=== PATIENT | male | born 1945 | race Caucasian/White ===

== ENCOUNTER → 2018-03-22 14:39 | Outpatient (CLI) | payer MEDICARE, OTHER, SELFPAY ==
[2018-03-22 16:00] LABS: Hemoglobin A1C% w Est Avg Glu 6.4 % (4.0-6.0)
[2018-03-22 16:28] LABS: Alanine Aminotransferase 29 IU/L (21-72); Albumin 4.1 g/dL (3.5-5.0); Albumin Globulin Ratio 1.4 (1.0-2.8); Alkaline Phosphatase 65 U/L (38-126); Aspartate Aminotransferase 16 IU/L (17-59); BUN Creatinine Ratio 48.8 (6-22); Bilirubin Total 0.6 mg/dL (0.2-1.3); Blood Urea Nitrogen 39 mg/dL (9-20); Calcium 9.9 mg/dL (8.4-10.2); Carbon Dioxide 27 mmol/L (22-32); Chloride 102 mmol/L (98-107); Estimated Glomerular Filt Rate > 60.0 mL/min (>60); Globulin 2.9 g/dL (1.7-4.1); Glucose 97 mg/dL (80-110); HEMOLYSIS < 15 (0-50); Potassium 4.7 mmol/L (3.4-5.1); Sodium 142 mmol/L (137-145)
== END ==
PROVIDERS: PCP Internal Medicine; Visit Provider Internal Medicine
DX: E66.01 Morbid (severe) obesity due to excess calories (principal); E11.9 Type 2 diabetes mellitus without complications
CPT/HCPCS: 36415; 80053; 83036

== ENCOUNTER 2018-04-19 14:52 | Inpatient (IN) | payer MEDICARE, OTHER, SELFPAY ==
[2018-04-19] VITALS (17 sets, daily range): BP systolic 112–185; BP diastolic 53–99; PULSE 83–144; RESP 28–42; TEMP 36.8–38.6; O2SAT 93–99; BMI 46.7
--- NOTE | 2018-04-19 | DI.ECHO.S_ITS ---
[facility] +---------+ : : [address] : : : : [address]. : : : : [place], : : : : [place] [address] : : : : Phone: [phone] [id number] Echocardiogram Report + + :Name: AMY MCKOY Study Date: 04/20/2018 Height: 71 in : :[facility] Exam Location: [facility] Weight: 336 lb : : Gender: Male BSA: 2.6 m2 : :: 1945 Age: 72 yrs BP: 130/57 mmHg: :Reason For Study: A fib : :Ordering Physician: Dr. Jara : :Daniel Performed By: Sarahy Velazco : :Referring: ZACHARY JOHNSON : + + Interpretation Summary Extremely difficult exam. Pt unable to cooperate throughout exam and was extremely sensitive to probe pressure. Contrast was used but was not very helpful. 1) Normal left ventricular size with low normal function (EF about 50%). 2) Paradoxical septal motion is consistent with right ventricular volume overload. 2) The right ventricle is not well visualized but it looks grossly enlarged with moderately reduced function 3) No significant valvular abnormalities. 4) The IVC is dilated (diameter is greater than 2.1 cm) and it collapses less than 50% with a sniff. This suggests a high right atrial pressure of 15 mm Hg. 5) No prior Echo available for comparison. Procedure: A two-dimensional transthoracic echocardiogram with color flow and Doppler was performed. The study quality was technically difficult. Comparison is made with the echocardiogram of 02/28/13. The patient was in a tachycardic rhythm during the exam. Left Ventricle: There is mild concentric left ventricular hypertrophy. The left ventricle is normal in size. Left ventricular ejection fraction is estimated to be 50 +/- 5%. Difficult to assess EF due to poor acoustic windows. Paradoxical septal motion is consistent with right ventricular volume overload. Diastolic function could not be accurately assessed due to tachycardia. Right Ventricle: The right ventricle is not well visualized. RV looks grossly enlarged with moderately reduced function. Atria: The left atrium is not well visualized. Right atrium not well visualized. There is no Doppler evidence for an interatrial shunt. Mitral Valve: The mitral valve leaflets appear thickened, but open well. At least trace MR. Aortic Valve: The aortic valve is trileaflet. There is mild aortic valve sclerosis. The aortic valve opens well. There is no aortic valve stenosis. No aortic regurgitation is present. Tricuspid Valve: The tricuspid valve is not well visualized. There is a trace or physiologic amount of tricuspid regurgitation. Pulmonary artery pressures cannot be estimated because of the lack of a measurable TR jet velocity. Pulmonic Valve: The pulmonic valve is not well visualized. There is a trace or physiologic amount of pulmonic regurgitation. Great Vessels: The aortic root is mildly dilated. The ascending aorta is normal in size. The aortic arch could not be visualized. The pulmonary is not well visualized. The IVC is dilated (diameter is greater than 2.1 cm) and it collapses less than 50% with a sniff. This suggests a high right atrial pressure of 15 mm Hg. Pericardium/ Pleura There is a trivial pericardial effusion noted. There is no RA or RV collapse however there is respiratory variation with doppler and a paradoxical septal motion consistent with constriction. There is no pleural effusion. MMode/2D Measurements & Calculations LVIDd: 5.2 cm AoV Openin.9 cm LVIDs: 3.3 cm LVOT diam: 2.1 cm IVSd: 1.0 cm Ao root diam: 4.3 cm LVPWd: 1.2 cm asc Aorta Diam: 3.7 cm LV belle. diameter/BSA (cm/m^2): 2.0 LV sys. diameter/BSA (cm/m^2): 1.3 FS: 35.7 % EPSS: 0.88 cm IVC diam: 3.4 cm Doppler Measurements & Calculations Ao V2 max: 124.2 cm/sec LVOT Max Robby: 62.2 cm/sec Ao V2 mean: 88.4 cm/sec LV V1 max P.5 mmHg Ao V2 VTI: 18.6 cm LV V1 VTI: 8.0 cm Ao max P.2 mmHg Ao mean P.5 mmHg CAREY(I,D): 1.5 cm2 MV E max robby: 96.4 cm/sec CAREY(V,D): 1.7 cm2 Med Peak E' Robby: 8.9 cm/sec CAREY indexed to BSA (cm^2/m^2): 0.57 E/E' med: 10.8 sev ratio: 0.43 Lat Peak E' Robby: 8.6 cm/sec E/E' lat: 11.2 E/e' average: 11.0 PA V2 max: 74.9 cm/sec PA V2 mean: 49.7 cm/sec PA mean P.2 mmHg PA pr(Accel): 45.7 mmHg Reading Physician:11:19 AM
--- NOTE | 2018-04-19 15:06 | DI.RAD.S_ITS ---
PROCEDURE: XR CHEST 1V INDICATIONS: afib TECHNIQUE: One view of the chest was acquired. COMPARISON: None. FINDINGS: Surgical changes and devices: None. Lungs and pleura: No pleural effusions or pneumothorax. Lungs show mild vascular congestion and interstitial prominence, right greater than left. Mediastinum: Mediastinal contours appear normal. Heart size is enlarged. Bones and chest wall: No suspicious bony lesions. Overlying soft tissues appear unremarkable. IMPRESSION: 1. Cardiomegaly with mild congestive failure. Dictated by: Marek Chavez M.D. on 04/19/2018 at 15:29 Approved by: Marek Chavez M.D. on 04/19/2018 at 15:30
[2018-04-19] MEDS: SODIUM CHLORIDE 0.9% 500 ML 1000 ML IV (15:33)
[2018-04-19] MEDS: dilTIAZem 25 MG/5 ML SDV 20 MG IV (15:33)
[2018-04-19 15:41] LABS: Add Manual Diff / Slide Review NO; Basophils Percent Auto 0.3 % (0-2); Hematocrit 33.9 % (41-53); Hemoglobin 11.4 g/dL (13.5-17.5); Lymphocytes Percent Auto 1.5 % (25-40); Mean Corpuscular HGB Conc 33.5 % (30-36); Mean Corpuscular Hemoglobin 30.1 PG (26-34); Monocytes Percent Auto 4.5 % (3-14); Neutrophils Absolute Auto 14200 /uL (3000-5900); Neutrophils Percent Auto 93.7 % (50-75); Platelet Count 180 X10^3/uL (150-400); Red Blood Cell Count 3.77 X10^6/uL (4.5-5.9); Red Cell Distribution Width 15.8 % (11.6-14.8); White Blood Cell Count 15.1 X10^3/uL (4.5-11.0)
[2018-04-19 15:51] LABS: Prothrombin Time 22.6 SECONDS (10.1-12.7)
[2018-04-19 16:01] LABS: D Dimer 4190 ng/mL (<230)
[2018-04-19 16:03] LABS: Lactate (Lactic Acid) 2.9 mmol/L (0.7-2.1)
[2018-04-19 16:04] LABS: HCO3 VBG 30 mmol/L (24-28); PCO2 VBG 43.4 mmHg (45-50); PO2 VBG 17 mmHg (35-45); Total CO2 VBG 31 mmol/L (24-29); pH VBG 7.45 (7.31-7.41)
[2018-04-19 16:05] LABS: Alanine Aminotransferase 45 IU/L (21-72); Albumin 4.3 g/dL (3.5-5.0); Albumin Globulin Ratio 1.4 (1.0-2.8); Alkaline Phosphatase 45 U/L (38-126); Aspartate Aminotransferase 165 IU/L (17-59); BUN Creatinine Ratio 30.8 (6-22); Bilirubin Total 1.4 mg/dL (0.2-1.3); Blood Urea Nitrogen 37 mg/dL (9-20); Calcium 9.4 mg/dL (8.4-10.2); Carbon Dioxide 29 mmol/L (22-32); Chloride 94 mmol/L (98-107); Estimated Glomerular Filt Rate 59.9 mL/min (>60); Globulin 3.1 g/dL (1.7-4.1); Glucose 253 mg/dL (80-110); HEMOLYSIS < 15 (0-50); Potassium 3.9 mmol/L (3.4-5.1); Sodium 135 mmol/L (137-145); Total Protein 7.4 g/dL (6.3-8.2)
[2018-04-19 16:05] LABS: Oxygen Saturation VBG 27 % (70-75)
[2018-04-19 16:07] LABS: Bacteria Urine None Seen; WBC Urine None Seen (0-5/HPF)
[2018-04-19 16:09] LABS: Appearance Urine UA CLOUDY; Bilirubin Urine UA NEGATIVE (NEGATIVE); Color Urine UA YELLOW; Glucose Urine UA NEGATIVE (Normal); Ketones Urine UA TRACE (NEGATIVE); Leukocyte Esterase Urine UA NEGATIVE (NEGATIVE); Nitrite Urine UA Negative (Negative); Occult Blood Urine UA 3+ (Negative); Protein Urine UA 3+ (Negative); Urobilinogen Urine UA 0.2 E.U./dL (0.2)
[2018-04-19 16:16] LABS: Troponin I 0.107 ng/mL (0.01-0.034)
[2018-04-19] MEDS: PIPERACILLIN-TAZO 4.5 GM/100 ML FROZ.PIGGY IV ×2 (16:16→23:42)
[2018-04-19] MEDS: VANCOMYCIN 2,000 MG in SODIUM CHLORIDE 0.9% 500 ML 250 ML IV (16:17)
[2018-04-19] MEDS: SODIUM CHLORIDE 0.9% 1,000 ML 1000 ML IV (16:17)
[2018-04-19 16:25] LABS: Granular Casts Urine 1-5/LPF; RBC Urine 10-30/HPF (0-5/HPF)
[2018-04-19 16:26] LABS: Culture Indicated Urine Cult Not Indicated
[2018-04-19 16:30] LABS: Procalcitonin 19.55 ng/mL (<0.5)
[2018-04-19] MEDS: SODIUM CHLORIDE 0.9% 750 ML 1000 ML IV (17:00)
--- NOTE | 2018-04-19 17:07 | ED.SOB ---
HPI - SOB/Dyspnea General Chief Complaint: Shortness of Breath/Dyspnea Stated Complaint: SOB/WEAKNESS Time Seen by Provider: 04/19/18 14:57 History of Present Illness HPI 72-year-old morbidly obese diabetic male with CHF presents febrile and with confusion for evaluation of weakness of uncertain duration. Patient states that is been unable to reliably get off the toilet for the last 2 weeks, notes that he was worse today. Patient denies further symptoms appeared confused. M/S/F/SocHx notable for: please see HPI; remainder reviewed with patient and in chart. ROS: unable to accurately obtain secondary to the patient's mentation Exam Gen: unwell, pleasant, in mild to moderate respiratory distress. HEENT: NC, AT, PEERL, EOMI, neck supple. Resp: Clear to auscultation bilaterally, normal work of breathing, no accessory muscle usage. Card: Regular rate and rhythm with no murmurs, rubs, or gallops, extremities warm and well perfused. GI: Non-tender to palpation throughout all quadrants, no focal tenderness at McBurney's point, negative Love's sign, non-distended, no rebound or guarding. : No suprapubic tenderness to palpation. MSK: No visible deformities, strength and tone without visually appreciable deficit. Skin: right lower extremity with erythema, warmth, mild swelling over the mid [place], no further lesions appreciated. Neuro: AOx3, no facial asymmetry, vision and hearing WNL. Mild confusion slowing but otherwise oriented. Psych: Mood and affect appropriate. Labs / Imaging (pertinent): WBC 15.1, Hb 11.4, PLT 180, PT/INR 2.0, Na 135, K 3.9, Bilirubin 1.4, Lactate 2.9, troponin 0.107, Pro calcitonin 19.55, TSH pending, free T4 pending, d-dimer 4190. VBG - pH 7.45, PCO2 43.4, bicarb 30, SaO2 27. UA: negative bacteria, negative nitrites, negative leukocyte esterase. CXR: cardiomegaly with mild congestive failure. EKG: atrial fibrillation with ventricular rate of 143 bpm, nonspecific ST segment changes. MDM Previous chart, nursing note, labs, imaging, and vitals reviewed. A: 72-year-old morbidly obese diabetic male with CHF presents febrile and with confusion for evaluation of weakness of uncertain duration.. Evaluation: Patient meets CMS sepsis screening guidelines (temperature, heart rate, respiratory rate), source as below. Infectious Source: * Pulmonary: No focal infiltrate on imaging. The absence of significant hypoxemia, tachypnea, or further corroborating symptoms strongly suggests against pneumonia. * Urine: UA noninfectious. * Skin: right lower extremity with clinically apparent cellulitis, this is tentatively the suspected source of the patient's infection. * ASSEMBLER TYPE BAR AND SEGMENT: Doubt given the lack of meningismus, petechia, and the overall clinical presentation. * Abdomen: Doubt given the non-tender abdomen and an alternate source. * Spine: Given the absence of back pain and an alternate source further investigation for possible epidural abscess, spinal osteomyelitis, or discitis are not currently warranted. * Lines: Patient without indwelling lines/ports. Management: * Blood cultures, 1.5 L L NS fluid bolus, and vancomycin and Zosyn ordered with the initial evaluation. Patient is estimated 5'10 tall (178 cm), as such a reasonable initial fluid bolus is 2.196 L (0.030 L/kg * 73.2 kg IBW), a further 750 mL normal saline was ordered. * With fluid resuscitation patient was given diltiazem, this led to a reduction in his A. fib with RVR, perfusion remained adequate throughout. * Note was made the patient's elevated d-dimer, as is febrile, and leukocytosis, and an elevated procalcitonin, d-dimer is felt to be most likely due to sepsis rather than a PE, further evaluation is deferred to the accepting physician as appropriate. * Troponin elevation, currently believed to be demand mediated. Disposition: Admitted to ICU. Impression: sepsis (please reference below for remainder of encounter information) Critical Care Time Organ system(s): Cardiopulmonary, vascular, ASSEMBLER TYPE BAR AND SEGMENT, Renal Intervention: Assessment of the patient, interpretation of studies, communication related to patient care. Time: 30 minutes were spent directly related to patient care exclusive of separately billed procedures The patient is also without evidence of pancreatitis (lipase within clinically acceptable limits), adrenal insufficiency is tentatively considered unlikely as there is no evidence of chronic steroid use, no known adrenal insufficiency and the patient has been without refractory hypotension. Thyroid disease was considered, given the absence of known thyroid disease or goiter on exam, and a tentatively explaining etiology for the patient?s presentation further investigation is not currently indicated. Ingestion/OD are felt to be unlikely given history, absence of significant mydriasis, and lack of appreciated clonus or hyperreflexia, as well as an alternate explaining etiology.The possibility of alcohol, benzodiazepine, opiate withdrawal were considered and while history is limited at this point these do not appear to be contributing. Related Data Home Medications Medication Instructions Recorded Confirmed aspirin 162 mg PO QDAY #0 11/06/12 04/19/18 melatonin 2 mg PO HS #0 11/06/12 04/19/18 Previous Rx's Medication Instructions Recorded gabapentin [Neurontin] 600 mg PO HS #90 tab 07/01/17 felodipine 1.25 mg PO QDAY #45 tab 08/31/17 finasteride 5 mg PO QDAY #90 tab 08/31/17 lisinopril 40 mg PO BID #180 tab 10/19/17 carvedilol [Coreg] 12.5 mg PO BID #180 tab 10/21/17 rosuvastatin [Crestor] 10 mg PO QDAY #90 tab 11/05/17 doxazosin 4 mg PO HS #90 tab 12/29/17 furosemide 40 mg PO BID #360 tab 01/18/18 pioglitazone [Actos] 30 mg PO QDAY #90 tab 02/01/18 glimepiride [Amaryl] 4 mg PO BIDCC #180 tab 02/02/18 metformin [Glucophage] 1,000 mg PO BIDCC #180 tab 03/11/18 meloxicam 7.5 mg tablet 7.5 mg PO DAILY PRN #60 tab 03/30/18 tramadol 50 mg tablet 50 mg PO Q8HP PRN #90 tab 04/15/18 Allergies Allergy/AdvReac Type Severity Reaction Status Date / Time atorvastatin [ATORVASTATIN] Allergy Mild flu like Verified 03/30/18 13:28 (LIPITOR) codeine [CODEINE] Allergy Mild Verified 03/30/18 13:28 PFSH Social History marital status: number of children: 0 household members: spouse lives independently: Yes caregiver/support person: No housing: house pets and animals: Yes education level: college (4 years) occupational status: other (Retired.) 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 leisure activities: exercise (Walking the dogs.) and other (Gardening.) Smoking Status: Never smoker Tobacco: How many years used: 0 quit status: quit date established (Never Started) second hand exposure: Yes (None over the last 30 years) alcohol intake: never substance use type: does not use Exam Initial Vital Signs Initial Vital Signs: Vital Signs Temperature 98.2 F 04/19/18 14:50 Pulse Rate 144 H 04/19/18 14:50 Respiratory Rate 28 H 04/19/18 14:50 Blood Pressure 125/99 H 04/19/18 14:50 Pulse Oximetry 93 04/19/18 14:50 Course Orders Ordered: ED Orders 04/19/18 15:06 XR chest 1V Stat 04/19/18 15:26 Complete Blood Count AUTO DIFF Stat Comprehensive Metabolic Panel Stat D Dimer Stat Lactate (Lactic Acid) Stat Magnesium Stat Procalcitonin Stat Prothrombin Time INR Stat Troponin I Stat 04/19/18 15:39 VBG [Venous Blood Gas] Stat 04/19/18 15:55 Urinalysis and Microscopic Stat 04/19/18 16:21 Blood Culture Stat Free T4 Free Thyroxine Stat Thyroid Stimulating Hormone Stat Sodium Chloride (Normal Saline 0.9%) 750 mls @ 1,000 mls/hr IV BOLUS ONE Stop: 04/19/18 17:38 Discontinued Medications Diltiazem HCl (Cardizem) 20 mg IV NOW ONE Stop: 04/19/18 15:06 Last Admin: 04/19/18 15:33 Dose: 20 mg Sodium Chloride (Normal Saline 0.9%) 500 mls @ 1,000 mls/hr IV BOLUS ONE Stop: 04/19/18 15:34 Last Infusion: 04/19/18 16:54 Dose: 0 mls/hr Admin: 04/19/18 15:33 Dose: 1,000 mls/hr Piperacillin/Tazobactam/Dextrose (Zosyn) 4.5 gm in 100 mls @ 200 mls/hr IV NOW ONE Stop: 04/19/18 16:08 Last Infusion: 04/19/18 16:54 Dose: 0 mls/hr Admin: 04/19/18 16:16 Dose: 200 mls/hr Sodium Chloride (Normal Saline 0.9%) 1,000 mls @ 1,000 mls/hr IV BOLUS ONE Stop: 04/19/18 16:38 Last Admin: 04/19/18 16:17 Dose: 1,000 mls/hr Vancomycin HCl 2,000 mg/ (Sodium Chloride) 500 mls @ 250 mls/hr IV NOW ONE Stop: 04/19/18 15:40 Last Admin: 04/19/18 16:17 Dose: 250 mls/hr Vital Signs - 8 hr 04/19/18 14:50 04/19/18 15:33 04/19/18 15:34 Temperature 98.2 F Pulse Rate 144 H 122 H 110 H Respiratory Rate 28 H 30 H Blood Pressure 125/99 H 185/84 H Blood Pressure [Left Arm] 155/75 H Pulse Oximetry 93 98 04/19/18 15:37 04/19/18 15:52 04/19/18 16:49 Temperature 101.5 F H Pulse Rate 110 H 114 H Respiratory Rate 37 H 28 H Blood Pressure Blood Pressure [Left Arm] 185/84 H Pulse Oximetry 97 99 MDM - SOB/Dyspnea Lab Data Result diagrams: 04/19/18 15:26 04/19/18 15:26 Lab Results 04/19/18 04/19/18 04/19/18 Range/Units 15:26 15:26 15:26 WBC 15.1 H (4.5-11.0) X10^3/uL RBC 3.77 L (4.5-5.9) X10^6/uL Hgb 11.4 L (13.5-17.5) g/dL Hct 33.9 L (41-53) % MCV 90.0 (80-100) fL MCH 30.1 (26-34) PG MCHC 33.5 (30-36) % RDW 15.8 H (11.6-14.8) % Plt Count 180 (150-400) X10^3/uL Neut % (Auto) 93.7 H (50-75) % Lymph % (Auto) 1.5 L (25-40) % [place] % (Auto) 4.5 (3-14) % Eos % (Auto) 0.0 L (2-4) % Baso % (Auto) 0.3 (0-2) % Neut # (Auto) 09957 H (1594-3888) /uL PT 22.6 H (10.1-12.7) SECONDS INR 2.0 H (0.9-1.3) D-Dimer 4190 H (<230) ng/mL VBG pH (7.31-7.41) VBG pCO2 (45-50) mmHg VBG pO2 (35-45) mmHg VBG HCO3 (24-28) mmol/L VBG Total CO2 (24-29) mmol/L VBG O2 Saturation (70-75) % VBG Base Excess (0-4) mmol/L Sodium 135 L (137-145) mmol/L Potassium 3.9 (3.4-5.1) mmol/L Chloride 94 L (98-107) mmol/L Carbon Dioxide 29 (22-32) mmol/L BUN 37 H (9-20) mg/dL Creatinine 1.20 (0.66-1.25) mg/dL Estimated GFR 59.9 L (>60) mL/min BUN/Creatinine Ratio 30.8 H (6-22) Glucose 253 H (80-110) mg/dL Lactate (0.7-2.1) mmol/L Calcium 9.4 (8.4-10.2) mg/dL Magnesium 2.0 (1.6-2.3) mg/dL Total Bilirubin 1.4 H (0.2-1.3) mg/dL AST 165 H (17-59) IU/L ALT 45 (21-72) IU/L Alkaline Phosphatase 45 (38-126) U/L Troponin I 0.107 H (0.01-0.034) ng/mL Total Protein 7.4 (6.3-8.2) g/dL Albumin 4.3 (3.5-5.0) g/dL Globulin 3.1 (1.7-4.1) g/dL Albumin/Globulin Ratio 1.4 (1.0-2.8) Procalcitonin (<0.5) ng/mL Urine Color Urine Appearance Urine pH (4.5-8.0) Ur Specific [place] (1.000-1.035) Urine Protein (Negative) Urine Glucose (UA) (Normal) g/dL Urine Ketones (NEGATIVE) Urine Occult Blood (Negative) Urine Nitrate (Negative) Urine Bilirubin (NEGATIVE) Urine Urobilinogen (0.2) E.U./dL Ur Leukocyte Esterase (NEGATIVE) Urine RBC (0-5/HPF) Urine WBC (0-5/HPF) Urine Bacteria (None) Granular Casts (None) Ur Culture Indicated? Micro UA Comment 04/19/18 04/19/18 04/19/18 Range/Units 15:26 15:26 15:39 WBC (4.5-11.0) X10^3/uL RBC (4.5-5.9) X10^6/uL Hgb (13.5-17.5) g/dL Hct (41-53) % MCV (80-100) fL MCH (26-34) PG MCHC (30-36) % RDW (11.6-14.8) % Plt Count (150-400) X10^3/uL Neut % (Auto) (50-75) % Lymph % (Auto) (25-40) % [place] % (Auto) (3-14) % Eos % (Auto) (2-4) % Baso % (Auto) (0-2) % Neut # (Auto) (7067-5052) /uL PT (10.1-12.7) SECONDS INR (0.9-1.3) D-Dimer (<230) ng/mL VBG pH 7.45 H (7.31-7.41) VBG pCO2 43.4 L (45-50) mmHg VBG pO2 17 L (35-45) mmHg VBG HCO3 30 H (24-28) mmol/L VBG Total CO2 31 H (24-29) mmol/L VBG O2 Saturation 27 L (70-75) % VBG Base Excess 6.0 H (0-4) mmol/L Sodium (137-145) mmol/L Potassium (3.4-5.1) mmol/L Chloride (98-107) mmol/L Carbon Dioxide (22-32) mmol/L BUN (9-20) mg/dL Creatinine (0.66-1.25) mg/dL Estimated GFR (>60) mL/min BUN/Creatinine Ratio (6-22) Glucose (80-110) mg/dL Lactate 2.9 H (0.7-2.1) mmol/L Calcium (8.4-10.2) mg/dL Magnesium (1.6-2.3) mg/dL Total Bilirubin (0.2-1.3) mg/dL AST (17-59) IU/L ALT (21-72) IU/L Alkaline Phosphatase (38-126) U/L Troponin I (0.01-0.034) ng/mL Total Protein (6.3-8.2) g/dL Albumin (3.5-5.0) g/dL Globulin (1.7-4.1) g/dL Albumin/Globulin Ratio (1.0-2.8) Procalcitonin 19.55 H (<0.5) ng/mL Urine Color Urine Appearance Urine pH (4.5-8.0) Ur Specific [place] (1.000-1.035) Urine Protein (Negative) Urine Glucose (UA) (Normal) g/dL Urine Ketones (NEGATIVE) Urine Occult Blood (Negative) Urine Nitrate (Negative) Urine Bilirubin (NEGATIVE) Urine Urobilinogen (0.2) E.U./dL Ur Leukocyte Esterase (NEGATIVE) Urine RBC (0-5/HPF) Urine WBC (0-5/HPF) Urine Bacteria (None) Granular Casts (None) Ur Culture Indicated? Micro UA Comment 04/19/18 Range/Units 15:55 WBC (4.5-11.0) X10^3/uL RBC (4.5-5.9) X10^6/uL Hgb (13.5-17.5) g/dL Hct (41-53) % MCV (80-100) fL MCH (26-34) PG MCHC (30-36) % RDW (11.6-14.8) % Plt Count (150-400) X10^3/uL Neut % (Auto) (50-75) % Lymph % (Auto) (25-40) % [place] % (Auto) (3-14) % Eos % (Auto) (2-4) % Baso % (Auto) (0-2) % Neut # (Auto) (6762-9331) /uL PT (10.1-12.7) SECONDS INR (0.9-1.3) D-Dimer (<230) ng/mL VBG pH (7.31-7.41) VBG pCO2 (45-50) mmHg VBG pO2 (35-45) mmHg VBG HCO3 (24-28) mmol/L VBG Total CO2 (24-29) mmol/L VBG O2 Saturation (70-75) % VBG Base Excess (0-4) mmol/L Sodium (137-145) mmol/L Potassium (3.4-5.1) mmol/L Chloride (98-107) mmol/L Carbon Dioxide (22-32) mmol/L BUN (9-20) mg/dL Creatinine (0.66-1.25) mg/dL Estimated GFR (>60) mL/min BUN/Creatinine Ratio (6-22) Glucose (80-110) mg/dL Lactate (0.7-2.1) mmol/L Calcium (8.4-10.2) mg/dL Magnesium (1.6-2.3) mg/dL Total Bilirubin (0.2-1.3) mg/dL AST (17-59) IU/L ALT (21-72) IU/L Alkaline Phosphatase (38-126) U/L Troponin I (0.01-0.034) ng/mL Total Protein (6.3-8.2) g/dL Albumin (3.5-5.0) g/dL Globulin (1.7-4.1) g/dL Albumin/Globulin Ratio (1.0-2.8) Procalcitonin (<0.5) ng/mL Urine Color Yellow Urine Appearance Cloudy Urine pH 5.0 (4.5-8.0) Ur Specific [place] 1.020 (1.000-1.035) Urine Protein 3+ H (Negative) Urine Glucose (UA) Negative (Normal) g/dL Urine Ketones Trace H (NEGATIVE) Urine Occult Blood 3+ H (Negative) Urine Nitrate Negative (Negative) Urine Bilirubin Negative (NEGATIVE) Urine Urobilinogen 0.2 (0.2) E.U./dL Ur Leukocyte Esterase Negative (NEGATIVE) Urine RBC 10-30/hpf H (0-5/HPF) Urine WBC None seen (0-5/HPF) Urine Bacteria None seen (None) Granular Casts 1-5/lpf (None) Ur Culture Indicated? Cult not indicated Micro UA Comment Not Reportable Discharge Plan Departure Patient Disposition: Admitted As Inpatient Clinical Impression: Sepsis
[2018-04-19 17:19] LABS: Free T4, Direct Thyroxine 1.31 ng/dL (0.78-2.19)
[2018-04-19 17:34] LABS: Thyroid Stimulating Hormone 0.93 uIU/mL (0.47-4.68)
[2018-04-19] MEDS: dilTIAZem 125 MG in DEXTROSE 5 % IN WATER 100 ML IV (18:59)
[2018-04-19] MEDS: SODIUM CHLORIDE 0.9% 1,000 ML 150 ML IV ×2 (19:00→23:45)
[2018-04-19 19:33] LABS: Fractionated Inspired Oxygen 0.44; HCO3 ABG 22 mmol/L (23-27); Oxygen Saturation ABG 96 % (95-100); PCO2 ABG 40.1 mmHg (35-45); PO2 ABG 89 mmHg (80-105); TCO2 ABG 23 mmol/L (23-27); pH ABG 7.35 (7.35-7.45)
[2018-04-19 19:38] LABS: Reflexed Lactate in 2 Hours Y
--- NOTE | 2018-04-19 19:39 | PC.NURSE ---
Responded to staff assist request in ICU. Found pt to be increased short of breath, increased work of breathing, increased tachycardia, decreased mental status. Discussed w/ Dr. Sanchez who gave orders for chest ct / pe & non cardiac protocol heparin. Discussed dosing w/ pharmacy. Dr. Owen in ED aware of pt decline.
[2018-04-19] MEDS: HEPARIN 5,000 UNIT/ML VIAL 12200 UNIT IV (19:45)
[2018-04-19] MEDS: HEPARIN DRIP 25,000 UNIT/500 ML IV.SOLN 40 UNIT IV (19:46)
[2018-04-19 19:57] LABS: Add Manual Diff / Slide Review NO; Basophils Percent Auto 0.1 % (0-2); Hematocrit 34.2 % (41-53); Hemoglobin 11.3 g/dL (13.5-17.5); Lymphocytes Percent Auto 1.5 % (25-40); Mean Corpuscular Hemoglobin 30.1 PG (26-34); Monocytes Percent Auto 2.5 % (3-14); Neutrophils Absolute Auto 11800 /uL (3000-5900); Neutrophils Percent Auto 95.9 % (50-75); Platelet Count 160 X10^3/uL (150-400); Red Blood Cell Count 3.76 X10^6/uL (4.5-5.9); Red Cell Distribution Width 15.6 % (11.6-14.8); White Blood Cell Count 12.3 X10^3/uL (4.5-11.0)
[2018-04-19 19:58] LABS: PTT Partial Thromboplastin Tim 33 SECONDS (26.4-36.2)
[2018-04-19 20:07] LABS: Alanine Aminotransferase 56 IU/L (21-72); Albumin Globulin Ratio 1.3 (1.0-2.8); Alkaline Phosphatase 44 U/L (38-126); Aspartate Aminotransferase 174 IU/L (17-59); BUN Creatinine Ratio 31.8 (6-22); Bilirubin Total 1.6 mg/dL (0.2-1.3); Blood Urea Nitrogen 35 mg/dL (9-20); Calcium 8.8 mg/dL (8.4-10.2); Carbon Dioxide 26 mmol/L (22-32); Chloride 98 mmol/L (98-107); Estimated Glomerular Filt Rate > 60.0 mL/min (>60); Glucose 239 mg/dL (80-110); HEMOLYSIS 30 (0-50); Lactate 2HR (Lactic Acid Rflx) 2.1 mmol/L (0.7-2.1); Potassium 4.3 mmol/L (3.4-5.1); Sodium 137 mmol/L (137-145)
[2018-04-19] MEDS: DIGOXIN 500 MCG/2 ML AMPUL IV (20:31)
[2018-04-19 21:19] LABS: Troponin I 0.119 ng/mL (0.01-0.034)
--- NOTE | 2018-04-19 22:27 | P.HP_ITS ---
History of Present Illness Date Patient Seen: 04/19/18 Time Patient Seen: 17:52 Chief complaint: SOB/WEAKNESS. Time several days. Narrative: history is by the patient as well as by the . Patient relates she has been feeling poorly about the last 2 weeks however. Still able to do most of a stuffy needs to do outside of his house. Two days ago he began the feels short of breath and this seemed to progress over the next 2 days. No fever he is aware of no cough no chest pain no mucus production this shortness of breath. Initially patient relates he is off time short of breath because of huge abdomen causing difficulty with taking deep breath he has been sleeping in a easy chair at home for the last 30 years or less. He has not required supplemental oxygen. relates however that his difficulty breathing his much worse last 2 days He denies any chest pain no palpitations no dizziness. He has noticed that his legs have been sore from working some edema right leg much more than left he has also noticed some right leg pain Came to the ER today because feeling weak and short of breath Initial evaluation in the emergency room felt he will had atrial fibrillation which is a new diagnosis. Additionally signs and symptoms of sepsis. He was treated with Diagnosis sepsis presumed cellulitis right calf as well as new onset atrial fibrillation The patient was given IV vancomycin and Zosyn for the sepsis as well as IV fluids. Additionally was given 20 mg of Iv Cardizem with minimal swelling of his atrial fibrillation Patient main complaint is shortness of breath Initially I saw him at approximately 5:30 p.m. emergency room. He was have an more difficulties later and I returned is examined patient at approximately 7: 45 p.m.. Patient History Medical History Type 2 diabetes mellitus without complication (Chronic 10/25/15) Cardiomyopathy (Chronic 04/21/13) Essential hypertension (Chronic 10/10/11) Mixed hyperlipidemia (Chronic 10/25/15) Morbid obesity due to excess calories (Chronic 02/17/17) Edema (Chronic) Body mass index (BMI) of 45.0 to 49.9 in adult (Chronic 02/17/17) Gynecomastia (Chronic 03/30/17) Benign localized prostatic hyperplasia with lower urinary tract symptoms (LUTS) (Chronic 12/29/17) Type 2 diabetes mellitus with hyperglycemia (Chronic 10/10/11) Family & Social History Family History: Reviewed 04/19/18 by Marek Sanchez MD Social History: household members spouse Prior Living Arrangements House lives independently Yes caregiver/support person No Safety & Behavioral: Feels Safe in Current Yes Environment Been Physically Hurt or No Threatened By a Person Suicidal Ideation Description None Tobacco & Substance use: Smoking Status Never smoker alcohol intake never alcohol intake frequency a few times a month Substance Use Type does not use Meds Home Medications Medication Instructions Recorded Confirmed Type aspirin 162 mg PO QDAY #0 11/06/12 04/19/18 History melatonin 2 mg PO HS #0 11/06/12 04/19/18 History gabapentin [Neurontin] 600 mg PO HS #90 tab 07/01/17 04/19/18 Rx felodipine 1.25 mg PO QDAY #45 tab 08/31/17 04/19/18 Rx finasteride 5 mg PO QDAY #90 tab 08/31/17 04/19/18 Rx lisinopril 40 mg PO BID #180 tab 10/19/17 04/19/18 Rx carvedilol [Coreg] 12.5 mg PO BID #180 tab 10/21/17 04/19/18 Rx rosuvastatin [Crestor] 10 mg PO QDAY #90 tab 11/05/17 04/19/18 Rx doxazosin 4 mg PO HS #90 tab 12/29/17 04/19/18 Rx furosemide 40 mg PO BID #360 tab 01/18/18 04/19/18 Rx pioglitazone [Actos] 30 mg PO QDAY #90 tab 02/01/18 04/19/18 Rx glimepiride [Amaryl] 4 mg PO BIDCC #180 tab 02/02/18 04/19/18 Rx metformin [Glucophage] 1,000 mg PO BIDCC #180 tab 03/11/18 04/19/18 Rx meloxicam 7.5 mg tablet 7.5 mg PO DAILY PRN #60 tab 03/30/18 04/19/18 Rx tramadol 50 mg tablet 50 mg PO Q8HP PRN #90 tab 04/15/18 04/19/18 Rx Allergies Allergy/AdvReac Type Severity Reaction Status Date / Time atorvastatin [ATORVASTATIN] Allergy Mild flu like Verified 03/30/18 13:28 (LIPITOR) codeine [CODEINE] Allergy Mild Verified 03/30/18 13:28 Review of Systems Review of Systems All systems reviewed & are unremarkable except as noted in HPI and below Exam Vital Signs (past 8 hours): - 04/19/18 14:50 04/19/18 15:33 04/19/18 15:34 Temperature 98.2 F Pulse Rate 144 H 122 H 110 H Respiratory Rate 28 H 30 H Blood Pressure 125/99 H 185/84 H Blood Pressure [Left Arm] 155/75 H Pulse Oximetry 93 98 04/19/18 15:37 04/19/18 15:52 04/19/18 16:49 Temperature 101.5 F H Pulse Rate 110 H 114 H Respiratory Rate 37 H 28 H Blood Pressure Blood Pressure [Left Arm] 185/84 H Pulse Oximetry 97 99 04/19/18 17:50 04/19/18 18:59 04/19/18 20:31 Temperature Pulse Rate 83 109 H 121 H Respiratory Rate 28 H Blood Pressure 147/65 H Blood Pressure [Left Arm] 164/53 H Pulse Oximetry Oxygen Delivery Method Room Air Oxygen Flow Rate 2 Const General: cooperative, acute distress, anxious, combative, diaphoretic and ill appearing Nutritional Appearance: obese and edematous Orientation: awake, oriented to person, oriented to place and confused Limitations: altered mental status HENMT Nose: nares normal Face and sinus: normal facial exam Mouth: oral mucosae normal Eyes General: appearance normal, both eyes and all related structures Alignment and Position: alignment normal Eyelids: eyelids normal Conjunctivae: conjunctivae normal Sclera: sclerae normal Cornea: corneas normal Pupils: PERRL EOM: EOM intact bilaterally Neck Neck: normal visual inspection, full ROM, no meningeal signs and trachea midline Thyroid: thyroid normal Carotids: normal carotid upstroke Chest Chest: normal inspection of the chest and normal palpation of entire chest wall Breast inspection: normal inspection of the breasts Resp Effort & Inspection: abnormal respiratory pattern, grunting, labored, paradoxical thoraco-abdominal movements, respiratory distress, tachypneic and symmetric chest movement Auscultation: clear to auscultation bilaterally and diminished lung sounds Percussion: percussion normal Cardio Palpation: normal PMI Rate: tachycardic Rhythm: abnormal rhythm Heart Sounds: S1 normal and S2 normal Pulses: other Other: Unable to feel peripheral pulses due to edema of lower extremity GI Inspection: distended, large pannus and obesity Palpation: soft and no hepatosplenomegaly Percussion: normal to percussion Auscultation: normal bowel sounds Meatus: meatus normal Scrotum: scrotum normal Testes: normal Other: insertion of Hooper produce blood tends urine bloody urine has persisted apparently has a history of hematuria as per prior chart Back/Spine/Pelvis Back: normal to inspection Cervical Spine: normal cervical lordosis Thoracic/Lumbar Spine: thoracic and lumbar spine normal to inspection Sacroiliac Joints: nontender Skin General: dry skin, erythema ( redness of the right leg irregular border probably from the mid calf down to his ankle) and lichenification Rashes: rashes noted Hair: normal Nails: yellow and thickened Neuro General: awake, moves all extremities, normal light touch, pain and propioception, no meningeal signs, no focal motor deficits, CN's II-XI intact bilaterally and other ( at times became somewhat agitated and demanding. Uncooperative at times. These mental status changes were intermittent and temporary) Cranial Nerves: CN's II-XI intact bilaterally, EOM intact bilaterally and tongue midline Cognition: normal cognition Speech: speech normal Gait: other ( not tested) Motor: muscle tone normal throughout Sensory Exam: no sensory deficits noted Extrem General: calf tenderness ( right calf), edema ( bilateral lower extremity edema 1+ on the left 3+ on the right) and pedal edema Right upper extremity: normal to inspection Left upper extremity: normal to inspection Right lower extremity: edema Details: pitting and 3+ Left lower extremity: edema Details: pitting, 1+ and 3+ Psych Appearance: disheveled Mental Status: mental status grossly normal Speech and Movement: agitated and speech clear Affect: irritable affect Attitude: cooperative Thought Process: normal Thought Content: normal Judgment: limited Objective Labs Result Diagrams: 04/19/18 19:45 04/19/18 19:45 Labs: Laboratory Results - last 24 hr 04/19/18 04/19/18 04/19/18 15:26 15:26 15:26 WBC 15.1 H RBC 3.77 L Hgb 11.4 L Hct 33.9 L MCV 90.0 MCH 30.1 MCHC 33.5 RDW 15.8 H Plt Count 180 Neut % (Auto) 93.7 H Lymph % (Auto) 1.5 L [place] % (Auto) 4.5 Eos % (Auto) 0.0 L Baso % (Auto) 0.3 Neut # (Auto) 01758 H PT 22.6 H INR 2.0 H APTT D-Dimer 4190 H ABG pH ABG pCO2 ABG pO2 ABG HCO3 ABG Total CO2 ABG O2 Saturation ABG Base Excess VBG pH VBG pCO2 VBG pO2 VBG HCO3 VBG Total CO2 VBG O2 Saturation VBG Base Excess FiO2 Sodium 135 L Potassium 3.9 Chloride 94 L Carbon Dioxide 29 BUN 37 H Creatinine 1.20 Estimated GFR 59.9 L BUN/Creatinine Ratio 30.8 H Glucose 253 H Lactate Calcium 9.4 Magnesium 2.0 Total Bilirubin 1.4 H AST 165 H ALT 45 Alkaline Phosphatase 45 Troponin I 0.107 H Total Protein 7.4 Albumin 4.3 Globulin 3.1 Albumin/Globulin Ratio 1.4 Procalcitonin TSH Free T4 Urine Color Urine Appearance Urine pH Ur Specific [place] Urine Protein Urine Glucose (UA) Urine Ketones Urine Occult Blood Urine Nitrate Urine Bilirubin Urine Urobilinogen Ur Leukocyte Esterase Urine RBC Urine WBC Urine Bacteria Granular Casts Ur Culture Indicated? Micro UA Comment 04/19/18 04/19/18 04/19/18 15:26 15:26 15:39 WBC RBC Hgb Hct MCV MCH MCHC RDW Plt Count Neut % (Auto) Lymph % (Auto) [place] % (Auto) Eos % (Auto) Baso % (Auto) Neut # (Auto) PT INR APTT D-Dimer ABG pH ABG pCO2 ABG pO2 ABG HCO3 ABG Total CO2 ABG O2 Saturation ABG Base Excess VBG pH 7.45 H VBG pCO2 43.4 L VBG pO2 17 L VBG HCO3 30 H VBG Total CO2 31 H VBG O2 Saturation 27 L VBG Base Excess 6.0 H FiO2 Sodium Potassium Chloride Carbon Dioxide BUN Creatinine Estimated GFR BUN/Creatinine Ratio Glucose Lactate 2.9 H Calcium Magnesium Total Bilirubin AST ALT Alkaline Phosphatase Troponin I Total Protein Albumin Globulin Albumin/Globulin Ratio Procalcitonin 19.55 H TSH Free T4 Urine Color Urine Appearance Urine pH Ur Specific [place] Urine Protein Urine Glucose (UA) Urine Ketones Urine Occult Blood Urine Nitrate Urine Bilirubin Urine Urobilinogen Ur Leukocyte Esterase Urine RBC Urine WBC Urine Bacteria Granular Casts Ur Culture Indicated? Micro UA Comment 04/19/18 04/19/18 04/19/18 15:55 16:21 19:22 WBC RBC Hgb Hct MCV MCH MCHC RDW Plt Count Neut % (Auto) Lymph % (Auto) [place] % (Auto) Eos % (Auto) Baso % (Auto) Neut # (Auto) PT INR APTT D-Dimer ABG pH 7.35 ABG pCO2 40.1 ABG pO2 89 ABG HCO3 22 L ABG Total CO2 23 ABG O2 Saturation 96 ABG Base Excess -4.0 L VBG pH VBG pCO2 VBG pO2 VBG HCO3 VBG Total CO2 VBG O2 Saturation VBG Base Excess FiO2 0.44 Sodium Potassium Chloride Carbon Dioxide BUN Creatinine Estimated GFR BUN/Creatinine Ratio Glucose Lactate Calcium Magnesium Total Bilirubin AST ALT Alkaline Phosphatase Troponin I Total Protein Albumin Globulin Albumin/Globulin Ratio Procalcitonin TSH 0.93 Free T4 1.31 Urine Color Yellow Urine Appearance Cloudy Urine pH 5.0 Ur Specific [place] 1.020 Urine Protein 3+ H Urine Glucose (UA) Negative Urine Ketones Trace H Urine Occult Blood 3+ H Urine Nitrate Negative Urine Bilirubin Negative Urine Urobilinogen 0.2 Ur Leukocyte Esterase Negative Urine RBC 10-30/hpf H Urine WBC None seen Urine Bacteria None seen Granular Casts 1-5/lpf Ur Culture Indicated? Cult not indicated Micro UA Comment Not Reportable 04/19/18 04/19/18 04/19/18 19:29 19:45 19:45 WBC 12.3 H RBC 3.76 L Hgb 11.3 L Hct 34.2 L MCV 91.0 MCH 30.1 MCHC 33.0 RDW 15.6 H Plt Count 160 Neut % (Auto) 95.9 H Lymph % (Auto) 1.5 L [place] % (Auto) 2.5 L Eos % (Auto) 0.0 L Baso % (Auto) 0.1 Neut # (Auto) 85235 H PT INR APTT D-Dimer ABG pH ABG pCO2 ABG pO2 ABG HCO3 ABG Total CO2 ABG O2 Saturation ABG Base Excess VBG pH VBG pCO2 VBG pO2 VBG HCO3 VBG Total CO2 VBG O2 Saturation VBG Base Excess FiO2 Sodium 137 Potassium 4.3 Chloride 98 Carbon Dioxide 26 BUN 35 H Creatinine 1.10 Estimated GFR > 60.0 BUN/Creatinine Ratio 31.8 H Glucose 239 H Lactate Calcium 8.8 Magnesium Total Bilirubin 1.6 H AST 174 H ALT 56 Alkaline Phosphatase 44 Troponin I 0.119 H Total Protein 7.0 Albumin 4.0 Globulin 3.0 Albumin/Globulin Ratio 1.3 Procalcitonin TSH Free T4 Urine Color Urine Appearance Urine pH Ur Specific [place] Urine Protein Urine Glucose (UA) Urine Ketones Urine Occult Blood Urine Nitrate Urine Bilirubin Urine Urobilinogen Ur Leukocyte Esterase Urine RBC Urine WBC Urine Bacteria Granular Casts Ur Culture Indicated? Micro UA Comment 04/19/18 04/19/18 19:45 19:45 WBC RBC Hgb Hct MCV MCH MCHC RDW Plt Count Neut % (Auto) Lymph % (Auto) [place] % (Auto) Eos % (Auto) Baso % (Auto) Neut # (Auto) PT INR APTT 33 D-Dimer ABG pH ABG pCO2 ABG pO2 ABG HCO3 ABG Total CO2 ABG O2 Saturation ABG Base Excess VBG pH VBG pCO2 VBG pO2 VBG HCO3 VBG Total CO2 VBG O2 Saturation VBG Base Excess FiO2 Sodium Potassium Chloride Carbon Dioxide BUN Creatinine Estimated GFR BUN/Creatinine Ratio Glucose Lactate 2.1 Calcium Magnesium Total Bilirubin AST ALT Alkaline Phosphatase Troponin I Total Protein Albumin Globulin Albumin/Globulin Ratio Procalcitonin TSH Free T4 Urine Color Urine Appearance Urine pH Ur Specific [place] Urine Protein Urine Glucose (UA) Urine Ketones Urine Occult Blood Urine Nitrate Urine Bilirubin Urine Urobilinogen Ur Leukocyte Esterase Urine RBC Urine WBC Urine Bacteria Granular Casts Ur Culture Indicated? Micro UA Comment Assessment & Plan Plan: Assessment/Plan Narrative: 1. patient with signs and symptoms of sepsis those being illness, tachycardia, elevated white blood cell count, elevated lactate, elevated procalcitonin. Presumed source of sepsis is cellulitis of right lower extremity. He does have hematuria with history of BPH perhaps he has a hemorrhagic cystitis/ prostatitis. He has no evidence for pneumonia at this time. The patient will be treated with IV fluids vancomycin and Zosyn. 2. apparent new onset atrial fibrillation. Chart however has history of nonsustained ventricular tachycardia. He also had frequent PVCs that underwent ablation sometime in the past. Atrial fibrillation may be a response to this is sepsis and maybe a temporary phenomenon but still requires treatment. The patient was begun on diltiazem drip. However approximately 5 min after onset of the drip patient changed his heart rhythm to his wide complex QRS tachycardia consistent with ventricular tachycardia. Patient was asymptomatic at the time. The Cardizem drip was stopped. The above was discussed with environmental conflict manager production department supervisor Dr. Monzon who recommended IV digoxin. Chart review shows him to have an echocardiogram several years ago with an ejection fraction of 35-40%. So calcium channel blockers would not be recommended given that prior data. 3. Three history of coronary artery disease status post stent placed right coronary artery several years ago being followed by Dr. Lori rowley environmental conflict manager. Number 4. worsening of his shortness of breath. Patient historically has hypoventilation syndrome and may well be [place]. There has been no evidence for CO2 retention however. He denies having sleep apnea. He currently has significant shortness of breath here. He did have elevated D- dimer in the emergency room but could be explained by his sepsis. However clinical course is consistent pulmonary embolism. We had considered doing a CT angiogram. Patient could not lie flat for a long time. So he will be treated empirically with IV heparin at the anticoagulation level additionally a Doppler of his right calf will be done tomorrow and if it is positive for phlebitis in the presumptive diagnosis would include pulmonary embolism. 6. Patient with hematuria as stated above has seen urologist for BPH hematuria was present prior to anticoagulation occurred with insertion of the catheter initially felt to be secondary to trauma unclear. Patient is unaware of hematuria. 7. diabetes mellitus A1c early part of the month by Dr. Cox was 6.4. Unclear about actual medications patient is taking patient we placed on glimepiride and insulin sliding scale. Further pursue of medications may include metformin and Actos. 8. massive obesity this apparently has been issue chronically. Patient request dietary consult. Apparently there has been some discussion about surgical treatment but was not pursued. Issues abdomen is obviously contributing to his inability to the oxygen 8 easily. 9. acute kidney injury presumably secondary to sepsis no prior history of kidney injury presumably is temporary. 9. increased troponin presumably stress ischemia echocardiogram ordered follow- up troponin levels. Cardiology consult to place tomorrow pending the above studies. 10. patient with decreased hemoglobin and hematocrit no obvious history of same presumably from the hematuria this will need to be pursued once his sepsis, atrial fibrillation, and cardiac status him stabilized. Patient will be continued on his maintenance medicines as listed Initial visit was for approximately an hour and a half. Sec visit was for perhaps 45 min which included telephone consultation with Dr. Monzon environmental conflict manager Quality VTE Deep Vein Thrombosis/Pulmonary Embolism Present on Admission: No
[2018-04-19] MEDS: GABAPENTIN 600 MG TABLET PO (23:38)
[2018-04-19] MEDS: DOXAZOSIN 4 MG TABLET PO (23:41)
[2018-04-19] MEDS: INSULIN ASPART 100 UNIT/ML INSULN PEN SUBCUT (23:58)
[2018-04-20] VITALS (23 sets, daily range): BP systolic 109–155; BP diastolic 37–80; PULSE 91–123; RESP 17–36; TEMP 37.2–38.3; O2SAT 94–100; BMI 47.2
--- NOTE | 2018-04-20 | DI.US.S_ITS ---
PROCEDURE: US PERIPH VENOUS LOW EXTREM RT INDICATIONS: Lower extremity pain and swelling. Assess for dvt TECHNIQUE: Real-time imaging, as well as color and pulse Doppler interrogation, were performed of the lower extremity deep veins from the inguinal ligament to the popliteal fossa. COMPARISON: None. FINDINGS: The deep veins are normally compressible, and free of intraluminal thrombus. Color and pulse Doppler demonstrate normal phasic intraluminal flow. There is normal augmentation response to distal compression maneuver. IMPRESSION: No evidence of deep vein thrombosis involving the right lower extremity. Dictated by: Isa Chamorro MD, PhD on 04/20/2018 at 10:28 Approved by: Isa Chamorro MD, PhD on 04/20/2018 at 10:30
[2018-04-20] MEDS: DIGOXIN 500 MCG/2 ML AMPUL 250 MCG IV ×4 (00:05→09:31)
--- NOTE | 2018-04-20 02:36 | PC.NURSE ---
NOC Shift: Pt admitted on morris's shift w/SOB, sepsis new onset Afib RVR and possible PE. Was started on Dilt. gtt and reported to have had a wide complex tachycardia reaction. Currently at shift change pt is sitting up in chair mode of bed setting, AAOx3, with some delay in responsiveness, yes and no answers only. Denies pain. Remains in Afib/flutter RVR rate 120's. VSS. PM meds given at this time, currently on Heparin gtt 2000 units/hr. Will recieve Dig x2 more doses tonight. Denies SOB despite RR low 30's. Sats stable on 3LNC. Hooper w/hematuria, and bloody leakage around penis at insertion. Continue to monitor ICU status.
[2018-04-20] MEDS: PIPERACILLIN-TAZO 4.5 GM/100 ML FROZ.PIGGY IV ×2 (03:35→10:05)
[2018-04-20 03:48] LABS: PTT Partial Thromboplastin Tim 81 SECONDS (26.4-36.2)
[2018-04-20] MEDS: VANCOMYCIN 1,500 MG in SODIUM CHLORIDE 0.9% 500 ML 333.333 ML IV (04:06)
[2018-04-20 07:56] LABS: Acinetobacter baumannii Not Detected (Not Detect); Candida albicans Not Detected (Not Detect); Candida glabrata Not Detected (Not Detect); Candida krusei Not Detected (Not Detect); Candida parapsilosis Not Detected (Not Detect); Candida tropicalis Not Detected (Not Detect); E. coli Not Detected (Not Detect); Enterobacter cloacae complex Not Detected (Not Detect); Enterobacteriaceae species Not Detected (Not Detect); Enterococcus species Not Detected (Not Detect); Haemophilus influenzae Not Detected (Not Detect); Listeria monocytogenes Not Detected (Not Detect); Neisseria meningitidis Not Detected (Not Detect); Proteus species Not Detected (Not Detect); Pseudomonas aeruginosa Not Detected (Not Detect); Serratia marcescens Not Detected (Not Detect); Staphylococcus species Not Detected (Not Detect); Streptococcus agalactiae (Gr B Not Detected (Not Detect); Streptococcus pneumonia Not Detected (Not Detect); Streptococcus pyogenes (Gr A) Not Detected (Not Detect); Streptococcus species Detected (Not Detect)
[2018-04-20] MEDS: ALBUTEROL/IPRATROPIUM 3 ML AMPUL INH (08:03)
[2018-04-20 08:16] LABS: Add Manual Diff / Slide Review NO; Basophils Percent Auto 0.2 % (0-2); Eosinophils Percent Auto 0.1 % (2-4); Hematocrit 28.4 % (41-53); Hemoglobin 9.3 g/dL (13.5-17.5); Lymphocytes Percent Auto 1.9 % (25-40); Mean Corpuscular HGB Conc 32.9 % (30-36); Mean Corpuscular Hemoglobin 30.1 PG (26-34); Mean Corpuscular Volume 91.6 fL (80-100); Monocytes Percent Auto 3.3 % (3-14); Neutrophils Absolute Auto 11200 /uL (3000-5900); Neutrophils Percent Auto 94.5 % (50-75); PTT Partial Thromboplastin Tim 62 SECONDS (26.4-36.2); Platelet Count 140 X10^3/uL (150-400); Red Cell Distribution Width 15.8 % (11.6-14.8); White Blood Cell Count 11.9 X10^3/uL (4.5-11.0)
--- NOTE | 2018-04-20 08:18 | RT ---
Placed patient on [facility] after RT Clare identified him as having a high WOB after giving him a breathing tx. Patient's RR decreased from 30 to 20 and patient states he feels better on the H[facility]NC. Spoke with MAKAYLA Cruz who states that patient is septic with a history of CHF. Patient has cardiomegaly on last xray. Appreciated fine crackles to the bases bilaterally and an upper airway wheeze. MAKAYLA Cruz said she would be speaking to MD. Will monitor.
--- NOTE | 2018-04-20 08:39 | CM.DANOTE ---
DCP: Case received, EMR reviewed and met with patient. Introduced self ad role. DCP template completed with information currently available. Patient is a 72 year old male who admitted yesterday pm to the care of the hospitalist team. PCP: Dr. Cox. Payer: confirmed : Medicare/[facility] Patient carries diagnosis of CHF. Came in with symptoms of shortness of breath. Lives at home with his walker. P: DCP will continue to plan and assess, and determine if home would be the best plan for the patient, or if skilled would be appropriate dependent upon the length of stay. Sia Black RN/Outside Plant Engineer
[2018-04-20] MEDS: HEPARIN DRIP 25,000 UNIT/500 ML IV.SOLN 40 UNIT IV (08:47)
[2018-04-20] MEDS: INSULIN ASPART 100 UNIT/ML INSULN PEN SUBCUT ×2 (08:50→14:03)
[2018-04-20] MEDS: CARVEDILOL 12.5 MG TABLET PO ×2 (08:51→21:00)
[2018-04-20] MEDS: ASPIRIN EC 81 MG TABLET PO (08:51)
[2018-04-20] MEDS: FUROSEMIDE 40 MG TABLET PO ×2 (08:51→21:00)
[2018-04-20] MEDS: GLIMEPIRIDE 2 MG TABLET 4 MG PO ×2 (08:51→18:09)
[2018-04-20] MEDS: FINASTERIDE 5 MG TABLET PO (08:52)
[2018-04-20] MEDS: FELODIPINE ER 2.5 MG TAB 1.25 MG PO (08:52)
--- NOTE | 2018-04-20 09:09 | P.PN_ITS ---
Subjective Date Patient Seen: 04/20/18 Time Patient Seen: 08:03 Interval history: Patient basically feels the same perhaps somewhat better not quite low so lethargic still having shortness of breath does denies chest pain denies wheezing. Feels uncomfortable laying in bed wants to set up. No abdominal pain urinary catheter tolerable. No palpitations no nausea Exam Vital Signs (past 8 hours): - 04/20/18 01:28 04/20/18 01:31 04/20/18 02:00 Temperature Pulse Rate 118 H 120 H Respiratory Rate 31 H Blood Pressure 147/68 H 155/80 H Pulse Oximetry 97 97 04/20/18 02:23 04/20/18 03:00 04/20/18 03:14 Temperature Pulse Rate 119 H Respiratory Rate 20 Blood Pressure 132/67 H Pulse Oximetry 96 96 97 04/20/18 04:00 04/20/18 04:09 04/20/18 05:00 Temperature Pulse Rate 117 H 119 H 117 H Respiratory Rate 25 H 24 Blood Pressure 120/55 L 120/55 L 133/51 H Pulse Oximetry 98 94 04/20/18 06:00 04/20/18 07:52 04/20/18 08:14 Temperature 99 F 100.9 F H Pulse Rate 118 H 120 H 123 H Respiratory Rate 28 H 17 20 Blood Pressure 114/80 130/57 H Pulse Oximetry 97 98 100 Fraction of Inspired Oxygen 40 Oxygen Delivery Method Heated High Flow Oxygen Flow Rate 55 Narrative Exam Narrative: Exam today patient is lying in his bed with his head elevated perhaps 30? he is on high-flow oxygen he is resting quietly with does appear had band be short of breath denies any pain ENT is unremarkable chest exam all decreased breath sound does not take a deep breath seemed to have some upper airway wheezing the. Cardiac exam tachycardia parentheses apparently converted from atrial fibrillation to sinus rhythm sometime in the night. Heart rate currently is 120 and appears to be in sinus rhythm Abdominal exam distended note nontender decreased bowel sounds Hooper is in place and urine is grossly bloody his extremities he seemed has a less erythema of his right ankle and trace decrease in the amount of edema but still present Objective Labs Result Diagrams: 04/20/18 08:00 04/19/18 19:45 Labs: Laboratory Results - last 24 hr 04/19/18 04/19/18 04/19/18 15:20 15:26 15:26 WBC 15.1 H RBC 3.77 L Hgb 11.4 L Hct 33.9 L MCV 90.0 MCH 30.1 MCHC 33.5 RDW 15.8 H Plt Count 180 Neut % (Auto) 93.7 H Lymph % (Auto) 1.5 L [place] % (Auto) 4.5 Eos % (Auto) 0.0 L Baso % (Auto) 0.3 Neut # (Auto) 21880 H PT 22.6 H INR 2.0 H APTT D-Dimer 4190 H ABG pH ABG pCO2 ABG pO2 ABG HCO3 ABG Total CO2 ABG O2 Saturation ABG Base Excess VBG pH VBG pCO2 VBG pO2 VBG HCO3 VBG Total CO2 VBG O2 Saturation VBG Base Excess FiO2 Sodium Potassium Chloride Carbon Dioxide BUN Creatinine Estimated GFR BUN/Creatinine Ratio Glucose Lactate Calcium Magnesium Total Bilirubin AST ALT Alkaline Phosphatase Troponin I Total Protein Albumin Globulin Albumin/Globulin Ratio Procalcitonin TSH Free T4 Urine Color Urine Appearance Urine pH Ur Specific [place] Urine Protein Urine Glucose (UA) Urine Ketones Urine Occult Blood Urine Nitrate Urine Bilirubin Urine Urobilinogen Ur Leukocyte Esterase Urine RBC Urine WBC Urine Bacteria Granular Casts Ur Culture Indicated? Micro UA Comment Nasal Screen MRSA (PCR) A. baumannii (PCR) Not detected Amee albicans (PCR) Not detected C. glabrata (PCR) Not detected C. krusei (PCR) Not detected C. parapsilosis (PCR) Not detected C. tropicalis (PCR) Not detected Enterobacteriac sp PCR Not detected E. cloacae complex PCR Not detected Enterococcus sp PCR Not detected E. coli (PCR) Not detected H. influenzae (PCR) Not detected Klebsiella oxytoca PCR Not detected Klebsiella pneumoniae Not detected List. monocytogenes PCR Not detected N. meningitidis (PCR) Not detected Proteus species (PCR) Not detected Serratia marcescens PCR Not detected Staphylococcus sp PCR Not detected Staph aureus (PCR) Not detected mecA-Methicil Res Gene Not Reportable Streptococcus sp PCR Detected H Group A Strep (PCR) Not detected Strep agalactiae (PCR) Not detected Strep pneumoniae (PCR) Not detected P. aeruginosa (PCR) Not detected Rayshawn/B-Vanco Res Genes Not Reportable KPC-Carbap Res Gene PCR Not Reportable 04/19/18 04/19/18 04/19/18 15:26 15:26 15:26 WBC RBC Hgb Hct MCV MCH MCHC RDW Plt Count Neut % (Auto) Lymph % (Auto) [place] % (Auto) Eos % (Auto) Baso % (Auto) Neut # (Auto) PT INR APTT D-Dimer ABG pH ABG pCO2 ABG pO2 ABG HCO3 ABG Total CO2 ABG O2 Saturation ABG Base Excess VBG pH VBG pCO2 VBG pO2 VBG HCO3 VBG Total CO2 VBG O2 Saturation VBG Base Excess FiO2 Sodium 135 L Potassium 3.9 Chloride 94 L Carbon Dioxide 29 BUN 37 H Creatinine 1.20 Estimated GFR 59.9 L BUN/Creatinine Ratio 30.8 H Glucose 253 H Lactate 2.9 H Calcium 9.4 Magnesium 2.0 Total Bilirubin 1.4 H AST 165 H ALT 45 Alkaline Phosphatase 45 Troponin I 0.107 H Total Protein 7.4 Albumin 4.3 Globulin 3.1 Albumin/Globulin Ratio 1.4 Procalcitonin 19.55 H TSH Free T4 Urine Color Urine Appearance Urine pH Ur Specific [place] Urine Protein Urine Glucose (UA) Urine Ketones Urine Occult Blood Urine Nitrate Urine Bilirubin Urine Urobilinogen Ur Leukocyte Esterase Urine RBC Urine WBC Urine Bacteria Granular Casts Ur Culture Indicated? Micro UA Comment Nasal Screen MRSA (PCR) A. baumannii (PCR) Amee albicans (PCR) C. glabrata (PCR) C. krusei (PCR) C. parapsilosis (PCR) C. tropicalis (PCR) Enterobacteriac sp PCR E. cloacae complex PCR Enterococcus sp PCR E. coli (PCR) H. influenzae (PCR) Klebsiella oxytoca PCR Klebsiella pneumoniae List. monocytogenes PCR N. meningitidis (PCR) Proteus species (PCR) Serratia marcescens PCR Staphylococcus sp PCR Staph aureus (PCR) mecA-Methicil Res Gene Streptococcus sp PCR Group A Strep (PCR) Strep agalactiae (PCR) Strep pneumoniae (PCR) P. aeruginosa (PCR) Rayshawn/B-Vanco Res Genes KPC-Carbap Res Gene PCR 04/19/18 04/19/18 04/19/18 15:39 15:55 16:21 WBC RBC Hgb Hct MCV MCH MCHC RDW Plt Count Neut % (Auto) Lymph % (Auto) [place] % (Auto) Eos % (Auto) Baso % (Auto) Neut # (Auto) PT INR APTT D-Dimer ABG pH ABG pCO2 ABG pO2 ABG HCO3 ABG Total CO2 ABG O2 Saturation ABG Base Excess VBG pH 7.45 H VBG pCO2 43.4 L VBG pO2 17 L VBG HCO3 30 H VBG Total CO2 31 H VBG O2 Saturation 27 L VBG Base Excess 6.0 H FiO2 Sodium Potassium Chloride Carbon Dioxide BUN Creatinine Estimated GFR BUN/Creatinine Ratio Glucose Lactate Calcium Magnesium Total Bilirubin AST ALT Alkaline Phosphatase Troponin I Total Protein Albumin Globulin Albumin/Globulin Ratio Procalcitonin TSH 0.93 Free T4 1.31 Urine Color Yellow Urine Appearance Cloudy Urine pH 5.0 Ur Specific [place] 1.020 Urine Protein 3+ H Urine Glucose (UA) Negative Urine Ketones Trace H Urine Occult Blood 3+ H Urine Nitrate Negative Urine Bilirubin Negative Urine Urobilinogen 0.2 Ur Leukocyte Esterase Negative Urine RBC 10-30/hpf H Urine WBC None seen Urine Bacteria None seen Granular Casts 1-5/lpf Ur Culture Indicated? Cult not indicated Micro UA Comment Not Reportable Nasal Screen MRSA (PCR) A. baumannii (PCR) Amee albicans (PCR) C. glabrata (PCR) C. krusei (PCR) C. parapsilosis (PCR) C. tropicalis (PCR) Enterobacteriac sp PCR E. cloacae complex PCR Enterococcus sp PCR E. coli (PCR) H. influenzae (PCR) Klebsiella oxytoca PCR Klebsiella pneumoniae List. monocytogenes PCR N. meningitidis (PCR) Proteus species (PCR) Serratia marcescens PCR Staphylococcus sp PCR Staph aureus (PCR) mecA-Methicil Res Gene Streptococcus sp PCR Group A Strep (PCR) Strep agalactiae (PCR) Strep pneumoniae (PCR) P. aeruginosa (PCR) Rayshawn/B-Vanco Res Genes KPC-Carbap Res Gene PCR 04/19/18 04/19/18 04/19/18 18:20 19:22 19:29 WBC RBC Hgb Hct MCV MCH MCHC RDW Plt Count Neut % (Auto) Lymph % (Auto) [place] % (Auto) Eos % (Auto) Baso % (Auto) Neut # (Auto) PT INR APTT D-Dimer ABG pH 7.35 ABG pCO2 40.1 ABG pO2 89 ABG HCO3 22 L ABG Total CO2 23 ABG O2 Saturation 96 ABG Base Excess -4.0 L VBG pH VBG pCO2 VBG pO2 VBG HCO3 VBG Total CO2 VBG O2 Saturation VBG Base Excess FiO2 0.44 Sodium Potassium Chloride Carbon Dioxide BUN Creatinine Estimated GFR BUN/Creatinine Ratio Glucose Lactate Calcium Magnesium Total Bilirubin AST ALT Alkaline Phosphatase Troponin I 0.119 H Total Protein Albumin Globulin Albumin/Globulin Ratio Procalcitonin TSH Free T4 Urine Color Urine Appearance Urine pH Ur Specific [place] Urine Protein Urine Glucose (UA) Urine Ketones Urine Occult Blood Urine Nitrate Urine Bilirubin Urine Urobilinogen Ur Leukocyte Esterase Urine RBC Urine WBC Urine Bacteria Granular Casts Ur Culture Indicated? Micro UA Comment Nasal Screen MRSA (PCR) Negative for mrsa A. baumannii (PCR) Amee albicans (PCR) C. glabrata (PCR) C. krusei (PCR) C. parapsilosis (PCR) C. tropicalis (PCR) Enterobacteriac sp PCR E. cloacae complex PCR Enterococcus sp PCR E. coli (PCR) H. influenzae (PCR) Klebsiella oxytoca PCR Klebsiella pneumoniae List. monocytogenes PCR N. meningitidis (PCR) Proteus species (PCR) Serratia marcescens PCR Staphylococcus sp PCR Staph aureus (PCR) mecA-Methicil Res Gene Streptococcus sp PCR Group A Strep (PCR) Strep agalactiae (PCR) Strep pneumoniae (PCR) P. aeruginosa (PCR) Rayshawn/B-Vanco Res Genes KPC-Carbap Res Gene PCR 04/19/18 04/19/18 04/19/18 19:45 19:45 19:45 WBC 12.3 H RBC 3.76 L Hgb 11.3 L Hct 34.2 L MCV 91.0 MCH 30.1 MCHC 33.0 RDW 15.6 H Plt Count 160 Neut % (Auto) 95.9 H Lymph % (Auto) 1.5 L [place] % (Auto) 2.5 L Eos % (Auto) 0.0 L Baso % (Auto) 0.1 Neut # (Auto) 62826 H PT INR APTT D-Dimer ABG pH ABG pCO2 ABG pO2 ABG HCO3 ABG Total CO2 ABG O2 Saturation ABG Base Excess VBG pH VBG pCO2 VBG pO2 VBG HCO3 VBG Total CO2 VBG O2 Saturation VBG Base Excess FiO2 Sodium 137 Potassium 4.3 Chloride 98 Carbon Dioxide 26 BUN 35 H Creatinine 1.10 Estimated GFR > 60.0 BUN/Creatinine Ratio 31.8 H Glucose 239 H Lactate 2.1 Calcium 8.8 Magnesium Total Bilirubin 1.6 H AST 174 H ALT 56 Alkaline Phosphatase 44 Troponin I Total Protein 7.0 Albumin 4.0 Globulin 3.0 Albumin/Globulin Ratio 1.3 Procalcitonin TSH Free T4 Urine Color Urine Appearance Urine pH Ur Specific [place] Urine Protein Urine Glucose (UA) Urine Ketones Urine Occult Blood Urine Nitrate Urine Bilirubin Urine Urobilinogen Ur Leukocyte Esterase Urine RBC Urine WBC Urine Bacteria Granular Casts Ur Culture Indicated? Micro UA Comment Nasal Screen MRSA (PCR) A. baumannii (PCR) Amee albicans (PCR) C. glabrata (PCR) C. krusei (PCR) C. parapsilosis (PCR) C. tropicalis (PCR) Enterobacteriac sp PCR E. cloacae complex PCR Enterococcus sp PCR E. coli (PCR) H. influenzae (PCR) Klebsiella oxytoca PCR Klebsiella pneumoniae List. monocytogenes PCR N. meningitidis (PCR) Proteus species (PCR) Serratia marcescens PCR Staphylococcus sp PCR Staph aureus (PCR) mecA-Methicil Res Gene Streptococcus sp PCR Group A Strep (PCR) Strep agalactiae (PCR) Strep pneumoniae (PCR) P. aeruginosa (PCR) Rayshawn/B-Vanco Res Genes KPC-Carbap Res Gene PCR 04/19/18 04/20/18 04/20/18 19:45 02:28 08:00 WBC 11.9 H RBC 3.10 L Hgb 9.3 L Hct 28.4 L MCV 91.6 MCH 30.1 MCHC 32.9 RDW 15.8 H Plt Count 140 L Neut % (Auto) 94.5 H Lymph % (Auto) 1.9 L [place] % (Auto) 3.3 Eos % (Auto) 0.1 L Baso % (Auto) 0.2 Neut # (Auto) 90408 H PT INR APTT 33 81 H* D D-Dimer ABG pH ABG pCO2 ABG pO2 ABG HCO3 ABG Total CO2 ABG O2 Saturation ABG Base Excess VBG pH VBG pCO2 VBG pO2 VBG HCO3 VBG Total CO2 VBG O2 Saturation VBG Base Excess FiO2 Sodium Potassium Chloride Carbon Dioxide BUN Creatinine Estimated GFR BUN/Creatinine Ratio Glucose Lactate Calcium Magnesium Total Bilirubin AST ALT Alkaline Phosphatase Troponin I Total Protein Albumin Globulin Albumin/Globulin Ratio Procalcitonin TSH Free T4 Urine Color Urine Appearance Urine pH Ur Specific [place] Urine Protein Urine Glucose (UA) Urine Ketones Urine Occult Blood Urine Nitrate Urine Bilirubin Urine Urobilinogen Ur Leukocyte Esterase Urine RBC Urine WBC Urine Bacteria Granular Casts Ur Culture Indicated? Micro UA Comment Nasal Screen MRSA (PCR) A. baumannii (PCR) Amee albicans (PCR) C. glabrata (PCR) C. krusei (PCR) C. parapsilosis (PCR) C. tropicalis (PCR) Enterobacteriac sp PCR E. cloacae complex PCR Enterococcus sp PCR E. coli (PCR) H. influenzae (PCR) Klebsiella oxytoca PCR Klebsiella pneumoniae List. monocytogenes PCR N. meningitidis (PCR) Proteus species (PCR) Serratia marcescens PCR Staphylococcus sp PCR Staph aureus (PCR) mecA-Methicil Res Gene Streptococcus sp PCR Group A Strep (PCR) Strep agalactiae (PCR) Strep pneumoniae (PCR) P. aeruginosa (PCR) Rayshawn/B-Vanco Res Genes KPC-Carbap Res Gene PCR 04/20/18 08:00 WBC RBC Hgb Hct MCV MCH MCHC RDW Plt Count Neut % (Auto) Lymph % (Auto) [place] % (Auto) Eos % (Auto) Baso % (Auto) Neut # (Auto) PT INR APTT 62 H D D-Dimer ABG pH ABG pCO2 ABG pO2 ABG HCO3 ABG Total CO2 ABG O2 Saturation ABG Base Excess VBG pH VBG pCO2 VBG pO2 VBG HCO3 VBG Total CO2 VBG O2 Saturation VBG Base Excess FiO2 Sodium Potassium Chloride Carbon Dioxide BUN Creatinine Estimated GFR BUN/Creatinine Ratio Glucose Lactate Calcium Magnesium Total Bilirubin AST ALT Alkaline Phosphatase Troponin I Total Protein Albumin Globulin Albumin/Globulin Ratio Procalcitonin TSH Free T4 Urine Color Urine Appearance Urine pH Ur Specific [place] Urine Protein Urine Glucose (UA) Urine Ketones Urine Occult Blood Urine Nitrate Urine Bilirubin Urine Urobilinogen Ur Leukocyte Esterase Urine RBC Urine WBC Urine Bacteria Granular Casts Ur Culture Indicated? Micro UA Comment Nasal Screen MRSA (PCR) A. baumannii (PCR) Amee albicans (PCR) C. glabrata (PCR) C. krusei (PCR) C. parapsilosis (PCR) C. tropicalis (PCR) Enterobacteriac sp PCR E. cloacae complex PCR Enterococcus sp PCR E. coli (PCR) H. influenzae (PCR) Klebsiella oxytoca PCR Klebsiella pneumoniae List. monocytogenes PCR N. meningitidis (PCR) Proteus species (PCR) Serratia marcescens PCR Staphylococcus sp PCR Staph aureus (PCR) mecA-Methicil Res Gene Streptococcus sp PCR Group A Strep (PCR) Strep agalactiae (PCR) Strep pneumoniae (PCR) P. aeruginosa (PCR) Rayshawn/B-Vanco Res Genes KPC-Carbap Res Gene PCR Labs reviewed. Of note his drop in hemoglobin. Gross hematuria seemed to be coming more of a problem. His this is been present in the past. However he is being anticoagulated for presumed pulmonary embolism. Attempted to get a CT angiogram unsuccessful cusp patient is unable to lay flat. Ultrasound of the right calf is pending Blood cultures also positive for Streptococcus add anticipated Assessment & Plan Plan: Assessment/Plan Narrative: 1. Sepsis secondary to Streptococcus presumably from cellulitis of his right leg. Patient is on 2 antibiotics that should provide coverage for this. His lactic level decreased. He still febrile however. Basically nothing new to add referable to this. 2. Atrial fibrillation has converted to sinus rhythm with a combination of his beta-earnestine and hit the digoxin. Troponin level increased slightly. Echocardiogram pending Cardiology consult placed with Dr. Mena will presumably will be seeing patient later today.. Para 3. Gross hematuria becoming a problem causing anemia. Will attempt to discuss case with Dr. Mccray who has been his prior urologist. Otherwise may need discussed with [facility] in urologist electronics computer mechanic for [facility] as per protocol. 4. Pulmonary status still sketchy requiring high-flow oxygen he clearly is hot hypoventilating. Because his obesity. He is currently stable pulmonary thacker as far as O2 sats Quality VTE Deep Vein Thrombosis/Pulmonary Embolism Present on Admission: No
[2018-04-20 09:25] LABS: BUN Creatinine Ratio 31.8 (6-22); Blood Urea Nitrogen 35 mg/dL (9-20); Calcium 8.7 mg/dL (8.4-10.2); Carbon Dioxide 26 mmol/L (22-32); Chloride 97 mmol/L (98-107); Estimated Glomerular Filt Rate > 60.0 mL/min (>60); Glucose 235 mg/dL (80-110); HEMOLYSIS 22 (0-50); Magnesium 1.9 mg/dL (1.6-2.3); Potassium 3.9 mmol/L (3.4-5.1); Sodium 136 mmol/L (137-145)
[2018-04-20 09:29] LABS: Digoxin < 0.4 ng/mL (0.8-2.0)
[2018-04-20] MEDS: SODIUM CHLORIDE 0.9% 1,000 ML 150 ML IV (10:05)
[2018-04-20 11:44] LABS: Fractionated Inspired Oxygen 40; HCO3 ABG 27 mmol/L (23-27); Oxygen Saturation ABG 98 % (95-100); PCO2 ABG 43.8 mmHg (35-45); PO2 ABG 104 mmHg (80-105); TCO2 ABG 28 mmol/L (23-27); pH ABG 7.39 (7.35-7.45)
[2018-04-20 12:10] LABS: Troponin I 0.108 ng/mL (0.01-0.034)
[2018-04-20] MEDS: FUROSEMIDE 20 MG/2 ML VIAL IV ×2 (13:15→17:12)
--- NOTE | 2018-04-20 13:21 | P.CONS_ITS ---
History of Present Illness Chief complaint: SOB/WEAKNESS. Time several days. Narrative: Patient is a 72 yo M h/o CAD s/p prior stents to ?RCA several years ago, HF, mobid obesity, HTN, HLD, and diabetes admitted with dyspnea. Patient is quite sleepy and unable to provide a full story. He does state that he developed dyspnea over the past several days to couple of weeks. She came to [facility] after she couldn't even breathe at rest. Denies chest pain, lightheadedness, or syncope. No further story provided by the patient. Per nurse, patient has been having hematuria before heparin was started. [facility] Medical History Type 2 diabetes mellitus without complication (Chronic 10/25/15) Cardiomyopathy (Chronic 04/21/13) Essential hypertension (Chronic 10/10/11) Mixed hyperlipidemia (Chronic 10/25/15) Morbid obesity due to excess calories (Chronic 02/17/17) Edema (Chronic) Body mass index (BMI) of 45.0 to 49.9 in adult (Chronic 02/17/17) Gynecomastia (Chronic 03/30/17) Benign localized prostatic hyperplasia with lower urinary tract symptoms (LUTS) (Chronic 12/29/17) Type 2 diabetes mellitus with hyperglycemia (Chronic 10/10/11) Social History marital status: number of children: 0 household members: spouse lives independently: Yes caregiver/support person: No housing: house pets and animals: Yes education level: college (4 years) occupational status: other (Retired.) 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 leisure activities: exercise (Walking the dogs.) and other (Gardening.) Smoking Status: Never smoker Tobacco: How many years used: 0 quit status: quit date established (Never Started) second hand exposure: Yes (None over the last 30 years) alcohol intake: never substance use type: does not use Meds Home Medications Medication Instructions Recorded Confirmed Type aspirin 162 mg PO QDAY #0 11/06/12 04/19/18 History melatonin 2 mg PO HS #0 11/06/12 04/19/18 History gabapentin [Neurontin] 600 mg PO HS #90 tab 07/01/17 04/19/18 Rx felodipine 1.25 mg PO QDAY #45 tab 08/31/17 04/19/18 Rx finasteride 5 mg PO QDAY #90 tab 08/31/17 04/19/18 Rx lisinopril 40 mg PO BID #180 tab 10/19/17 04/19/18 Rx carvedilol [Coreg] 12.5 mg PO BID #180 tab 10/21/17 04/19/18 Rx rosuvastatin [Crestor] 10 mg PO QDAY #90 tab 11/05/17 04/19/18 Rx doxazosin 4 mg PO HS #90 tab 12/29/17 04/19/18 Rx furosemide 40 mg PO BID #360 tab 01/18/18 04/19/18 Rx pioglitazone [Actos] 30 mg PO QDAY #90 tab 02/01/18 04/19/18 Rx glimepiride [Amaryl] 4 mg PO BIDCC #180 tab 02/02/18 04/19/18 Rx metformin [Glucophage] 1,000 mg PO BIDCC #180 tab 03/11/18 04/19/18 Rx meloxicam 7.5 mg tablet 7.5 mg PO DAILY PRN #60 tab 03/30/18 04/19/18 Rx tramadol 50 mg tablet 50 mg PO Q8HP PRN #90 tab 04/15/18 04/19/18 Rx Allergies Allergy/AdvReac Type Severity Reaction Status Date / Time atorvastatin [ATORVASTATIN] Allergy Mild flu like Verified 03/30/18 13:28 (LIPITOR) codeine [CODEINE] Allergy Mild Verified 03/30/18 13:28 Exam Vital Signs (past 8 hours): - 04/20/18 06:00 04/20/18 07:52 04/20/18 08:14 Temperature 99 F 100.9 F H Pulse Rate 118 H 120 H 123 H Respiratory Rate 28 H 17 20 Blood Pressure 114/80 130/57 H Pulse Oximetry 97 98 100 04/20/18 08:17 04/20/18 09:31 04/20/18 11:35 Temperature 99.7 F H Pulse Rate 121 H 91 H Respiratory Rate 29 H Blood Pressure 109/48 L Pulse Oximetry 99 98 Fraction of Inspired Oxygen 40 Oxygen Delivery Method Nasal Cannula,High Flow Nasal Cannula Oxygen Flow Rate 55 Narrative Exam Narrative: Gen johny: in mild distress, sleepy but arousable HEENT: NCAT, no scleral icterus, MMM CV: tachy, irregularly irregular, distant heart sounds, no m/r/g, unable to assess JVD, 3 to 4+ LE edema b/l Resp: coarse b/l, answers questions in one word sentences Abd: soft, distended : bender with hematuria Skin: no rashes on face or arm Objective Labs Result Diagrams: 04/20/18 08:00 04/20/18 Unknown Labs: Laboratory Results - last 24 hr 04/19/18 04/19/18 04/19/18 15:20 15:26 15:26 WBC 15.1 H RBC 3.77 L Hgb 11.4 L Hct 33.9 L MCV 90.0 MCH 30.1 MCHC 33.5 RDW 15.8 H Plt Count 180 Neut % (Auto) 93.7 H Lymph % (Auto) 1.5 L [place] % (Auto) 4.5 Eos % (Auto) 0.0 L Baso % (Auto) 0.3 Neut # (Auto) 40793 H PT 22.6 H INR 2.0 H APTT D-Dimer 4190 H ABG pH ABG pCO2 ABG pO2 ABG HCO3 ABG Total CO2 ABG O2 Saturation ABG Base Excess VBG pH VBG pCO2 VBG pO2 VBG HCO3 VBG Total CO2 VBG O2 Saturation VBG Base Excess FiO2 Sodium Potassium Chloride Carbon Dioxide BUN Creatinine Estimated GFR BUN/Creatinine Ratio Glucose Lactate Calcium Magnesium Total Bilirubin AST ALT Alkaline Phosphatase Troponin I Total Protein Albumin Globulin Albumin/Globulin Ratio Procalcitonin TSH Free T4 Urine Color Urine Appearance Urine pH Ur Specific [place] Urine Protein Urine Glucose (UA) Urine Ketones Urine Occult Blood Urine Nitrate Urine Bilirubin Urine Urobilinogen Ur Leukocyte Esterase Urine RBC Urine WBC Urine Bacteria Granular Casts Ur Culture Indicated? Micro UA Comment Nasal Screen MRSA (PCR) Digoxin A. baumannii (PCR) Not detected Amee albicans (PCR) Not detected C. glabrata (PCR) Not detected C. krusei (PCR) Not detected C. parapsilosis (PCR) Not detected C. tropicalis (PCR) Not detected Enterobacteriac sp PCR Not detected E. cloacae complex PCR Not detected Enterococcus sp PCR Not detected E. coli (PCR) Not detected H. influenzae (PCR) Not detected Klebsiella oxytoca PCR Not detected Klebsiella pneumoniae Not detected List. monocytogenes PCR Not detected N. meningitidis (PCR) Not detected Proteus species (PCR) Not detected Serratia marcescens PCR Not detected Staphylococcus sp PCR Not detected Staph aureus (PCR) Not detected mecA-Methicil Res Gene Not Reportable Streptococcus sp PCR Detected H Group A Strep (PCR) Not detected Strep agalactiae (PCR) Not detected Strep pneumoniae (PCR) Not detected P. aeruginosa (PCR) Not detected Rayshawn/B-Vanco Res Genes Not Reportable KPC-Carbap Res Gene PCR Not Reportable 04/19/18 04/19/18 04/19/18 15:26 15:26 15:26 WBC RBC Hgb Hct MCV MCH MCHC RDW Plt Count Neut % (Auto) Lymph % (Auto) [place] % (Auto) Eos % (Auto) Baso % (Auto) Neut # (Auto) PT INR APTT D-Dimer ABG pH ABG pCO2 ABG pO2 ABG HCO3 ABG Total CO2 ABG O2 Saturation ABG Base Excess VBG pH VBG pCO2 VBG pO2 VBG HCO3 VBG Total CO2 VBG O2 Saturation VBG Base Excess FiO2 Sodium 135 L Potassium 3.9 Chloride 94 L Carbon Dioxide 29 BUN 37 H Creatinine 1.20 Estimated GFR 59.9 L BUN/Creatinine Ratio 30.8 H Glucose 253 H Lactate 2.9 H Calcium 9.4 Magnesium 2.0 Total Bilirubin 1.4 H AST 165 H ALT 45 Alkaline Phosphatase 45 Troponin I 0.107 H Total Protein 7.4 Albumin 4.3 Globulin 3.1 Albumin/Globulin Ratio 1.4 Procalcitonin 19.55 H TSH Free T4 Urine Color Urine Appearance Urine pH Ur Specific [place] Urine Protein Urine Glucose (UA) Urine Ketones Urine Occult Blood Urine Nitrate Urine Bilirubin Urine Urobilinogen Ur Leukocyte Esterase Urine RBC Urine WBC Urine Bacteria Granular Casts Ur Culture Indicated? Micro UA Comment Nasal Screen MRSA (PCR) Digoxin A. baumannii (PCR) Amee albicans (PCR) C. glabrata (PCR) C. krusei (PCR) C. parapsilosis (PCR) C. tropicalis (PCR) Enterobacteriac sp PCR E. cloacae complex PCR Enterococcus sp PCR E. coli (PCR) H. influenzae (PCR) Klebsiella oxytoca PCR Klebsiella pneumoniae List. monocytogenes PCR N. meningitidis (PCR) Proteus species (PCR) Serratia marcescens PCR Staphylococcus sp PCR Staph aureus (PCR) mecA-Methicil Res Gene Streptococcus sp PCR Group A Strep (PCR) Strep agalactiae (PCR) Strep pneumoniae (PCR) P. aeruginosa (PCR) Rayshawn/B-Vanco Res Genes KPC-Carbap Res Gene PCR 04/19/18 04/19/18 04/19/18 15:39 15:55 16:21 WBC RBC Hgb Hct MCV MCH MCHC RDW Plt Count Neut % (Auto) Lymph % (Auto) [place] % (Auto) Eos % (Auto) Baso % (Auto) Neut # (Auto) PT INR APTT D-Dimer ABG pH ABG pCO2 ABG pO2 ABG HCO3 ABG Total CO2 ABG O2 Saturation ABG Base Excess VBG pH 7.45 H VBG pCO2 43.4 L VBG pO2 17 L VBG HCO3 30 H VBG Total CO2 31 H VBG O2 Saturation 27 L VBG Base Excess 6.0 H FiO2 Sodium Potassium Chloride Carbon Dioxide BUN Creatinine Estimated GFR BUN/Creatinine Ratio Glucose Lactate Calcium Magnesium Total Bilirubin AST ALT Alkaline Phosphatase Troponin I Total Protein Albumin Globulin Albumin/Globulin Ratio Procalcitonin TSH 0.93 Free T4 1.31 Urine Color Yellow Urine Appearance Cloudy Urine pH 5.0 Ur Specific [place] 1.020 Urine Protein 3+ H Urine Glucose (UA) Negative Urine Ketones Trace H Urine Occult Blood 3+ H Urine Nitrate Negative Urine Bilirubin Negative Urine Urobilinogen 0.2 Ur Leukocyte Esterase Negative Urine RBC 10-30/hpf H Urine WBC None seen Urine Bacteria None seen Granular Casts 1-5/lpf Ur Culture Indicated? Cult not indicated Micro UA Comment Not Reportable Nasal Screen MRSA (PCR) Digoxin A. baumannii (PCR) Amee albicans (PCR) C. glabrata (PCR) C. krusei (PCR) C. parapsilosis (PCR) C. tropicalis (PCR) Enterobacteriac sp PCR E. cloacae complex PCR Enterococcus sp PCR E. coli (PCR) H. influenzae (PCR) Klebsiella oxytoca PCR Klebsiella pneumoniae List. monocytogenes PCR N. meningitidis (PCR) Proteus species (PCR) Serratia marcescens PCR Staphylococcus sp PCR Staph aureus (PCR) mecA-Methicil Res Gene Streptococcus sp PCR Group A Strep (PCR) Strep agalactiae (PCR) Strep pneumoniae (PCR) P. aeruginosa (PCR) Rayshawn/B-Vanco Res Genes KPC-Carbap Res Gene PCR 04/19/18 04/19/18 04/19/18 18:20 19:22 19:29 WBC RBC Hgb Hct MCV MCH MCHC RDW Plt Count Neut % (Auto) Lymph % (Auto) [place] % (Auto) Eos % (Auto) Baso % (Auto) Neut # (Auto) PT INR APTT D-Dimer ABG pH 7.35 ABG pCO2 40.1 ABG pO2 89 ABG HCO3 22 L ABG Total CO2 23 ABG O2 Saturation 96 ABG Base Excess -4.0 L VBG pH VBG pCO2 VBG pO2 VBG HCO3 VBG Total CO2 VBG O2 Saturation VBG Base Excess FiO2 0.44 Sodium Potassium Chloride Carbon Dioxide BUN Creatinine Estimated GFR BUN/Creatinine Ratio Glucose Lactate Calcium Magnesium Total Bilirubin AST ALT Alkaline Phosphatase Troponin I 0.119 H Total Protein Albumin Globulin Albumin/Globulin Ratio Procalcitonin TSH Free T4 Urine Color Urine Appearance Urine pH Ur Specific [place] Urine Protein Urine Glucose (UA) Urine Ketones Urine Occult Blood Urine Nitrate Urine Bilirubin Urine Urobilinogen Ur Leukocyte Esterase Urine RBC Urine WBC Urine Bacteria Granular Casts Ur Culture Indicated? Micro UA Comment Nasal Screen MRSA (PCR) Negative for mrsa Digoxin A. baumannii (PCR) Amee albicans (PCR) C. glabrata (PCR) C. krusei (PCR) C. parapsilosis (PCR) C. tropicalis (PCR) Enterobacteriac sp PCR E. cloacae complex PCR Enterococcus sp PCR E. coli (PCR) H. influenzae (PCR) Klebsiella oxytoca PCR Klebsiella pneumoniae List. monocytogenes PCR N. meningitidis (PCR) Proteus species (PCR) Serratia marcescens PCR Staphylococcus sp PCR Staph aureus (PCR) mecA-Methicil Res Gene Streptococcus sp PCR Group A Strep (PCR) Strep agalactiae (PCR) Strep pneumoniae (PCR) P. aeruginosa (PCR) Rayshawn/B-Vanco Res Genes KPC-Carbap Res Gene PCR 04/19/18 04/19/18 04/19/18 19:45 19:45 19:45 WBC 12.3 H RBC 3.76 L Hgb 11.3 L Hct 34.2 L MCV 91.0 MCH 30.1 MCHC 33.0 RDW 15.6 H Plt Count 160 Neut % (Auto) 95.9 H Lymph % (Auto) 1.5 L [place] % (Auto) 2.5 L Eos % (Auto) 0.0 L Baso % (Auto) 0.1 Neut # (Auto) 30377 H PT INR APTT D-Dimer ABG pH ABG pCO2 ABG pO2 ABG HCO3 ABG Total CO2 ABG O2 Saturation ABG Base Excess VBG pH VBG pCO2 VBG pO2 VBG HCO3 VBG Total CO2 VBG O2 Saturation VBG Base Excess FiO2 Sodium 137 Potassium 4.3 Chloride 98 Carbon Dioxide 26 BUN 35 H Creatinine 1.10 Estimated GFR > 60.0 BUN/Creatinine Ratio 31.8 H Glucose 239 H Lactate 2.1 Calcium 8.8 Magnesium Total Bilirubin 1.6 H AST 174 H ALT 56 Alkaline Phosphatase 44 Troponin I Total Protein 7.0 Albumin 4.0 Globulin 3.0 Albumin/Globulin Ratio 1.3 Procalcitonin TSH Free T4 Urine Color Urine Appearance Urine pH Ur Specific [place] Urine Protein Urine Glucose (UA) Urine Ketones Urine Occult Blood Urine Nitrate Urine Bilirubin Urine Urobilinogen Ur Leukocyte Esterase Urine RBC Urine WBC Urine Bacteria Granular Casts Ur Culture Indicated? Micro UA Comment Nasal Screen MRSA (PCR) Digoxin A. baumannii (PCR) Amee albicans (PCR) C. glabrata (PCR) C. krusei (PCR) C. parapsilosis (PCR) C. tropicalis (PCR) Enterobacteriac sp PCR E. cloacae complex PCR Enterococcus sp PCR E. coli (PCR) H. influenzae (PCR) Klebsiella oxytoca PCR Klebsiella pneumoniae List. monocytogenes PCR N. meningitidis (PCR) Proteus species (PCR) Serratia marcescens PCR Staphylococcus sp PCR Staph aureus (PCR) mecA-Methicil Res Gene Streptococcus sp PCR Group A Strep (PCR) Strep agalactiae (PCR) Strep pneumoniae (PCR) P. aeruginosa (PCR) Rayshawn/B-Vanco Res Genes KPC-Carbap Res Gene PCR 04/19/18 04/20/18 04/20/18 19:45 02:28 08:00 WBC 11.9 H RBC 3.10 L Hgb 9.3 L Hct 28.4 L MCV 91.6 MCH 30.1 MCHC 32.9 RDW 15.8 H Plt Count 140 L Neut % (Auto) 94.5 H Lymph % (Auto) 1.9 L [place] % (Auto) 3.3 Eos % (Auto) 0.1 L Baso % (Auto) 0.2 Neut # (Auto) 13125 H PT INR APTT 33 81 H* D D-Dimer ABG pH ABG pCO2 ABG pO2 ABG HCO3 ABG Total CO2 ABG O2 Saturation ABG Base Excess VBG pH VBG pCO2 VBG pO2 VBG HCO3 VBG Total CO2 VBG O2 Saturation VBG Base Excess FiO2 Sodium Potassium Chloride Carbon Dioxide BUN Creatinine Estimated GFR BUN/Creatinine Ratio Glucose Lactate Calcium Magnesium Total Bilirubin AST ALT Alkaline Phosphatase Troponin I Total Protein Albumin Globulin Albumin/Globulin Ratio Procalcitonin TSH Free T4 Urine Color Urine Appearance Urine pH Ur Specific [place] Urine Protein Urine Glucose (UA) Urine Ketones Urine Occult Blood Urine Nitrate Urine Bilirubin Urine Urobilinogen Ur Leukocyte Esterase Urine RBC Urine WBC Urine Bacteria Granular Casts Ur Culture Indicated? Micro UA Comment Nasal Screen MRSA (PCR) Digoxin A. baumannii (PCR) Amee albicans (PCR) C. glabrata (PCR) C. krusei (PCR) C. parapsilosis (PCR) C. tropicalis (PCR) Enterobacteriac sp PCR E. cloacae complex PCR Enterococcus sp PCR E. coli (PCR) H. influenzae (PCR) Klebsiella oxytoca PCR Klebsiella pneumoniae List. monocytogenes PCR N. meningitidis (PCR) Proteus species (PCR) Serratia marcescens PCR Staphylococcus sp PCR Staph aureus (PCR) mecA-Methicil Res Gene Streptococcus sp PCR Group A Strep (PCR) Strep agalactiae (PCR) Strep pneumoniae (PCR) P. aeruginosa (PCR) Rayshawn/B-Vanco Res Genes KPC-Carbap Res Gene PCR 04/20/18 04/20/18 04/20/18 08:00 11:15 11:23 WBC RBC Hgb Hct MCV MCH MCHC RDW Plt Count Neut % (Auto) Lymph % (Auto) [place] % (Auto) Eos % (Auto) Baso % (Auto) Neut # (Auto) PT INR APTT 62 H D D-Dimer ABG pH 7.39 ABG pCO2 43.8 ABG pO2 104 ABG HCO3 27 ABG Total CO2 28 H ABG O2 Saturation 98 ABG Base Excess 2.0 VBG pH VBG pCO2 VBG pO2 VBG HCO3 VBG Total CO2 VBG O2 Saturation VBG Base Excess FiO2 40 Sodium Potassium Chloride Carbon Dioxide BUN Creatinine Estimated GFR BUN/Creatinine Ratio Glucose Lactate Calcium Magnesium Total Bilirubin AST ALT Alkaline Phosphatase Troponin I 0.108 H Total Protein Albumin Globulin Albumin/Globulin Ratio Procalcitonin TSH Free T4 Urine Color Urine Appearance Urine pH Ur Specific [place] Urine Protein Urine Glucose (UA) Urine Ketones Urine Occult Blood Urine Nitrate Urine Bilirubin Urine Urobilinogen Ur Leukocyte Esterase Urine RBC Urine WBC Urine Bacteria Granular Casts Ur Culture Indicated? Micro UA Comment Nasal Screen MRSA (PCR) Digoxin A. baumannii (PCR) Amee albicans (PCR) C. glabrata (PCR) C. krusei (PCR) C. parapsilosis (PCR) C. tropicalis (PCR) Enterobacteriac sp PCR E. cloacae complex PCR Enterococcus sp PCR E. coli (PCR) H. influenzae (PCR) Klebsiella oxytoca PCR Klebsiella pneumoniae List. monocytogenes PCR N. meningitidis (PCR) Proteus species (PCR) Serratia marcescens PCR Staphylococcus sp PCR Staph aureus (PCR) mecA-Methicil Res Gene Streptococcus sp PCR Group A Strep (PCR) Strep agalactiae (PCR) Strep pneumoniae (PCR) P. aeruginosa (PCR) Rayshawn/B-Vanco Res Genes KPC-Carbap Res Gene PCR 04/20/18 04/20/18 Unknown Unknown WBC RBC Hgb Hct MCV MCH MCHC RDW Plt Count Neut % (Auto) Lymph % (Auto) [place] % (Auto) Eos % (Auto) Baso % (Auto) Neut # (Auto) PT INR APTT D-Dimer ABG pH ABG pCO2 ABG pO2 ABG HCO3 ABG Total CO2 ABG O2 Saturation ABG Base Excess VBG pH VBG pCO2 VBG pO2 VBG HCO3 VBG Total CO2 VBG O2 Saturation VBG Base Excess FiO2 Sodium 136 L Potassium 3.9 Chloride 97 L Carbon Dioxide 26 BUN 35 H Creatinine 1.10 Estimated GFR > 60.0 BUN/Creatinine Ratio 31.8 H Glucose 235 H Lactate Calcium 8.7 Magnesium 1.9 Total Bilirubin AST ALT Alkaline Phosphatase Troponin I Total Protein Albumin Globulin Albumin/Globulin Ratio Procalcitonin TSH Free T4 Urine Color Urine Appearance Urine pH Ur Specific [place] Urine Protein Urine Glucose (UA) Urine Ketones Urine Occult Blood Urine Nitrate Urine Bilirubin Urine Urobilinogen Ur Leukocyte Esterase Urine RBC Urine WBC Urine Bacteria Granular Casts Ur Culture Indicated? Micro UA Comment Nasal Screen MRSA (PCR) Digoxin < 0.4 L A. baumannii (PCR) Amee albicans (PCR) C. glabrata (PCR) C. krusei (PCR) C. parapsilosis (PCR) C. tropicalis (PCR) Enterobacteriac sp PCR E. cloacae complex PCR Enterococcus sp PCR E. coli (PCR) H. influenzae (PCR) Klebsiella oxytoca PCR Klebsiella pneumoniae List. monocytogenes PCR N. meningitidis (PCR) Proteus species (PCR) Serratia marcescens PCR Staphylococcus sp PCR Staph aureus (PCR) mecA-Methicil Res Gene Streptococcus sp PCR Group A Strep (PCR) Strep agalactiae (PCR) Strep pneumoniae (PCR) P. aeruginosa (PCR) Rayshawn/B-Vanco Res Genes KPC-Carbap Res Gene PCR Assessment & Plan Plan: Assessment/Plan Narrative: Patient is critically ill obese man admitted with dyspnea and probable sepsis: # Dyspnea: patient appears to have right ventricular heart failure exacerbation. Echo done today shows EF about 50% but right ventricle is enlarged with moderately reduced function. His gradual onset of symptoms also suggests heart failure. He appears significantly volume overloaded. While the D-dimer is elevated, it is likely from acute illness and PE appears less likely as symptoms were gradual in onset. Plan: - Stop fluids - Trial of furosemide 20mg IV to assess response. If good response, redose # NSTEMI: Troponin elevation likely from acute illness and this has trended down. No chest pain. # Sepsis: patient has strep species in his blood along with leukocytosis. Plan: - Defer to the hospitalist for sepsis management. Recommend avoiding IV fluids # Peristent AF: patient's ventricular rate in the 90s range. The wide complex tachycardia noted yesterday appears to be AF with aberrancy (rene beats). Plan: - Ok to use digoxin for rate control. - Use metoprolol PRN when BP allows # Hematuria: unclear etiology. - Ok to stop heparin gtt from cardiology standpoint given significant hematuria and severe anemia If the patient doesn't improve with IV diuretics and IV antibiotics in the next 1-2 days, consider transfer to higher level of care. Time Spent With Patient Time with patient: Greater than 35 minutes (Total critical care time spent 60 minutes managing the patient's atrial fibrillation, heart failure, and severe dyspnea.)
--- NOTE | 2018-04-20 13:39 | PM.CN ---
History of Present Illness Date Patient Seen: 04/20/18 Time Patient Seen: 13:00 Chief complaint: SOB/WEAKNESS. Time several days. Reason for consult: Medical management for this complex patient Narrative: 72-year-old man who was admitted to the [facility] yesterday for weakness. He said he has been feeling weak in the past 2 weeks. He also had worsening of bilateral lower extremity edema. He has been taking furosemide 80 mg once a day. His leg edema continued to worsen. He also started having shaking chills and fever about 2 days ago. Yesterday he felt very weak. He also had pain in his legs. He was not able to get up from sitting on the toielet and sat there for about 3 hrs. He was subsequently brought to the [facility] Emergency Room. He was noted to have leukocytosis and elevated procalcitonin. He was diagnosed with right lower leg cellulitis and sepsis. He also was found to have elevated D-dimer. CT pulmonary angiogram was not able to be done due to he was not able to lay flat for the scan. Patient says he has been having some mild shortness of breath. He has not noticed any significant worsening of shortness of breath recently. [facility] Medical History Type 2 diabetes mellitus without complication (Chronic 10/25/15) Cardiomyopathy (Chronic 04/21/13) Essential hypertension (Chronic 10/10/11) Mixed hyperlipidemia (Chronic 10/25/15) Morbid obesity due to excess calories (Chronic 02/17/17) Edema (Chronic) Body mass index (BMI) of 45.0 to 49.9 in adult (Chronic 02/17/17) Gynecomastia (Chronic 03/30/17) Benign localized prostatic hyperplasia with lower urinary tract symptoms (LUTS) (Chronic 12/29/17) Type 2 diabetes mellitus with hyperglycemia (Chronic 10/10/11) Social History marital status: number of children: 0 household members: spouse lives independently: Yes caregiver/support person: No housing: house pets and animals: Yes education level: college (4 years) occupational status: other (Retired.) 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 leisure activities: exercise (Walking the dogs.) and other (Gardening.) Smoking Status: Never smoker Tobacco: How many years used: 0 quit status: quit date established (Never Started) second hand exposure: Yes (None over the last 30 years) alcohol intake: never substance use type: does not use Comment: He is . He lives with his . He denies alcohol drinking or cigarette smoking. Meds Home Medications Medication Instructions Recorded Confirmed Type aspirin 162 mg PO QDAY #0 11/06/12 04/19/18 History melatonin 2 mg PO HS #0 11/06/12 04/19/18 History gabapentin [Neurontin] 600 mg PO HS #90 tab 07/01/17 04/19/18 Rx felodipine 1.25 mg PO QDAY #45 tab 08/31/17 04/19/18 Rx finasteride 5 mg PO QDAY #90 tab 08/31/17 04/19/18 Rx lisinopril 40 mg PO BID #180 tab 10/19/17 04/19/18 Rx carvedilol [Coreg] 12.5 mg PO BID #180 tab 10/21/17 04/19/18 Rx rosuvastatin [Crestor] 10 mg PO QDAY #90 tab 11/05/17 04/19/18 Rx doxazosin 4 mg PO HS #90 tab 12/29/17 04/19/18 Rx furosemide 40 mg PO BID #360 tab 01/18/18 04/19/18 Rx pioglitazone [Actos] 30 mg PO QDAY #90 tab 02/01/18 04/19/18 Rx glimepiride [Amaryl] 4 mg PO BIDCC #180 tab 02/02/18 04/19/18 Rx metformin [Glucophage] 1,000 mg PO BIDCC #180 tab 03/11/18 04/19/18 Rx meloxicam 7.5 mg tablet 7.5 mg PO DAILY PRN #60 tab 03/30/18 04/19/18 Rx tramadol 50 mg tablet 50 mg PO Q8HP PRN #90 tab 04/15/18 04/19/18 Rx Allergies Allergy/AdvReac Type Severity Reaction Status Date / Time atorvastatin [ATORVASTATIN] Allergy Mild flu like Verified 03/30/18 13:28 (LIPITOR) codeine [CODEINE] Allergy Mild Verified 03/30/18 13:28 Review of Systems Constitutional Constitutional: Reports as per HPI Cardiovascular Cardiovascular: Reports shortness of breath and Reports shortness of breath with activity Comments: No chest pain Respiratory Respiratory: Reports dyspnea and Reports dyspnea on exertion Gastrointestinal Comments: Denies abdominal pain Genitourinary Genitourinary: Reports hematuria Exam Vital Signs (past 8 hours): - 04/20/18 06:00 04/20/18 07:52 04/20/18 08:14 Temperature 99 F 100.9 F H Pulse Rate 118 H 120 H 123 H Respiratory Rate 28 H 17 20 Blood Pressure 114/80 130/57 H Pulse Oximetry 97 98 100 04/20/18 08:17 04/20/18 09:31 04/20/18 11:35 Temperature 99.7 F H Pulse Rate 121 H 91 H Respiratory Rate 29 H Blood Pressure 109/48 L Pulse Oximetry 99 98 Fraction of Inspired Oxygen 40 Oxygen Delivery Method Nasal Cannula,High Flow Nasal Cannula Oxygen Flow Rate 55 Narrative Exam Narrative: GENERAL: Morbidly obese middle-aged man in no acute distress. HEENT: Head normocephalic, atraumatic. Eyes pupils equal round NECK: Supple, no JVD, CHEST: Breath sounds equal bilaterally, no wheezes rales or rhonchi. CARDIAC: Irregular rhythm without murmurs, rubs or gallops. ABDOMEN: Soft, nontender. Normoactive bowel sounds all 4 quadrants. No guarding or rebound. EXTREMITIES: Normal range of motion, 3+ edema on bilateral lower extremity. Right lower leg has erythema, blistering. There is a large superficial denuded superficial ulceration on the right anterior ohara, possibly from ruptured blister. NEUROLOGICAL: Alert and oriented; Normal muscle strength. SKIN: Warm, dry, no petechiae, no rashes or lesions. Objective Imaging Chest x-ray: Radiologist's impression: 1. Cardiomegaly with mild congestive failure. Venous US: Radiologist's impression: 1. Cardiomegaly with mild congestive failure. echocardiogram: Radiologist's impression: Extremely difficult exam. Pt unable to cooperate throughout exam and was extremely sensitive to probe pressure. Contrast was used but was not very helpful. 1) Normal left ventricular size with low normal function (EF about 50%). 2) Paradoxical septal motion is consistent with right ventricular volume overload. 2) The right ventricle is not well visualized but it looks grossly enlarged with moderately reduced function 3) No significant valvular abnormalities. 4) The IVC is dilated (diameter is greater than 2.1 cm) and it collapses less than 50% with a sniff. This suggests a high right atrial pressure of 15 mm Hg. 5) No prior Echo available for comparison. Labs Result Diagrams: 04/20/18 08:00 04/20/18 Unknown Labs: Laboratory Results - last 24 hr 04/19/18 04/19/18 04/19/18 15:20 15:26 15:26 WBC 15.1 H RBC 3.77 L Hgb 11.4 L Hct 33.9 L MCV 90.0 MCH 30.1 MCHC 33.5 RDW 15.8 H Plt Count 180 Neut % (Auto) 93.7 H Lymph % (Auto) 1.5 L J[place] % (Auto) 4.5 Eos % (Auto) 0.0 L Baso % (Auto) 0.3 Neut # (Auto) 72345 H PT 22.6 H INR 2.0 H APTT D-Dimer 4190 H ABG pH ABG pCO2 ABG pO2 ABG HCO3 ABG Total CO2 ABG O2 Saturation ABG Base Excess VBG pH VBG pCO2 VBG pO2 VBG HCO3 VBG Total CO2 VBG O2 Saturation VBG Base Excess FiO2 Sodium Potassium Chloride Carbon Dioxide BUN Creatinine Estimated GFR BUN/Creatinine Ratio Glucose Lactate Calcium Magnesium Total Bilirubin AST ALT Alkaline Phosphatase Troponin I Total Protein Albumin Globulin Albumin/Globulin Ratio Procalcitonin TSH Free T4 Urine Color Urine Appearance Urine pH Ur Specific [place] Urine Protein Urine Glucose (UA) Urine Ketones Urine Occult Blood Urine Nitrate Urine Bilirubin Urine Urobilinogen Ur Leukocyte Esterase Urine RBC Urine WBC Urine Bacteria Granular Casts Ur Culture Indicated? Micro UA Comment Nasal Screen MRSA (PCR) Digoxin A. baumannii (PCR) Not detected Amee albicans (PCR) Not detected C. glabrata (PCR) Not detected C. krusei (PCR) Not detected C. parapsilosis (PCR) Not detected C. tropicalis (PCR) Not detected Enterobacteriac sp PCR Not detected E. cloacae complex PCR Not detected Enterococcus sp PCR Not detected E. coli (PCR) Not detected H. influenzae (PCR) Not detected Klebsiella oxytoca PCR Not detected Klebsiella pneumoniae Not detected List. monocytogenes PCR Not detected N. meningitidis (PCR) Not detected Proteus species (PCR) Not detected Serratia marcescens PCR Not detected Staphylococcus sp PCR Not detected Staph aureus (PCR) Not detected mecA-Methicil Res Gene Not Reportable Streptococcus sp PCR Detected H Group A Strep (PCR) Not detected Strep agalactiae (PCR) Not detected Strep pneumoniae (PCR) Not detected P. aeruginosa (PCR) Not detected Rayshawn/B-Vanco Res Genes Not Reportable KPC-Carbap Res Gene PCR Not Reportable 04/19/18 04/19/18 04/19/18 15:26 15:26 15:26 WBC RBC Hgb Hct MCV MCH MCHC RDW Plt Count Neut % (Auto) Lymph % (Auto) [place] % (Auto) Eos % (Auto) Baso % (Auto) Neut # (Auto) PT INR APTT D-Dimer ABG pH ABG pCO2 ABG pO2 ABG HCO3 ABG Total CO2 ABG O2 Saturation ABG Base Excess VBG pH VBG pCO2 VBG pO2 VBG HCO3 VBG Total CO2 VBG O2 Saturation VBG Base Excess FiO2 Sodium 135 L Potassium 3.9 Chloride 94 L Carbon Dioxide 29 BUN 37 H Creatinine 1.20 Estimated GFR 59.9 L BUN/Creatinine Ratio 30.8 H Glucose 253 H Lactate 2.9 H Calcium 9.4 Magnesium 2.0 Total Bilirubin 1.4 H AST 165 H ALT 45 Alkaline Phosphatase 45 Troponin I 0.107 H Total Protein 7.4 Albumin 4.3 Globulin 3.1 Albumin/Globulin Ratio 1.4 Procalcitonin 19.55 H TSH Free T4 Urine Color Urine Appearance Urine pH Ur Specific [place] Urine Protein Urine Glucose (UA) Urine Ketones Urine Occult Blood Urine Nitrate Urine Bilirubin Urine Urobilinogen Ur Leukocyte Esterase Urine RBC Urine WBC Urine Bacteria Granular Casts Ur Culture Indicated? Micro UA Comment Nasal Screen MRSA (PCR) Digoxin A. baumannii (PCR) Amee albicans (PCR) C. glabrata (PCR) C. krusei (PCR) C. parapsilosis (PCR) C. tropicalis (PCR) Enterobacteriac sp PCR E. cloacae complex PCR Enterococcus sp PCR E. coli (PCR) H. influenzae (PCR) Klebsiella oxytoca PCR Klebsiella pneumoniae List. monocytogenes PCR N. meningitidis (PCR) Proteus species (PCR) Serratia marcescens PCR Staphylococcus sp PCR Staph aureus (PCR) mecA-Methicil Res Gene Streptococcus sp PCR Group A Strep (PCR) Strep agalactiae (PCR) Strep pneumoniae (PCR) P. aeruginosa (PCR) Rayshawn/B-Vanco Res Genes KPC-Carbap Res Gene PCR 04/19/18 04/19/18 04/19/18 15:39 15:55 16:21 WBC RBC Hgb Hct MCV MCH MCHC RDW Plt Count Neut % (Auto) Lymph % (Auto) [place] % (Auto) Eos % (Auto) Baso % (Auto) Neut # (Auto) PT INR APTT D-Dimer ABG pH ABG pCO2 ABG pO2 ABG HCO3 ABG Total CO2 ABG O2 Saturation ABG Base Excess VBG pH 7.45 H VBG pCO2 43.4 L VBG pO2 17 L VBG HCO3 30 H VBG Total CO2 31 H VBG O2 Saturation 27 L VBG Base Excess 6.0 H FiO2 Sodium Potassium Chloride Carbon Dioxide BUN Creatinine Estimated GFR BUN/Creatinine Ratio Glucose Lactate Calcium Magnesium Total Bilirubin AST ALT Alkaline Phosphatase Troponin I Total Protein Albumin Globulin Albumin/Globulin Ratio Procalcitonin TSH 0.93 Free T4 1.31 Urine Color Yellow Urine Appearance Cloudy Urine pH 5.0 Ur Specific [place] 1.020 Urine Protein 3+ H Urine Glucose (UA) Negative Urine Ketones Trace H Urine Occult Blood 3+ H Urine Nitrate Negative Urine Bilirubin Negative Urine Urobilinogen 0.2 Ur Leukocyte Esterase Negative Urine RBC 10-30/hpf H Urine WBC None seen Urine Bacteria None seen Granular Casts 1-5/lpf Ur Culture Indicated? Cult not indicated Micro UA Comment Not Reportable Nasal Screen MRSA (PCR) Digoxin A. baumannii (PCR) Amee albicans (PCR) C. glabrata (PCR) C. krusei (PCR) C. parapsilosis (PCR) C. tropicalis (PCR) Enterobacteriac sp PCR E. cloacae complex PCR Enterococcus sp PCR E. coli (PCR) H. influenzae (PCR) Klebsiella oxytoca PCR Klebsiella pneumoniae List. monocytogenes PCR N. meningitidis (PCR) Proteus species (PCR) Serratia marcescens PCR Staphylococcus sp PCR Staph aureus (PCR) mecA-Methicil Res Gene Streptococcus sp PCR Group A Strep (PCR) Strep agalactiae (PCR) Strep pneumoniae (PCR) P. aeruginosa (PCR) Rayshawn/B-Vanco Res Genes KPC-Carbap Res Gene PCR 04/19/18 04/19/18 04/19/18 18:20 19:22 19:29 WBC RBC Hgb Hct MCV MCH MCHC RDW Plt Count Neut % (Auto) Lymph % (Auto) [place] % (Auto) Eos % (Auto) Baso % (Auto) Neut # (Auto) PT INR APTT D-Dimer ABG pH 7.35 ABG pCO2 40.1 ABG pO2 89 ABG HCO3 22 L ABG Total CO2 23 ABG O2 Saturation 96 ABG Base Excess -4.0 L VBG pH VBG pCO2 VBG pO2 VBG HCO3 VBG Total CO2 VBG O2 Saturation VBG Base Excess FiO2 0.44 Sodium Potassium Chloride Carbon Dioxide BUN Creatinine Estimated GFR BUN/Creatinine Ratio Glucose Lactate Calcium Magnesium Total Bilirubin AST ALT Alkaline Phosphatase Troponin I 0.119 H Total Protein Albumin Globulin Albumin/Globulin Ratio Procalcitonin TSH Free T4 Urine Color Urine Appearance Urine pH Ur Specific [place] Urine Protein Urine Glucose (UA) Urine Ketones Urine Occult Blood Urine Nitrate Urine Bilirubin Urine Urobilinogen Ur Leukocyte Esterase Urine RBC Urine WBC Urine Bacteria Granular Casts Ur Culture Indicated? Micro UA Comment Nasal Screen MRSA (PCR) Negative for mrsa Digoxin A. baumannii (PCR) Amee albicans (PCR) C. glabrata (PCR) C. krusei (PCR) C. parapsilosis (PCR) C. tropicalis (PCR) Enterobacteriac sp PCR E. cloacae complex PCR Enterococcus sp PCR E. coli (PCR) H. influenzae (PCR) Klebsiella oxytoca PCR Klebsiella pneumoniae List. monocytogenes PCR N. meningitidis (PCR) Proteus species (PCR) Serratia marcescens PCR Staphylococcus sp PCR Staph aureus (PCR) mecA-Methicil Res Gene Streptococcus sp PCR Group A Strep (PCR) Strep agalactiae (PCR) Strep pneumoniae (PCR) P. aeruginosa (PCR) Rayshawn/B-Vanco Res Genes KPC-Carbap Res Gene PCR 04/19/18 04/19/18 04/19/18 19:45 19:45 19:45 WBC 12.3 H RBC 3.76 L Hgb 11.3 L Hct 34.2 L MCV 91.0 MCH 30.1 MCHC 33.0 RDW 15.6 H Plt Count 160 Neut % (Auto) 95.9 H Lymph % (Auto) 1.5 L [place] % (Auto) 2.5 L Eos % (Auto) 0.0 L Baso % (Auto) 0.1 Neut # (Auto) 77475 H PT INR APTT D-Dimer ABG pH ABG pCO2 ABG pO2 ABG HCO3 ABG Total CO2 ABG O2 Saturation ABG Base Excess VBG pH VBG pCO2 VBG pO2 VBG HCO3 VBG Total CO2 VBG O2 Saturation VBG Base Excess FiO2 Sodium 137 Potassium 4.3 Chloride 98 Carbon Dioxide 26 BUN 35 H Creatinine 1.10 Estimated GFR > 60.0 BUN/Creatinine Ratio 31.8 H Glucose 239 H Lactate 2.1 Calcium 8.8 Magnesium Total Bilirubin 1.6 H AST 174 H ALT 56 Alkaline Phosphatase 44 Troponin I Total Protein 7.0 Albumin 4.0 Globulin 3.0 Albumin/Globulin Ratio 1.3 Procalcitonin TSH Free T4 Urine Color Urine Appearance Urine pH Ur Specific [place] Urine Protein Urine Glucose (UA) Urine Ketones Urine Occult Blood Urine Nitrate Urine Bilirubin Urine Urobilinogen Ur Leukocyte Esterase Urine RBC Urine WBC Urine Bacteria Granular Casts Ur Culture Indicated? Micro UA Comment Nasal Screen MRSA (PCR) Digoxin A. baumannii (PCR) Amee albicans (PCR) C. glabrata (PCR) C. krusei (PCR) C. parapsilosis (PCR) C. tropicalis (PCR) Enterobacteriac sp PCR E. cloacae complex PCR Enterococcus sp PCR E. coli (PCR) H. influenzae (PCR) Klebsiella oxytoca PCR Klebsiella pneumoniae List. monocytogenes PCR N. meningitidis (PCR) Proteus species (PCR) Serratia marcescens PCR Staphylococcus sp PCR Staph aureus (PCR) mecA-Methicil Res Gene Streptococcus sp PCR Group A Strep (PCR) Strep agalactiae (PCR) Strep pneumoniae (PCR) P. aeruginosa (PCR) Rayshawn/B-Vanco Res Genes KPC-Carbap Res Gene PCR 04/19/18 04/20/18 04/20/18 19:45 02:28 08:00 WBC 11.9 H RBC 3.10 L Hgb 9.3 L Hct 28.4 L MCV 91.6 MCH 30.1 MCHC 32.9 RDW 15.8 H Plt Count 140 L Neut % (Auto) 94.5 H Lymph % (Auto) 1.9 L [place] % (Auto) 3.3 Eos % (Auto) 0.1 L Baso % (Auto) 0.2 Neut # (Auto) 74945 H PT INR APTT 33 81 H* D D-Dimer ABG pH ABG pCO2 ABG pO2 ABG HCO3 ABG Total CO2 ABG O2 Saturation ABG Base Excess VBG pH VBG pCO2 VBG pO2 VBG HCO3 VBG Total CO2 VBG O2 Saturation VBG Base Excess FiO2 Sodium Potassium Chloride Carbon Dioxide BUN Creatinine Estimated GFR BUN/Creatinine Ratio Glucose Lactate Calcium Magnesium Total Bilirubin AST ALT Alkaline Phosphatase Troponin I Total Protein Albumin Globulin Albumin/Globulin Ratio Procalcitonin TSH Free T4 Urine Color Urine Appearance Urine pH Ur Specific [place] Urine Protein Urine Glucose (UA) Urine Ketones Urine Occult Blood Urine Nitrate Urine Bilirubin Urine Urobilinogen Ur Leukocyte Esterase Urine RBC Urine WBC Urine Bacteria Granular Casts Ur Culture Indicated? Micro UA Comment Nasal Screen MRSA (PCR) Digoxin A. baumannii (PCR) Amee albicans (PCR) C. glabrata (PCR) C. krusei (PCR) C. parapsilosis (PCR) C. tropicalis (PCR) Enterobacteriac sp PCR E. cloacae complex PCR Enterococcus sp PCR E. coli (PCR) H. influenzae (PCR) Klebsiella oxytoca PCR Klebsiella pneumoniae List. monocytogenes PCR N. meningitidis (PCR) Proteus species (PCR) Serratia marcescens PCR Staphylococcus sp PCR Staph aureus (PCR) mecA-Methicil Res Gene Streptococcus sp PCR Group A Strep (PCR) Strep agalactiae (PCR) Strep pneumoniae (PCR) P. aeruginosa (PCR) Rayshawn/B-Vanco Res Genes KPC-Carbap Res Gene PCR 04/20/18 04/20/18 04/20/18 08:00 11:15 11:23 WBC RBC Hgb Hct MCV MCH MCHC RDW Plt Count Neut % (Auto) Lymph % (Auto) [place] % (Auto) Eos % (Auto) Baso % (Auto) Neut # (Auto) PT INR APTT 62 H D D-Dimer ABG pH 7.39 ABG pCO2 43.8 ABG pO2 104 ABG HCO3 27 ABG Total CO2 28 H ABG O2 Saturation 98 ABG Base Excess 2.0 VBG pH VBG pCO2 VBG pO2 VBG HCO3 VBG Total CO2 VBG O2 Saturation VBG Base Excess FiO2 40 Sodium Potassium Chloride Carbon Dioxide BUN Creatinine Estimated GFR BUN/Creatinine Ratio Glucose Lactate Calcium Magnesium Total Bilirubin AST ALT Alkaline Phosphatase Troponin I 0.108 H Total Protein Albumin Globulin Albumin/Globulin Ratio Procalcitonin TSH Free T4 Urine Color Urine Appearance Urine pH Ur Specific [place] Urine Protein Urine Glucose (UA) Urine Ketones Urine Occult Blood Urine Nitrate Urine Bilirubin Urine Urobilinogen Ur Leukocyte Esterase Urine RBC Urine WBC Urine Bacteria Granular Casts Ur Culture Indicated? Micro UA Comment Nasal Screen MRSA (PCR) Digoxin A. baumannii (PCR) Amee albicans (PCR) C. glabrata (PCR) C. krusei (PCR) C. parapsilosis (PCR) C. tropicalis (PCR) Enterobacteriac sp PCR E. cloacae complex PCR Enterococcus sp PCR E. coli (PCR) H. influenzae (PCR) Klebsiella oxytoca PCR Klebsiella pneumoniae List. monocytogenes PCR N. meningitidis (PCR) Proteus species (PCR) Serratia marcescens PCR Staphylococcus sp PCR Staph aureus (PCR) mecA-Methicil Res Gene Streptococcus sp PCR Group A Strep (PCR) Strep agalactiae (PCR) Strep pneumoniae (PCR) P. aeruginosa (PCR) Rayshawn/B-Vanco Res Genes KPC-Carbap Res Gene PCR 04/20/18 04/20/18 Unknown Unknown WBC RBC Hgb Hct MCV MCH MCHC RDW Plt Count Neut % (Auto) Lymph % (Auto) [place] % (Auto) Eos % (Auto) Baso % (Auto) Neut # (Auto) PT INR APTT D-Dimer ABG pH ABG pCO2 ABG pO2 ABG HCO3 ABG Total CO2 ABG O2 Saturation ABG Base Excess VBG pH VBG pCO2 VBG pO2 VBG HCO3 VBG Total CO2 VBG O2 Saturation VBG Base Excess FiO2 Sodium 136 L Potassium 3.9 Chloride 97 L Carbon Dioxide 26 BUN 35 H Creatinine 1.10 Estimated GFR > 60.0 BUN/Creatinine Ratio 31.8 H Glucose 235 H Lactate Calcium 8.7 Magnesium 1.9 Total Bilirubin AST ALT Alkaline Phosphatase Troponin I Total Protein Albumin Globulin Albumin/Globulin Ratio Procalcitonin TSH Free T4 Urine Color Urine Appearance Urine pH Ur Specific [place] Urine Protein Urine Glucose (UA) Urine Ketones Urine Occult Blood Urine Nitrate Urine Bilirubin Urine Urobilinogen Ur Leukocyte Esterase Urine RBC Urine WBC Urine Bacteria Granular Casts Ur Culture Indicated? Micro UA Comment Nasal Screen MRSA (PCR) Digoxin < 0.4 L A. baumannii (PCR) Amee albicans (PCR) C. glabrata (PCR) C. krusei (PCR) C. parapsilosis (PCR) C. tropicalis (PCR) Enterobacteriac sp PCR E. cloacae complex PCR Enterococcus sp PCR E. coli (PCR) H. influenzae (PCR) Klebsiella oxytoca PCR Klebsiella pneumoniae List. monocytogenes PCR N. meningitidis (PCR) Proteus species (PCR) Serratia marcescens PCR Staphylococcus sp PCR Staph aureus (PCR) mecA-Methicil Res Gene Streptococcus sp PCR Group A Strep (PCR) Strep agalactiae (PCR) Strep pneumoniae (PCR) P. aeruginosa (PCR) Rayshawn/B-Vanco Res Genes KPC-Carbap Res Gene PCR Assessment & Plan Plan: Assessment/Plan Narrative: 1. right lower extremity cellulitis: He is currently on vancomycin and Zosyn. Preliminary blood culture grew Streptococcus species. I will change his antibiotics to ceftriaxone IV, 2 g Q 24 hr. 2. Sepsis, possibly secondary to right lower extremity cellulitis: He had fever, tachycardia, leukocytosis, and mental status change. We will treat the underlying cause. 3. New onset of paroxysmal atrial fibrillation/atrial flutter: He is currently on carvedilol 12.5 mg twice a day. He was also started on digoxin. Appreciate cardiology consultation. Continue current medications for rate control. Continue telemetry monitoring. Hold off on anticoagulation due to hematuria. 4. Concern for possible pulmonary embolism: He did not seem to have sudden onset of shortness of breath or hypoxia. He did have elevated D-dimer. Right lower extremity Doppler did not reveal DVT. CT pulmonary angiogram was not able to be performed due to patient was unable to lay flat for the test. He was on heparin drip. Heparin drip was discontinued due to hematuria. 5. Hematuria: Possibly secondary to trauma from Hooper catheter while he is on heparin drip. He did drop 2 g of hemoglobin overnight. Heparin drip was discontinued. Appreciate Dr. Silverman is consultation. We will continue monitor 6. Acute blood loss anemia: As stated earlier, he dropped 2 g of hemoglobin overnight. We will continue monitor. Transfuse if needed. 7. Morbid obesity, BMI 47.2: He needs lifestyle modifications and weight loss as outpatient.
[2018-04-20] MEDS: CEFTRIAXONE 2 GM/50 ML FROZ.PIGGY IV (15:38)
[2018-04-20] MEDS: ACETAMINOPHEN 325 MG TABLET 650 MG PO (18:30)
--- NOTE | 2018-04-20 20:05 | PC.NURSE ---
Patient breathing better than yesterday afternoon, but still using abdomen- rr 20-30's at rest. c/o burning from catheter- site checked- hematuria- pale clear red-continuous bladder irrigation to keep catheter clot free. scant amount of bloody drainage around penis. right lower leg remains swollen and reddened- serous drainage- skin denuded from anterior lower leg. leg elevated on pillow. reviewed plan of care with patient- repositioned and medicated for generalized discomfort.
[2018-04-20] MEDS: GABAPENTIN 600 MG TABLET PO (20:59)
[2018-04-20] MEDS: DOXAZOSIN 4 MG TABLET PO (21:01)
--- NOTE | 2018-04-20 21:57 | PC.NURSE ---
Patient refused dinner earlier- asking for food at hs saying he is hungry- given sandwich- cbg 73- given 6 oz orange juice. repeat cbg 134. continuous bladder irrigation for hematuria- draining bloody urine- no clots.
[2018-04-21] VITALS (19 sets, daily range): BP systolic 85–128; BP diastolic 37–103; PULSE 72–105; RESP 14–29; TEMP 36.3–36.8; O2SAT 92–100
[2018-04-21] MEDS: ACETAMINOPHEN 325 MG TABLET 650 MG PO ×2 (04:10→13:32)
[2018-04-21 04:37] LABS: PTT Partial Thromboplastin Tim 28 SECONDS (26.4-36.2)
[2018-04-21 07:59] LABS: Add Manual Diff / Slide Review NO; Basophils Percent Auto 0.1 % (0-2); Eosinophils Percent Auto 0.4 % (2-4); Hemoglobin 9.7 g/dL (13.5-17.5); Lymphocytes Percent Auto 2.4 % (25-40); Mean Corpuscular HGB Conc 33.3 % (30-36); Mean Corpuscular Hemoglobin 30.3 PG (26-34); Mean Corpuscular Volume 90.9 fL (80-100); Monocytes Percent Auto 5.3 % (3-14); Neutrophils Absolute Auto 8500 /uL (3000-5900); Neutrophils Percent Auto 91.8 % (50-75); Platelet Count 143 X10^3/uL (150-400); Red Blood Cell Count 3.19 X10^6/uL (4.5-5.9); Red Cell Distribution Width 15.4 % (11.6-14.8); White Blood Cell Count 9.3 X10^3/uL (4.5-11.0)
[2018-04-21] MEDS: ALBUTEROL 2.5 MG/3 ML NEB (ADULT) INH ×3 (10:14→20:28)
[2018-04-21] MEDS: ASPIRIN EC 81 MG TABLET PO (10:51)
[2018-04-21] MEDS: FINASTERIDE 5 MG TABLET PO (10:52)
[2018-04-21] MEDS: CARVEDILOL 12.5 MG TABLET PO ×2 (10:52→21:01)
--- NOTE | 2018-04-21 11:03 | PM.PN.1 ---
Subjective Date Patient Seen: 04/21/18 Time Patient Seen: 10:30 Interval history: He has shortness of breath has significantly improved over night. He is currently on 2 L of nasal cannula oxygen. Nursing has noticed that his blood pressure has been low overnight with systolic blood pressure in the 80s to 90s. He has morning carvedilol and furosemide were held. Exam Vital Signs (past 8 hours): - 04/21/18 04:00 04/21/18 04:28 04/21/18 07:41 Temperature 97.3 F L 97.5 F L Pulse Rate 105 H 97 H Respiratory Rate 24 14 Blood Pressure 121/75 H 97/49 L Pulse Oximetry 98 98 100 04/21/18 08:23 04/21/18 09:00 04/21/18 10:27 Temperature Pulse Rate 86 Respiratory Rate 20 Blood Pressure 96/45 L Pulse Oximetry 98 100 98 Fraction of Inspired Oxygen 40 Oxygen Delivery Method Nasal Cannula Oxygen Flow Rate 2.5 Narrative Exam Narrative: General: Morbidly obese middle-aged man with no acute distress Lungs: Decreased breath sounds at the bases, no crackles or wheezing appreciated anteriorly Heart: Irregular rhythm, heart rate in the 90s Abdomen: Obese abdomen, no localized tenderness on palpation Extremities: Right lower leg has erythema Objective Labs Result Diagrams: 04/21/18 07:51 04/20/18 Unknown Labs: Laboratory Results - last 24 hr 04/20/18 04/20/18 04/21/18 11:15 11:23 04:07 WBC RBC Hgb Hct MCV MCH MCHC RDW Plt Count Neut % (Auto) Lymph % (Auto) [place] % (Auto) Eos % (Auto) Baso % (Auto) Neut # (Auto) APTT 28 D ABG pH 7.39 ABG pCO2 43.8 ABG pO2 104 ABG HCO3 27 ABG Total CO2 28 H ABG O2 Saturation 98 ABG Base Excess 2.0 FiO2 40 Troponin I 0.108 H 04/21/18 07:51 WBC 9.3 RBC 3.19 L Hgb 9.7 L Hct 29.0 L MCV 90.9 MCH 30.3 MCHC 33.3 RDW 15.4 H Plt Count 143 L Neut % (Auto) 91.8 H Lymph % (Auto) 2.4 L [place] % (Auto) 5.3 Eos % (Auto) 0.4 L Baso % (Auto) 0.1 Neut # (Auto) 8500 H APTT ABG pH ABG pCO2 ABG pO2 ABG HCO3 ABG Total CO2 ABG O2 Saturation ABG Base Excess FiO2 Troponin I Assessment & Plan Plan: Assessment/Plan Narrative: 1. Right lower extremity cellulitis: He is currently on vancomycin and Zosyn. Preliminary blood culture grew Streptococcus species. ID and sensitivity are still pending. Antibiotics was changed to ceftriaxone on April 20, 2018. Continue ceftriaxone IV. 2. Sepsis, possibly secondary to right lower extremity cellulitis: He had fever, tachycardia, leukocytosis, and mental status change. We will treat the underlying cause. 3. New onset of paroxysmal atrial fibrillation/atrial flutter: Continue carvedilol 12.5 mg twice a day and digoxin for rate control. Changed to digoxin to p.o.. Continue current medications for rate control. Continue telemetry monitoring. Hold off on anticoagulation due to hematuria. 4. Concern for possible pulmonary embolism: He did not seem to have sudden onset of shortness of breath or hypoxia. He did have elevated D-dimer. Right lower extremity Doppler did not reveal DVT. CT pulmonary angiogram was not able to be performed due to patient was unable to lay flat for the test. He was on heparin drip. Heparin drip was discontinued on April 20, 2018 due to hematuria. 5. Hematuria: Possibly secondary to trauma from [place] catheter while he is on heparin drip. He is currently on 3 way irrigation. Heparin drip was discontinued on April 20, 2018. We will continue monitor 6. Acute blood loss anemia: He dropped 2 g of hemoglobin. Hemoglobin has been stable in the past 24 hr. 7. Morbid obesity, BMI 47.2: He needs lifestyle modifications and weight loss as outpatient. 8. Type 2 diabetes: Continue glimepiride and sliding scale insulin. Continue monitor fingerstick glucose readings. Quality VTE Deep Vein Thrombosis/Pulmonary Embolism Present on Admission: No
--- NOTE | 2018-04-21 12:13 | PM.PN.1 ---
Subjective Date Patient Seen: 04/21/18 Interval history: Patient is drowsy but arousable. No active chest pain. Still feels shortness of breath. I can hear some rhonchi. No obvious stroke-like symptoms. Exam Vital Signs (past 8 hours): - 04/21/18 04:28 04/21/18 07:41 04/21/18 08:23 Temperature 97.5 F L Pulse Rate 97 H Respiratory Rate 14 Blood Pressure 97/49 L Pulse Oximetry 98 100 98 04/21/18 09:00 04/21/18 10:27 Temperature Pulse Rate 86 Respiratory Rate 20 Blood Pressure 96/45 L Pulse Oximetry 100 98 Fraction of Inspired Oxygen 40 Oxygen Delivery Method Nasal Cannula Oxygen Flow Rate 2.5 Const Other: Obese HENMT Other: Neck is short, obese difficult to comment upon JVD Eyes Other: No obvious xanthelesma Neck Other: No obvious carotid bruit Chest Other: Bilateral decreased air entry with some scattered rhonchi Cardio Other: S1 variable, P2 appears prominent, no S3 no S4 no significant murmur GI Other: Abdomen obese, tenderness in the right upper quadrant, no obvious pulsatile mass. Unable to palpate liver or spleen. Other: Persistent hematuria Skin Other: Erythematous right [place] Neuro Other: Patient is drowsy but arousable, could not perform Extrem Other: Moderate bilateral pedal edema Objective Labs Result Diagrams: 04/21/18 07:51 04/20/18 Unknown Labs: Laboratory Results - last 24 hr 04/21/18 04/21/18 04:07 07:51 WBC 9.3 RBC 3.19 L Hgb 9.7 L Hct 29.0 L MCV 90.9 MCH 30.3 MCHC 33.3 RDW 15.4 H Plt Count 143 L Neut % (Auto) 91.8 H Lymph % (Auto) 2.4 L [place] % (Auto) 5.3 Eos % (Auto) 0.4 L Baso % (Auto) 0.1 Neut # (Auto) 8500 H APTT 28 D Assessment & Plan (1) New onset a-fib: Current visit: Yes Status: Acute (2) Right-sided heart failure: Current visit: Yes Status: Acute (3) Elevated troponin: Current visit: Yes Status: Acute (4) Abdominal pain: Current visit: Yes Status: Acute Plan: Assessment/Plan Narrative: This 72 years old pleasant male who has a history of CAD status post RCA stent in October 2012, RV outflow tract PVCs ablation in January 2013, obesity, diabetes mellitus, low HDL cholesterol, essential hypertension presented with right leg cellulitis, shortness of breath, atrial fibrillation with fast ventricular rate. From Cardiology yesterday patient was evaluated by Dr. Mena. On 2D echo which I reviewed by myself, and agreed that there is a RV dysfunction about moderate in nature. Right ventricle was not well visualized. LV ejection fraction is in the range of 50-55% without any significant obvious wall motion abnormalities. Patient was in AFib with fast ventricular rate. Right atrial pressure was about at least 15 mm of mercury. Initially patient was started on anticoagulation however had hematuria which was discontinued. Right lower leg extremity venous Doppler was negative for DVT. He is being treated for sepsis due to streptococcal right leg cellulitis. He was given IV Lasix yesterday with good urine output. As per the nurse total he got about 40 mg IV. 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 Patient is morbidly obese and suspect sleep apnea as well. His troponin was abnormal. There was possibility of non ST AL due to demand ischemia. Patient is having persistent hematuria. At present he is not a candidate for anticoagulation. In fact if he continues to bleed, we will recommend holding aspirin. On my physical examination he has abdominal pain on the right upper quadrant. It is tender. No significant rebound tenderness. Will recommend checking amylase and lipase and further workup I will leave up to the hospitalist team. He used to take Crestor 10 mg daily at home. Okay to restart Crestor. Now his rate is controlled. Continue carvedilol 12.5 mg twice a day. If blood pressure permits, and continue IV Lasix at least 20 mg daily and assess the diuretic response. He still has volume overload based on clinical examination. At present he is not a candidate for aggressive cardiac workup. Overall prognosis is guarded. Total time spent today this follow-up for at least 45 min. More than 50% time spent in [id number] counseling and coordination of care. Quality VTE Deep Vein Thrombosis/Pulmonary Embolism Present on Admission: No
--- NOTE | 2018-04-21 12:29 | P.PN_ITS ---
Subjective Date Patient Seen: 04/21/18 Interval history: Patient is drowsy but arousable. No active chest pain. Still feels shortness of breath. I can hear some rhonchi. No obvious stroke- like symptoms. Exam Vital Signs (past 8 hours): - 04/21/18 04:28 04/21/18 07:41 04/21/18 08:23 Temperature 97.5 F L Pulse Rate 97 H Respiratory Rate 14 Blood Pressure 97/49 L Pulse Oximetry 98 100 98 04/21/18 09:00 04/21/18 10:27 Temperature Pulse Rate 86 Respiratory Rate 20 Blood Pressure 96/45 L Pulse Oximetry 100 98 Fraction of Inspired Oxygen 40 Oxygen Delivery Method Nasal Cannula Oxygen Flow Rate 2.5 Const Other: Obese HENMT Other: Neck is short, obese difficult to comment upon JVD Eyes Other: No obvious xanthelesma Neck Other: No obvious carotid bruit Chest Other: Bilateral decreased air entry with some scattered rhonchi Cardio Other: S1 variable, P2 appears prominent, no S3 no S4 no significant murmur GI Other: Abdomen obese, tenderness in the right upper quadrant, no obvious pulsatile mass. Unable to palpate liver or spleen. Other: Persistent hematuria Skin Other: Erythematous right [place] Neuro Other: Patient is drowsy but arousable, could not perform Extrem Other: Moderate bilateral pedal edema Objective Labs Result Diagrams: 04/21/18 07:51 04/20/18 Unknown Labs: Laboratory Results - last 24 hr 04/21/18 04/21/18 04:07 07:51 WBC 9.3 RBC 3.19 L Hgb 9.7 L Hct 29.0 L MCV 90.9 MCH 30.3 MCHC 33.3 RDW 15.4 H Plt Count 143 L Neut % (Auto) 91.8 H Lymph % (Auto) 2.4 L [place] % (Auto) 5.3 Eos % (Auto) 0.4 L Baso % (Auto) 0.1 Neut # (Auto) 8500 H APTT 28 D Assessment & Plan (1) New onset a-fib: Current visit: Yes Status: Acute (2) Right-sided heart failure: Current visit: Yes Status: Acute (3) Elevated troponin: Current visit: Yes Status: Acute (4) Abdominal pain: Current visit: Yes Status: Acute Plan: Assessment/Plan Narrative: This 72 years old pleasant male who has a history of CAD status post RCA stent in October 2012, RV outflow tract PVCs ablation in January 2013, obesity , diabetes mellitus, low HDL cholesterol, essential hypertension presented with right leg cellulitis, shortness of breath, atrial fibrillation with fast ventricular rate. From Cardiology yesterday patient was evaluated by Dr. Mena. On 2D echo which I reviewed by myself, and agreed that there is a RV dysfunction about moderate in nature. Right ventricle was not well visualized. LV ejection fraction is in the range of 50-55% without any significant obvious wall motion abnormalities. Patient was in AFib with fast ventricular rate. Right atrial pressure was about at least 15 mm of mercury. Initially patient was started on anticoagulation however had hematuria which was discontinued. Right lower leg extremity venous Doppler was negative for DVT. He is being treated for sepsis due to streptococcal right leg cellulitis. He was given IV Lasix yesterday with good urine output. As per the nurse total he got about 40 mg IV. 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 Patient is morbidly obese and suspect sleep apnea as well. His troponin was abnormal. There was possibility of non ST [place] due to demand ischemia. Patient is having persistent hematuria. At present he is not a candidate for anticoagulation. In fact if he continues to bleed, we will recommend holding aspirin. On my physical examination he has abdominal pain on the right upper quadrant. It is tender. No significant rebound tenderness. Will recommend checking amylase and lipase and further workup I will leave up to the hospitalist team. He used to take Crestor 10 mg daily at home. Okay to restart Crestor. Now his rate is controlled. Continue carvedilol 12.5 mg twice a day. If blood pressure permits, and continue IV Lasix at least 20 mg daily and assess the diuretic response. He still has volume overload based on clinical examination. At present he is not a candidate for aggressive cardiac workup. Overall prognosis is guarded. Total time spent today this follow-up for at least 45 min. More than 50% time spent in [id number] counseling and coordination of care. Quality VTE Deep Vein Thrombosis/Pulmonary Embolism Present on Admission: No
[2018-04-21] MEDS: FUROSEMIDE 20 MG/2 ML VIAL IV (12:33)
[2018-04-21] MEDS: CEFTRIAXONE 2 GM/50 ML FROZ.PIGGY IV (14:51)
[2018-04-21 15:15] LABS: Alanine Aminotransferase 84 IU/L (21-72); Alkaline Phosphatase 38 U/L (38-126); Amylase 61 U/L (30-110); Aspartate Aminotransferase 139 IU/L (17-59); Bilirubin Total 0.8 mg/dL (0.2-1.3); Lipase 126 U/L (23-300)
[2018-04-21] MEDS: DIGOXIN 0.25 MG TABLET PO (17:30)
--- NOTE | 2018-04-21 17:36 | P.PN_ITS ---
Subjective Date Patient Seen: 04/21/18 Time Patient Seen: 07:29 Interval history: Patient feeling a little bit better today. Complains of aches and pains from lying in bed. He is interested in getting up a bit. Has some shortness of breath but feels better than he did yesterday. No cough no chest pain no abdominal pain legs feel better Exam Vital Signs (past 8 hours): - 04/21/18 10:27 04/21/18 12:10 04/21/18 12:30 Temperature 98.3 F Pulse Rate 100 H Respiratory Rate 21 Blood Pressure 100/51 L Pulse Oximetry 98 99 100 04/21/18 13:34 04/21/18 15:51 04/21/18 15:56 Temperature 98.3 F Pulse Rate 72 Respiratory Rate 21 Blood Pressure 105/52 L Pulse Oximetry 98 100 99 Fraction of Inspired Oxygen 40 Oxygen Delivery Method Nasal Cannula Oxygen Flow Rate 2 Narrative Exam Narrative: Patient is resting quietly. He is breathing 3 L of nasal oxygen. Her O2 sats as noted. Vital signs noted ENT unremarkable chest exam does not take a deep breath and some end expiratory wheezing faint rales both sides cardiac exam atrial fibrillation rate of approximately 100 Abdomen distended nontender Urine is clearing still is ready she tended but thinner he has decreased edema of both feet still with 1+ on the right trace on the left the erythema of his right ankle has decreased in intensity seemingly has faded Objective Labs Result Diagrams: 04/21/18 07:51 04/20/18 Unknown Labs: Laboratory Results - last 24 hr 04/19/18 04/21/18 04/21/18 15:20 04:07 07:51 WBC 9.3 RBC 3.19 L Hgb 9.7 L Hct 29.0 L MCV 90.9 MCH 30.3 MCHC 33.3 RDW 15.4 H Plt Count 143 L Neut % (Auto) 91.8 H Lymph % (Auto) 2.4 L [place] % (Auto) 5.3 Eos % (Auto) 0.4 L Baso % (Auto) 0.1 Neut # (Auto) 8500 H APTT 28 D Total Bilirubin AST ALT Alkaline Phosphatase Amylase Lipase A. baumannii (PCR) Not detected Amee albicans (PCR) Not detected C. glabrata (PCR) Not detected C. krusei (PCR) Not detected C. parapsilosis (PCR) Not detected C. tropicalis (PCR) Not detected Enterobacteriac sp PCR Not detected E. cloacae complex PCR Not detected Enterococcus sp PCR Not detected E. coli (PCR) Not detected H. influenzae (PCR) Not detected Klebsiella oxytoca PCR Not detected Klebsiella pneumoniae Not detected List. monocytogenes PCR Not detected N. meningitidis (PCR) Not detected Proteus species (PCR) Not detected Serratia marcescens PCR Not detected Staphylococcus sp PCR Not detected Staph aureus (PCR) Not detected Streptococcus sp PCR Detected H Group A Strep (PCR) Not detected Strep agalactiae (PCR) Not detected Strep pneumoniae (PCR) Not detected P. aeruginosa (PCR) Not detected 04/21/18 14:35 WBC RBC Hgb Hct MCV MCH MCHC RDW Plt Count Neut % (Auto) Lymph % (Auto) [place] % (Auto) Eos % (Auto) Baso % (Auto) Neut # (Auto) APTT Total Bilirubin 0.8 AST 139 H ALT 84 H Alkaline Phosphatase 38 Amylase 61 Lipase 126 A. baumannii (PCR) Amee albicans (PCR) C. glabrata (PCR) C. krusei (PCR) C. parapsilosis (PCR) C. tropicalis (PCR) Enterobacteriac sp PCR E. cloacae complex PCR Enterococcus sp PCR E. coli (PCR) H. influenzae (PCR) Klebsiella oxytoca PCR Klebsiella pneumoniae List. monocytogenes PCR N. meningitidis (PCR) Proteus species (PCR) Serratia marcescens PCR Staphylococcus sp PCR Staph aureus (PCR) Streptococcus sp PCR Group A Strep (PCR) Strep agalactiae (PCR) Strep pneumoniae (PCR) P. aeruginosa (PCR) Assessment & Plan Plan: Assessment/Plan Narrative: 1. Sepsis being treated with ceftriaxone patient with Streptococcus in his blood. Presumably source his cellulitis of his leg respond antibiotics getting better will continue with IV ceftriaxone. 2. Atrial fibrillation rate controlled reasonably well with a combination of carvedilol and digoxin could stand to have more digoxin and/or more beta- earnestine if needed during the night. 3. Type 2 myocardial infarction stable. 3. For congestive heart failure/fluid overload treated reasonably well with small dose of Lasix. 5. Diabetes management adequate. 6. Hematuria is improved hematocrit hemoglobin stable for now this will be continued to be monitored presumably will avoid transfusion dear getting the bladder has helped significantly with the hematuria will with insulin need cystoscopy but this can be done as an outpatient 7. Dr. Cox to assume care tomorrow upon his return Quality VTE Deep Vein Thrombosis/Pulmonary Embolism Present on Admission: No
[2018-04-21] MEDS: GABAPENTIN 600 MG TABLET PO (21:02)
[2018-04-21] MEDS: DOXAZOSIN 4 MG TABLET PO (21:02)
[2018-04-21] MEDS: ROSUVASTATIN 10 MG TABLET PO (21:03)
--- NOTE | 2018-04-21 21:38 | PC.NURSE ---
pt BG has been running low throughout shift (please see assessment); pt has been given apple juice, ice cream, and milk to increase BG to normal levels; diabetic medications were held, monitoring for s/s of hypoglycemia, WCTM
[2018-04-22] VITALS (14 sets, daily range): BP systolic 102–137; BP diastolic 42–92; PULSE 72–123; RESP 20–24; TEMP 36.2–37.7; O2SAT 94–100
--- NOTE | 2018-04-22 | DI.US.S_ITS ---
PROCEDURE: US ABDOMEN COMPLETE INDICATIONS: PAIN, ELEVATED LIVER ENZYMES TECHNIQUE: Real-time scanning was performed of the abdominal and retroperitoneal organs, with image documentation. COMPARISON: None. FINDINGS: Findings are limited by body habitus. Liver: Liver is enlarged in size at 28.8 CM and hyperechoic in echotexture. Gallbladder: Gallbladder contains dependent layers of stones, gravel and sludge. Wall thickness is normal. Biliary ducts: Intrahepatic bile ducts are non-dilated. Extrahepatic bile duct caliber measures 6.5 mm. Normal is 6-7 mm or less in diameter, or 10 mm or less post-cholecystectomy. Pancreas: Pancreas is obscured by bowel gas Spleen: Spleen is enlarged at 14.8 cm, normal in echotexture. Kidneys: Kidneys are normal in size and echotexture. Right kidney measures 16.4 cm long; left kidney measures 17.6 cm long. No hydronephrosis or nephrolithiasis. No solid masses. The right kidney contains a simple cyst measuring 4.0 x 4.5 cm. The left kidney contains a 2.2 cm simple cyst. Aorta: Aorta is obscured by bowel gas. Iliacs: Iliac vessels are obscured by bowel gas IVC: Intrahepatic inferior vena cava is patent. Miscellaneous: No free abdominal fluid. IMPRESSION: 1. Hepatosplenomegaly. Correlate clinically. 2. Pancreas, aorta and iliac arteries are obscured by bowel gas and cannot be evaluated. 3. Simple bilateral renal cysts. Dictated by: Marek Chavez M.D. on 04/22/2018 at 8:42 Approved by: Marek Chavez M.D. on 04/22/2018 at 8:47
[2018-04-22] MEDS: ALBUTEROL 2.5 MG/3 ML NEB (ADULT) INH ×3 (00:24→14:57)
[2018-04-22] MEDS: ACETAMINOPHEN 325 MG TABLET 650 MG PO ×4 (01:31→21:13)
[2018-04-22 05:54] LABS: Add Manual Diff / Slide Review NO; Basophils Percent Auto 0.1 % (0-2); Eosinophils Percent Auto 0.1 % (2-4); Hematocrit 24.6 % (41-53); Hemoglobin 8.3 g/dL (13.5-17.5); Mean Corpuscular HGB Conc 33.7 % (30-36); Mean Corpuscular Hemoglobin 30.4 PG (26-34); Mean Corpuscular Volume 90.5 fL (80-100); Neutrophils Absolute Auto 8600 /uL (3000-5900); Neutrophils Percent Auto 91.8 % (50-75); Platelet Count 138 X10^3/uL (150-400); Red Blood Cell Count 2.72 X10^6/uL (4.5-5.9); White Blood Cell Count 9.4 X10^3/uL (4.5-11.0)
[2018-04-22 06:05] LABS: BUN Creatinine Ratio 46.4 (6-22); Blood Urea Nitrogen 51 mg/dL (9-20); Calcium 8.5 mg/dL (8.4-10.2); Carbon Dioxide 30 mmol/L (22-32); Chloride 102 mmol/L (98-107); Estimated Glomerular Filt Rate > 60.0 mL/min (>60); HEMOLYSIS < 15 (0-50); Potassium 3.6 mmol/L (3.4-5.1); Sodium 138 mmol/L (137-145)
[2018-04-22 06:06] LABS: Glucose 41 mg/dL (80-110)
[2018-04-22] MEDS: DEXTROSE 50 % IN WATER 25 GM/50 ML SYRINGE IV (06:14)
--- NOTE | 2018-04-22 07:02 | PC.NURSE ---
NOC shift: Pt having low BG issues past shift MD notified by pager twice w/o response. Pt remains AAOx3 refuses to take po juices, etc. Only wamts water. This AM glucose on serum lab 41, repeat bedside finger stick 33 pt won't drink juice, drowsy. IVP D50 given one full amp. Recheck in 20 minutes.
--- NOTE | 2018-04-22 08:27 | PM.PN.1 ---
Subjective Date Patient Seen: 04/22/18 Time Patient Seen: 08:27 Interval history: Patient is sleeping soundly when I arrived to see him. I examined him and then woke him up. He was breathing easily was sleeping but upon waking began to have wheezing and increased work of breathing Really has no complaints except that he says his backside hurts from when not on it all the time Has some mild leg pain Does not really note any difficulty breathing although obviously is wheezing and has a somewhat increased respiratory rate etc I appreciate patient's care management from the hospitalist team, Dr. Miller, as well as Cardiology, Dr. Fallon, and Dr. Sanchez during my absence Exam Vital Signs (past 8 hours): - 04/22/18 02:41 04/22/18 04:50 04/22/18 05:35 Temperature 98.3 F Pulse Rate 75 Respiratory Rate 24 Blood Pressure 137/92 H Pulse Oximetry 100 100 100 04/22/18 07:29 Temperature 99.9 F H Pulse Rate 72 Respiratory Rate 20 Blood Pressure 124/42 H Pulse Oximetry 97 Fraction of Inspired Oxygen 32 Oxygen Delivery Method Nasal Cannula Oxygen Flow Rate 3 Narrative Exam Narrative: Elderly male sleeping soundly but awakens with some effort to normal mental status, no complaints, recognizes me once he is fully awake HEENT-unremarkable Neck-obese, no abnormalities noted, JVD cannot be ascertained Lungs-continuous expiratory wheezes without crackles, but good air movement Heart-irregular Abdomen-obese positive bowel tones Extremities-right lower extremity mild erythema with weeping of serosanguineous fluid from small vesicles, consistent with healing cellulitis -urine entirely clear even after catheter irrigation has been discontinued about an hour prior to my exam by nursing staff Objective Labs Result Diagrams: 04/22/18 04:55 04/22/18 04:55 Labs: Laboratory Results - last 24 hr 04/19/18 04/21/18 04/22/18 15:20 14:35 04:55 WBC 9.4 RBC 2.72 L Hgb 8.3 L Hct 24.6 L MCV 90.5 MCH 30.4 MCHC 33.7 RDW 15.0 H Plt Count 138 L Neut % (Auto) 91.8 H Lymph % (Auto) 3.0 L [place] % (Auto) 5.0 Eos % (Auto) 0.1 L Baso % (Auto) 0.1 Neut # (Auto) 8600 H Sodium Potassium Chloride Carbon Dioxide BUN Creatinine Estimated GFR BUN/Creatinine Ratio Glucose Calcium Total Bilirubin 0.8 AST 139 H ALT 84 H Alkaline Phosphatase 38 Amylase 61 Lipase 126 A. baumannii (PCR) Not detected Amee albicans (PCR) Not detected C. glabrata (PCR) Not detected C. krusei (PCR) Not detected C. parapsilosis (PCR) Not detected C. tropicalis (PCR) Not detected Enterobacteriac sp PCR Not detected E. cloacae complex PCR Not detected Enterococcus sp PCR Not detected E. coli (PCR) Not detected H. influenzae (PCR) Not detected Klebsiella oxytoca PCR Not detected Klebsiella pneumoniae Not detected List. monocytogenes PCR Not detected N. meningitidis (PCR) Not detected Proteus species (PCR) Not detected Serratia marcescens PCR Not detected Staphylococcus sp PCR Not detected Staph aureus (PCR) Not detected Streptococcus sp PCR Detected H Group A Strep (PCR) Not detected Strep agalactiae (PCR) Not detected Strep pneumoniae (PCR) Not detected P. aeruginosa (PCR) Not detected 04/22/18 04:55 WBC RBC Hgb Hct MCV MCH MCHC RDW Plt Count Neut % (Auto) Lymph % (Auto) [place] % (Auto) Eos % (Auto) Baso % (Auto) Neut # (Auto) Sodium 138 Potassium 3.6 Chloride 102 Carbon Dioxide 30 BUN 51 H Creatinine 1.10 Estimated GFR > 60.0 BUN/Creatinine Ratio 46.4 H Glucose 41 L* D Calcium 8.5 Total Bilirubin AST ALT Alkaline Phosphatase Amylase Lipase A. baumannii (PCR) Amee albicans (PCR) C. glabrata (PCR) C. krusei (PCR) C. parapsilosis (PCR) C. tropicalis (PCR) Enterobacteriac sp PCR E. cloacae complex PCR Enterococcus sp PCR E. coli (PCR) H. influenzae (PCR) Klebsiella oxytoca PCR Klebsiella pneumoniae List. monocytogenes PCR N. meningitidis (PCR) Proteus species (PCR) Serratia marcescens PCR Staphylococcus sp PCR Staph aureus (PCR) Streptococcus sp PCR Group A Strep (PCR) Strep agalactiae (PCR) Strep pneumoniae (PCR) P. aeruginosa (PCR) Assessment & Plan Plan: Assessment/Plan Narrative: 1. Right lower extremity cellulitis-continue with ceftriaxone which is the current antibiotic. Patient growing group C strep from blood and wound culture. This should be sensitive to this antibiotic. 2. Respiratory-patient with increased work of breathing likely secondary least in part to volume overload/pulmonary edema based on right heart failure per echocardiography. Continue with diuretic therapy. Difficult to ascertain patient's actual diuresis given the ongoing bladder irrigation. Weight is certainly dropped. Patient was in the outpatient setting taking 40 mg twice daily of furosemide. I think the 20 mg IV once a day is not sufficient and will increase to 40 mg IV for now. Hopefully we can get more accurate urine output assuming we can discontinue bladder/catheter irrigation. 3. Cardiac-new onset atrial fibrillation. Continues to have adequate rate control but does continue in atrial fibrillation. Not a candidate for anticoagulation given his issues with bleeding. Continue current meds and would likely benefit from a digoxin level tomorrow with lab work 4. Hematuria-patient with obvious gross hematuria upon admission after catheter was placed and he was placed on IV heparin. He has got active acute blood loss anemia based on CBC this morning. Continue to follow carefully. I do note that his INR was 2.0 upon admission as well that has not been recheck. Plan to recheck that today. Patient is not chronically anticoagulated on warfarin or any other vitamin K antagonist so no good explanation for his elevated INR. Does appear however that his bleeding has stopped and we will discontinue bladder/catheter irrigation and monitor. Also continue monitor blood counts as above. 5. Morbid obesity-clearly his obesity is contributed to his issues including probably an element of sleep apnea causing right heart failure due to pulmonary hypertension his lower extremity edema his diabetes etc. This will need to be addressed as an outpatient although patient show no indication or inclination to place an active role and managing his weight. At his last outpatient appointment he basically said he has been heavy all his life and that is the way it is. 6. Diabetes-patient hypoglycemic on current dose of his oral diabetic agent. He is not eating much. I am going to lower his dose of his oral agent until his blood sugars rise and/or his oral intake increases. Continue to cover with insulin if necessary for hyperglycemia which is not been an issue in the last 48 hr. 7. Activity-patient needs to get up out of bed and will imply physical therapy to begin some therapy. It seems clear to me patient will almost certainly require assisted placement when ready for discharge from the hospital. Quality VTE Deep Vein Thrombosis/Pulmonary Embolism Present on Admission: No
[2018-04-22] MEDS: FINASTERIDE 5 MG TABLET PO (09:50)
[2018-04-22] MEDS: ASPIRIN EC 81 MG TABLET PO (09:50)
[2018-04-22] MEDS: CARVEDILOL 12.5 MG TABLET PO ×2 (09:50→21:11)
[2018-04-22] MEDS: FUROSEMIDE 40 MG/4 ML VIAL IV (09:55)
--- NOTE | 2018-04-22 11:40 | PT.IIE ---
Current Diagnoses Sepsis, unspecified organism (04/19/18) Unspecified atrial fibrillation (04/19/18) Right heart failure, unspecified (04/19/18) Unspecified abdominal pain (04/19/18) Abnormal levels of other serum enzymes (04/19/18) Medical History (Last Updated 04/21/18 @ 17:33 by Marek Sanchez MD) Type 2 diabetes mellitus without complication (Chronic 10/25/15) Cardiomyopathy (Chronic 04/21/13) Essential hypertension (Chronic 10/10/11) Mixed hyperlipidemia (Chronic 10/25/15) Morbid obesity due to excess calories (Chronic 02/17/17) Edema (Chronic) Body mass index (BMI) of 45.0 to 49.9 in adult (Chronic 02/17/17) Gynecomastia (Chronic 03/30/17) Benign localized prostatic hyperplasia with lower urinary tract symptoms (LUTS) (Chronic 12/29/17) Type 2 diabetes mellitus with hyperglycemia (Chronic 10/10/11) Physical Therapy Inpatient Evaluation/Re-Eval M1 PT/OT-IP Prior Functional Status Start: 04/22/18 13:05 Freq: NEEDED Status: Active Protocol: Document 04/22/18 11:40 AB (Rec: 04/22/18 13:16 AB [id number]) Medical Review Prior Functional Status Medical History Reviewed Yes Mobility and Gait pt stated that he is independent with all mobilities and ambulation without AD Social History Household Members spouse Living Arrangements House Number of Floors (Floors) One Floor Number of Stairs To Enter/Railing? no steps to enter Home Environment Standard Height Toilet Walk in Shower Home Equipment Hand Held Shower Grab Bars Near Toilet Grab Bars In Shower Employment Status Retired Additional Social History Comment stated that his is limited and cannot assist him much. had h/o joint surgeries and is using a FWW for mobility per pt. pt has an adjustable bed with bed rails per pt M2 PT-IP Current Condition Start: 04/22/18 13:05 Freq: NEEDED Status: Active Protocol: Document 04/22/18 11:40 AB (Rec: 04/22/18 13:16 AB [id number]) Physical Therapy Current Condition Current Condition Evaluation Date 04/22/18 Treatment Diagnosis sepsis Onset Date 04/19/18 Precautions Other Precautions O2 sat, falls M3 PT-IP Subjective Start: 04/22/18 13:05 Freq: NEEDED Status: Active Protocol: Document 04/22/18 11:40 AB (Rec: 04/22/18 13:16 AB [id number]) Subjective Physical Therapy Visit Type Type Initial Evaluation Visit Start Time 11:40 Visit Stop Time 12:07 Total Visit Minutes 27 Number of PERSONAL PROTECTION SPECIALIST Visits 0 Physical Therapy Visit Comments Patient Comments pt seems lethargic but able to respond to questions and instructions Therapy Pain Assessment Pain When Pain Assessed At Rest Pain Present Pain Present Pain Reported Location right buttock Intensity 4 Scale Used Numeric (1 - 10) Pain Management Techniques Re-positioning M4 PT-IP Mobility and Gait Start: 04/22/18 13:05 Freq: NEEDED Status: Active Protocol: Document 04/22/18 11:40 AB (Rec: 04/22/18 13:16 AB [id number]) PT-Bed Mobility Assessment Supine to Sit Supine to Sit Total Assistance 2 Person Assistance Sit to Supine Sit to Supine Total Assistance 2 Person Assistance PT-Transfer Assessment Sit to and From Stand Sit to and from Stand Maximum Assistance 2 Person Assistance Use of Upper Extremities Equipment Transfer Assistive Device Gait Belt Front Wheeled Walker Orthotic/Prosthetic Devices or Brace: No Transfers Transfer Technique Mechanical Lift Transfer Ability Level of Assist Total Assistance 2 Person Assistance Comments Mobility Comments attempted standing x 4 with max A x 2 but pt unable to fully stand upright. Gait Assessment Comments Gait Comments unable at this time PT-Balance Assessment Sitting Balance and Reactions Static Sitting Balance Ability Good Dynamic Sitting Balance Ability Fair Standing Balance and Reactions Static Standing Balance Ability Poor Dynamic Standing Balance Ability Poor Device Used FWW M5 PT-IP Objective Assessments Start: 04/22/18 13:05 Freq: NEEDED Status: Active Protocol: Document 04/22/18 11:40 AB (Rec: 04/22/18 13:16 AB [id number]) Orientation Orientation/Cognition Level of Alertness Lethargic Orientation Name Safety Awareness Decreased Safety Awareness Memory Description Short Term Impaired Simplex Operator Impaired Strength Lower Extremity Strength Assessment Bilaterally Impaired Hip 3-/5 Knee 3/5 Other Assessments Other Other Assessments redness on B lower legs M6 PT-IP Treatment Start: 04/22/18 13:05 Freq: NEEDED Status: Active Protocol: Document 04/22/18 11:40 AB (Rec: 04/22/18 13:16 AB [id number]) Physical Therapy Treatment Exercises Exercises Ankle Pumps Short Arc Quads Education Education Provided Safety M7 PT-IP Assessment and Plan Start: 04/22/18 13:05 Freq: NEEDED Status: Active Protocol: Document 04/22/18 11:40 AB (Rec: 04/22/18 13:16 AB [id number]) PT Summary Assessment and Plan Potential Rehabilitation Potential Fair Status of Condition at Evaluation Evolving Summary Impairments Pain ROM Strength Balance Coordination Cognition Bed Mobility Transfers Gait Activity Tolerance Assessment Summary pt requiring total A with mobility at this time and will require SNF rehab to improve strength and function. Goals Bed Mobility Goal Minimal Assistance Transfer Goal Minimal Assistance Gait Goal Minimal Assistance Gait Distance 50 Days to Meet Goals 5 Frequency of Treatment Frequency Of Treatment Once a Day Treatment Plan Physical Therapy Treatment Plan Bed Mobility Training Transfer Training Gait Training Therapeutic Exercise Balance Retraining Discharge Planning Neuromuscular Re-ed Coordination Retraining Manual Therapy Recommendations To Nursing Amount of Assist Needed 3 or More Person Assist Total Assistance Mechanical Lift Discharge Recommendations PT Discharge Recommendations SNF Rehab
--- NOTE | 2018-04-22 12:42 | PM.PN.1 ---
Subjective Date Patient Seen: 04/22/18 Interval history: Patient is more awake today. He is feeling better. Denies any resting shortness of breath or active chest pain or palpitation or new cardiovascular symptoms. Exam Vital Signs (past 8 hours): - 04/22/18 04:50 04/22/18 05:35 04/22/18 07:29 Temperature 98.3 F 99.9 F H Pulse Rate 75 72 Respiratory Rate 24 20 Blood Pressure 137/92 H 124/42 H Pulse Oximetry 100 100 97 04/22/18 09:14 04/22/18 09:50 Temperature Pulse Rate 123 H Respiratory Rate Blood Pressure Pulse Oximetry 99 Fraction of Inspired Oxygen 32 Oxygen Delivery Method Nasal Cannula Oxygen Flow Rate 2 Const Other: Obese HENMT Other: Difficult to comment upon JVD Eyes Other: Anemic Neck Other: No carotid bruit Chest Other: Bilateral scattered rhonchi Resp Other: At present not tachypneic Cardio Other: S1 variable, P2 loud, no S3 no S4, no significant murmur GI Other: Obese, unable to palpate liver or spleen. No significant tenderness on today's examination Neuro Other: At present alert oriented to time place and person Extrem Other: 2+ bilateral pedal edema, erythematous changes on the right ohara Objective Labs Result Diagrams: 04/22/18 04:55 04/22/18 04:55 Labs: Laboratory Results - last 24 hr 04/21/18 04/22/18 04/22/18 14:35 04:55 04:55 WBC 9.4 RBC 2.72 L Hgb 8.3 L Hct 24.6 L MCV 90.5 MCH 30.4 MCHC 33.7 RDW 15.0 H Plt Count 138 L Neut % (Auto) 91.8 H Lymph % (Auto) 3.0 L [place] % (Auto) 5.0 Eos % (Auto) 0.1 L Baso % (Auto) 0.1 Neut # (Auto) 8600 H Sodium 138 Potassium 3.6 Chloride 102 Carbon Dioxide 30 BUN 51 H Creatinine 1.10 Estimated GFR > 60.0 BUN/Creatinine Ratio 46.4 H Glucose 41 L* D Calcium 8.5 Total Bilirubin 0.8 AST 139 H ALT 84 H Alkaline Phosphatase 38 Amylase 61 Lipase 126 Assessment & Plan (1) Right-sided heart failure: Current visit: Yes Status: Acute (2) Elevated troponin: Current visit: Yes Status: Acute (3) New onset a-fib: Current visit: Yes Status: Acute (4) Abdominal pain: Current visit: Yes Status: Acute (5) Sepsis: Qualifiers: Sepsis type: Current visit: Yes Status: Acute Plan: Assessment/Plan Narrative: This 72 years old pleasant male who has a history of CAD status post RCA stent in October 2012, RV outflow tract PVCs ablation in January 2013, obesity, diabetes mellitus, low HDL cholesterol, essential hypertension presented with right leg cellulitis, shortness of breath, atrial fibrillation with fast ventricular rate. On 2D echo which I reviewed by myself, and agreed that there is a RV dysfunction about moderate in nature. Right ventricle was not well visualized. LV ejection fraction is in the range of 50-55% without any significant obvious wall motion abnormalities. Patient was in AFib with fast ventricular rate. Right atrial pressure was about at least 15 mm of mercury. Initially patient was started on anticoagulation however had hematuria which was discontinued. Right lower leg extremity venous Doppler was negative for DVT. He is being treated for sepsis due to streptococcal right leg cellulitis. 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 Patient is morbidly obese and suspect sleep apnea as well. His troponin was abnormal. There was possibility of non ST FL due to demand ischemia. Patient is having persistent hematuria. At present he is not a candidate for anticoagulation. Now his rate is better controlled. He was started on digoxin in the hospital. As per the new data which does not favor the use of digoxin, will stop digoxin. In April 19 his weight is reported to be 163 and today about 152.9. At this point of time will recommend rate control approach with carvedilol. Continue IV Lasix 40 mg and once he becomes more euvolemic consider torsemide over Lasix which has better by absorption. Down the road if blood pressure remains stable consider adding on Dave inhibitor as well. If he continues to bleed and hemoglobin drops, consider holding aspirin. From cardiac perspective, at this point of time he is not a candidate for aggressive cardiac workup. At this point of time cardiology will sign off. Follow-up as an outpatient. If needs further assistance, feel free to call us. Total time spent today this follow-up for at least 40 min. More than 50% time spent in [id number] counseling and coordination of care. Quality VTE Deep Vein Thrombosis/Pulmonary Embolism Present on Admission: No
[2018-04-22] MEDS: CEFTRIAXONE 2 GM/50 ML FROZ.PIGGY IV (14:34)
[2018-04-22] MEDS: GABAPENTIN 600 MG TABLET PO (18:59)
--- NOTE | 2018-04-22 19:20 | RT ---
BREATH SOUNDS ARE DECREASED W/ FINE CRACKLES IN BLL. SUGGESTED POSSIBLE NEED FOR FURTHER DIURETICS.
--- NOTE | 2018-04-22 20:28 | PC.NURSE ---
Addendum entered by Dulce Sanon R.N. 04/22/18 21:14: pt had low blood sugar at dinner. Pt was asymptomatic. Pt ate ice cream, boyce smoothie. Glucose up to 70s afte eating and up to 104 at hs. pt refused offer of snack. Original Note: morris note pt sitting in recliner. pt refuses to get in bed, saying it makes his buttocks hurt. Right ohara has an area that looks like a burst blister with top layer of skin peeling off at edges. Wound base is red and moist, weeping serous fluid. Bilateral lower legs with 2+ edema. Right ohara covered with Allevyn absorbant drsg and secured with gauze wraps. Urine is light red with tiny clots. 300 ml urine emptied from catheter at 19:00.
[2018-04-22] MEDS: ROSUVASTATIN 10 MG TABLET PO (21:11)
[2018-04-22] MEDS: DOXAZOSIN 4 MG TABLET PO (21:11)
[2018-04-23] VITALS (11 sets, daily range): BP systolic 121–141; BP diastolic 53–97; PULSE 77–114; RESP 12–28; TEMP 36.1–37.4; O2SAT 91–99
[2018-04-23] MEDS: DEXTROSE 50 % IN WATER 25 GM/50 ML SYRINGE IV (00:11)
[2018-04-23] MEDS: ALBUTEROL 2.5 MG/3 ML NEB (ADULT) INH ×2 (00:36→07:56)
--- NOTE | 2018-04-23 00:49 | PC.NURSE ---
Pt obtunded upon initial assessment. Awakens to light sternal rub. CBG checked, 74. Hypoglycemia protocol initiated. Recheck 150. Pt remains lethargic but rouses easily to voice. VSS, afebrile. Denies pain. RT at bedside for breathing treatment d/t wheezing - improved after treatment. Sp02 97% on 2LNC. Hemodynamically stable. See assessment for full head to toe. Will monitor closely.
[2018-04-23 05:18] LABS: Add Manual Diff / Slide Review NO; Basophils Percent Auto 0.3 % (0-2); Eosinophils Percent Auto 0.5 % (2-4); Hematocrit 28.2 % (41-53); Hemoglobin 9.5 g/dL (13.5-17.5); INR 1.3 (0.9-1.3); Lymphocytes Percent Auto 5.1 % (25-40); Mean Corpuscular HGB Conc 33.7 % (30-36); Mean Corpuscular Hemoglobin 30.4 PG (26-34); Mean Corpuscular Volume 90.2 fL (80-100); Monocytes Percent Auto 6.2 % (3-14); Neutrophils Absolute Auto 8900 /uL (3000-5900); Neutrophils Percent Auto 87.9 % (50-75); Platelet Count 144 X10^3/uL (150-400); Prothrombin Time 14.2 SECONDS (10.1-12.7); Red Blood Cell Count 3.13 X10^6/uL (4.5-5.9); Red Cell Distribution Width 15.2 % (11.6-14.8); White Blood Cell Count 10.1 X10^3/uL (4.5-11.0)
[2018-04-23 05:25] LABS: BUN Creatinine Ratio 47.5 (6-22); Blood Urea Nitrogen 38 mg/dL (9-20); Carbon Dioxide 32 mmol/L (22-32); Chloride 100 mmol/L (98-107); Estimated Glomerular Filt Rate > 60.0 mL/min (>60); Glucose 119 mg/dL (80-110); HEMOLYSIS < 15 (0-50); Potassium 3.8 mmol/L (3.4-5.1); Sodium 139 mmol/L (137-145)
[2018-04-23 05:28] LABS: Digoxin 0.8 ng/mL (0.8-2.0)
--- NOTE | 2018-04-23 07:50 | PM.PN.1 ---
Subjective Date Patient Seen: 04/23/18 Time Patient Seen: 07:50 Interval history: Patient is much more awake and alert. Really has no complaints. Says his left leg is working better right leg still seems very weak. Pain is not an issue. Blood sugars were better yesterday although still in the 70s overnight and he got treated for mild hypoglycemia He is eating a tiny bit better. Actually spent a fair amount of time out of bed in a chair as his quite uncomfortable being in bed due to pain in his backside Exam Vital Signs (past 8 hours): - 04/23/18 00:00 04/23/18 00:37 04/23/18 03:59 Temperature 98.3 F 98 F Pulse Rate 77 82 87 Respiratory Rate 12 24 25 H Blood Pressure 121/53 H 133/57 H Pulse Oximetry 96 97 96 Fraction of Inspired Oxygen 32 Oxygen Delivery Method Nasal Cannula Oxygen Flow Rate 2 Narrative Exam Narrative: Unchanged from previous Objective Labs Result Diagrams: 04/23/18 04:53 04/23/18 04:53 Labs: Laboratory Results - last 24 hr 04/23/18 04/23/18 04/23/18 04:53 04:53 04:53 WBC 10.1 RBC 3.13 L Hgb 9.5 L Hct 28.2 L MCV 90.2 MCH 30.4 MCHC 33.7 RDW 15.2 H Plt Count 144 L Neut % (Auto) 87.9 H Lymph % (Auto) 5.1 L [place] % (Auto) 6.2 Eos % (Auto) 0.5 L Baso % (Auto) 0.3 Neut # (Auto) 8900 H PT 14.2 H D INR 1.3 Sodium Potassium Chloride Carbon Dioxide BUN Creatinine Estimated GFR BUN/Creatinine Ratio Glucose Calcium Digoxin 0.8 04/23/18 04:53 WBC RBC Hgb Hct MCV MCH MCHC RDW Plt Count Neut % (Auto) Lymph % (Auto) [place] % (Auto) Eos % (Auto) Baso % (Auto) Neut # (Auto) PT INR Sodium 139 Potassium 3.8 Chloride 100 Carbon Dioxide 32 BUN 38 H Creatinine 0.80 Estimated GFR > 60.0 BUN/Creatinine Ratio 47.5 H Glucose 119 H Calcium 9.0 Digoxin Assessment & Plan Plan: Assessment/Plan Narrative: 1. Right lower extremity cellulitis-continue with the ceftriaxone. Another couple of days of IV antibiotics and probably switch to oral antibiotics. Should be okay to switch to oral given he is improving all the way around. On exam it appears to be unchanged and should improve specially as we can hopefully reduce the edema. May require increased diuretics to do this. 2. Respiratory-patient still seems to have a bit of increased work of breathing at rest. Has not really been active to see how that looks. I still think he probably has some excess fluid volume to be removed from the system resulting in both an element of pulmonary edema in the lower extremity edema as above. 3. Cardiac-as per Cardiology digoxin discontinued yesterday. May need to increase carvedilol slightly. Overall rate control has been good although at times he still during heart rates in excess of 110. Continue to monitor through the course of the day but I would have a low threshold for slightly increasing his carvedilol dose. 4. Hematuria-patient with pink-tinged urine. I would discontinue aspirin but his hemoglobin and hematocrit seems stable. Continue with catheter in place and follow for now. Protime normalized. 5. Diabetes-patient's numbers as above her slightly improved. Hopefully as he increases activity and generates a larger appetite and he eats more blood sugars well no normalize. If he has additional hypoglycemia today probably should discontinue least 1 of the doses of his diabetic medication. 6. Morbid obesity-clearly contributing if not causative factor following the issues above. Address as an outpatient. Overall patient is improved and I think okay to be transferred into floor care status. Physical therapy is going to be essential and him more likely than not is going to require placement in retirement for some period of rehabilitation prior to returning home. I discussed this with the patient briefly this morning and he was accepting of that option at least today anyway. Note: Greater than 30 minutes was spent evaluating the patient on the floor, including examining the patient, discussing clinical course with clinical and nursing staff, reviewing clinical course in the computer, preparing documentation and writing orders for continued management of care, discussing status with family as appropriate, reviewing plans for the next 24 hours with both patient/family and nursing staff as appropriate. Note: Greater than 30 minutes was spent evaluating the patient on the floor, including examining the patient, discussing clinical course with clinical and nursing staff, reviewing clinical course in the computer, preparing documentation and writing orders for continued management of care, discussing status with family as appropriate, reviewing plans for the next 24 hours with both patient/family and nursing staff as appropriate. Quality VTE Deep Vein Thrombosis/Pulmonary Embolism Present on Admission: No
[2018-04-23] MEDS: CARVEDILOL 12.5 MG TABLET PO ×2 (09:21→23:00)
[2018-04-23] MEDS: FUROSEMIDE 40 MG/4 ML VIAL IV (09:21)
[2018-04-23] MEDS: GLIMEPIRIDE 2 MG TABLET PO ×2 (09:22→17:00)
[2018-04-23] MEDS: FINASTERIDE 5 MG TABLET PO (09:22)
[2018-04-23] MEDS: ACETAMINOPHEN 325 MG TABLET 650 MG PO (09:23)
--- NOTE | 2018-04-23 10:08 | PT.IPTN ---
Current Diagnoses Sepsis, unspecified organism (04/19/18) Unspecified atrial fibrillation (04/19/18) Right heart failure, unspecified (04/19/18) Unspecified abdominal pain (04/19/18) Abnormal levels of other serum enzymes (04/19/18) Physical Therapy Treatment Note M2 PT-IP Current Condition Start: 04/22/18 13:05 Freq: NEEDED Status: Active Protocol: Document 04/22/18 11:40 AB (Rec: 04/22/18 13:16 AB [id number]) Physical Therapy Current Condition Current Condition Evaluation Date 04/22/18 Treatment Diagnosis sepsis Onset Date 04/19/18 Precautions Other Precautions O2 sat, falls M3 PT-IP Subjective Start: 04/22/18 13:05 Freq: NEEDED Status: Active Protocol: Document 04/23/18 10:08 AB (Rec: 04/23/18 11:18 AB [id number]) Subjective Physical Therapy Visit Type Type Treatment Note Visit Start Time 10:08 Visit Stop Time 10:38 Total Visit Minutes 30 Number of WARNING ANALYST Visits 0 Physical Therapy Visit Comments Patient Comments i am feeling drowsy today and i don't know why Therapy Pain Assessment Pain When Pain Assessed During Mobility Pain Present Pain Present Pain Reported Location right buttock Scale Used during tiffany transfer Pain Behaviors Calling Out Wincing M4 PT-IP Mobility and Gait Start: 04/22/18 13:05 Freq: NEEDED Status: Active Protocol: Document 04/23/18 10:08 AB (Rec: 04/23/18 11:18 AB [id number]) PT-Transfer Assessment Transfers Transfer Destination Chair Transfer Technique Mechanical Lift Transfer Ability Level of Assist 2 Person Assistance Comments Mobility Comments refused to stand Assisted NAC with tiffany lift transfer from bedside commode to chair. Completed proper chair positioning. pt agreed to do exercises sitting on chair but refused to do standing. M5 PT-IP Objective Assessments Start: 04/22/18 13:05 Freq: NEEDED Status: Active Protocol: Document 04/22/18 11:40 AB (Rec: 04/22/18 13:16 AB [id number]) Orientation Orientation/Cognition Level of Alertness Lethargic Orientation Name Safety Awareness Decreased Safety Awareness Memory Description Short Term Impaired Intermediate Impaired Strength Lower Extremity Strength Assessment Bilaterally Impaired Hip 3-/5 Knee 3/5 Other Assessments Other Other Assessments redness on B lower legs M6 PT-IP Treatment Start: 04/22/18 13:05 Freq: NEEDED Status: Active Protocol: Document 04/23/18 10:08 AB (Rec: 04/23/18 11:18 AB [id number]) Physical Therapy Treatment Exercises Exercises Ankle Pumps Quad Sets Heel Slides Short Arc Quads Education Education Provided Safety Other Treatments Other Treatment Performed completed trunk activities: reaching forward and diagonals M7 PT-IP Assessment and Plan Start: 04/22/18 13:05 Freq: NEEDED Status: Active Protocol: Document 04/23/18 10:08 AB (Rec: 04/23/18 11:18 AB [id number]) PT Summary Assessment and Plan Potential Rehabilitation Potential Fair Summary Impairments Pain ROM Strength Balance Coordination Sensation Tone Cognition Bed Mobility Transfers Gait Activity Tolerance Progress Towards Goals Slow Progress due to Medical Issues Slow Progress due to Activity Tolerance Assessment Summary pt drowsy today and requires frequent cues to participate. pt continues to require total A x 2 and max cues with all tasks. pt will require SNF to improve strength and increase mobility Goals Bed Mobility Goal Minimal Assistance Transfer Goal Minimal Assistance Gait Goal Minimal Assistance Gait Distance 50 Days to Meet Goals 5 Frequency of Treatment Frequency Of Treatment Once a Day Treatment Plan Physical Therapy Treatment Plan Bed Mobility Training Transfer Training Gait Training Therapeutic Exercise Balance Retraining Discharge Planning Neuromuscular Re-ed Coordination Retraining Manual Therapy Recommendations To Nursing Amount of Assist Needed 3 or More Person Assist Total Assistance Mechanical Lift Discharge Recommendations PT Discharge Recommendations SNF Rehab
[2018-04-23] MEDS: CEFTRIAXONE 2 GM/50 ML FROZ.PIGGY IV (13:33)
--- NOTE | 2018-04-23 13:52 | CM.DPC ---
Addendum entered by Alea Jurado LPN 04/23/18 14:25: [facility] has called and confirmed acceptance of pt when stable for d/c. P: [facility] Original Note: DCP: continued: case received, EMR reviewed and discussed case in morning Interdisc team rounds. PT is recommending snf at d/c. PCP Dr. Cox discussed this today with pt. Met now in followup with pt. He was found dozing in chair, rousing eventually to voiced after RN Opal Cunha intervention. Introduced self and role. Pt does agree that a snf for rehab/recovery after hospital stay makes sense. He stated that Dr. Cox recommended a [facility] facility. Choice list: discussed/ Decision: [facility]. Referral now to [facility]: anticipates acceptance as long as pt is ready in next few days for d/c. Pt is moving up now from the ICU. Will provide a [facility] brochure. Needs PASRR: to be completed prior to d/c. CM/DCP team to follow.
--- NOTE | 2018-04-23 15:14 | PC.NURSE ---
pt with increased drowsiness noted today but then perked up upon transfer to acute care floor- he remains in atrial flutter/afib with rate controlled, tylenol given for pain control, spoke with Dr. Cox re: he declined to order abg as pt became more alert and refuses bipap under all conditions- this relayed to and he will address after office hours when he rounds- he also stated to keep both iv access in -even though they are outdated as pt will be switched to po abx in the next day or so. cellulitis continues to RLE with noted weeping- incontinent of stool- guiauc + preparing for transfer to [facility] upon d/c
[2018-04-23] MEDS: FUROSEMIDE 20 MG/2 ML VIAL IV ×2 (18:00→22:59)
--- NOTE | 2018-04-23 21:18 | RT ---
BRONCHODILATOR NOT INDICATED AT THIS TIME. SUGGESTED POSSIBLE NEED FOR FURTHER DIURESING OF PT TO RN.
[2018-04-23] MEDS: ROSUVASTATIN 10 MG TABLET PO (22:59)
[2018-04-23] MEDS: GABAPENTIN 600 MG TABLET PO (22:59)
[2018-04-23] MEDS: DOXAZOSIN 4 MG TABLET PO (22:59)
[2018-04-24] VITALS (9 sets, daily range): BP systolic 129–148; BP diastolic 64–80; PULSE 76–113; RESP 18–28; TEMP 36.5–37.3; O2SAT 91–98
--- NOTE | 2018-04-24 01:23 | PC.NURSE ---
Addendum entered by Tess Camacho R.N. 04/24/18 01:32: Patient does have an indwelling catheter in place Original Note: Patient is alert and oriented but slow to respond and forgetful at times. Breath sounds diminished with expiratory wheezes throughout anteriorly and in upper lobes posteriorly; audible wheezing and using abdominal muscles to breathe although denies feeling SOB. Oxygen at 2L/min with sat of 92%. HR irregular and was afib RVR at 0000 telemetry reading. Denies nausea. BT present and was incontinent of black loose stool. Noted to have reddened perianal area with open area on sacral/coccyx area. Some bleeding noted around urinary meatus and urine is orange/lamont color. Irrigated with NS with return of small old appearing clots. Due to obesity is difficult to reposition; did note at shift report that patient was moving self onto side to get off coccyx area but when incontinent staff assisted him to turn. Does request intermittent tilting of Laureen bed to help him change pressure to sacral area. Provided with waffle cushion to see if that will help provide additional comfort and will start applying zinc barrier cream to sacral area. Bilateral LE edema right > left. Right LE is bright red and blistery in appearance. Leg is weeping and has skin sloughing off on lateral aspect of lower leg. Abrasions and blister also noted on left LE but nothing noted to be open. Denies pain. Fall risk score is high and bed alarm is activated. Generalized weakness.
[2018-04-24 06:30] LABS: Hemoglobin 9.2 g/dL (13.5-17.5)
[2018-04-24 06:38] LABS: BUN Creatinine Ratio 36.3 (6-22); Blood Urea Nitrogen 29 mg/dL (9-20); Calcium 8.8 mg/dL (8.4-10.2); Carbon Dioxide 37 mmol/L (22-32); Chloride 100 mmol/L (98-107); Estimated Glomerular Filt Rate > 60.0 mL/min (>60); Glucose 172 mg/dL (80-110); HEMOLYSIS < 15 (0-50); Potassium 3.2 mmol/L (3.4-5.1); Sodium 140 mmol/L (137-145)
[2018-04-24] MEDS: INSULIN ASPART 100 UNIT/ML INSULN PEN SUBCUT ×4 (09:10→22:01)
[2018-04-24] MEDS: GLIMEPIRIDE 2 MG TABLET PO ×2 (09:11→16:31)
[2018-04-24] MEDS: FUROSEMIDE 40 MG/4 ML VIAL IV (09:13)
[2018-04-24] MEDS: FINASTERIDE 5 MG TABLET PO (09:13)
[2018-04-24] MEDS: CARVEDILOL 12.5 MG TABLET PO ×2 (09:13→19:56)
[2018-04-24] MEDS: SODIUM CHLORIDE 0.9% FLUSH 10 ML IV ×2 (09:14→19:57)
--- NOTE | 2018-04-24 09:20 | PT.IPTN ---
Current Diagnoses Sepsis, unspecified organism (04/19/18) Streptococcal infection, unspecified site (04/19/18) Type 2 diabetes mellitus without complications (04/19/18) Morbid (severe) obesity due to excess calories (04/19/18) Mixed hyperlipidemia (04/19/18) Essential (primary) hypertension (04/19/18) Unspecified atrial fibrillation (04/19/18) Right heart failure, unspecified (04/19/18) Cellulitis of right lower limb (04/19/18) Benign prostatic hyperplasia with lower urinary tract symptoms (04/19/18) Unspecified abdominal pain (04/19/18) Edema, unspecified (04/19/18) Abnormal levels of other serum enzymes (04/19/18) Bacteremia (04/19/18) Physical Therapy Treatment Note M2 PT-IP Current Condition Start: 04/22/18 13:05 Freq: NEEDED Status: Active Protocol: Document 04/22/18 11:40 AB (Rec: 04/22/18 13:16 AB [id number]) Physical Therapy Current Condition Current Condition Evaluation Date 04/22/18 Treatment Diagnosis sepsis Onset Date 04/19/18 Precautions Other Precautions O2 sat, falls M3 PT-IP Subjective Start: 04/22/18 13:05 Freq: NEEDED Status: Active Protocol: Document 04/24/18 09:20 AB (Rec: 04/24/18 12:01 AB [id number]) Subjective Physical Therapy Visit Type Type Treatment Note Visit Start Time 09:20 Visit Stop Time 10:05 Total Visit Minutes 45 Number of TOY MAKER Visits 0 Physical Therapy Visit Comments Patient Comments pt agreeable to do therapy M4 PT-IP Mobility and Gait Start: 04/22/18 13:05 Freq: NEEDED Status: Active Protocol: Document 04/24/18 09:20 AB (Rec: 04/24/18 12:01 AB [id number]) PT-Bed Mobility Assessment Supine to Sit Supine to Sit Maximum Assistance 2 Person Assistance Head of Bed Elevated Bedrails Scooting Scooting to Edge of Bed Maximum Assistance PT-Transfer Assessment Sit to and From Stand Sit to and from Stand Maximum Assistance 2 Person Assistance Use of Upper Extremities Equipment Transfer Assistive Device Gait Belt Front Wheeled Walker Orthotic/Prosthetic Devices or Brace: No Transfers Transfer Destination Chair Transfer Technique Stand Step Pivot Transfer Ability Level of Assist Maximum Assistance 2 Person Assistance Use of Upper Extremities Comments Mobility Comments pt completed sit <> stand x 2 requiring max A x 2 and max cues. pt tolerated ~ 10 sec of standing using FWW for support max A x 2 and pt has to sit down. Pt was able to transfer to chair on 2nd standing using FWW but required max A x 2 and max cues. pt required max A x 2 for controlled descent to chair. required max A x 2 to scoot on chair and for positioning. PT-Balance Assessment Sitting Balance and Reactions Static Sitting Balance Ability Good Dynamic Sitting Balance Ability Fair Standing Balance and Reactions Static Standing Balance Ability Poor Dynamic Standing Balance Ability Poor M5 PT-IP Objective Assessments Start: 04/22/18 13:05 Freq: NEEDED Status: Active Protocol: Document 04/22/18 11:40 AB (Rec: 04/22/18 13:16 AB [id number]) Orientation Orientation/Cognition Level of Alertness Lethargic Orientation Name Safety Awareness Decreased Safety Awareness Memory Description Short Term Impaired Ndt Inspector Impaired Strength Lower Extremity Strength Assessment Bilaterally Impaired Hip 3-/5 Knee 3/5 Other Assessments Other Other Assessments redness on B lower legs M6 PT-IP Treatment Start: 04/22/18 13:05 Freq: NEEDED Status: Active Protocol: Document 04/24/18 09:20 AB (Rec: 04/24/18 12:01 AB [id number]) Physical Therapy Treatment Exercises Exercises Seated Knee Flexion/Extension Education Education Provided Safety M7 PT-IP Assessment and Plan Start: 04/22/18 13:05 Freq: NEEDED Status: Active Protocol: Document 04/24/18 09:20 AB (Rec: 04/24/18 12:01 AB [id number]) PT Summary Assessment and Plan Potential Rehabilitation Potential Fair Summary Impairments Pain ROM Strength Balance Coordination Sensation Cognition Bed Mobility Transfers Gait Activity Tolerance Progress Towards Goals Slow Progress due to Medical Issues Slow Progress due to Activity Tolerance Assessment Summary pt progressing slowly but continues to require 2 person assist with all mobilities. pt will require SNF rehab to improve strength and function. Goals Bed Mobility Goal Minimal Assistance Transfer Goal Minimal Assistance Gait Goal Minimal Assistance Gait Distance 50 Days to Meet Goals 5 Frequency of Treatment Frequency Of Treatment Once a Day Treatment Plan Physical Therapy Treatment Plan Bed Mobility Training Transfer Training Gait Training Therapeutic Exercise Balance Retraining Discharge Planning Neuromuscular Re-ed Coordination Retraining Manual Therapy Recommendations To Nursing Amount of Assist Needed 2 Person Assist Total Assistance Mechanical Lift Discharge Recommendations PT Discharge Recommendations SNF Rehab
[2018-04-24] MEDS: ACETAMINOPHEN 325 MG TABLET 650 MG PO ×2 (10:02→18:04)
[2018-04-24] MEDS: POTASSIUM CHLORIDE 20 MEQ TAB 40 MEQ PO ×2 (10:07→16:31)
--- NOTE | 2018-04-24 11:25 | PM.PN.1 ---
Subjective Date Patient Seen: 04/24/18 Time Patient Seen: 09:25 Interval history: He was transfer to floor care yesterday. Spent some time out of bed in a chair. Would like to make sure that he has Tylenol available for his pain. It is mainly in his back and he finds moving about in bed difficulty. He is tolerating his diet. Had large loose stool overnight. He feels his breathing has improved and he would like to get rid of the supplemental oxygen so that he can be more mobile. Exam Vital Signs (past 8 hours): - 04/24/18 04:00 04/24/18 07:22 04/24/18 07:57 Temperature 99.1 F 97.8 F Pulse Rate 101 H 112 H Respiratory Rate 28 H 23 Blood Pressure 148/74 H 148/80 H Pulse Oximetry 98 98 98 Fraction of Inspired Oxygen 32 Oxygen Delivery Method Nasal Cannula Oxygen Flow Rate 2 Narrative Exam Narrative: General: Obese male semi reclined in hospital bed, Awake and watching TV this morning Heart: Sounds regular Lungs: Diffuse expiratory wheezing Abdomen: Protuberant, bowel sounds present, nontender Extremities: 2+ pitting edema bilaterally, the right lower extremity continues to be red with weeping on the anterior ohara and sloughing of the skin Objective Labs Result Diagrams: 04/24/18 06:11 04/24/18 06:11 Labs: Laboratory Results - last 24 hr 04/24/18 04/24/18 06:11 06:11 Hgb 9.2 L Hct 27.0 L Sodium 140 Potassium 3.2 L Chloride 100 Carbon Dioxide 37 H BUN 29 H Creatinine 0.80 Estimated GFR > 60.0 BUN/Creatinine Ratio 36.3 H Glucose 172 H Calcium 8.8 Assessment & Plan (1) Cellulitis of right leg: Current visit: Yes Status: Acute (2) Right-sided heart failure: Current visit: Yes Status: Acute (3) New onset a-fib: Current visit: Yes Status: Acute (4) Type 2 diabetes mellitus without complication: Current visit: Yes Status: Chronic (5) Bacteremia due to group B Streptococcus: Current visit: Yes Status: Acute (6) Morbid obesity due to excess calories: Current visit: No Status: Chronic (7) Streptococcal infection group B: Current visit: Yes Status: Acute (8) Essential hypertension: Current visit: No Status: Chronic (9) Edema: Current visit: Yes Status: Chronic (10) Mixed hyperlipidemia: Current visit: No Status: Chronic (11) Benign localized prostatic hyperplasia with lower urinary tract symptoms (LUTS): Current visit: No Status: Chronic (12) Hematuria: Current visit: Yes Status: Acute Plan: Assessment/Plan Narrative: 1. Right lower extremity cellulitis: continue with the ceftriaxone. Another day of IV antibiotics and switch to oral antibiotics since he was bacteremic for 10-14 days. Should be okay to switch to oral given he is improving all the way around. Still looks red and weeping on exam. Extra dose of furosemide given last night. 2. Respiratory: Decreased oxygen requirement this morning after extra dose of furosemide last night. Will continue to work on diuresis today. Will monitor his potassium and replete since it's low today. 3. Cardiac-as per Cardiology digoxin discontinued (please see Dr. Alcazar note for rationale). He did spend some time last night in sinus rhythm. Will monitor for need to increase carvedilol slightly. Overall rate control has been good although at times he still during heart rates in excess of 110. 4. Hematuria: likely secondary to cath when heparinzed. patient with pink-tinged urine and dark clots overnight requiring frequent irrigation. continue off of aspirin and monitoring his hemoglobin and hematocrit. They have been stable. Continue with catheter in place and follow for now. Will discuss with urology endodontist to see what the next step might be. 5. Diabetes-patient's numbers as above her slightly improved. Hopefully as he increases activity and generates a larger appetite and he eats more blood sugars well no normalize. If he has additional hypoglycemia today probably should discontinue least 1 of the doses of his diabetic medication. 6. Morbid obesity: clearly contributing if not causative factor following the issues above. Address as an outpatient. Physical therapy is going to be essential and he is more likely than not is going to require placement in [place] [facility] for some period of rehabilitation prior to returning home. Note: Greater than 40 minutes was spent evaluating the patient on the floor, including examining the patient, discussing clinical course with clinical and nursing staff, reviewing clinical course in the computer, preparing documentation, consulting urology and writing orders for continued management of care, discussing status with family as appropriate, reviewing plans for the next 24 hours with both patient/family and nursing staff as appropriate. Quality VTE Deep Vein Thrombosis/Pulmonary Embolism Present on Admission: No
--- NOTE | 2018-04-24 11:28 | P.PN_ITS ---
Subjective Date Patient Seen: 04/24/18 Time Patient Seen: 09:25 Interval history: He was transfer to floor care yesterday. Spent some time out of bed in a chair. Would like to make sure that he has Tylenol available for his pain. It is mainly in his back and he finds moving about in bed difficulty. He is tolerating his diet. Had large loose stool overnight. He feels his breathing has improved and he would like to get rid of the supplemental oxygen so that he can be more mobile. Exam Vital Signs (past 8 hours): - 04/24/18 04:00 04/24/18 07:22 04/24/18 07:57 Temperature 99.1 F 97.8 F Pulse Rate 101 H 112 H Respiratory Rate 28 H 23 Blood Pressure 148/74 H 148/80 H Pulse Oximetry 98 98 98 Fraction of Inspired Oxygen 32 Oxygen Delivery Method Nasal Cannula Oxygen Flow Rate 2 Narrative Exam Narrative: General: Obese male semi reclined in hospital bed, Awake and watching TV this morning Heart: Sounds regular Lungs: Diffuse expiratory wheezing Abdomen: Protuberant, bowel sounds present, nontender Extremities: 2+ pitting edema bilaterally, the right lower extremity continues to be red with weeping on the anterior ohara and sloughing of the skin Objective Labs Result Diagrams: 04/24/18 06:11 04/24/18 06:11 Labs: Laboratory Results - last 24 hr 04/24/18 04/24/18 06:11 06:11 Hgb 9.2 L Hct 27.0 L Sodium 140 Potassium 3.2 L Chloride 100 Carbon Dioxide 37 H BUN 29 H Creatinine 0.80 Estimated GFR > 60.0 BUN/Creatinine Ratio 36.3 H Glucose 172 H Calcium 8.8 Assessment & Plan (1) Cellulitis of right leg: Current visit: Yes Status: Acute (2) Right-sided heart failure: Current visit: Yes Status: Acute (3) New onset a-fib: Current visit: Yes Status: Acute (4) Type 2 diabetes mellitus without complication: Current visit: Yes Status: Chronic (5) Bacteremia due to group B Streptococcus: Current visit: Yes Status: Acute (6) Morbid obesity due to excess calories: Current visit: No Status: Chronic (7) Streptococcal infection group B: Current visit: Yes Status: Acute (8) Essential hypertension: Current visit: No Status: Chronic (9) Edema: Current visit: Yes Status: Chronic (10) Mixed hyperlipidemia: Current visit: No Status: Chronic (11) Benign localized prostatic hyperplasia with lower urinary tract symptoms ( LUTS): Current visit: No Status: Chronic (12) Hematuria: Current visit: Yes Status: Acute Plan: Assessment/Plan Narrative: 1. Right lower extremity cellulitis: continue with the ceftriaxone. Another day of IV antibiotics and switch to oral antibiotics since he was bacteremic for 10-14 days. Should be okay to switch to oral given he is improving all the way around. Still looks red and weeping on exam. Extra dose of furosemide given last night. 2. Respiratory: Decreased oxygen requirement this morning after extra dose of furosemide last night. Will continue to work on diuresis today. Will monitor his potassium and replete since it's low today. 3. Cardiac-as per Cardiology digoxin discontinued (please see Dr. Alcazar note for rationale). He did spend some time last night in sinus rhythm. Will monitor for need to increase carvedilol slightly. Overall rate control has been good although at times he still during heart rates in excess of 110. 4. Hematuria: likely secondary to cath when heparinzed. patient with pink- tinged urine and dark clots overnight requiring frequent irrigation. continue off of aspirin and monitoring his hemoglobin and hematocrit. They have been stable. Continue with catheter in place and follow for now. Will discuss with urology afternoon babysitter to see what the next step might be. 5. Diabetes-patient's numbers as above her slightly improved. Hopefully as he increases activity and generates a larger appetite and he eats more blood sugars well no normalize. If he has additional hypoglycemia today probably should discontinue least 1 of the doses of his diabetic medication. 6. Morbid obesity: clearly contributing if not causative factor following the issues above. Address as an outpatient. Physical therapy is going to be essential and he is more likely than not is going to require placement in care home for some period of rehabilitation prior to returning home. Note: Greater than 40 minutes was spent evaluating the patient on the floor, including examining the patient, discussing clinical course with clinical and nursing staff, reviewing clinical course in the computer, preparing documentation, consulting urology and writing orders for continued management of care, discussing status with family as appropriate, reviewing plans for the next 24 hours with both patient/family and nursing staff as appropriate. Quality VTE Deep Vein Thrombosis/Pulmonary Embolism Present on Admission: No
--- NOTE | 2018-04-24 15:10 | PC.NURSE ---
PER DR. PIOTR MERINO TO IRRIGATE BLADDER PRN.
[2018-04-24] MEDS: CEFTRIAXONE 2 GM/50 ML FROZ.PIGGY IV (16:38)
[2018-04-24] MEDS: GABAPENTIN 600 MG TABLET PO (18:04)
[2018-04-24] MEDS: FUROSEMIDE 20 MG/2 ML VIAL IV (18:04)
[2018-04-24] MEDS: DOXAZOSIN 4 MG TABLET PO (19:57)
[2018-04-24] MEDS: ROSUVASTATIN 10 MG TABLET PO (19:57)
[2018-04-25] VITALS (9 sets, daily range): BP systolic 109–149; BP diastolic 51–82; PULSE 103–115; RESP 18–32; TEMP 36.4–37.3; O2SAT 89–98
--- NOTE | 2018-04-25 03:14 | PC.NURSE ---
Addendum entered by Marie Dominguez R.N. 04/25/18 04:54: pt desatting to 85-87% while asleep at times. Pt is reluctant to wear any oxygen or have a pulse ox on but finally decided to have 2L NC for a little bit until he's more awake in the morning Original Note: Addendum entered by Marie Dominguez R.N. 04/25/18 04:49: Pt is very demanding at times and frustrated. Does not want to lie flat in bed to be pulled up. Pt ripped out both his IVs as well. A new IV was placed in his right hand. I explained to pt that he needs this IV because he is on telemetry monitoring. Original Note: Pt is AxoX3. Pt is saturating at 90-94% on room air; has audible wheezing, unable to lie flat, continuous pulse ox applied. Pt's tele is reading as tachycardic at 111. Pt had two loose black bowel movements for which one episode was incontinent. There is a continous irrigation running through the bender to flush out any blood clots and since pt was complaining of pain at times. Urine has been yellow and no clots noted. B/L LE edema +3. RLE is bright red, weeping, some skin sloughed off, the drainage is yellow and serous, pad changed several times. Pt has been T&P q2h with help of Laureen bed, pillows, and waffle cushion. There is a slit opening in coccyx/buttock fold for which i applied zinc barrier cream. No complaints of pain at this time. Fingerstick at 0200 was 192.
[2018-04-25 05:33] LABS: Hematocrit 28.8 % (41-53); Hemoglobin 9.6 g/dL (13.5-17.5)
[2018-04-25 05:46] LABS: BUN Creatinine Ratio 32.9 (6-22); Blood Urea Nitrogen 23 mg/dL (9-20); Carbon Dioxide 35 mmol/L (22-32); Chloride 101 mmol/L (98-107); Estimated Glomerular Filt Rate > 60.0 mL/min (>60); Glucose 175 mg/dL (80-110); HEMOLYSIS < 15 (0-50); Potassium 3.5 mmol/L (3.4-5.1); Sodium 142 mmol/L (137-145)
[2018-04-25] MEDS: INSULIN ASPART 100 UNIT/ML INSULN PEN SUBCUT ×3 (08:15→16:41)
[2018-04-25] MEDS: POTASSIUM CHLORIDE 20 MEQ TAB 40 MEQ PO ×2 (08:16→16:41)
[2018-04-25] MEDS: GLIMEPIRIDE 2 MG TABLET PO (08:16)
[2018-04-25] MEDS: SODIUM CHLORIDE 0.9% FLUSH 10 ML IV ×2 (08:17→21:29)
[2018-04-25] MEDS: CARVEDILOL 12.5 MG TABLET PO ×2 (08:17→11:09)
[2018-04-25] MEDS: FUROSEMIDE 40 MG/4 ML VIAL IV (08:17)
[2018-04-25] MEDS: FINASTERIDE 5 MG TABLET PO (08:17)
--- NOTE | 2018-04-25 10:28 | P.PN_ITS ---
Subjective Date Patient Seen: 04/25/18 Time Patient Seen: 10:28 Interval history: The patient has just finished working with physical therapy so he is breathing a little heavy year. Has been off oxygen over night. Oxygen saturation well in the chair in is 93%. He thinks that he is feeling better but he is worried about being able to ambulate at home. He has questions about how long he should expect his recovery to take and for his strength to return. His urine has cleared but he continues to have dark stools. Exam Vital Signs (past 8 hours): - 04/25/18 04:00 04/25/18 06:30 04/25/18 08:00 Temperature 97.5 F L 97.5 F L Pulse Rate 112 H 115 H Respiratory Rate 23 18 Blood Pressure 137/82 H 122/51 H Pulse Oximetry 97 92 94 04/25/18 08:57 Temperature Pulse Rate 103 H Respiratory Rate 18 Blood Pressure Pulse Oximetry 93 Fraction of Inspired Oxygen 21 Oxygen Delivery Method Room Air Oxygen Flow Rate 0 Narrative Exam Narrative: General: Well-developed morbidly obese male, sitting comfortably in chair Heart: Tachy regular rate and rhythm Lungs: Clear to auscultation bilaterally but diminished Abdomen: Protuberant Extremities: Warm, 1 to 2+ pitting edema, right lower extremity is diffusely red with an area where the epidermis has lost and pink granulation tissue is present Objective Labs Result Diagrams: 04/25/18 05:23 04/25/18 05:23 Labs: Laboratory Results - last 24 hr 04/25/18 04/25/18 05:23 05:23 Hgb 9.6 L Hct 28.8 L Sodium 142 Potassium 3.5 Chloride 101 Carbon Dioxide 35 H BUN 23 H Creatinine 0.70 Estimated GFR > 60.0 BUN/Creatinine Ratio 32.9 H Glucose 175 H Calcium 9.0 Assessment & Plan (1) Cellulitis of right leg: Current visit: Yes Status: Acute (2) Right-sided heart failure: Current visit: Yes Status: Acute (3) New onset a-fib: Current visit: Yes Status: Acute (4) Type 2 diabetes mellitus without complication: Current visit: Yes Status: Chronic (5) Bacteremia due to group B Streptococcus: Current visit: Yes Status: Acute (6) Morbid obesity due to excess calories: Current visit: No Status: Chronic (7) Streptococcal infection group B: Current visit: Yes Status: Acute (8) Essential hypertension: Current visit: No Status: Chronic (9) Edema: Current visit: Yes Status: Chronic (10) Mixed hyperlipidemia: Current visit: No Status: Chronic (11) Benign localized prostatic hyperplasia with lower urinary tract symptoms ( LUTS): Current visit: No Status: Chronic (12) Hematuria: Current visit: Yes Status: Acute Plan: Assessment/Plan Narrative: 1. Right lower extremity cellulitis: Will transition to oral penicillin today. since he was bacteremic would continue antibiotics for 10-14 days. Still looks red and however it is not weeping on exam today. 2. Respiratory: Acute pulmonary edema due fluid resuscitation from his infection. No current oxygen requirement today. Will back off his diuresis to once daily and continue oral potassium repletion. 3. Cardiac-as per Cardiology digoxin discontinued (please see Dr. Alcazar note for rationale). He is spending some time in sinus rhythm. Increased dose of carvedilol this morning brought his resting heart rate into the 80s. Will monitor over night to see if 25 mg twice daily as a better dose for him. 4. Hematuria: likely secondary to cath when heparinzed. patient with clear urine at this point. Intermittent irrigation as needed. Will consider discontinuing the catheter tomorrow. 5. Diabetes-patient's numbers are creeping up again after an episode of hypoglycemia few days ago. Will increase his glimepiride to 3 mg twice daily. 6. Morbid obesity: clearly contributing if not causative factor following the issues above. Address as an outpatient. Physical therapy is going to be essential and he is more likely than not is going to require placement in [facility] for some period of rehabilitation prior to returning home. Explained to him today that it takes 2 days of rehab for every day of immobilization. Note: 40 minutes was spent evaluating the patient on the floor, including examining the patient, discussing clinical course with clinical and nursing staff, reviewing clinical course in the computer, preparing documentation, consulting urology and writing orders for continued management of care, discussing status with family as appropriate, reviewing plans for the next 24 hours with both patient/family and nursing staff as appropriate. Time Spent With Patient Time with patient: Greater than 35 minutes Quality VTE Deep Vein Thrombosis/Pulmonary Embolism Present on Admission: No
--- NOTE | 2018-04-25 10:37 | PT.IPTN ---
Current Diagnoses Sepsis, unspecified organism (04/19/18) Streptococcal infection, unspecified site (04/19/18) Type 2 diabetes mellitus without complications (04/19/18) Morbid (severe) obesity due to excess calories (04/19/18) Mixed hyperlipidemia (04/19/18) Essential (primary) hypertension (04/19/18) Unspecified atrial fibrillation (04/19/18) Right heart failure, unspecified (04/19/18) Cellulitis of right lower limb (04/19/18) Benign prostatic hyperplasia with lower urinary tract symptoms (04/19/18) Unspecified abdominal pain (04/19/18) Edema, unspecified (04/19/18) Abnormal levels of other serum enzymes (04/19/18) Bacteremia (04/19/18) Physical Therapy Treatment Note M2 PT-IP Current Condition Start: 04/22/18 13:05 Freq: NEEDED Status: Active Protocol: Document 04/22/18 11:40 AB (Rec: 04/22/18 13:16 AB [id number]) Physical Therapy Current Condition Current Condition Evaluation Date 04/22/18 Treatment Diagnosis sepsis Onset Date 04/19/18 Precautions Other Precautions O2 sat, falls M3 PT-IP Subjective Start: 04/22/18 13:05 Freq: NEEDED Status: Active Protocol: Document 04/25/18 09:15 CLB (Rec: 04/25/18 10:37 CLB [id number]) Subjective Physical Therapy Visit Type Type Treatment Note Visit Start Time 09:15 Visit Stop Time 09:55 Total Visit Minutes 40 Number of HOUSEHOLD APPLIANCES SALESPERSON Visits 1 Physical Therapy Visit Comments Patient Comments pt wanting to get up and into chair. M4 PT-IP Mobility and Gait Start: 04/22/18 13:05 Freq: NEEDED Status: Active Protocol: Document 04/25/18 09:15 CLB (Rec: 04/25/18 10:37 CLB [id number]) PT-Bed Mobility Assessment Supine to Sit Supine to Sit Moderate Assistance 2 Person Assistance Head of Bed Elevated Bedrails Scooting Scooting to Edge of Bed Maximum Assistance PT-Transfer Assessment Sit to and From Stand Sit to and from Stand Maximum Assistance 2 Person Assistance Use of Upper Extremities Equipment Transfer Assistive Device Gait Belt Front Wheeled Walker Orthotic/Prosthetic Devices or Brace: No Transfers Transfer Destination Chair Transfer Technique Stand Step Pivot Transfer Ability Level of Assist Maximum Assistance 2 Person Assistance Use of Upper Extremities Comments Mobility Comments Pt needed Max A and cues to scoot to EOB. Pt needed Max A x2 for sit-stand. Pt able to stay standing and pivot to chair. Pt wanted to attempt to stand again from chair but was unable from lower surface. 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 Tin Assorter Impaired Strength Lower Extremity Strength Assessment Bilaterally Impaired Hip 3-/5 Knee 3/5 Other Assessments Other Other Assessments redness on B lower legs M6 PT-IP Treatment Start: 04/22/18 13:05 Freq: NEEDED Status: Active Protocol: Document 04/25/18 09:15 CLB (Rec: 04/25/18 10:37 CLB [id number]) Physical Therapy Treatment Exercises Exercises Seated Knee Flexion/Extension Education Education Provided Safety Other Treatments Other Treatment Performed Seated marches M7 PT-IP Assessment and Plan Start: 04/22/18 13:05 Freq: NEEDED Status: Active Protocol: Document 04/25/18 09:15 CLB (Rec: 04/25/18 10:37 CLB [id number]) PT Summary Assessment and Plan Potential Rehabilitation Potential Fair Summary Impairments Pain ROM Strength Balance Coordination Sensation Cognition Bed Mobility Transfers Gait Activity Tolerance Progress Towards Goals Slow Progress due to Medical Issues Slow Progress due to Activity Tolerance Assessment Summary Pt alert and motivated to transfer to chair w/o lift. Pt needs Max A of 1 person OOB and Max A x 2 to stand. Pt will require SNF rehab to improve strength and function. Goals Bed Mobility Goal Minimal Assistance Transfer Goal Minimal Assistance Gait Goal Minimal Assistance Gait Distance 50 Days to Meet Goals 5 Frequency of Treatment Frequency Of Treatment Once a Day Treatment Plan Physical Therapy Treatment Plan Bed Mobility Training Transfer Training Gait Training Therapeutic Exercise Balance Retraining Discharge Planning Neuromuscular Re-ed Coordination Retraining Manual Therapy Recommendations To Nursing Amount of Assist Needed 2 Person Assist Total Assistance Mechanical Lift Discharge Recommendations PT Discharge Recommendations SNF Rehab
[2018-04-25] MEDS: PENICILLIN VK 250 MG TABLET 500 MG PO ×3 (11:09→21:27)
--- NOTE | 2018-04-25 14:07 | PC.NURSE ---
PT HAD LARGE INCONTINENT BM WHILE SITTING IN CHAIR. MAYTE USED TO LIFT PT TO CLEAN AREA. GUAIAC NEG, CHECKED R/T DARK BROWN/GREEN/BLACK LOOSE STOOLS. PT PLACED ON RIGHT SIDE TO OFF-LOAD PRESSURE TO COCCYX. WAFFLE CUSHION AND BRIEF UNDER BUTTOCKS.
[2018-04-25] MEDS: GLIMEPIRIDE 2 MG TABLET 3 MG PO (16:40)
[2018-04-25] MEDS: ACETAMINOPHEN 325 MG TABLET 650 MG PO (19:35)
[2018-04-25] MEDS: GABAPENTIN 600 MG TABLET PO (21:27)
[2018-04-25] MEDS: DOXAZOSIN 4 MG TABLET PO (21:27)
[2018-04-25] MEDS: ROSUVASTATIN 10 MG TABLET PO (21:27)
[2018-04-25] MEDS: CARVEDILOL 25 MG TABLET PO (21:28)
[2018-04-26] VITALS (7 sets, daily range): BP systolic 115–153; BP diastolic 56–96; PULSE 83–119; RESP 16–22; TEMP 36.5–37.7; O2SAT 90–96
--- NOTE | 2018-04-26 07:14 | PC.NURSE ---
0640 Stool sample collected & sent to the lab.
[2018-04-26 07:54] LABS: Clostridium Difficile Tox PCR Negative for C. diff
[2018-04-26] MEDS: INSULIN ASPART 100 UNIT/ML INSULN PEN SUBCUT ×4 (08:31→21:18)
--- NOTE | 2018-04-26 08:31 | P.PN_ITS ---
Subjective Date Patient Seen: 04/26/18 Time Patient Seen: 08:27 Interval history: Patient looks to be much better this morning. He is much more awake and alert and more like his normal self. Is concerned about his ongoing issues with his bowels as he is having trouble maintaining continence. Other than that feels like he is doing better. Legs are working better. His actually he says anyway looking forward to physical therapy Exam Vital Signs (past 8 hours): - 04/26/18 01:04 04/26/18 05:51 04/26/18 08:00 Temperature 98.1 F 98.2 F 97.7 F Pulse Rate 114 H 113 H 115 H Respiratory Rate 18 18 19 Blood Pressure 118/56 L 150/96 H Pulse Oximetry 96 92 90 L Fraction of Inspired Oxygen 21 Oxygen Delivery Method Room Air Oxygen Flow Rate 0 Narrative Exam Narrative: Right lower extremity-erythema is decreased with small area of superficial skin loss, clearly much improved over previous exam 3 days ago Objective Labs Result Diagrams: 04/25/18 05:23 04/25/18 05:23 Labs: Laboratory Results - last 24 hr 04/26/18 06:45 C. difficile Tox (PCR) Negative for c. diff Assessment & Plan Plan: Assessment/Plan Narrative: 1. Right lower extremity cellulitis-continue with oral antibiotics. Continue with local wound care. Does appear to be improving. Edema appears minimized. 2. Respiratory-patient appears to be much better. I think his volume overload/ congestive heart failure from right heart failure is much improved. I am going to switch him off of IV diuretic therapy to oral diuretic therapy. He was previously taking froze some I would at the suggestion of Cardiology am going to switch to torsemide. 3. Cardiac-patient has been somewhat tachycardic. I think he would benefit from higher dose carvedilol to help with rate reduction in his atrial fibrillation. Still not a candidate for anticoagulation given his issues with bleeding previously. This will need to be investigated as an outpatient before he would be a candidate. (Urology evaluation) 4. Hematuria-patient's urine is now clear. Part of his issue with his bowels is that he has feels like he needs to strain with the urinary catheter in place. I am going to discontinue the urinary catheter at this point. 5. Diabetes-patient's numbers are too high. He is clearly eating more. Put him back on his usual dose of his glimepiride might and increase his insulin coverage. Hopefully with increased activity and increased medication is numbers will improve 6. Morbid obesity-contributing to above issues. 7. Disposition-patient will need to go to retirement. May be ready to go medically as soon as tomorrow the 27 of April or if not then probably by the 28 of April Note: Greater than 30 minutes was spent evaluating the patient on the floor, including examining the patient, discussing clinical course with clinical and nursing staff, reviewing clinical course in the computer, preparing documentation and writing orders for continued management of care, discussing status with family as appropriate, reviewing plans for the next 24 hours with both patient/family and nursing staff as appropriate. Quality VTE Deep Vein Thrombosis/Pulmonary Embolism Present on Admission: No
[2018-04-26] MEDS: SODIUM CHLORIDE 0.9% FLUSH 10 ML IV ×2 (08:33→21:17)
[2018-04-26] MEDS: FINASTERIDE 5 MG TABLET PO (08:34)
[2018-04-26] MEDS: CHOLESTYRAMINE/ASPARTAME 4 GM PACK PO ×2 (08:34→21:16)
[2018-04-26] MEDS: PENICILLIN VK 250 MG TABLET 500 MG PO ×4 (08:35→21:17)
[2018-04-26] MEDS: POTASSIUM CHLORIDE 20 MEQ TAB 40 MEQ PO ×2 (08:35→17:15)
[2018-04-26] MEDS: CARVEDILOL 25 MG TABLET 50 MG PO ×2 (08:45→21:15)
[2018-04-26] MEDS: ACETAMINOPHEN 325 MG TABLET 650 MG PO ×3 (08:48→23:52)
[2018-04-26 09:26] LABS: Hematocrit 27.8 % (41-53); Hemoglobin 9.4 g/dL (13.5-17.5)
[2018-04-26 09:39] LABS: BUN Creatinine Ratio 21.4 (6-22); Blood Urea Nitrogen 15 mg/dL (9-20); Carbon Dioxide 35 mmol/L (22-32); Chloride 98 mmol/L (98-107); Estimated Glomerular Filt Rate > 60.0 mL/min (>60); Glucose 202 mg/dL (80-110); HEMOLYSIS < 15 (0-50); Magnesium 2.2 mg/dL (1.6-2.3); Potassium 3.7 mmol/L (3.4-5.1); Sodium 139 mmol/L (137-145)
[2018-04-26] MEDS: TORSEMIDE 10 MG TABLET 20 MG PO (09:40)
[2018-04-26] MEDS: LOPERAMIDE 2 MG CAPSULE PO (09:40)
--- NOTE | 2018-04-26 10:20 | PT.IPTN ---
Current Diagnoses Sepsis, unspecified organism (04/19/18) Streptococcal infection, unspecified site (04/19/18) Type 2 diabetes mellitus without complications (04/19/18) Morbid (severe) obesity due to excess calories (04/19/18) Mixed hyperlipidemia (04/19/18) Essential (primary) hypertension (04/19/18) Unspecified atrial fibrillation (04/19/18) Right heart failure, unspecified (04/19/18) Cellulitis of right lower limb (04/19/18) Benign prostatic hyperplasia with lower urinary tract symptoms (04/19/18) Unspecified abdominal pain (04/19/18) Hematuria, unspecified (04/19/18) Edema, unspecified (04/19/18) Abnormal levels of other serum enzymes (04/19/18) Bacteremia (04/19/18) Physical Therapy Treatment Note M2 PT-IP Current Condition Start: 04/22/18 13:05 Freq: NEEDED Status: Active Protocol: Document 04/26/18 10:20 TMS (Rec: 04/26/18 16:58 TMS [id number]) Physical Therapy Current Condition Current Condition Evaluation Date 04/22/18 Treatment Diagnosis sepsis Onset Date 04/19/18 Precautions Other Precautions O2 sat, falls M3 PT-IP Subjective Start: 04/22/18 13:05 Freq: NEEDED Status: Active Protocol: Document 04/26/18 10:20 TMS (Rec: 04/26/18 16:58 TMS [email or web address]) Subjective Physical Therapy Visit Type Type Treatment Note Visit Start Time 10:00 Visit Stop Time 10:20 Total Visit Minutes 20 Number of MRI TECHNOLOGIST Visits 2 Physical Therapy Visit Comments Patient Comments Pt. ready to get to chair, I think I'm feeling stronger today. M4 PT-IP Mobility and Gait Start: 04/22/18 13:05 Freq: NEEDED Status: Active Protocol: Document 04/26/18 10:20 TMS (Rec: 04/26/18 16:58 TMS [email or web address]) PT-Bed Mobility Assessment Supine to Sit Supine to Sit Moderate Assistance 2 Person Assistance Head of Bed Elevated Bedrails Scooting Scooting to Edge of Bed Maximum Assistance PT-Transfer Assessment Sit to and From Stand Sit to and from Stand Moderate Assistance 2 Person Assistance Use of Upper Extremities Equipment Transfer Assistive Device Gait Belt Front Wheeled Walker Orthotic/Prosthetic Devices or Brace: No Transfers Transfer Destination Chair Transfer Technique Stand Step Pivot Transfer Ability Level of Assist Minimal Assistance 2 Person Assistance Comments Mobility Comments Bed mobility difficult but less assist needed today, pt. needed cues for rolling and use of rails. Sit>stand x 3 with FWW/Min-A of 2, stood for pericare. 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 Event Services Manager Impaired Strength Lower Extremity Strength Assessment Bilaterally Impaired Hip 3-/5 Knee 3/5 Other Assessments Other Other Assessments redness on B lower legs M6 PT-IP Treatment Start: 04/22/18 13:05 Freq: NEEDED Status: Active Protocol: Document 04/25/18 09:15 CLB (Rec: 04/25/18 10:37 CLB [id number]) Physical Therapy Treatment Exercises Exercises Seated Knee Flexion/Extension Education Education Provided Safety Other Treatments Other Treatment Performed Seated marches M7 PT-IP Assessment and Plan Start: 04/22/18 13:05 Freq: NEEDED Status: Active Protocol: Document 04/26/18 10:20 TMS (Rec: 04/26/18 16:58 TMS [email or web address]) PT Summary Assessment and Plan Summary Impairments Pain ROM Strength Balance Coordination Sensation Cognition Bed Mobility Transfers Gait Activity Tolerance Progress Towards Goals Slow Progress due to Medical Issues Slow Progress due to Activity Tolerance Assessment Summary Pt. needs a lot of assist with bed mobility and scooting forward on bed. Once up standing needed less assist with transfer to chair. Very fatigued after transfer. I need a nap. Frequency of Treatment Frequency Of Treatment Once a Day Treatment Plan Physical Therapy Treatment Plan Bed Mobility Training Transfer Training Gait Training Therapeutic Exercise Balance Retraining Discharge Planning Neuromuscular Re-ed Coordination Retraining Manual Therapy Recommendations To Nursing Amount of Assist Needed 2 Person Assist Total Assistance Mechanical Lift Discharge Recommendations PT Discharge Recommendations SNF Rehab
--- NOTE | 2018-04-26 13:15 | CM.DPC ---
DCP Cont: SNF planning Per MD, pt making progress and possibly stable for d/c to SNF tomorrow but not today. SW called [facility] admissions and confirmed that they can accept the pt at d/c and updated that pt not ready today but possibly tomorrow. SW met bedside with the pt and explained role and discussed d/c planning needs and pt stated that he was hopeful for d/c home but now realizing that he would not be safe to d/c directly home since he primarily takes care of his and feels that SNF rehab is needed prior to home. SW updated him that [facility] accepts him when ready for d/c and updated on MCR coverage for the first 20 days and [facility] able to provide w/c van transport at d/c. Pt appreciative of the update and agreeable to [facility] at d/c. SW inquired about updating pt's Jo on d/c plans and pt agreeable. SW called spouse Jo ([phone]) and provided above information again to her and she is appreciative and agreeable to d/c plan and seems to struggle with word finding or processing somewhat but acknowledges understanding. Plan: SW to follow for possible d/c to [facility] tomorrow if pt is medically stable. JENNA De La Rosa
[2018-04-26] MEDS: GLIMEPIRIDE 2 MG TABLET 4 MG PO (17:16)
[2018-04-26] MEDS: DOXAZOSIN 4 MG TABLET PO (21:17)
[2018-04-26] MEDS: GABAPENTIN 600 MG TABLET PO (21:17)
[2018-04-26] MEDS: ROSUVASTATIN 10 MG TABLET PO (21:17)
[2018-04-27 04:54] VITALS: BP 127/89; PULSE 114; RESP 20; TEMP 36.6; O2SAT 90
[2018-04-27] MEDS: PENICILLIN VK 250 MG TABLET 500 MG PO ×2 (06:40→12:34)
[2018-04-27] MEDS: ACETAMINOPHEN 325 MG TABLET 650 MG PO ×2 (06:40→12:36)
[2018-04-27 08:00] VITALS: BP 117/73; PULSE 117; RESP 18; TEMP 37; O2SAT 90
[2018-04-27] MEDS: POTASSIUM CHLORIDE 20 MEQ TAB 40 MEQ PO (08:15)
[2018-04-27] MEDS: FINASTERIDE 5 MG TABLET PO (08:15)
[2018-04-27] MEDS: CARVEDILOL 25 MG TABLET 50 MG PO (08:15)
[2018-04-27] MEDS: TORSEMIDE 10 MG TABLET 20 MG PO (08:15)
[2018-04-27] MEDS: GLIMEPIRIDE 2 MG TABLET 4 MG PO (08:15)
[2018-04-27] MEDS: INSULIN ASPART 100 UNIT/ML INSULN PEN SUBCUT ×2 (08:17→12:34)
[2018-04-27] MEDS: SODIUM CHLORIDE 0.9% FLUSH 10 ML IV (08:25)
--- NOTE | 2018-04-27 08:55 | P.DS_ITS ---
History of Present Illness Date Patient Seen: 04/27/18 Time Patient Seen: 08:54 Chief complaint: SOB/WEAKNESS. Time several days. Narrative: Patient relates she has been feeling poorly about the last 2 weeks however. Still able to do most of a stuffy needs to do outside of his house. Two days ago he began the feels short of breath and this seemed to progress over the next 2 days. No fever he is aware of no cough no chest pain no mucus production this shortness of breath. Initially patient relates he is off time short of breath because of huge abdomen causing difficulty with taking deep breath he has been sleeping in a easy chair at home for the last 30 years or less. He has not required supplemental oxygen. relates however that his difficulty breathing his much worse last 2 days He denies any chest pain no palpitations no dizziness. He has noticed that his legs have been sore from working some edema right leg much more than left he has also noticed some right leg pain Came to the ER today because feeling weak and short of breath Initial evaluation in the emergency room felt he will had atrial fibrillation which is a new diagnosis. Additionally signs and symptoms of sepsis. He was treated with Diagnosis sepsis presumed cellulitis right calf as well as new onset atrial fibrillation The patient was given IV vancomycin and Zosyn for the sepsis as well as IV fluids. Additionally was given 20 mg of Iv Cardizem with minimal swelling of his atrial fibrillation Patient main complaint is shortness of breath {FROM DR. JOHNSON'S H&P 04/19/18} Discharge Providers Date of admission: 04/19/18 17:21 Primary care physician: Samson Cox MD Consults: 04/19/18 18:11 Consult to Dietitian, Adult Routine Comment: Reason For Exam: diabetes 04/19/18 18:13 Consult to Dietitian, Adult Routine Comment: Reason For Exam: diabetic 04/22/18 08:24 Consult to Physical Therapy Evaluate & Treat Comment: Physician Instructions: Evaluate and Treat Discharge provider: Samson Cox MD Discharge Date: 04/27/18 Summary Discharge Diagnosis: 1. SEPSIS, RESOLVED 2. RIGHT LOWER EXTREMITY CELLULITIS 3. DIABETES TYPE 2 POORLY CONTROLLED 4. ATRIAL FIBRILLATION WITH RAPID VENTRICULAR RESPONSE 5. ACUTE BLOOD LOSS ANEMIA 6. HEMATURIA FOLLOWING ANTICOAGULATION 7. RIGHT HEART FAILURE WITH ACUTE CONGESTIVE HEART FAILURE ON THE BASIS OF RIGHT HEART FAILURE 8. PULMONARY HYPERTENSION 9. MORBID OBESITY 10. BPH WITH BLADDER OUTLET OBSTRUCTION 11. HYPERTENSION 12. GLOBAL WEAKNESS 13. METABOLIC ENCEPHALOPATHY, RESOLVED UPON DISCHARGE, SECONDARY TO INFECTIOUS AND METABOLIC ISSUES ABOVE Hospital Course: PATIENT WAS ADMITTED TO THE HOSPITAL ICU BECAUSE OF HIS PRESENTATION WITH SEPSIS AND CONFUSION. HE WAS TREATED AGGRESSIVELY WITH IV ANTIBIOTICS AND FLUID RESUSCITATION. HIS ATRIAL FIBRILLATION WHICH WAS NEW WAS ALSO RATE CONTROLLED PATIENT EARLY SEEM TO DECLINE WITH INCREASING DIFFICULTY IF THIS RESPIRATORY STATUS BUT OVER THE COURSE OF THE 1ST 12-24 HOURS WAS MUCH IMPROVED. HE WAS CONTINUED ON MEDICATION FOR HIS CELLULITIS. HE EVENTUALLY GREW STREPTOCOCCUS FROM WOUND CULTURE AND FROM HIS BLOOD CULTURES. THIS WAS TREATED WITH IV ANTIBIOTICS UNTIL JUST PRIOR TO DISCHARGE 20 SWITCH TO ORAL ANTIBIOTIC THERAPY 2 DAYS PRIOR TO DISCHARGE HE CONTINUED DO WELL FOR CONTINUED HEALING OF HIS RIGHT LOWER EXTREMITY. HIS ATRIAL FIBRILLATION WAS CONTROLLED INITIALLY WITH IV MEDICATION AND THEN A SUBSEQUENT SWITCH TO ORAL MEDICATION. HE WAS SEEN IN CONSULTATION BY CARDIOLOGY WHO RECOMMENDED DISCONTINUATION OF DIGOXIN WITH CONTROL BY HIS CARVEDILOL ONLY. UP GO CARDIOGRAM SHOWED EVIDENCE OF PULMONARY HYPERTENSION RIGHT HEART FAILURE BUT NO SIGNIFICANT LEFT VENTRICULAR DYSFUNCTION OR SIGNIFICANT VALVULAR DYSFUNCTION. HE WAS FELT TO BE SOMEWHAT VOLUME OVERLOADED AND WAS TREATED WITH IV DIURETICS AND THEN ORAL DIURETICS WITH GOOD IMPROVEMENT OVERALL IN HIS RESPIRATORY STATUS AND HIS LOWER EXTREMITY EDEMA CONSISTENT WITH IMPROVING VOLUME STATUS PATIENT'S DIABETES WAS INITIALLY POORLY CONTROLLED BECAUSE OF HYPOGLYCEMIA LIKELY DUE TO PATIENT'S POOR P.O. INTAKE. HIS ORAL HYPOGLYCEMIC MEDICATION WAS REDUCED WHEN PATIENT BEGAN TO IMPROVE HE BEGAN TO HAVE AN INCREASED APPETITE EAT MORE AND HIS BLOOD SUGARS BECAME HYPERGLYCEMIC. HIS ORAL HYPOGLYCEMIC AGENTS WERE REINSTITUTED AND HE HAD IMPROVING ALTHOUGH CERTAINLY NOT PERFECT CONTROL UPON DISCHARGE. HE WILL BE RETURNED TO HIS USUAL MEDICATIONS UPON DISCHARGE PATIENT ALSO WAS FELT TO POSSIBLY HAVE A PULMONARY EMBOLISM UPON ADMISSION AND WAS ANTICOAGULATED FOR SAME. HOWEVER WITH THIS HE DEVELOPED SIGNIFICANT SEVERE HEMATURIA THROUGH A URINARY CATHETER HAD BEEN PLACED FOR APPROPRIATE MANAGEMENT MONITORING IN THE ICU. THE ANTICOAGULATION WAS DISCONTINUED AFTER WAS FELT THAT IT WAS UNLIKELY HE HAD A PULMONARY EMBOLISM GIVEN HIS CLINICAL COURSE AND PRESENTATION. HIS BLEEDING PERSISTED FOR SEVERAL DAYS THROUGH THE CATHETER REQUIRING IRRIGATION OF THE CATHETER TO MAINTAIN FLOW. HOWEVER BY THE TIME OF DISCHARGE PATIENT HAD CLEAR URINE VIA THE CATHETER WHICH WAS SUBSEQUENTLY DISCONTINUED AND HE HAD NO DIFFICULTY EMPTYING HIS BLADDER BEYOND HIS BASELINE. HE WAS NOT FELT TO BE A CANDIDATE FOR ANTICOAGULATION THEREFORE DESPITE HIS ATRIAL FIBRILLATION WHICH IS PERSISTENT. HE WILL NEED AN OUTPATIENT WORKUP BY UROLOGY PRIOR TO INSTITUTING ANTICOAGULATION IN THE FUTURE. THIS WAS DEFERRED AT THIS TIME DUE TO LACK OF UROLOGY RESOURCES AT THIS FACILITY. PATIENT WAS GLOBALLY WEAK WAS NOT ABLE TO WALK OR STAND ON HIS OWN. HE IS UNABLE TO RETURN TO HIS PREVIOUS LIVING ENVIRONMENT WHICH WAS INDEPENDENT LIVING AT HOME. THE BE DISCHARGED TO SENIOR LIVING FOR CONTINUED REHABILITATION WITH PRESUMED DISCHARGED HOME WHEN ABLE. Status at Discharge Cognitive/behavioral status at discharge: BASELINE Functional status at discharge: uses cane/walker Overall status at discharge: patient is progressing back to baseline Time Spent with Patient Greater than 30 minutes Exam Vital Signs (past 8 hours): - 04/27/18 04:54 Temperature 97.9 F Pulse Rate 114 H Respiratory Rate 20 Blood Pressure 127/89 H Pulse Oximetry 90 L Fraction of Inspired Oxygen 21 Oxygen Delivery Method Room Air Oxygen Flow Rate 0 Objective Labs Result Diagrams: 04/26/18 08:45 04/26/18 08:45 Labs: Laboratory Results - last 24 hr 04/26/18 04/26/18 08:45 08:45 Hgb 9.4 L Hct 27.8 L Sodium 139 Potassium 3.7 Chloride 98 Carbon Dioxide 35 H BUN 15 Creatinine 0.70 Estimated GFR > 60.0 BUN/Creatinine Ratio 21.4 Glucose 202 H Calcium 9.0 Magnesium 2.2 Discharge Plan Discharge Plan Patient Disposition: SNF Transfer to: [facility] Under care of provider: Viral Physician Transportation: Facility vehicle Labs: BMP/CBC 04/30/18 Consult as needed: Dental, Hearing, Mental health, Podiatry and Vision I certify the postop hospital retirement care is medically necessary on a continuing basis for any conditions for which he/ she received care during this hospitalization.: Yes The receiving facility has agreed to accept transfer and provide medical treatment.: Yes Discharge Health Status Multidrug resistant organism: No MDRO Precautions: [facility] Provider Discharge Instructions Diet: Carb-consistent/Diabetic Liquid consistency: Normal/Thin Food texture: Regular Discharge Data Primary Care Provider: Samson Cox Attending Provider: Samson Cox Admit Date/Time: 04/19/18 17:21 Quality VTE Deep Vein Thrombosis/Pulmonary Embolism Present on Admission: No
--- NOTE | 2018-04-27 10:56 | PT.IPTN ---
Current Diagnoses Sepsis, unspecified organism (04/19/18) Streptococcal infection, unspecified site (04/19/18) Type 2 diabetes mellitus without complications (04/19/18) Morbid (severe) obesity due to excess calories (04/19/18) Mixed hyperlipidemia (04/19/18) Essential (primary) hypertension (04/19/18) Unspecified atrial fibrillation (04/19/18) Right heart failure, unspecified (04/19/18) Cellulitis of right lower limb (04/19/18) Benign prostatic hyperplasia with lower urinary tract symptoms (04/19/18) Unspecified abdominal pain (04/19/18) Hematuria, unspecified (04/19/18) Edema, unspecified (04/19/18) Abnormal levels of other serum enzymes (04/19/18) Bacteremia (04/19/18) Physical Therapy Treatment Note M2 PT-IP Current Condition Start: 04/22/18 13:05 Freq: NEEDED Status: Active Protocol: Document 04/26/18 10:20 TMS (Rec: 04/26/18 16:58 TMS [id number]) Physical Therapy Current Condition Current Condition Evaluation Date 04/22/18 Treatment Diagnosis sepsis Onset Date 04/19/18 Precautions Other Precautions O2 sat, falls M3 PT-IP Subjective Start: 04/22/18 13:05 Freq: NEEDED Status: Active Protocol: Document 04/27/18 10:55 AB (Rec: 04/27/18 10:56 AB [id number]) Subjective Physical Therapy Visit Type Type Patient Refusal Notes pt stated that he is tired and refused PT this morning. stated that he just transferred with nursing and is wiped out from the transfer and that he is going to [facility] for rehab today.
[2018-04-27 11:51] VITALS: BP 133/56; PULSE 85; RESP 18; TEMP 36.8; O2SAT 91
--- NOTE | 2018-04-27 13:07 | PC.NURSE ---
discharge- pt to transfer to [facility]. report called to jaylon. pt took all belongings with him including 2 bags from the safe. PIV and tele removed prior to d/c. packet of information sent with catering truck driver to [facility]
--- NOTE | 2018-04-28 10:19 | CM.DPC ---
DCP: continued: late entry for 04/27. Case received and d/c to [facility] noted. Coordinated the details with Nithya/SARAVANANC, pt and [facility] staff. Pt left as planned fro [facility] w/c erickson Thompson
== END 2018-04-27 13:05 | DRG 871 ==
LOC: ED 17:07 → ICU 18:06 → AC 04-24 13:57 → ICU 02-28 15:45
PROVIDERS: Family Medicine; Internal Medicine; Admitting Provider Family Medicine; Emergency Provider Emergency Medicine; Family Provider Internal Medicine; PCP Internal Medicine; Visit Provider Internal Medicine
DX: A40.1 Sepsis due to streptococcus, group B (principal); J96.20 Acute and chronic respiratory failure, unspecified whether with hypoxia or hypercapnia; I21.A1 Myocardial infarction type 2; J81.0 Acute pulmonary edema; L03.115 Cellulitis of right lower limb; I47.2 Ventricular tachycardia; N17.9 Acute kidney failure, unspecified; I42.9 Cardiomyopathy, unspecified; Z68.42 Body mass index [BMI] 45.0-49.9, adult; E66.2 Morbid (severe) obesity with alveolar hypoventilation; D62 Acute posthemorrhagic anemia; T83.83XA Hemorrhage due to genitourinary prosthetic devices, implants and grafts, initial encounter; N13.8 Other obstructive and reflux uropathy; N40.1 Benign prostatic hyperplasia with lower urinary tract symptoms; I25.10 Atherosclerotic heart disease of native coronary artery without angina pectoris; Z95.5 Presence of coronary angioplasty implant and graft; E11.9 Type 2 diabetes mellitus without complications; Z79.84 Long term (current) use of oral hypoglycemic drugs; R65.20 Severe sepsis without septic shock; E66.01 Morbid (severe) obesity due to excess calories; E78.2 Mixed hyperlipidemia; I48.0 Paroxysmal atrial fibrillation; R31.0 Gross hematuria; I50.9 Heart failure, unspecified; I11.0 Hypertensive heart disease with heart failure
CPT/HCPCS: 36415; 36591; 36592; 36600; 51701; 71045; 76700; 80048; 80053; 80162; 81001; 82150; 82247; 82805; 82962; 83605; 83690; 83735; 84075; 84145; 84439; 84443; 84450; 84460; 84484; 85014; 85018; 85025; 85379; 85610; 85730; 87040; 87077; 87147; 87150; 87186; 87205; 87493; 87797; 93005; 93041; 93306; 93971; 94640; 94760; 94762; 96361; 96365; 96375; 97110; 97162; 97530; 99223; 99233; 99238; 99285; 99291; J0696; J1160; J1644; J1940; J2543; J7613; Q9957

== ENCOUNTER 2018-07-07 10:14 | Inpatient (IN) | payer MEDICARE, OTHER, SELFPAY ==
[2018-04-19 18:20] VITALS: BMI 46.7
[2018-07-07] VITALS (14 sets, daily range): BP systolic 99–154; BP diastolic 47–81; PULSE 80–118; RESP 16–26; TEMP 36.1–37.6; O2SAT 94–99; BMI 38.1
--- NOTE | 2018-07-07 10:15 | ED.AMS ---
HPI - Altered Mental Status General Chief Complaint: Altered Mental Status Stated Complaint: SOB/decrease LOC Time Seen by Provider: 07/07/18 10:15 Source: patient and EMS Mode of arrival: EMS Limitations: no limitations History of Present Illness HPI narrative: Patient is a 73-year-old male not insulin-dependent diabetic with a recent hospital admission for her right lower extremity cellulitis. Is on Coumadin for pulmonary embolism here for evaluation after EMS was called this morning by the patient's 's caregiver for patient being short of breath and altered. Patient states he does not remember anything since last evening. When EMS arrived they stated that his blood sugar was in the 40s. They gave him an amp of D50 with a repeat blood sugar in the 100. Patient became more alert after this. Patient states that he just does not feel very well. States the last thing he remembers is last evening. Denies chest pain or shortness of breath. Has an indwelling urinary catheter and the patient does not know why he has this. Also has a skin ulcer on his buttocks from sitting for extended periods of time. Related Data Home Medications Medication Instructions Recorded Confirmed Lactobacillus rhamnosus GG 1 cap PO DAILY 07/07/18 07/07/18 [Culturelle] acetaminophen 1 tab PO PRN PRN 07/07/18 07/07/18 aspirin 81 mg PO DAILY 07/07/18 07/07/18 carvedilol 12.5 mg PO BID 07/07/18 07/07/18 furosemide 40 mg PO BID 07/07/18 07/07/18 melatonin 5 mg PO BEDTIME PRN 07/07/18 07/07/18 nystatin 1 applic TOPICAL BID 07/07/18 07/07/18 tramadol 1 tab PO Q8H PRN 07/07/18 07/07/18 warfarin 2 mg PO QPM 07/07/18 07/07/18 zinc oxide 1 applic TOPICAL DIRECTED 07/07/18 07/07/18 Previous Rx's Medication Instructions Recorded gabapentin [Neurontin] 600 mg PO HS #90 tab 07/01/17 finasteride 5 mg PO QDAY #90 tab 08/31/17 lisinopril 40 mg PO BID #180 tab 10/19/17 rosuvastatin [Crestor] 10 mg PO QDAY #90 tab 11/05/17 doxazosin 4 mg PO HS #90 tab 12/29/17 pioglitazone [Actos] 30 mg PO QDAY #90 tab 02/01/18 glimepiride [Amaryl] 4 mg PO BIDCC #180 tab 02/02/18 metformin [Glucophage] 1,000 mg PO BIDCC #180 tab 03/11/18 potassium chloride [Klor-Con M20] 40 meq PO BIDWM #60 tab 04/27/18 Allergies Allergy/AdvReac Type Severity Reaction Status Date / Time atorvastatin [ATORVASTATIN] Allergy Mild flu like Verified 03/30/18 13:28 (LIPITOR) codeine [CODEINE] Allergy Mild Verified 03/30/18 13:28 Review of Systems Constitutional Reports fatigue, Denies headache(s) and Reports lethargy ENT Ears, Nose, Mouth, and Throat: Denies dizziness and Denies headache(s) Cardiovascular Denies chest pain and Denies dyspnea Respiratory Denies dyspnea Gastrointestinal Gastrointestinal: Denies abdominal pain, Denies change in stool character, Denies nausea and Denies vomiting Genitourinary Comments: Indwelling Hooper catheter Musculoskeletal Denies myalgias and Denies arthralgias Integumentary/Breasts Comments: Skin ulcer lower back Neurologic Reports confusion, Denies dizziness and Denies headache(s) Psychiatric Reports confusion Endocrine Reports fatigue Hematologic/Lymphatic Denies easy bleeding and Denies easy bruising Exam Initial Vital Signs Initial Vital Signs: Vital Signs Temperature 97.9 F 07/07/18 10:10 Pulse Rate 116 H 07/07/18 10:10 Respiratory Rate 22 07/07/18 10:10 Blood Pressure 154/81 H 07/07/18 10:10 Pulse Oximetry 97 07/07/18 10:10 Const General: well developed, disheveled and ill appearing Orientation: alert, awake and oriented x3 HENMT Head: normal to inspection and normocephalic Resp Effort & Inspection: normal respiratory effort Auscultation: clear to auscultation bilaterally Cardio Rate: tachycardic Rhythm: regular rhythm Pulses: radial pulses present GI Inspection: non-distended Palpation: soft, No firm and No tender Other: Normal external male genitalia. Hooper catheter in place Back/Spine/Pelvis Back: No CVA tenderness Skin Other: Stage I decubitus ulcer left buttocks Neuro General: alert, awake and oriented x3 Cognition: normal cognition Speech: speech normal Extrem General: normal to inspection and capillary refill normal Psych Appearance: grossly normal and well kempt Scores GCS Lincoln coma scale eye opening: Spontaneous Brittany coma scale verbal response: Orientated Brittany coma scale motor response: Obey commands Brittany coma scale total score: 15 Course Orders Ordered: ED Orders 07/07/18 10:20 Urinalysis and Microscopic Stat Urine Culture Stat 07/07/18 10:25 Blood Culture Stat Lactate (Lactic Acid) Stat Partial Thromboplastin Time Stat Prothrombin Time INR Stat EKG-12 Lead Stat 07/07/18 10:58 Complete Blood Count AUTO DIFF Stat 07/07/18 11:11 Comprehensive Metabolic Panel Stat Procalcitonin Stat 07/07/18 13:36 Education, smoking cessation ONGOING 07/07/18 16:05 Glucose Stat 07/07/18 17:10 Consult to Dietitian, Adult Routine 07/07/18 17:44 Consult to Wound Care Routine Acetaminophen (Tylenol) 650 mg PO Q6HR PRN PRN Reason: As Needed for Fever/Mild Pain Aspirin (Aspirin Ec) 81 mg PO DAILY [facility] Last Admin: 07/07/18 14:53 Dose: 81 mg Carvedilol (Coreg) 12.5 mg PO BID [facility] Last Admin: 07/07/18 14:54 Dose: 12.5 mg Dextrose (D50w) 25 gm IV PRN PRN PRN Reason: Hypoglycemia Last Admin: 07/07/18 15:32 Dose: 25 gm Doxazosin Mesylate (Cardura) 4 mg PO BEDTIME [facility] Finasteride (Proscar) 5 mg PO DAILY [facility] Last Admin: 07/07/18 14:55 Dose: 5 mg Furosemide (Lasix) 40 mg PO BID [facility] Last Admin: 07/07/18 14:52 Dose: 40 mg Gabapentin (Neurontin) 600 mg PO BEDTIME [facility] Dextrose/Sodium Chloride (Dextrose 5%-0.45% Ns) 1,000 mls @ 125 mls/hr IV CONT [facility] Last Admin: 07/07/18 10:50 Dose: 125 mls/hr Lactobacillus Acidophilus (Bacid Caplet) 1 each PO DAILY [facility] Last Admin: 07/07/18 14:55 Dose: 1 each Lisinopril (Zestril) 40 mg PO BID [facility] Last Admin: 07/07/18 14:54 Dose: 40 mg Melatonin (Melatonin) 6 mg PO BEDTIME [facility] Potassium Chloride (Klor-Con M20) 40 meq PO BIDWM [facility] Last Admin: 07/07/18 14:53 Dose: 40 meq Rosuvastatin Calcium (Crestor) 10 mg PO DAILY [facility] Last Admin: 07/07/18 17:30 Dose: 10 mg Tramadol HCl (Ultram) 50 mg PO Q8H PRN PRN Reason: Pain, Moderate (4-6) Warfarin Sodium (Coumadin) 2 mg PO QPM [facility] Warfarin Sodium (Coumadin) 1 mg PO 1700 [facility] Discontinued Medications Warfarin Sodium (Coumadin) 2 mg PO QPM [facility] Vital Signs - 8 hr 07/07/18 10:10 07/07/18 10:30 07/07/18 11:00 Temperature 97.9 F Pulse Rate 116 H 116 H 115 H Respiratory Rate 22 21 17 Blood Pressure 154/81 H Blood Pressure [Left Arm] 154/81 H 136/79 Pulse Oximetry 97 98 98 07/07/18 11:30 07/07/18 12:00 07/07/18 12:30 Temperature Pulse Rate 114 H 116 H 116 H Respiratory Rate 22 24 26 H Blood Pressure Blood Pressure [Left Arm] 144/71 H 128/61 107/61 Pulse Oximetry 98 95 95 07/07/18 13:00 07/07/18 14:10 07/07/18 15:45 Temperature 97.7 F 97.4 F L Pulse Rate 115 H 118 H 109 H Respiratory Rate 24 20 18 Blood Pressure 123/66 132/47 L Blood Pressure [Left Arm] 99/76 Pulse Oximetry 97 97 99 MDM - Altered Mental Status Medical Records Attestation: I reviewed the patient's medical records. Lab Data Attestation: I reviewed the patient's lab results. Result diagrams: 07/07/18 10:58 07/07/18 16:05 Lab Results 07/07/18 07/07/18 07/07/18 Range/Units 10:20 10:25 10:25 WBC (4.5-11.0) X10^3/uL RBC (4.5-5.9) X10^6/uL Hgb (13.5-17.5) g/dL Hct (41-53) % MCV (80-100) fL MCH (26-34) PG MCHC (30-36) % RDW (11.6-14.8) % Plt Count (150-400) X10^3/uL Neut % (Auto) (50-75) % Lymph % (Auto) (25-40) % Porter % (Auto) (3-14) % Eos % (Auto) (2-4) % Baso % (Auto) (0-2) % Neut # (Auto) (2543-0111) /uL PT 33.8 H (10.1-12.7) SECONDS INR 3.0 H (0.9-1.3) APTT 40 H D (26.4-36.2) SECONDS Sodium (137-145) mmol/L Potassium (3.4-5.1) mmol/L Chloride (98-107) mmol/L Carbon Dioxide (22-32) mmol/L BUN (9-20) mg/dL Creatinine (0.66-1.25) mg/dL Estimated GFR (>60) mL/min BUN/Creatinine Ratio (6-22) Glucose (80-110) mg/dL Lactate 1.3 (0.7-2.1) mmol/L Calcium (8.4-10.2) mg/dL Total Bilirubin (0.2-1.3) mg/dL AST (17-59) IU/L ALT (21-72) IU/L Alkaline Phosphatase (38-126) U/L Total Protein (6.3-8.2) g/dL Albumin (3.5-5.0) g/dL Globulin (1.7-4.1) g/dL Albumin/Globulin Ratio (1.0-2.8) Procalcitonin (<0.5) ng/mL Urine Color Yellow Urine Appearance Clear Urine pH 5.0 (4.5-8.0) Ur Specific [place] 1.015 (1.000-1.035) Urine Protein Trace H (Negative) Urine Glucose (UA) Trace (Normal) g/dL Urine Ketones Negative (NEGATIVE) Urine Occult Blood 1+ H (Negative) Urine Nitrate Negative (Negative) Urine Bilirubin Negative (NEGATIVE) Urine Urobilinogen 0.2 (0.2) E.U./dL Ur Leukocyte Esterase Trace H (NEGATIVE) Urine RBC 1-5/hpf D (0-5/HPF) Urine WBC 0-1/hpf (0-5/HPF) Ur Squamous Epith Cells 0-1 /hpf Uric Acid Crystals Moderate Amorphous Sediment 2+ Urine Bacteria None seen (None) Ur Culture Indicated? Not Reportable Micro UA Comment Not Reportable 07/07/18 07/07/18 07/07/18 Range/Units 10:58 11:11 11:11 WBC 7.1 (4.5-11.0) X10^3/uL RBC 3.60 L (4.5-5.9) X10^6/uL Hgb 10.6 L (13.5-17.5) g/dL Hct 32.4 L (41-53) % MCV 90.1 (80-100) fL MCH 29.3 (26-34) PG MCHC 32.6 (30-36) % RDW 17.1 H (11.6-14.8) % Plt Count 272 (150-400) X10^3/uL Neut % (Auto) 82.7 H (50-75) % Lymph % (Auto) 9.7 L (25-40) % Porter % (Auto) 5.8 (3-14) % Eos % (Auto) 1.4 L (2-4) % Baso % (Auto) 0.4 (0-2) % Neut # (Auto) 5900 (4961-6636) /uL PT (10.1-12.7) SECONDS INR (0.9-1.3) APTT (26.4-36.2) SECONDS Sodium 144 (137-145) mmol/L Potassium 3.7 (3.4-5.1) mmol/L Chloride 104 (98-107) mmol/L Carbon Dioxide 31 (22-32) mmol/L BUN 13 (9-20) mg/dL Creatinine 0.60 L (0.66-1.25) mg/dL Estimated GFR > 60.0 (>60) mL/min BUN/Creatinine Ratio 21.7 (6-22) Glucose 68 L (80-110) mg/dL Lactate (0.7-2.1) mmol/L Calcium 9.6 (8.4-10.2) mg/dL Total Bilirubin 0.8 (0.2-1.3) mg/dL AST 18 (17-59) IU/L ALT 16 L (21-72) IU/L Alkaline Phosphatase 69 (38-126) U/L Total Protein 7.5 (6.3-8.2) g/dL Albumin 3.8 (3.5-5.0) g/dL Globulin 3.7 (1.7-4.1) g/dL Albumin/Globulin Ratio 1.0 (1.0-2.8) Procalcitonin < 0.05 (<0.5) ng/mL Urine Color Urine Appearance Urine pH (4.5-8.0) Ur Specific [place] (1.000-1.035) Urine Protein (Negative) Urine Glucose (UA) (Normal) g/dL Urine Ketones (NEGATIVE) Urine Occult Blood (Negative) Urine Nitrate (Negative) Urine Bilirubin (NEGATIVE) Urine Urobilinogen (0.2) E.U./dL Ur Leukocyte Esterase (NEGATIVE) Urine RBC (0-5/HPF) Urine WBC (0-5/HPF) Ur Squamous Epith Cells Uric Acid Crystals Amorphous Sediment Urine Bacteria (None) Ur Culture Indicated? Micro UA Comment 07/07/18 Range/Units 16:05 WBC (4.5-11.0) X10^3/uL RBC (4.5-5.9) X10^6/uL Hgb (13.5-17.5) g/dL Hct (41-53) % MCV (80-100) fL MCH (26-34) PG MCHC (30-36) % RDW (11.6-14.8) % Plt Count (150-400) X10^3/uL Neut % (Auto) (50-75) % Lymph % (Auto) (25-40) % Porter % (Auto) (3-14) % Eos % (Auto) (2-4) % Baso % (Auto) (0-2) % Neut # (Auto) (4977-8403) /uL PT (10.1-12.7) SECONDS INR (0.9-1.3) APTT (26.4-36.2) SECONDS Sodium (137-145) mmol/L Potassium (3.4-5.1) mmol/L Chloride (98-107) mmol/L Carbon Dioxide (22-32) mmol/L BUN (9-20) mg/dL Creatinine (0.66-1.25) mg/dL Estimated GFR (>60) mL/min BUN/Creatinine Ratio (6-22) Glucose 99 (80-110) mg/dL Lactate (0.7-2.1) mmol/L Calcium (8.4-10.2) mg/dL Total Bilirubin (0.2-1.3) mg/dL AST (17-59) IU/L ALT (21-72) IU/L Alkaline Phosphatase (38-126) U/L Total Protein (6.3-8.2) g/dL Albumin (3.5-5.0) g/dL Globulin (1.7-4.1) g/dL Albumin/Globulin Ratio (1.0-2.8) Procalcitonin (<0.5) ng/mL Urine Color Urine Appearance Urine pH (4.5-8.0) Ur Specific [place] (1.000-1.035) Urine Protein (Negative) Urine Glucose (UA) (Normal) g/dL Urine Ketones (NEGATIVE) Urine Occult Blood (Negative) Urine Nitrate (Negative) Urine Bilirubin (NEGATIVE) Urine Urobilinogen (0.2) E.U./dL Ur Leukocyte Esterase (NEGATIVE) Urine RBC (0-5/HPF) Urine WBC (0-5/HPF) Ur Squamous Epith Cells Uric Acid Crystals Amorphous Sediment Urine Bacteria (None) Ur Culture Indicated? Micro UA Comment Point of Care Testing Glucose POC 113 ECG Data Attestation: I personally reviewed and interpreted this ECG as follows: Prior ECG tracings: not available for review Interpretation: Sinus rhythm Ventricular rate of 116 Low-voltage Normal QRS Normal QTC Normal axis Nonspecific ST T wave changes MDM Narrative Medical decision making narrative: Patient is ill appearing here in the ER. He is tachycardic. Is on Coumadin for a known pulmonary embolism. He was not hypoxic here in the ER. Was not in respiratory distress. Does have a stage I decubitus ulcer on his right buttocks. Was hypoglycemic upon arrival of the EMS which did improve with D50 however here in the ER again starting to decline. He was started on dextrose fluids. No signs of infection. The right lower extremity infection that he was admitted for at an outside hospital appears improved. Discussed the case with Dr. Mohamud who is on-call for the patient's primary provider who will admit the patient for continued observation and treatment Discharge Plan Departure Patient Disposition: Admitted as Observation Clinical Impression: Hypoglycemia, Altered mental status, Decubitus ulcer Discharge Date/Time: 07/07/18 13:19 Interventions: ED Discharge Assessment Last Done: 07/07/18 13:19 Admit Date/Time: 07/07/18 12:51 Admit Provider: Kerry Mohamud
[2018-07-07] MEDS: DEXTROSE 5%-0.45% NS 1,000 ML 125 ML IV ×2 (10:50→18:39)
[2018-07-07 11:06] LABS: Add Manual Diff / Slide Review NO; Basophils Percent Auto 0.4 % (0-2); Eosinophils Percent Auto 1.4 % (2-4); Hematocrit 32.4 % (41-53); Hemoglobin 10.6 g/dL (13.5-17.5); Lymphocytes Percent Auto 9.7 % (25-40); Mean Corpuscular HGB Conc 32.6 % (30-36); Mean Corpuscular Hemoglobin 29.3 PG (26-34); Mean Corpuscular Volume 90.1 fL (80-100); Monocytes Percent Auto 5.8 % (3-14); Neutrophils Absolute Auto 5900 /uL (3000-5900); Neutrophils Percent Auto 82.7 % (50-75); Platelet Count 272 X10^3/uL (150-400); Red Cell Distribution Width 17.1 % (11.6-14.8); White Blood Cell Count 7.1 X10^3/uL (4.5-11.0)
[2018-07-07 11:13] LABS: Bacteria Urine None Seen
[2018-07-07 11:23] LABS: Appearance Urine UA CLEAR; Bilirubin Urine UA NEGATIVE (NEGATIVE); Color Urine UA YELLOW; Glucose Urine UA TRACE g/dL (Normal); Ketones Urine UA NEGATIVE (NEGATIVE); Leukocyte Esterase Urine UA TRACE (NEGATIVE); Nitrite Urine UA Negative (Negative); Occult Blood Urine UA 1+ (Negative); Protein Urine UA TRACE (Negative); Specific Gravity Urine UA 1.015 (1.000-1.035); Urobilinogen Urine UA 0.2 E.U./dL (0.2)
[2018-07-07 11:29] LABS: Alanine Aminotransferase 16 IU/L (21-72); Albumin 3.8 g/dL (3.5-5.0); Alkaline Phosphatase 69 U/L (38-126); Aspartate Aminotransferase 18 IU/L (17-59); BUN Creatinine Ratio 21.7 (6-22); Bilirubin Total 0.8 mg/dL (0.2-1.3); Blood Urea Nitrogen 13 mg/dL (9-20); Calcium 9.6 mg/dL (8.4-10.2); Carbon Dioxide 31 mmol/L (22-32); Chloride 104 mmol/L (98-107); Estimated Glomerular Filt Rate > 60.0 mL/min (>60); Globulin 3.7 g/dL (1.7-4.1); Glucose 68 mg/dL (80-110); HEMOLYSIS 26 (0-50); Potassium 3.7 mmol/L (3.4-5.1); Sodium 144 mmol/L (137-145); Total Protein 7.5 g/dL (6.3-8.2)
[2018-07-07 11:40] LABS: Amorphous Sediment Urine 2+; RBC Urine 1-5/HPF (0-5/HPF); Squamous Epithelial Cell Urine 0-1 /HPF; Uric Acid Crystals Urine Moderate; WBC Urine 0-1/HPF (0-5/HPF)
[2018-07-07 11:47] LABS: Prothrombin Time 33.8 SECONDS (10.1-12.7)
[2018-07-07 11:48] LABS: Lactate (Lactic Acid) 1.3 mmol/L (0.7-2.1)
[2018-07-07 11:49] LABS: PTT Partial Thromboplastin Tim 40 SECONDS (26.4-36.2)
--- NOTE | 2018-07-07 11:55 | PC.NURSE ---
1100 blood glucose 61, small juice and ensure drink provided. 1155 bg 133.
[2018-07-07 11:58] LABS: Procalcitonin < 0.05 ng/mL (<0.5)
--- NOTE | 2018-07-07 13:48 | PM.HP.1 ---
History of Present Illness Date Patient Seen: 07/07/18 Time Patient Seen: 13:48 Chief complaint: SOB/decrease LOC Narrative: Patient is a 73 yo male with obesity, diabetes, hypertension, hyperlipidemia, sacral decubitus who has been unfortunate to have spent most of the past 2 months in and out of the hospital. He was brought to the hospital this morning because of somnolence. He had not been doing well at home. He does not remember last night but does remember the trip here in the ambulance because of the pain on his sacral pressure ulcer. In summary: 04/19-04/26 here at [facility] for cellulits discharged to [facility] 04/29 - 05/03 at [facility] for the cellulitis, sacral decubitus and sepsis 05/07 - 05/11 at [facility] for acute respiratory failure from pneumonia, hypoglycemia and sacral pressure ulcer 06/23 - had visit with urology who removed his bender catheter 06/25 - 07/01 at [facility] for syncope from RU and RLL segmental branch pulmonary embolis, atrial fibrillation, c. diff diarrhea, sacral pressure ulcer, discharged with bender in place for urinary retention to follow up with Dr. Carlisle He was found to be hypoglycemic in the emergency department and required an amp of D50 as well as continuous D5. He is requiring supplemental oxygen but he did not report shortness of breath. His biggest complaint is his pressure ulcer. He is alert and oriented when I talked to him around 1 pm today. Patient History Medical History Type 2 diabetes mellitus without complication (Chronic 10/25/15) Morbid obesity due to excess calories (Chronic 02/17/17) Cardiomyopathy (Chronic 04/21/13) Essential hypertension (Chronic 10/10/11) Mixed hyperlipidemia (Chronic 10/25/15) Edema (Chronic) Body mass index (BMI) of 45.0 to 49.9 in adult (Chronic 02/17/17) Gynecomastia (Chronic 03/30/17) Benign localized prostatic hyperplasia with lower urinary tract symptoms (LUTS) (Chronic 12/29/17) Type 2 diabetes mellitus with hyperglycemia (Chronic 10/10/11) Atrial fibrillation (Acute) C. difficile diarrhea (Acute) Cellulitis and abscess of right leg (Acute) Pulmonary emboli (Acute) Family & Social History Social History: household members spouse lives independently Yes caregiver/support person No Safety & Behavioral: Feels Safe in Current Yes Environment Tobacco & Substance use: Smoking Status Never smoker alcohol intake never alcohol intake frequency a few times a month Substance Use Type does not use Meds Home Medications Medication Instructions Recorded Confirmed Type gabapentin [Neurontin] 600 mg PO HS #90 tab 07/01/17 07/07/18 Rx finasteride 5 mg PO QDAY #90 tab 08/31/17 07/07/18 Rx lisinopril 40 mg PO BID #180 tab 10/19/17 07/07/18 Rx rosuvastatin [Crestor] 10 mg PO QDAY #90 tab 11/05/17 07/07/18 Rx doxazosin 4 mg PO HS #90 tab 12/29/17 07/07/18 Rx pioglitazone [Actos] 30 mg PO QDAY #90 tab 02/01/18 07/07/18 Rx glimepiride [Amaryl] 4 mg PO BIDCC #180 tab 02/02/18 07/07/18 Rx metformin [Glucophage] 1,000 mg PO BIDCC #180 tab 03/11/18 07/07/18 Rx potassium chloride [Klor-Con M20] 40 meq PO BIDWM #60 tab 04/27/18 07/07/18 Rx Lactobacillus rhamnosus GG 1 cap PO DAILY 07/07/18 07/07/18 History [Culturelle] acetaminophen 1 tab PO PRN PRN 07/07/18 07/07/18 History aspirin 81 mg PO DAILY 07/07/18 07/07/18 History carvedilol 12.5 mg PO BID 07/07/18 07/07/18 History furosemide 40 mg PO BID 07/07/18 07/07/18 History melatonin 5 mg PO BEDTIME PRN 07/07/18 07/07/18 History nystatin 1 applic TOPICAL BID 07/07/18 07/07/18 History tramadol 1 tab PO Q8H PRN 07/07/18 07/07/18 History warfarin 2 mg PO QPM 07/07/18 07/07/18 History zinc oxide 1 applic TOPICAL DIRECTED 07/07/18 07/07/18 History Allergies Allergy/AdvReac Type Severity Reaction Status Date / Time atorvastatin [ATORVASTATIN] Allergy Mild flu like Verified 03/30/18 13:28 (LIPITOR) codeine [CODEINE] Allergy Mild Verified 03/30/18 13:28 Review of Systems Constitutional Constitutional: Reports fatigue, Denies headache(s), Reports lack of energy and Reports weakness Eyes Eyes: Reports system reviewed; no additional complaints, except as documented ENT Ears, Nose, Mouth, and Throat: Yes system reviewed; no additional complaints, except as documented and No headache(s) Cardiovascular Cardiovascular: Denies bluish discoloration of hands/feet, Denies chest pain, Denies foot swelling, Denies generalize swelling and Reports irregular heart rhythm Respiratory Respiratory: Reports system reviewed and no additional complaints, except as documented Gastrointestinal Gastrointestinal: Denies abdominal pain, Denies change in bowel habits, Denies constipation and Denies vomiting Genitourinary Genitourinary: Denies hematuria, Reports dysuria and Reports urinary incontinence Comments: catheter in place Neurologic Neurologic: Denies headache(s), Reports memory loss and Reports weakness Psychiatric Psychiatric: Reports memory loss Endocrine Endocrine: Reports fatigue Exam Vital Signs (past 8 hours): - 07/07/18 10:10 07/07/18 10:30 07/07/18 11:00 Temperature 97.9 F Pulse Rate 116 H 116 H 115 H Respiratory Rate 22 21 17 Blood Pressure 154/81 H Blood Pressure [Left Arm] 154/81 H 136/79 Pulse Oximetry 97 98 98 07/07/18 11:30 07/07/18 12:00 07/07/18 12:30 Temperature Pulse Rate 114 H 116 H 116 H Respiratory Rate 22 24 26 H Blood Pressure Blood Pressure [Left Arm] 144/71 H 128/61 107/61 Pulse Oximetry 98 95 95 07/07/18 13:00 Temperature Pulse Rate 115 H Respiratory Rate 24 Blood Pressure Blood Pressure [Left Arm] 99/76 Pulse Oximetry 97 Oxygen Delivery Method Room Air Const General: cooperative and comfortable Orientation: alert [facility] Head: normal to inspection and normocephalic Ears: hearing grossly normal bilaterally Nose: external nose normal and nares normal Face and sinus: normal facial exam and face symmetric Mouth: oral mucosae normal and lip normal Eyes General: appearance normal, both eyes and all related structures Chest Chest: normal inspection of the chest Resp Effort & Inspection: normal respiratory effort, able to speak in complete sentences, no audible wheezes and symmetric chest movement Auscultation: clear to auscultation bilaterally Cardio Rate: regular rate Rhythm: abnormal rhythm (tachycardic) GI Palpation: soft Auscultation: normal bowel sounds Skin General: No turgor normal and warm Wounds: wounds noted buttock without odor Neuro General: alert and awake Cranial Nerves: CN's II-XI intact bilaterally Cognition: normal cognition Speech: speech normal Extrem General: no calf tenderness and edema Psych Appearance: grossly normal and well kempt Mental Status: mental status grossly normal Speech and Movement: speech and movement normal Mood: congruent mood Affect: normal affect Attitude: cooperative Objective Labs Result Diagrams: 07/07/18 10:58 07/07/18 20:40 Labs: Laboratory Results - last 24 hr 07/07/18 07/07/18 07/07/18 10:20 10:25 10:25 WBC RBC Hgb Hct MCV MCH MCHC RDW Plt Count Neut % (Auto) Lymph % (Auto) [place] % (Auto) Eos % (Auto) Baso % (Auto) Neut # (Auto) PT 33.8 H INR 3.0 H APTT 40 H D Sodium Potassium Chloride Carbon Dioxide BUN Creatinine Estimated GFR BUN/Creatinine Ratio Glucose Lactate 1.3 Calcium Total Bilirubin AST ALT Alkaline Phosphatase Total Protein Albumin Globulin Albumin/Globulin Ratio Procalcitonin Urine Color Yellow Urine Appearance Clear Urine pH 5.0 Ur Specific [place] 1.015 Urine Protein Trace H Urine Glucose (UA) Trace Urine Ketones Negative Urine Occult Blood 1+ H Urine Nitrate Negative Urine Bilirubin Negative Urine Urobilinogen 0.2 Ur Leukocyte Esterase Trace H Urine RBC 1-5/hpf D Urine WBC 0-1/hpf Ur Squamous Epith Cells 0-1 /hpf Uric Acid Crystals Moderate Amorphous Sediment 2+ Urine Bacteria None seen Ur Culture Indicated? Not Reportable Micro UA Comment Not Reportable 07/07/18 07/07/18 07/07/18 10:58 11:11 11:11 WBC 7.1 RBC 3.60 L Hgb 10.6 L Hct 32.4 L MCV 90.1 MCH 29.3 MCHC 32.6 RDW 17.1 H Plt Count 272 Neut % (Auto) 82.7 H Lymph % (Auto) 9.7 L [place] % (Auto) 5.8 Eos % (Auto) 1.4 L Baso % (Auto) 0.4 Neut # (Auto) 5900 PT INR APTT Sodium 144 Potassium 3.7 Chloride 104 Carbon Dioxide 31 BUN 13 Creatinine 0.60 L Estimated GFR > 60.0 BUN/Creatinine Ratio 21.7 Glucose 68 L Lactate Calcium 9.6 Total Bilirubin 0.8 AST 18 ALT 16 L Alkaline Phosphatase 69 Total Protein 7.5 Albumin 3.8 Globulin 3.7 Albumin/Globulin Ratio 1.0 Procalcitonin < 0.05 Urine Color Urine Appearance Urine pH Ur Specific [place] Urine Protein Urine Glucose (UA) Urine Ketones Urine Occult Blood Urine Nitrate Urine Bilirubin Urine Urobilinogen Ur Leukocyte Esterase Urine RBC Urine WBC Ur Squamous Epith Cells Uric Acid Crystals Amorphous Sediment Urine Bacteria Ur Culture Indicated? Micro UA Comment Assessment & Plan Plan: Assessment/Plan Narrative: 73 yo male presented with metabolic encephalopathy from severe hypoglycemia responsive to glucose supplementation with resolution of symptoms. His metformin, glimipiride and pioglitazone were held. He was given D51/2 NS drip. He required 2 addition amps of D50 however serum values for his glucose did not correlate with the fingersticks that necessitated the D5. Will continue the drip overnight with addition of D50 as needed. Additional issues include: 1. Acute respiratory failure which has resolved and no longer requiring supplemental oxygen. Does have PE and is anticoagulated on warfarin. INR at 3.0 today. Will continue his home schedule of alternating 1 mg and 2mg. 2. Sacral pressure ulcer. Wound care consult was ordered late in the day today. Hopefully they will be able to see him tomorrow. 3. Indwelling bender for urinary retention possibly secondary to BPH. Other possibilities were neurogenic component from chronic obstruction or diabetic cystopathy. Would discuss voiding trial with Dr. CARLISLE. He is to follow up and they were going to decide if cystoscopy was necessary. 4. Deconditioning. Patient is not really ambulatory at home and will likely need PT support. 5. Atrial fibrillation, in sinus today. Restarted his carvedilol at 12.5 mg twice daily dosing. 6. Hypertension. Continue lisinopril. I think his current dose is 40 mg daily and not 40 mg twice daily. Code status: Full code Disposition: It's unlikely that patient will be able to return home without some rehabilitation. He is going to require at least 2 midnights of care while his blood sugars stabilize and a treatment plan is in place for his painful pressure ulcer.
[2018-07-07] MEDS: FUROSEMIDE 40 MG TABLET PO (14:52)
[2018-07-07] MEDS: POTASSIUM CHLORIDE 20 MEQ TAB 40 MEQ PO (14:53)
[2018-07-07] MEDS: ASPIRIN EC 81 MG TABLET PO (14:53)
[2018-07-07] MEDS: LISINOPRIL 20 MG TABLET 40 MG PO (14:54)
[2018-07-07] MEDS: CARVEDILOL 12.5 MG TABLET PO ×2 (14:54→20:13)
[2018-07-07] MEDS: LACTOBACILLUS ACIDOPHILUS TABLET 1 EACH PO (14:55)
[2018-07-07] MEDS: FINASTERIDE 5 MG TABLET PO (14:55)
--- NOTE | 2018-07-07 15:21 | PC.NURSE ---
1415 Pt arrived from ED via miguel A&Ox3, Pt on r/a, sats 96 %. Pt with IVF of D51/2 @ 125.
[2018-07-07] MEDS: DEXTROSE 50 % IN WATER 25 GM/50 ML SYRINGE IV ×3 (15:32→23:54)
--- NOTE | 2018-07-07 15:38 | PC.NURSE ---
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 Pt has tele on, Afib CVR per ANALYTICAL RESEARCH CHEMIST. Hx of bed sores Pt states, to R buttock, Noted to be a stage one at this time. Pt inst to rest on L side to relieve pressure on R. Pt states this is too uncomfortable, assisted Pt in turming to Left. 1515 Pt remains conversive, has not had his AM meds, had an ensure only today in the ED. Completed a fingerstick glucose check for 38. Did a repeat glucose for results of 40. gave pt juice & milk and a pudding. Pt remains oriented, Notified Dr Mohamud, ordres taken. 1542 completed one amp of D50, Pt covered with warm blanket per request. Reported off to evening RN. 1545 Pt mauricio the amp D50. B/P wnl.
--- NOTE | 2018-07-07 15:48 | PC.NURSE ---
1445 Pt has a indwelling bender cath, Pt states had this at home from sd from [facility] one week ago.
[2018-07-07 16:34] LABS: Glucose 99 mg/dL (80-110)
[2018-07-07] MEDS: ROSUVASTATIN 10 MG TABLET PO (17:30)
[2018-07-07] MEDS: WARFARIN 1 MG TABLET PO (18:27)
[2018-07-07] MEDS: GABAPENTIN 600 MG TABLET PO (20:13)
[2018-07-07] MEDS: MELATONIN 3 MG TABLET 6 MG PO (20:14)
[2018-07-07] MEDS: DOXAZOSIN 4 MG TABLET PO (20:14)
[2018-07-07 21:03] LABS: Glucose 150 mg/dL (80-110)
[2018-07-07] MEDS: ACETAMINOPHEN 325 MG TABLET 650 MG PO (21:13)
--- NOTE | 2018-07-07 21:21 | PC.NURSE ---
Patient is A&OX3, VSS and have been thus far this shift, 99% on RA, patient states he feels pressure and feels uncomfortable around bender site (this RN adjusted bender catheter and after reassessment, pt states he feels better). During change of shift, offgoing RN states pt's BG is 40; gave D50w as ordered. This RN rechecked BG at 1600 and it was in the low 100's. Patient ate about 75% of dinner, and has had several snacks this shift such as milk, orange juice, pudding, etc. Patient became symptomatic at around 2000 of hypoglycemia, finger stick was low 20's, stat lab draw was done before this RN gave patient another D50w as ordered and the result was 150. This RN rechecked BG 20 minutes after giving D50w and it was 109. Patient right now states he feels cold (is afebrile), and his calf hurts 8/[address] Mohamud, she will reassess calf in AM and order U/S if necessary. Patient's PT/INR are within therapeutic levels. Patient requested tylenol for the pain, will reassess when appropriate. Patient is still A&OX3 at this time, call light in reach, will continue to monitor.
[2018-07-08] VITALS (12 sets, daily range): BP systolic 81–127; BP diastolic 40–72; PULSE 78–115; RESP 16–20; TEMP 36.3–37.2; O2SAT 94–99; BMI 40.1
[2018-07-08 00:22] LABS: Glucose 139 mg/dL (80-110)
--- NOTE | 2018-07-08 00:28 | PC.NURSE ---
at 2340 blood sugar said >20 on the machine. Alerted RN. 0020 Blood sugar is 77.
[2018-07-08] MEDS: DEXTROSE 10 % IN WATER 1,000 ML 125 ML IV ×2 (00:30→08:52)
--- NOTE | 2018-07-08 02:55 | PC.NURSE ---
When pt checked at 2340 BG was <20, speech slurred and very sleepy. 1 amp D50 given after lab was called for stat glucose and order entered. Woke up speech clear BG 77 and finally 139 by lab draw which was 20 min after D50. Pt drank a whole ensure, Dr. Mohamud was called and fluids changed to D10 at 0030. BG at 0200 was 72, drank 1/2 an ensure and went to sleep after turning. At 0300 BG 68 finished the second ensure and ate peanut butter 2 pkgs with crackers. Will recheck at 0400. During all of this pt never c/o anything or became diaphoretic.
[2018-07-08] MEDS: FUROSEMIDE 40 MG/4 ML VIAL IV (04:45)
--- NOTE | 2018-07-08 04:56 | PC.NURSE ---
At 0400 BP down to 83/40, BG holding at 146. Dr. Mohamud called and orders received to give lasix 40 mg IV now as he is in A-Fib with HR in 110's.
[2018-07-08 05:34] LABS: Add Manual Diff / Slide Review NO; Basophils Percent Auto 0.6 % (0-2); Eosinophils Percent Auto 4.5 % (2-4); Hematocrit 25.2 % (41-53); Hemoglobin 8.1 g/dL (13.5-17.5); Lymphocytes Percent Auto 19.1 % (25-40); Mean Corpuscular HGB Conc 32.4 % (30-36); Mean Corpuscular Hemoglobin 29.2 PG (26-34); Mean Corpuscular Volume 90.2 fL (80-100); Monocytes Percent Auto 10.1 % (3-14); Neutrophils Absolute Auto 4500 /uL (3000-5900); Neutrophils Percent Auto 65.7 % (50-75); Platelet Count 258 X10^3/uL (150-400); Red Blood Cell Count 2.79 X10^6/uL (4.5-5.9); Red Cell Distribution Width 17.5 % (11.6-14.8); White Blood Cell Count 6.9 X10^3/uL (4.5-11.0)
[2018-07-08 05:44] LABS: INR 3.4 (0.9-1.3); Prothrombin Time 37.6 SECONDS (10.1-12.7)
[2018-07-08 05:45] LABS: Hemoglobin A1C% w Est Avg Glu 6.6 % (4.0-6.0)
[2018-07-08 05:49] LABS: BUN Creatinine Ratio 17.5 (6-22); Blood Urea Nitrogen 14 mg/dL (9-20); Calcium 8.5 mg/dL (8.4-10.2); Carbon Dioxide 29 mmol/L (22-32); Chloride 103 mmol/L (98-107); Estimated Glomerular Filt Rate > 60.0 mL/min (>60); Glucose 76 mg/dL (80-110); HEMOLYSIS < 15 (0-50); Potassium 3.7 mmol/L (3.4-5.1); Sodium 138 mmol/L (137-145)
--- NOTE | 2018-07-08 06:33 | PC.NURSE ---
At 0600 BG 76 while it was 79 by lab at 0500, given 1 pkt of peanut butter and 4 oz of apple juice with 1 pkt of peanut butter left to sit at bedside. BP only 81/40 with HR in 80's but asymptomatic as alert and oriented with clear speech, no vertigo.
--- NOTE | 2018-07-08 08:43 | P.PN_ITS ---
Subjective Date Patient Seen: 07/08/18 Time Patient Seen: 08:38 Interval history: Patient is awake and alert. Really has no complaints except for the throbbing in his right leg and some discomfort on his backside where his decubitus is Has not been up out of bed Acknowledges that he did very poorly at home after discharge will approximately 1 week ago from [facility]. Thought Cade was done a good job of some rising his recent hospitalizations beginning in March here at [facility] and then [place] (since he was transferred to a half-way facility on that side of the [facility]), most recently being discharged from [facility] after diagnosis of pulmonary emboli. Exam Vital Signs (past 8 hours): - 07/08/18 00:42 07/08/18 04:08 07/08/18 06:09 Temperature 98.9 F Pulse Rate 115 H 78 Respiratory Rate 16 16 Blood Pressure 83/40 L 81/48 L Pulse Oximetry 98 97 94 Oxygen Delivery Method Room Air Oxygen Flow Rate 0 Objective Labs Result Diagrams: 07/08/18 05:02 07/08/18 05:02 Labs: Laboratory Results - last 24 hr 07/07/18 07/07/18 07/07/18 10:20 10:25 10:25 WBC RBC Hgb Hct MCV MCH MCHC RDW Plt Count Neut % (Auto) Lymph % (Auto) [place] % (Auto) Eos % (Auto) Baso % (Auto) Neut # (Auto) PT 33.8 H INR 3.0 H APTT 40 H D Sodium Potassium Chloride Carbon Dioxide BUN Creatinine Estimated GFR BUN/Creatinine Ratio Glucose Hemoglobin A1c Lactate 1.3 Calcium Total Bilirubin AST ALT Alkaline Phosphatase Total Protein Albumin Globulin Albumin/Globulin Ratio Procalcitonin Urine Color Yellow Urine Appearance Clear Urine pH 5.0 Ur Specific [place] 1.015 Urine Protein Trace H Urine Glucose (UA) Trace Urine Ketones Negative Urine Occult Blood 1+ H Urine Nitrate Negative Urine Bilirubin Negative Urine Urobilinogen 0.2 Ur Leukocyte Esterase Trace H Urine RBC 1-5/hpf D Urine WBC 0-1/hpf Ur Squamous Epith Cells 0-1 /hpf Uric Acid Crystals Moderate Amorphous Sediment 2+ Urine Bacteria None seen Ur Culture Indicated? Not Reportable Micro UA Comment Not Reportable 07/07/18 07/07/18 07/07/18 10:58 11:11 11:11 WBC 7.1 RBC 3.60 L Hgb 10.6 L Hct 32.4 L MCV 90.1 MCH 29.3 MCHC 32.6 RDW 17.1 H Plt Count 272 Neut % (Auto) 82.7 H Lymph % (Auto) 9.7 L [place] % (Auto) 5.8 Eos % (Auto) 1.4 L Baso % (Auto) 0.4 Neut # (Auto) 5900 PT INR APTT Sodium 144 Potassium 3.7 Chloride 104 Carbon Dioxide 31 BUN 13 Creatinine 0.60 L Estimated GFR > 60.0 BUN/Creatinine Ratio 21.7 Glucose 68 L Hemoglobin A1c Lactate Calcium 9.6 Total Bilirubin 0.8 AST 18 ALT 16 L Alkaline Phosphatase 69 Total Protein 7.5 Albumin 3.8 Globulin 3.7 Albumin/Globulin Ratio 1.0 Procalcitonin < 0.05 Urine Color Urine Appearance Urine pH Ur Specific [place] Urine Protein Urine Glucose (UA) Urine Ketones Urine Occult Blood Urine Nitrate Urine Bilirubin Urine Urobilinogen Ur Leukocyte Esterase Urine RBC Urine WBC Ur Squamous Epith Cells Uric Acid Crystals Amorphous Sediment Urine Bacteria Ur Culture Indicated? Micro UA Comment 07/07/18 07/07/18 07/07/18 16:05 20:40 23:59 WBC RBC Hgb Hct MCV MCH MCHC RDW Plt Count Neut % (Auto) Lymph % (Auto) [place] % (Auto) Eos % (Auto) Baso % (Auto) Neut # (Auto) PT INR APTT Sodium Potassium Chloride Carbon Dioxide BUN Creatinine Estimated GFR BUN/Creatinine Ratio Glucose 99 150 H 139 H Hemoglobin A1c Lactate Calcium Total Bilirubin AST ALT Alkaline Phosphatase Total Protein Albumin Globulin Albumin/Globulin Ratio Procalcitonin Urine Color Urine Appearance Urine pH Ur Specific [place] Urine Protein Urine Glucose (UA) Urine Ketones Urine Occult Blood Urine Nitrate Urine Bilirubin Urine Urobilinogen Ur Leukocyte Esterase Urine RBC Urine WBC Ur Squamous Epith Cells Uric Acid Crystals Amorphous Sediment Urine Bacteria Ur Culture Indicated? Micro UA Comment 07/08/18 07/08/18 07/08/18 05:02 05:02 05:02 WBC 6.9 RBC 2.79 L Hgb 8.1 L Hct 25.2 L MCV 90.2 MCH 29.2 MCHC 32.4 RDW 17.5 H Plt Count 258 Neut % (Auto) 65.7 Lymph % (Auto) 19.1 L [place] % (Auto) 10.1 Eos % (Auto) 4.5 H Baso % (Auto) 0.6 Neut # (Auto) 4500 PT 37.6 H INR 3.4 H APTT Sodium 138 Potassium 3.7 Chloride 103 Carbon Dioxide 29 BUN 14 Creatinine 0.80 Estimated GFR > 60.0 BUN/Creatinine Ratio 17.5 Glucose 76 L Hemoglobin A1c Lactate Calcium 8.5 Total Bilirubin AST ALT Alkaline Phosphatase Total Protein Albumin Globulin Albumin/Globulin Ratio Procalcitonin Urine Color Urine Appearance Urine pH Ur Specific [place] Urine Protein Urine Glucose (UA) Urine Ketones Urine Occult Blood Urine Nitrate Urine Bilirubin Urine Urobilinogen Ur Leukocyte Esterase Urine RBC Urine WBC Ur Squamous Epith Cells Uric Acid Crystals Amorphous Sediment Urine Bacteria Ur Culture Indicated? Micro UA Comment 07/08/18 05:02 WBC RBC Hgb Hct MCV MCH MCHC RDW Plt Count Neut % (Auto) Lymph % (Auto) [place] % (Auto) Eos % (Auto) Baso % (Auto) Neut # (Auto) PT INR APTT Sodium Potassium Chloride Carbon Dioxide BUN Creatinine Estimated GFR BUN/Creatinine Ratio Glucose Hemoglobin A1c 6.6 H Lactate Calcium Total Bilirubin AST ALT Alkaline Phosphatase Total Protein Albumin Globulin Albumin/Globulin Ratio Procalcitonin Urine Color Urine Appearance Urine pH Ur Specific [place] Urine Protein Urine Glucose (UA) Urine Ketones Urine Occult Blood Urine Nitrate Urine Bilirubin Urine Urobilinogen Ur Leukocyte Esterase Urine RBC Urine WBC Ur Squamous Epith Cells Uric Acid Crystals Amorphous Sediment Urine Bacteria Ur Culture Indicated? Micro UA Comment Assessment & Plan Plan: Assessment/Plan Narrative: 1. Hypoglycemia-patient has persisted with hypoglycemia overnight despite IV D5. Clearly I think this has to be related to medication, patient by report was really unable to be up and around at home and I wonder about his medication management at home. This point he will remain off of any oral hypoglycemic in continue on D10 which seems to have stabilized his blood sugar. At some point he will become hyperglycemic and will discontinue intravenous dextrose and follow him without that 2. Sacral pressure ulcer-wound Care has been consulted hopefully bill to see him later today 3. Atrial fibrillation-patient is somewhat tachycardic. Continue with carvedilol. 4. Hypotension-patient has been hypotensive off and on at times in the past. No obvious evidence of infection. Continue with IV fluids and patient should remain off his MARLENI-inhibitor. I wonder if he really required all of his home meds including his hypoglycemic agents as well as his antihypertensives upon discharge from [facility]. 5. Anemia-patient without evidence of active ongoing acute blood-loss anemia. Patient's count did drop significantly overnight presumably due to hydration. Patient's current blood counts are close to baseline. Given the patient is anticoagulated with warfarin 1 would think that if active bleeding is present would become obvious. Continue with careful monitoring without intervention beyond that at this point. Plan to recheck numbers tomorrow. 6. Disposition-seems clear to me the patient should not return home to his previous living environment lists are some dramatic improvement once blood sugar numbers have stabilized. Will have Physical therapy and Occupational therapy see him but my thoughts initially would be for him to go back to half-way from the hospital here. Note: Greater than 30 minutes was spent evaluating the patient on the floor, including examining the patient, discussing clinical course with clinical and nursing staff, reviewing clinical course in the computer, preparing documentation and writing orders for continued management of care, discussing status with family as appropriate, reviewing plans for the next 24 hours with both patient/family and nursing staff as appropriate. Quality VTE Deep Vein Thrombosis/Pulmonary Embolism Present on Admission: No
[2018-07-08] MEDS: POTASSIUM CHLORIDE 20 MEQ TAB 40 MEQ PO ×2 (08:50→17:18)
[2018-07-08] MEDS: CARVEDILOL 12.5 MG TABLET PO ×2 (08:51→21:15)
[2018-07-08] MEDS: ROSUVASTATIN 10 MG TABLET PO (08:52)
[2018-07-08] MEDS: LACTOBACILLUS ACIDOPHILUS TABLET 1 EACH PO (08:54)
[2018-07-08] MEDS: FINASTERIDE 5 MG TABLET PO (08:54)
--- NOTE | 2018-07-08 11:03 | PC.NURSE ---
Pt transferred with slider board to Laureen bed and placed on air mattress to protect skin. Pt states he is much more comfortable. Pt bed is turned to the right with pillows between legs and behind back.
--- NOTE | 2018-07-08 12:50 | CM.DANOTE ---
Addendum entered by Alea Jurado LPN 07/08/18 13:40: [facility] has called. Says they were set up to see pt the day after he d/c'd from [facility]. They were unable to admit him as he went home and then directly to [facility]. If HH is needed they still have the referral which includes the Face/Face paperwork. P: IF home as pt wishes would be with resumption of [facility] orders. But to be determined.... Original Note: Addendum entered by Alea Jurado LPN 07/08/18 13:24: Did hear back from Union/business office at [facility]. She reports that pt was d/c'd from [facility] on 06/25. He had been d/c'd a bit earlier, appealed the d/c and won. Then was deemed stable again for d/c and this time did not appear the d/c. She noted she is unclear where the $700 idea came from as he did not have any days there that were not covered by his insurance. Original Note: Addendum entered by Alea Jurado LPN 07/08/18 13:04: Checked in with Penny ROONEY/Nithya. She reports that pt was only there for a couple of days, was in [facility] and then transferred to [facility]. Have calls into Lara and the [facility] business office to check on the # days and details of the d/c. Note that Dr. Cox' note is now in and he is recommending consideration of a return to the snf setting. Met again now with pt. Pt now confirms that his stay was primarily at [facility]. He says he was d/c'd home by the facility, was home a day and was sent back to [facility]. After a week or so stay at the hospital he was sent directly home. I insisted, I was concerned re my and I felt I did not need any more therapy. Also I was paying $700 day at the [facility] as my Medicare payment had stopped. Pt says he was getting around just fine at home using the FWW and a w/c. It's just that I got so short of breath all the time I could barely move. Pt says he did set up 20/04 pvt care for his under [employer] agency and that gave him a great sense of relief. He says she is having knee surgery on Jul 31. Discussed Dr. Cox' idea of snf consideration. At this point pt is quite firm that My plan is to go home. I am sure I will do fine with home therapists after they fix what is wrong with me medically. Sounds like pt could likely also hire some assist for himself if need be. Regardless, at this point he is not willing to consider a snf option but he also notes how much he values Dr. Cox and thus expect he will be open to whatever is best as the POC unfolds. Will await OT/PT input. Original Note: Discharge Planning/Care Management DCP: assessment: case received, EMR reviewed and met with pt this mornin. Introduced self and role. Pt is a 73 year old male who admitted to care of [facility] physician team yesterday. His PCP Dr. Cox will see him today, his note was not available at time of this initial meeting. Pt reports that he has been at [facility] and back and forth to [facility] since leaving on 04/27. He reports being home for about a week. PT and OT are ordered. Wound care clinic has been consulted. Agreed to check in with pt and his Jef as more is known to assist with the d/c planning process. CM Discharge Assessment Start: 07/08/18 12:45 Freq: Status: Active Protocol: Document 07/08/18 12:46 ITV (Rec: 07/08/18 12:49 ITV [id number]) Discharge Planning Assessment History Provided By Patient Medical Record Prior Living Arrangements House Household Members spouse Is patient alert and oriented? Yes Comment Dr. Cox indicated today that snf stay at d/c is likely . Comment Pt's most recent stay was at [facility]. Is unclear if he d/c'd to home from there or if they sent him to [facility] and the hospital then d/c'd him to home. Have a call into the [facility] business office Tangela: [phone] to check on details ( directed by silvia Lara to call her). Whiteboard Updated in Patient Room with Yes name and ext. # of Match Marker Review Status In Process Next Review Type Continued Stay Review Discharge Planning/Care Management CM Discharge Assessment Start: 07/08/18 12:45 Freq: Status: Active Protocol: Document 07/08/18 12:46 ITV (Rec: 07/08/18 12:49 ITV [id number]) Discharge Planning Assessment History Provided By Patient Medical Record Prior Living Arrangements House Household Members spouse Is patient alert and oriented? Yes Comment Dr. Cox indicated today that snf stay at d/c is likely . Comment Pt's most recent stay was at [facility]. Is unclear if he d/c'd to home from there or if they sent him to [facility] and the hospital then d/c'd him to home. Have a call into the [facility] business office Tangela: [phone] to check on details ( directed by silvia Lara to call her). Whiteboard Updated in Patient Room with Yes name and ext. # of Match Marker Review Status In Process Next Review Type Continued Stay Review
[2018-07-08] MEDS: ACETAMINOPHEN 325 MG TABLET 650 MG PO (14:36)
--- NOTE | 2018-07-08 14:43 | PC.NURSE ---
Pt. was admitted due to hypoglycemia. Pt. has had low blood sugars throughout the morning, of which was treated with D10. Now patient is starting to swing in the other direction with the latest blood sugar at 199. Pt. has had hypotension through out shift. Pt. was transferred into a betsey bed. Pt. was c/o of pain in the sacrum due to ulcer and received PRN acetaminophen.
--- NOTE | 2018-07-08 15:30 | PT.IIE ---
Current Diagnoses Pressure ulcer of sacral region, unspecified stage (07/07/18) Medical History (Last Updated 07/07/18 @ 21:28 by Kerry Mohamud DO) Type 2 diabetes mellitus without complication (Chronic 10/25/15) Morbid obesity due to excess calories (Chronic 02/17/17) Cardiomyopathy (Chronic 04/21/13) Essential hypertension (Chronic 10/10/11) Mixed hyperlipidemia (Chronic 10/25/15) Edema (Chronic) Body mass index (BMI) of 45.0 to 49.9 in adult (Chronic 02/17/17) Gynecomastia (Chronic 03/30/17) Benign localized prostatic hyperplasia with lower urinary tract symptoms (LUTS) (Chronic 12/29/17) Type 2 diabetes mellitus with hyperglycemia (Chronic 10/10/11) Atrial fibrillation (Acute) C. difficile diarrhea (Acute) Cellulitis and abscess of right leg (Acute) Pulmonary emboli (Acute) Physical Therapy Inpatient Evaluation/Re-Eval M1 PT/OT-IP Prior Functional Status Start: 07/08/18 16:55 Freq: NEEDED Status: Active Protocol: Document 07/08/18 15:30 AB (Rec: 07/08/18 17:33 AB [id number]) Medical Review Prior Functional Status Medical History Reviewed Yes Communication able to make needs known Mobility and Gait pt stated that he was home for ~ 10 days and was able to transfer mod I using FWW and mostly w/c bound. prior to going home, pt was at SNF and was able to ambulate using FWW ~ 200ft but with frequent rest breaks in between. Activities of Daily Living and IADL's pt stated that he uses the bedside commode instead of the toilet due to the door being too narrow. pt also just does sponge bathing. Social History Household Members spouse Living Arrangements House Number of Floors (Floors) One Floor Number of Stairs To Enter/Railing? has no steps to enter Home Environment Walk in Shower Home Equipment Front Wheel Walker Four Wheel Walker Manual Wheelchair Shower Seat without Backrest Hospital Bed Employment Status Retired Additional Social History Comment pt has a standard walker pt's spouse has a 24/7 caregiver pt has a power lift chair that he sleeps on and has an pressure relief air cushion M2 PT-IP Current Condition Start: 07/08/18 16:55 Freq: NEEDED Status: Active Protocol: Document 07/08/18 15:30 AB (Rec: 07/08/18 17:33 AB [id number]) Physical Therapy Current Condition Current Condition Evaluation Date 07/08/18 Treatment Diagnosis hypoglycemia; generalized weakness Onset Date 07/07/18 Precautions Other Precautions falls M3 PT-IP Subjective Start: 07/08/18 16:55 Freq: NEEDED Status: Active Protocol: Document 07/08/18 15:30 AB (Rec: 07/08/18 17:33 AB [id number]) Subjective Physical Therapy Visit Type Type Initial Evaluation Visit Start Time 15:30 Visit Stop Time 15:56 Total Visit Minutes 26 Number of STUDENT LIAISON OFFICER Visits 30 Physical Therapy Visit Comments Patient Comments pt agreed to get up M4 PT-IP Mobility and Gait Start: 07/08/18 16:55 Freq: NEEDED Status: Active Protocol: Document 07/08/18 15:30 AB (Rec: 07/08/18 17:33 AB [id number]) PT-Bed Mobility Assessment Supine to Sit Supine to Sit Maximum Assistance 2 Person Assistance Head of Bed Elevated Bedrails PT-Transfer Assessment Sit to and From Stand Sit to and from Stand Moderate Assistance Equipment Transfer Assistive Device Gait Belt Front Wheeled Walker Orthotic/Prosthetic Devices or Brace: No Transfers Transfer Destination Chair Transfer Technique pt ambulated to the chair using FWW Gait Assessment Gait Gait Assistance Required: Moderate Assistance Distance (Feet) 12 Able to Maintain Weight Bearing Status Yes During Gait Assistive Devices Assistive Device Gait Belt Front Wheeled Walker Orthotic/Prosthetic Devices or Brace: No Gait Deviations General Gait Pattern Antalgic Decreased Stride Length Decreased Feet Clearance Factors Limiting Gait Function Factors Limiting Gait Function Decreased Activity Tolerance Decreased Strength Limited Range of Motion Poor Balance Poor Safety Awareness PT-Balance Assessment Sitting Balance and Reactions Static Sitting Balance Ability Good Dynamic Sitting Balance Ability Good Standing Balance and Reactions Static Standing Balance Ability Fair Dynamic Standing Balance Ability Poor Device Used FWW M5 PT-IP Objective Assessments Start: 07/08/18 16:55 Freq: NEEDED Status: Active Protocol: Document 07/08/18 15:30 AB (Rec: 07/08/18 17:33 AB [id number]) Orientation Orientation/Cognition Level of Alertness Alert Orientation Name Age Place Situation Safety Awareness Decreased Safety Awareness Gross Range of Motion Lower Extremity ROM Assessment Right Impaired Strength Lower Extremity Strength Assessment Bilaterally Impaired Comments Strength Comments RLE grossly graded: 3+/5 LLE 4-/5 M6 PT-IP Treatment Start: 07/08/18 16:55 Freq: NEEDED Status: Active Protocol: Document 07/08/18 15:30 AB (Rec: 07/08/18 17:33 AB [id number]) Physical Therapy Treatment Education Education Provided Safety M7 PT-IP Assessment and Plan Start: 07/08/18 16:55 Freq: NEEDED Status: Active Protocol: Document 07/08/18 15:30 AB (Rec: 07/08/18 17:33 AB [id number]) PT Summary Assessment and Plan Potential Rehabilitation Potential Fair Status of Condition at Evaluation Stable Summary Impairments ROM Strength Balance Bed Mobility Transfers Gait Activity Tolerance Assessment Summary Pt requiring mod to max A with mobility. d/c plan depending on progress but will require assistance at home and home health services. At this time will require SNF rehab. Goals Bed Mobility Goal Standby Assistance Transfer Goal Standby Assistance Gait Goal Standby Assistance Gait Distance 50 Days to Meet Goals 5 Frequency of Treatment Frequency Of Treatment Once a Day Treatment Plan Physical Therapy Treatment Plan Bed Mobility Training Transfer Training Gait Training Therapeutic Exercise Balance Retraining Post Op Education Discharge Planning Hot or Cold Pack Neuromuscular Re-ed Coordination Retraining Manual Therapy Other Recommendations and Next Treatment transfers, ambulation Focus Recommendations To Nursing Amount of Assist Needed 2 Person Assist Discharge Recommendations PT Discharge Recommendations Home with 24/7 Assist Home Health SNF Rehab Other Discharge Recommendations SNF vs home with 24/7 assistance and home health services
[2018-07-08] MEDS: DEXTROSE 10 % IN WATER 1,000 ML 80 ML IV (17:20)
--- NOTE | 2018-07-08 17:45 | OT.IP.EVAL ---
Current Diagnoses Pressure ulcer of sacral region, unspecified stage (07/07/18) Past Medical History (Last Updated 07/07/18 @ 21:28 by Kerry Mohamud DO) Type 2 diabetes mellitus without complication (Chronic 10/25/15) Morbid obesity due to excess calories (Chronic 02/17/17) Cardiomyopathy (Chronic 04/21/13) Essential hypertension (Chronic 10/10/11) Mixed hyperlipidemia (Chronic 10/25/15) Edema (Chronic) Body mass index (BMI) of 45.0 to 49.9 in adult (Chronic 02/17/17) Gynecomastia (Chronic 03/30/17) Benign localized prostatic hyperplasia with lower urinary tract symptoms (LUTS) (Chronic 12/29/17) Type 2 diabetes mellitus with hyperglycemia (Chronic 10/10/11) Atrial fibrillation (Acute) C. difficile diarrhea (Acute) Cellulitis and abscess of right leg (Acute) Pulmonary emboli (Acute) Occupational Therapy Inpatient Evaluation/Re-Eval M1 PT/OT-IP Prior Functional Status Start: 07/08/18 16:55 Freq: NEEDED Status: Active Protocol: Document 07/08/18 17:03 [facility] (Rec: 07/08/18 17:45 [facility] [id number]) Medical Review Prior Functional Status Medical History Reviewed Yes Communication Ind. Mobility and Gait Pt mainly wc bound, and just transferring with FWW from to power chair and wc to bsc. Pt states at [facility] was able to walk up to 200ft with 3 rest breaks. Activities of Daily Living and IADL's Pt states was able to do all dressing, except for socks. Pt states sponge bathes from bedside commode and has 's caregiver assist. Social History Household Members spouse Living Arrangements House Number of Floors (Floors) One Floor Number of Stairs To Enter/Railing? Just a threshold. Home Environment Walk in Shower Narrow Doors Home Equipment Front Wheel Walker Four Wheel Walker Manual Wheelchair Bedside Commode Hand Held Shower M2 OT-IP Current Condition Start: 07/08/18 15:19 Freq: Status: Active Protocol: Document 07/08/18 17:03 [facility] (Rec: 07/08/18 17:45 [facility] [id number]) Occupational Therapy Current Condition Current Condition Evaluation Date 07/08/18 Treatment Diagnosis Acute respiratory failure Diagnosis Onset Date 07/07/18 M3 OT- IP Subjective and Pain Start: 07/08/18 15:19 Freq: Status: Active Protocol: Document 07/08/18 17:03 [facility] (Rec: 07/08/18 17:45 [facility] [id number]) OT- Subjective Occupational Therapy Visit Type Type Initial Evaluation Visit Start Time 15:25 Visit Stop Time 16:10 Total Visit Minutes 60 Notes Pt also seen from 1630 to 1645pm as wanting to get back to the bed from recliner. Occupational Therapy Visit Comments Patient/Caregiver Goals Pt wanting to go home when medically stable and would like to have home health services. OT Pain Assessment Pain When Pain Assessed At Rest Pain Present Pain Present Denied Pain M4 OT- IP ADL's Start: 07/08/18 15:19 Freq: Status: Active Protocol: Document 07/08/18 17:03 [facility] (Rec: 07/08/18 17:45 [facility] [id number]) OT ADL-Dressing General Eval Lower Body Dressing Ability Maximum Assistance Comments OT Dressing Comments Pt needing assist to pablo/doff his slippers and socks. OT ADL-Toileting Comments OT Toileting Comments Pt has catheter. M5 OT- IP IADL's Start: 07/08/18 15:19 Freq: Status: Active Protocol: Document 07/08/18 17:03 [facility] (Rec: 07/08/18 17:45 [facility] [id number]) OT-Instrumental Activities of Daily Living Meal Preparation Meal Preparation Comments Pt has hired assist to help at this time. 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 M6 OT- IP Functional Cognition Start: 07/08/18 15:19 Freq: Status: Active Protocol: Document 07/08/18 17:03 [facility] (Rec: 07/08/18 17:45 [facility] [id number]) Cognitive Factors Limiting Selfcare Function Cognitive Ability Level of Alertness Alert Patient Orientation Name Age Birthday Month Date Year Place Situation Attention Span Ability Capable of Focused Attention Capable of Sustained Attention Ability to Follow Commands Able to Follow Multi-Step Commands Memory Description No Deficits Noted Safety Awareness Underestimates Need for Assistance Cognitive Comments Cognitive Assessment Comments Pt able to follow multiple commands. Pt needing vc to push up from the recliner. OT- Vision and Hearing OT- Hearing Assessment OT- Hearing Assessment WFL OT- Vision Assessment Visual Acuity WFL M7 OT- IP Mobility and Balance Start: 07/08/18 15:19 Freq: Status: Active Protocol: Document 07/08/18 17:03 [facility] (Rec: 07/08/18 17:45 [facility] [id number]) OT- Bed Mobility Assessment Rolling Type of Rolling Roll to Right Supine to Sit Supine to Sit Assist Maximum Assistance 2 Person Assistance Sit to Supine Sit to Supine Assist Maximum Assistance 1 Person Assistance OT-Transfer Assessment Sit to and From Stand Sit to and from Stand Maximum Assistance 1 Person Assistance Transfers Transfer Ability Minimal Assistance Moderate Assistance 1 Person Assistance Technique Transfer Destination Bed Chair Transfer Technique Stand Step Pivot Devices Transfer Assistive Devices Gait Belt Front Wheeled Walker Comments Mobility Comments Pt needing MAX A x1 from lower surfaces however has power lift chair at home. Once on his feet from TERESA to MODA for balance and stability with FWW. Pt states has narrow doorways and at times has to walk with walker sideways. Form sit to supine needing MAX A x1 to help get pt's BLE back into the bed. OT- Balance Assessment Sitting Balance and Reactions Static Sitting Balance Ability Normal Dynamic Sitting Balance Ability Good Standing Balance and Reactions Static Standing Balance Ability Fair Dynamic Standing Balance Ability Poor M8 OT- IP Objective Assessments Start: 07/08/18 15:19 Freq: Status: Active Protocol: Document 07/08/18 17:03 [facility] (Rec: 07/08/18 17:45 [facility] [id number]) OT Gross Range of Motion Upper Extremity Range of Motion ROM Impairments Decreased AROM 0-90 for RUE, and LUE 0-100. OT Strength Comments Strength Comments Pt BUE strength 4/5 for RUE and 4-/5 for LUE. M9 OT- IP Assessment and Plan Start: 07/08/18 15:19 Freq: Status: Active Protocol: Document 07/08/18 17:03 [facility] (Rec: 07/08/18 17:45 [facility] [id number]) OT Summary Assessment and Plan Potential Rehabilitation Potential Good Analytic Complexity at Evaluation Low Summary OT Impairments Pain Range of Motion Strength Balance Functional Cognition Functional Mobility Grooming Dressing Toileting Bathing Toilet Transfers Shower Transfers Progress Towards Goals Slow Progress due to Pain Slow Progress due to Medical Issues Slow Progress due to Activity Tolerance Assessment Summary Pt low complexity and main barrier is decreased strength, endurance, activity tolerance , and getting up from the bed and recliner. Pt needing extensive assist for all ADL's and functional mobility at this time. Pt would benefit from skilled rehab stay versus home with home health and caregiver assist. Noted slight facial droop on left side of his face. However when pt smiled, symmetrical. Goals Grooming Goal Standby Assistance Dressing Goal Minimal Assistance Toileting Goal Standby Assistance Bathing Goal Moderate Assistance Toilet Transfer Goal Standby Assistance Shower Transfer Goal Minimal Assistance Patient/Caregiver Education Goal Caregiver Independent Assisting Patient Days to Meet Goals 7 Frequency of Treatment Frequency Of Treatment Once a Day Treatment Plan OT Treatment Plan ADL Training Functional Mobility Patient/Family Education Discharge Planning Other Treatment Recommendations and Next Standing at sink for grooming, Treatment Focus BSC transfer, dressing with AED Discharge Recommendations OT Discharge Recommendations SNF Rehab Other Discharge Recommendations Pending progress, set-up, and help at home, home with home health and caregiver assist
[2018-07-08] MEDS: TRAMADOL 50 MG TABLET PO (17:57)
[2018-07-08] MEDS: CALCIUM CARBONATE 500 MG TAB 1000 MG PO ×2 (20:38→23:54)
[2018-07-08] MEDS: DOXAZOSIN 4 MG TABLET PO (21:14)
[2018-07-08] MEDS: GABAPENTIN 600 MG TABLET PO (21:16)
[2018-07-08] MEDS: MELATONIN 3 MG TABLET 6 MG PO (21:16)
--- NOTE | 2018-07-08 22:16 | PC.NURSE ---
This RN documented findings and all assessments with Student Nurse Kerry Palumbo. This RN agrees with all documentation this shift. This RN followed up with patient regarding pain reassessments, etc, and also did my own assessment before the Student Nurse in order to confirm her findings.
[2018-07-09] VITALS (9 sets, daily range): BP systolic 90–123; BP diastolic 42–73; PULSE 76–108; RESP 15–22; TEMP 35.9–37.3; O2SAT 92–97
--- NOTE | 2018-07-09 | DI.RAD.S_ITS ---
PROCEDURE: XR ACUTE ABDOMEN SERIES INDICATIONS: bloating/nausea TECHNIQUE: One view chest and two views of the abdomen were acquired. COMPARISON: None. FINDINGS: Surgical changes and devices: A suprapubic catheter is noted. Chest: Lungs are clear. Heart size is normal. No pleural effusions. No pneumoperitoneum. Abdomen: There is marked gaseous distention of the stomach. Bowel gas pattern is otherwise normal. No suspicious calcifications. Visualized solid organ contours appear normal. Bones: No suspicious bony lesions. IMPRESSION: Marked gaseous distention of the stomach which may be the etiology of the patient's symptoms. No other acute intra-abdominal findings. No acute cardiopulmonary findings. Dictated by: Zohreh Butler M.D. on 07/09/2018 at 10:42 Approved by: Zohreh Butler M.D. on 07/09/2018 at 10:43
[2018-07-09] MEDS: DEXTROSE 10 % IN WATER 1,000 ML 80 ML IV (05:33)
[2018-07-09 06:09] LABS: INR 2.1 (0.9-1.3); Prothrombin Time 22.8 SECONDS (10.1-12.7)
[2018-07-09 06:10] LABS: Add Manual Diff / Slide Review NO; Basophils Percent Auto 0.9 % (0-2); Hematocrit 26.1 % (41-53); Hemoglobin 8.5 g/dL (13.5-17.5); Lymphocytes Percent Auto 14.7 % (25-40); Mean Corpuscular HGB Conc 32.5 % (30-36); Mean Corpuscular Hemoglobin 29.3 PG (26-34); Mean Corpuscular Volume 90.2 fL (80-100); Monocytes Percent Auto 9.2 % (3-14); Neutrophils Absolute Auto 5100 /uL (3000-5900); Neutrophils Percent Auto 67.2 % (50-75); Platelet Count 264 X10^3/uL (150-400); Red Cell Distribution Width 17.5 % (11.6-14.8); White Blood Cell Count 7.6 X10^3/uL (4.5-11.0)
[2018-07-09 06:15] LABS: BUN Creatinine Ratio 18.8 (6-22); Blood Urea Nitrogen 15 mg/dL (9-20); Calcium 9.2 mg/dL (8.4-10.2); Carbon Dioxide 29 mmol/L (22-32); Chloride 101 mmol/L (98-107); Estimated Glomerular Filt Rate > 60.0 mL/min (>60); Glucose 194 mg/dL (80-110); HEMOLYSIS < 15 (0-50); Potassium 4.7 mmol/L (3.4-5.1); Sodium 137 mmol/L (137-145)
[2018-07-09] MEDS: INSULIN ASPART 100 UNIT/ML INSULN PEN SUBCUT ×3 (08:06→17:16)
--- NOTE | 2018-07-09 08:37 | PM.PN.1 ---
Subjective Date Patient Seen: 07/09/18 Time Patient Seen: 08:37 Interval history: Patient now complaining of bloating and abdominal discomfort as well as significant nausea. He is refusing to eat or even try to drink anything because of it. Not really had any specific emesis Vital signs are okay. Blood pressure better. Blood sugars have been better in fact he has become hyperglycemic and so his IV dextrose has been discontinued Exam Vital Signs (past 8 hours): - 07/09/18 05:40 Temperature 99.1 F Pulse Rate 87 Respiratory Rate 16 Blood Pressure 120/60 Pulse Oximetry 97 Oxygen Delivery Method Room Air Oxygen Flow Rate 0 Narrative Exam Narrative: Patient with obese abdomen that appears to be somewhat bloated without tenderness. Rare but present bowel tones Objective Labs Result Diagrams: 07/09/18 05:36 07/09/18 05:36 Labs: Laboratory Results - last 24 hr 07/09/18 07/09/18 07/09/18 05:36 05:36 05:36 WBC 7.6 RBC 2.90 L Hgb 8.5 L Hct 26.1 L MCV 90.2 MCH 29.3 MCHC 32.5 RDW 17.5 H Plt Count 264 Neut % (Auto) 67.2 Lymph % (Auto) 14.7 L [place] % (Auto) 9.2 Eos % (Auto) 8.0 H Baso % (Auto) 0.9 Neut # (Auto) 5100 PT 22.8 H D INR 2.1 H Sodium 137 Potassium 4.7 Chloride 101 Carbon Dioxide 29 BUN 15 Creatinine 0.80 Estimated GFR > 60.0 BUN/Creatinine Ratio 18.8 Glucose 194 H D Calcium 9.2 Assessment & Plan Plan: Assessment/Plan Narrative: 1. GI symptoms-will add additional GI meds to his regimen. Will check abdominal x-ray series. Patient acting more like he has an ileus than anything else. Last bowel movement was within the last 48 hr so doubt related to constipation/obstipation. 2. Hypoglycemia-seems to have resolved. Continue to follow off of IV dextrose. No oral meds and only short-acting insulin for treatment of hyperglycemia at this point. 3. Atrial fibrillation-controlled rate. 4. History pulmonary embolism on warfarin-patient's protime within therapeutic range. Had gone up yesterday so I held his warfarin but will resume it today the slightly lower dose. 5. Sacral decubitus-patient not seen by wound clinic yesterday. I will call him this morning and see if we can get a consult today 6. Weakness etc-continue with physical therapy occupational therapy. Still appears to me the patient will require placement in detention when ready for discharge Note: Greater than 30 minutes was spent evaluating the patient on the floor, including examining the patient, discussing clinical course with clinical and nursing staff, reviewing clinical course in the computer, preparing documentation and writing orders for continued management of care, discussing status with family as appropriate, reviewing plans for the next 24 hours with both patient/family and nursing staff as appropriate. Quality VTE Deep Vein Thrombosis/Pulmonary Embolism Present on Admission: No
[2018-07-09] MEDS: SIMETHICONE 80 MG TABLET PO (09:19)
--- NOTE | 2018-07-09 09:51 | PT.IPTN ---
Current Diagnoses Pressure ulcer of sacral region, unspecified stage (07/07/18) Physical Therapy Treatment Note M2 PT-IP Current Condition Start: 07/08/18 16:55 Freq: NEEDED Status: Active Protocol: Document 07/08/18 15:30 AB (Rec: 07/08/18 17:33 AB [id number]) Physical Therapy Current Condition Current Condition Evaluation Date 07/08/18 Treatment Diagnosis hypoglycemia; generalized weakness Onset Date 07/07/18 Precautions Other Precautions falls M3 PT-IP Subjective Start: 07/08/18 16:55 Freq: NEEDED Status: Active Protocol: Document 07/09/18 09:02 LJ (Rec: 07/09/18 09:51 LJ [id number]) Subjective Physical Therapy Visit Type Type Treatment Note Visit Start Time 09:02 Visit Stop Time 09:25 Total Visit Minutes 23 Number of DATA ANALYTICS ARCHITECT Visits 1 M4 PT-IP Mobility and Gait Start: 07/08/18 16:55 Freq: NEEDED Status: Active Protocol: Document 07/09/18 09:02 LJ (Rec: 07/09/18 09:51 LJ [id number]) PT-Bed Mobility Assessment Sit to Supine Sit to Supine Minimal Assistance 1 Person Assistance PT-Transfer Assessment Sit to and From Stand Sit to and from Stand Standby Assistance Equipment Transfer Assistive Device Gait Belt Front Wheeled Walker Orthotic/Prosthetic Devices or Brace: No Transfers Transfer Destination Bed Transfer Technique Stand Step Pivot Comments Mobility Comments Pt requires min assist with RLE getting into bed. SBA for poisitioning self correctly in bed. Gait Assessment Gait Gait Assistance Required: Minimum Assistance Distance (Feet) 15 Able to Maintain Weight Bearing Status Yes During Gait Assistive Devices Assistive Device Gait Belt Front Wheeled Walker Orthotic/Prosthetic Devices or Brace: No Gait Deviations General Gait Pattern Antalgic Decreased Stride Length Decreased Feet Clearance Factors Limiting Gait Function Factors Limiting Gait Function Decreased Activity Tolerance Decreased Strength Limited Range of Motion Poor Balance Poor Safety Awareness Comments Gait Comments Pt able to ambulate 15' in room w/CGA and FWW. DATA ANALYTICS ARCHITECT provided mod cues for posture and position of body within FWW. M5 PT-IP Objective Assessments Start: 07/08/18 16:55 Freq: NEEDED Status: Active Protocol: Document 07/08/18 15:30 AB (Rec: 07/08/18 17:33 AB [id number]) Orientation Orientation/Cognition Level of Alertness Alert Orientation Name Age Place Situation Safety Awareness Decreased Safety Awareness Gross Range of Motion Lower Extremity ROM Assessment Right Impaired Strength Lower Extremity Strength Assessment Bilaterally Impaired Comments Strength Comments RLE grossly graded: 3+/5 LLE 4-/5 M6 PT-IP Treatment Start: 07/08/18 16:55 Freq: NEEDED Status: Active Protocol: Document 07/09/18 09:02 LJ (Rec: 07/09/18 09:51 [id number]) Physical Therapy Treatment Exercises Exercises Ankle Pumps Gluteal Sets Quad Sets Straight Leg Raises Education Education Provided Safety M7 PT-IP Assessment and Plan Start: 07/08/18 16:55 Freq: NEEDED Status: Active Protocol: Document 07/09/18 09:02 LJ (Rec: 07/09/18 09:51 [id number]) PT Summary Assessment and Plan Summary Impairments ROM Strength Balance Bed Mobility Transfers Gait Activity Tolerance Assessment Summary Pt requiring min assist for sit>supine for RLE. SBA for bed mobility. CGA for short distance in room ambulating with FWW. Goals Bed Mobility Goal Standby Assistance Transfer Goal Standby Assistance Gait Goal Standby Assistance Gait Distance 50 Days to Meet Goals 5 Frequency of Treatment Frequency Of Treatment Once a Day Treatment Plan Physical Therapy Treatment Plan Bed Mobility Training Transfer Training Gait Training Therapeutic Exercise Balance Retraining Post Op Education Discharge Planning Hot or Cold Pack Neuromuscular Re-ed Coordination Retraining Manual Therapy Other Recommendations and Next Treatment transfers, ambulation Focus Recommendations To Nursing Amount of Assist Needed 1 Person Assist Discharge Recommendations PT Discharge Recommendations Home with 24/7 Assist Home Health SNF Rehab Other Discharge Recommendations SNF vs home with 24/7 assistance and home health services
[2018-07-09] MEDS: ROSUVASTATIN 10 MG TABLET PO (09:52)
[2018-07-09] MEDS: FINASTERIDE 5 MG TABLET PO (09:52)
[2018-07-09] MEDS: CARVEDILOL 12.5 MG TABLET PO ×2 (09:52→21:34)
[2018-07-09] MEDS: LACTOBACILLUS ACIDOPHILUS TABLET 1 EACH PO (09:52)
[2018-07-09] MEDS: POTASSIUM CHLORIDE 20 MEQ TAB 40 MEQ PO ×2 (10:04→17:19)
[2018-07-09] MEDS: PANTOPRAZOLE 40 MG VIAL IV (10:39)
--- NOTE | 2018-07-09 10:49 | DIET.PN ---
Follow up with pt today to discuss dietary habits at home and self glucose monitoring. Pt does not have a meter. States he feels he has had many episodes of hypoglycemia. Believes these are related to medications. Pt currently taking metformin and glimepiride, though it does not sound as though these are taken consistently. I am requesting a referral from Dr. Cox for outpatient diabetes education. I discussed side effects of DM meds with patient, specifically sulfonylureas and low blood sugar. Recommended pt consult with insurance on which meter/strips are covered and begin monitoring. Will follow up with Dr. oCx regarding referral and possible medication recs.
--- NOTE | 2018-07-09 11:03 | OT.IP.TRT ---
Current Diagnoses Pressure ulcer of sacral region, unspecified stage (07/07/18) Occupational Therapy Treatment Note M2 OT-IP Current Condition Start: 07/08/18 15:19 Freq: Status: Active Protocol: Document 07/08/18 17:03 [facility] (Rec: 07/08/18 17:45 [facility] [id number]) Occupational Therapy Current Condition Current Condition Evaluation Date 07/08/18 Treatment Diagnosis Acute respiratory failure Diagnosis Onset Date 07/07/18 M3 OT- IP Subjective and Pain Start: 07/08/18 15:19 Freq: Status: Active Protocol: Document 07/09/18 11:02 [facility] (Rec: 07/09/18 11:03 [facility] [id number]) OT- Subjective Occupational Therapy Visit Type Type Patient Refusal Notes Pt states had a rough night, busy morning and wanting to rest and not wanting to have OT treatment at this time.
--- NOTE | 2018-07-09 12:54 | PM.CN ---
History of Present Illness Date Patient Seen: 07/09/18 Time Patient Seen: 12:55 Chief complaint: SOB/decrease LOC Reason for consult: gluteal pressure ulcer Requesting provider: Samson Cox Narrative: The patient's been admitted for hypoglycemia and weakness noting his recurrent admissions over the past few months and half-way stay. I've been asked to review his left gluteal pressure ulcer that he states has been present for many months and describes as painful but not necessarily draining heavily. He has very limited mobility and sits in his recliner for extended periods when at home. [facility] Medical History Type 2 diabetes mellitus without complication (Chronic 10/25/15) Morbid obesity due to excess calories (Chronic 02/17/17) Cardiomyopathy (Chronic 04/21/13) Essential hypertension (Chronic 10/10/11) Mixed hyperlipidemia (Chronic 10/25/15) Edema (Chronic) Body mass index (BMI) of 45.0 to 49.9 in adult (Chronic 02/17/17) Gynecomastia (Chronic 03/30/17) Benign localized prostatic hyperplasia with lower urinary tract symptoms (LUTS) (Chronic 12/29/17) Type 2 diabetes mellitus with hyperglycemia (Chronic 10/10/11) Atrial fibrillation (Acute) C. 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 leisure activities: exercise (Walking the dogs.) and other (Gardening.) Smoking Status: Never smoker Tobacco: How many years used: 0 quit status: quit date established (Never Started) second hand exposure: Yes (None over the last 30 years) alcohol intake: never substance use type: does not use Meds Home Medications Medication Instructions Recorded Confirmed Type gabapentin [Neurontin] 600 mg PO HS #90 tab 07/01/17 07/07/18 Rx finasteride 5 mg PO QDAY #90 tab 08/31/17 07/07/18 Rx lisinopril 40 mg PO BID #180 tab 10/19/17 07/07/18 Rx rosuvastatin [Crestor] 10 mg PO QDAY #90 tab 11/05/17 07/07/18 Rx doxazosin 4 mg PO HS #90 tab 12/29/17 07/07/18 Rx pioglitazone [Actos] 30 mg PO QDAY #90 tab 02/01/18 07/07/18 Rx glimepiride [Amaryl] 4 mg PO BIDCC #180 tab 02/02/18 07/07/18 Rx metformin [Glucophage] 1,000 mg PO BIDCC #180 tab 03/11/18 07/07/18 Rx potassium chloride [Klor-Con M20] 40 meq PO BIDWM #60 tab 04/27/18 07/07/18 Rx Lactobacillus rhamnosus GG 1 cap PO DAILY 07/07/18 07/07/18 History [Culturelle] acetaminophen 1 tab PO PRN PRN 07/07/18 07/07/18 History aspirin 81 mg PO DAILY 07/07/18 07/07/18 History carvedilol 12.5 mg PO BID 07/07/18 07/07/18 History furosemide 40 mg PO BID 07/07/18 07/07/18 History melatonin 5 mg PO BEDTIME PRN 07/07/18 07/07/18 History nystatin 1 applic TOPICAL BID 07/07/18 07/07/18 History tramadol 1 tab PO Q8H PRN 07/07/18 07/07/18 History warfarin 2 mg PO QPM 07/07/18 07/07/18 History zinc oxide 1 applic TOPICAL DIRECTED 07/07/18 07/07/18 History Allergies Allergy/AdvReac Type Severity Reaction Status Date / Time atorvastatin [ATORVASTATIN] Allergy Mild flu like Verified 03/30/18 13:28 (LIPITOR) codeine [CODEINE] Allergy Mild Verified 03/30/18 13:28 Review of Systems Review of Systems All systems reviewed & are unremarkable except as noted in HPI and below Exam Vital Signs (past 8 hours): - 07/09/18 05:40 07/09/18 08:00 Temperature 99.1 F 97.5 F L Pulse Rate 87 108 H Respiratory Rate 16 18 Blood Pressure 120/60 123/73 Pulse Oximetry 97 96 Oxygen Delivery Method Room Air Oxygen Flow Rate 0 Skin Other: approx 2x6 cm linear ulcer extending to dermis with base covered with dry appearing yellow slough, minimal periulcer erythema and no evidence of deep tissue injury Objective Labs Result Diagrams: 07/09/18 05:36 07/09/18 05:36 Labs: Laboratory Results - last 24 hr 07/09/18 07/09/18 07/09/18 05:36 05:36 05:36 WBC 7.6 RBC 2.90 L Hgb 8.5 L Hct 26.1 L MCV 90.2 MCH 29.3 MCHC 32.5 RDW 17.5 H Plt Count 264 Neut % (Auto) 67.2 Lymph % (Auto) 14.7 L [place] % (Auto) 9.2 Eos % (Auto) 8.0 H Baso % (Auto) 0.9 Neut # (Auto) 5100 PT 22.8 H D INR 2.1 H Sodium 137 Potassium 4.7 Chloride 101 Carbon Dioxide 29 BUN 15 Creatinine 0.80 Estimated GFR > 60.0 BUN/Creatinine Ratio 18.8 Glucose 194 H D Calcium 9.2 Assessment & Plan (1) Pressure ulcer of contiguous region involving back and buttock, stage 2: Problem details: I've reviewed offloading measures with the patient both in the context of while in the hospital as well as when at home. He has a pressure relief mattress in hospital that he'll reportedly be able to take with him upon discharge. I've also recommended hydrating the ulcer base to facilitate effective debridement and we'll be happy to see him in the wound care clinic within 2-3 days of discharge. Current visit: Yes Status: Acute
[2018-07-09] MEDS: METFORMIN HCL 500 MG TABLET PO (17:15)
[2018-07-09] MEDS: WARFARIN 1 MG TABLET PO (17:15)
[2018-07-09] MEDS: GLIMEPIRIDE 2 MG TABLET 4 MG PO (17:15)
[2018-07-09] MEDS: CALCIUM CARBONATE 500 MG TAB 1000 MG PO (18:36)
[2018-07-09] MEDS: DOXAZOSIN 4 MG TABLET PO (21:34)
[2018-07-09] MEDS: GABAPENTIN 600 MG TABLET PO (21:35)
[2018-07-09] MEDS: MELATONIN 3 MG TABLET 6 MG PO (21:35)
[2018-07-10] VITALS (7 sets, daily range): BP systolic 92–121; BP diastolic 53–67; PULSE 62–103; RESP 16–24; TEMP 36.6–37.1; O2SAT 94–98
[2018-07-10 05:50] LABS: INR 1.9 (0.9-1.3); Prothrombin Time 20.9 SECONDS (10.1-12.7)
[2018-07-10 06:02] LABS: Blood Urea Nitrogen 12 mg/dL (9-20); Calcium 9.2 mg/dL (8.4-10.2); Carbon Dioxide 29 mmol/L (22-32); Chloride 104 mmol/L (98-107); Estimated Glomerular Filt Rate > 60.0 mL/min (>60); Glucose 105 mg/dL (80-110); HEMOLYSIS < 15 (0-50); Potassium 4.7 mmol/L (3.4-5.1); Sodium 139 mmol/L (137-145)
[2018-07-10] MEDS: PANTOPRAZOLE 40 MG TABLET PO (06:18)
[2018-07-10] MEDS: METFORMIN HCL 500 MG TABLET PO (09:06)
[2018-07-10] MEDS: GLIMEPIRIDE 2 MG TABLET 4 MG PO ×2 (09:06→17:02)
[2018-07-10] MEDS: LACTOBACILLUS ACIDOPHILUS TABLET 1 EACH PO (09:06)
[2018-07-10] MEDS: CARVEDILOL 12.5 MG TABLET PO ×2 (09:07→21:16)
[2018-07-10] MEDS: ROSUVASTATIN 10 MG TABLET PO (09:07)
[2018-07-10] MEDS: FINASTERIDE 5 MG TABLET PO (09:07)
[2018-07-10] MEDS: POTASSIUM CHLORIDE 20 MEQ TAB 40 MEQ PO ×2 (09:12→17:19)
--- NOTE | 2018-07-10 10:04 | PM.PN.1 ---
Subjective Date Patient Seen: 07/10/18 Time Patient Seen: 09:04 Interval history: The patient self is active. Reasonable. He has some major concerns about his blood sugar. Appetite is good tolerating food well. Apparently has some nausea yesterday that has resolved x-ray showed a distended stomach but otherwise no obstruction Patient has no pulmonary complaints. Left sacral ulcer being managed and he self manages by acute by off lifting. Has not been terribly mobile however. Has questions about the need for his Hooper catheter. He is on 2 medications for same. We will up the dose of his doctors as in the Patient unaware of any anemia and chart shows persistent anemia since March Overall patient doing better main issue is his low blood sugar and his medications Exam Vital Signs (past 8 hours): - 07/10/18 04:15 07/10/18 07:40 Temperature 98.7 F 98.3 F Pulse Rate 77 81 Respiratory Rate 24 16 Blood Pressure 109/54 L 111/57 L Pulse Oximetry 95 96 Oxygen Delivery Method Room Air Oxygen Flow Rate 0 Narrative Exam Narrative: The patient is resting quietly in bed with he appears in no distress the position in bed is such that he is tilted toward the right taking pressure off his left sacral area. Chest exam is clear abdomen is soft Urine is clear Objective Labs Result Diagrams: 07/09/18 05:36 07/10/18 05:08 Labs: Laboratory Results - last 24 hr 07/10/18 07/10/18 05:08 05:08 PT 20.9 H INR 1.9 H Sodium 139 Potassium 4.7 Chloride 104 Carbon Dioxide 29 BUN 12 Creatinine 0.80 Estimated GFR > 60.0 BUN/Creatinine Ratio 15.0 Glucose 105 Calcium 9.2 Hemoglobin hematocrit reviewed and unchanged since March he was having hematuria at the time can be she is oriented or 400 was approximately 90 is asymptomatic at the time. Assessment & Plan Plan: Assessment/Plan Narrative: 1. Diabetes management still somewhat problematic. Apparently is metformin and glimepiride were started at the usual dose last evening. He only required 1 unit of insulin yesterday for coverage. He seemed to have legitimate concerns about low blood sugar he relates that his episodes in the past from hypoglycemia is been in the morning. We will stop his metformin for the time being continue on glimepiride continue to monitor blood sugars as per protocol 2. Pulmonary embolism being managed by and anticoagulation seems stable 3. Bladder outlet obstruction presumably from November prostate patient being followed by Urology. Will increase dose of doxazosin continue with Hooper 4. Sacral ulcer being managed primarily by off loading He is being followed by wound clinic. when patient discharged will be seen in wound clinic and perhaps have some debridement 5. Chronic anemia yet to be determined apparently non issue at this time. 6. Atrial fibrillation stable Because of his prior issues with hypoglycemia will continue to monitor here and have physical therapy be involved. Anticipate 2-3 more days here unclear where he will be discharged to however [facility] Deep Vein Thrombosis/Pulmonary Embolism Present on Admission: No
[2018-07-10] MEDS: ACETAMINOPHEN 325 MG TABLET 650 MG PO ×2 (11:14→20:38)
[2018-07-10] MEDS: INSULIN ASPART 100 UNIT/ML INSULN PEN SUBCUT (12:36)
--- NOTE | 2018-07-10 14:24 | OT.IP.TRT ---
Current Diagnoses Pressure ulcer of sacral region, unspecified stage (07/07/18) Pressure ulcer of contiguous site of back, buttock and hip, stage 2 (07/07/18) Occupational Therapy Treatment Note M2 OT-IP Current Condition Start: 07/08/18 15:19 Freq: Status: Active Protocol: Document 07/08/18 17:03 [facility] (Rec: 07/08/18 17:45 [facility] [id number]) Occupational Therapy Current Condition Current Condition Evaluation Date 07/08/18 Treatment Diagnosis Acute respiratory failure Diagnosis Onset Date 07/07/18 M3 OT- IP Subjective and Pain Start: 07/08/18 15:19 Freq: Status: Active Protocol: Document 07/10/18 14:07 [facility] (Rec: 07/10/18 14:23 [facility] [id number]) OT- Subjective Occupational Therapy Visit Type Type Treatment Note Occupational Therapy Visit Comments Patient Comments Pt just got up eariler and wanting to stay in bed, rest and watch the game. OT Pain Assessment Pain When Pain Assessed At Rest Pain Present Pain Present Denied Pain M4 OT- IP ADL's Start: 07/08/18 15:19 Freq: Status: Active Protocol: Document 07/10/18 14:07 [facility] (Rec: 07/10/18 14:23 [facility] [id number]) OT ADL-Dressing Comments OT Dressing Comments Pt states will have caregiver 20/04 to assist with all need of ADL's. Currently the caregiver is helping his . OT ADL-Toileting Comments OT Toileting Comments At this time due to sacral decubitus, would be beneficial to have assist for hygiene. M5 OT- IP IADL's Start: 07/08/18 15:19 Freq: Status: Active Protocol: Document 07/08/18 17:03 [facility] (Rec: 07/08/18 17:45 [facility] [id number]) OT-Instrumental Activities of Daily Living Meal Preparation Meal Preparation Comments Pt has hired assist to help at this time. Outcomes Manager Outcomes Manager Comments Pt has hired assist at this time. M6 OT- IP Functional Cognition Start: 07/08/18 15:19 Freq: Status: Active Protocol: Document 07/08/18 17:03 [facility] (Rec: 07/08/18 17:45 [facility] [id number]) Cognitive Factors Limiting Selfcare Function Cognitive Ability Level of Alertness Alert Patient Orientation Name Age Birthday Month Date Year Place Situation Attention Span Ability Capable of Focused Attention Capable of Sustained Attention Ability to Follow Commands Able to Follow Multi-Step Commands Memory Description No Deficits Noted Safety Awareness Underestimates Need for Assistance Cognitive Comments Cognitive Assessment Comments Pt able to follow multiple commands. Pt needing vc to push up from the recliner. OT- Vision and Hearing OT- Hearing Assessment OT- Hearing Assessment WFL OT- Vision Assessment Visual Acuity WFL Summary Progress Towards Goals Slow Progress due to Pain Slow Progress due to Medical Issues Slow Progress due to Activity Tolerance Assessment Summary Pt continues to have decreased activity tolerance and needing extensive assist for ADL needs. Pt states will have 24/7 hired assist for all needs. Goals Bathing Goal Moderate Assistance Toilet Transfer Goal Standby Assistance Shower Transfer Goal Minimal Assistance Patient/Caregiver Education Goal Caregiver Independent Assisting Patient OT-Other Goals Energy conservation, ADL equpiment needs, Days to Meet Goals 7 Frequency of Treatment Frequency Of Treatment Once a Day Treatment Plan OT Treatment Plan ADL Training Functional Mobility Patient/Family Education Discharge Planning Other Treatment Recommendations and Next Standing at sink for grooming, Treatment Focus BSC transfer, dressing with AED Discharge Recommendations OT Discharge Recommendations Home with 24/7 Assist SNF Rehab Other Discharge Recommendations Pt states will have 24/7 assist at home.
--- NOTE | 2018-07-10 15:13 | CM.DPC ---
DCP Cont: Spoke to patient today regarding discharge plan. Stated that he still wishes to go with [facility] to enable him to go home. He is also to follow up at wound clinic. Patient is alert and oriented, and stated that he has a caregiver come into his home to care for his . Patient is also continuing to work with physical therapy. His biggest concerns is getting his blood sugar stable, for he mentioned that this has been a problem for him. He is hoping that they can adjust his medications in this perspective, so he does not continue to have hypoglycemic incidents. P: DCP to continue to assess and follow. Plan is for home health upon discharge. Sia Black RN/Direct Selling Counselor
[2018-07-10 15:18] LABS: Insulin Level Total 59.8 uIU/mL (2.0-19.6)
--- NOTE | 2018-07-10 15:50 | PT.IPTN ---
Current Diagnoses Pressure ulcer of sacral region, unspecified stage (07/07/18) Pressure ulcer of contiguous site of back, buttock and hip, stage 2 (07/07/18) Physical Therapy Treatment Note M2 PT-IP Current Condition Start: 07/08/18 16:55 Freq: NEEDED Status: Active Protocol: Document 07/08/18 15:30 AB (Rec: 07/08/18 17:33 AB [id number]) Physical Therapy Current Condition Current Condition Evaluation Date 07/08/18 Treatment Diagnosis hypoglycemia; generalized weakness Onset Date 07/07/18 Precautions Other Precautions falls M3 PT-IP Subjective Start: 07/08/18 16:55 Freq: NEEDED Status: Active Protocol: Document 07/10/18 15:49 [facility] (Rec: 07/10/18 15:50 [facility] [id number]) Subjective Physical Therapy Visit Type Type Patient Refusal Notes Pt states he been up today and work with therapy yesterday. He would like to rest and watch the game on TV. Recommendations To Nursing Amount of Assist Needed 1 Person Assist Discharge Recommendations PT Discharge Recommendations Home with 24/7 Assist Home Health SNF Rehab Other Discharge Recommendations SNF vs home with 24/7 assistance and home health services
[2018-07-10] MEDS: WARFARIN 1 MG TABLET PO (17:04)
--- NOTE | 2018-07-10 18:07 | PC.NURSE ---
Pt prefers positioning on right side in bed. States difficult to turn onto left side. Denies pain. Taking diet well. BL calf scd's in place. Several scabbed abrasions to BL LE's. Hooper in place and secured. Encouraged to call for needs.
[2018-07-10] MEDS: DOXAZOSIN 4 MG TABLET 8 MG PO (21:16)
[2018-07-10] MEDS: GABAPENTIN 600 MG TABLET PO (21:17)
[2018-07-10] MEDS: MELATONIN 3 MG TABLET 6 MG PO (21:18)
[2018-07-11] VITALS (11 sets, daily range): BP systolic 95–117; BP diastolic 54–67; PULSE 66–93; RESP 16–24; TEMP 36.4–36.9; O2SAT 93–97
--- NOTE | 2018-07-11 01:13 | PC.NURSE ---
0050 Checked pt. to do shift assessment, but he's sound asleep. Will monitor & assess him when he wakes up.
--- NOTE | 2018-07-11 02:15 | PC.NURSE ---
Checked CBG only 69, requested peanut butter & jelly sandwich & milk. Refused any juice, requested to recheck his glucose between [id number]. Will monitor.
[2018-07-11] MEDS: ACETAMINOPHEN 325 MG TABLET 650 MG PO ×2 (02:54→07:57)
[2018-07-11 05:43] LABS: Add Manual Diff / Slide Review NO; Eosinophils Percent Auto 6.3 % (2-4); Hematocrit 25.1 % (41-53); Hemoglobin 8.2 g/dL (13.5-17.5); Lymphocytes Percent Auto 24.2 % (25-40); Mean Corpuscular HGB Conc 32.7 % (30-36); Mean Corpuscular Hemoglobin 29.7 PG (26-34); Mean Corpuscular Volume 90.8 fL (80-100); Monocytes Percent Auto 9.2 % (3-14); Neutrophils Absolute Auto 3900 /uL (3000-5900); Neutrophils Percent Auto 59.3 % (50-75); Platelet Count 263 X10^3/uL (150-400); Red Blood Cell Count 2.76 X10^6/uL (4.5-5.9); Red Cell Distribution Width 17.1 % (11.6-14.8); White Blood Cell Count 6.6 X10^3/uL (4.5-11.0)
[2018-07-11 05:47] LABS: BUN Creatinine Ratio 22.5 (6-22); Blood Urea Nitrogen 18 mg/dL (9-20); Carbon Dioxide 29 mmol/L (22-32); Chloride 106 mmol/L (98-107); Estimated Glomerular Filt Rate > 60.0 mL/min (>60); Glucose 110 mg/dL (80-110); HEMOLYSIS < 15 (0-50); Potassium 4.4 mmol/L (3.4-5.1); Sodium 140 mmol/L (137-145)
[2018-07-11] MEDS: PANTOPRAZOLE 40 MG TABLET PO (06:30)
[2018-07-11] MEDS: TRAMADOL 50 MG TABLET PO (06:33)
--- NOTE | 2018-07-11 06:39 | PC.NURSE ---
Pt. declined assistance to turn to his back & lt. side. States I'm comfortable laying on my right side. C/O RLE pain too early for a dose of Tylenol. Requested to wrap his RLE with warm blanket done & requested Tramadol 50 mg. admin. Will monitor.
[2018-07-11] MEDS: ROSUVASTATIN 10 MG TABLET PO (07:59)
[2018-07-11] MEDS: FINASTERIDE 5 MG TABLET PO (07:59)
[2018-07-11] MEDS: CARVEDILOL 12.5 MG TABLET PO ×2 (07:59→20:08)
[2018-07-11] MEDS: LACTOBACILLUS ACIDOPHILUS TABLET 1 EACH PO (07:59)
[2018-07-11] MEDS: POTASSIUM CHLORIDE 20 MEQ TAB 40 MEQ PO ×2 (08:02→17:15)
[2018-07-11] MEDS: SODIUM CHLORIDE 0.9% FLUSH 10 ML IV ×2 (08:02→20:06)
--- NOTE | 2018-07-11 10:02 | P.PN_ITS ---
Subjective Date Patient Seen: 07/11/18 Time Patient Seen: 08:59 Interval history: The patient basically is concerned about his low blood sugar. He has ?confused? about the medications. With right dose. But the right medication. He apparently had a low blood sugar on routine blood tests this morning at 4:00 a.m. was given a peanut butter sandwich and apparently his blood sugars later this morning was over 100. Patient was asymptomatic at the time. Otherwise patient is pretty much status quo sources other issues Exam Vital Signs (past 8 hours): - 07/11/18 03:25 07/11/18 07:50 Temperature 98.1 F 98.4 F Pulse Rate 85 70 Respiratory Rate 22 18 Blood Pressure 95/56 L 107/54 L Pulse Oximetry 94 97 Oxygen Delivery Method Room Air Oxygen Flow Rate 0 Narrative Exam Narrative: Exam today is was yesterday. Appears in no distress resting quietly of leaning on his right side offloading his left sacral area. Lungs clear heart regular rhythm Objective Labs Result Diagrams: 07/11/18 05:20 07/11/18 05:20 Labs: Laboratory Results - last 24 hr 07/07/18 07/11/18 07/11/18 20:54 05:20 05:20 WBC 6.6 RBC 2.76 L Hgb 8.2 L Hct 25.1 L MCV 90.8 MCH 29.7 MCHC 32.7 RDW 17.1 H Plt Count 263 Neut % (Auto) 59.3 Lymph % (Auto) 24.2 L [place] % (Auto) 9.2 Eos % (Auto) 6.3 H Baso % (Auto) 1.0 Neut # (Auto) 3900 Sodium 140 Potassium 4.4 Chloride 106 Carbon Dioxide 29 BUN 18 Creatinine 0.80 Estimated GFR > 60.0 BUN/Creatinine Ratio 22.5 H Glucose 110 Total Insulin 59.8 H Calcium 9.0 labs reviewed as above Assessment & Plan Plan: Assessment/Plan Narrative: 1. Patient has some balance concerns about blood sugar. It is still unclear what would be the appropriate medication doses for him. As he stated several times he has problems early in the morning when he has hypoglycemia. He was found to have hypoglycemia middle night here. Will therefore discontinue the evening dose of his glimepiride have stopped metformin yesterday. Will continue on glimepiride 4 mg daily anticipate as he gets home ARB eating differently and during activity medications will then of the reassessed. Para 2. Sacral ulcer apparently stable In point here unclear but presumably be discharged shortly by [facility] Deep Vein Thrombosis/Pulmonary Embolism Present on Admission: No
[2018-07-11] MEDS: GLIMEPIRIDE 2 MG TABLET 4 MG PO ×2 (10:07→17:14)
[2018-07-11] MEDS: INSULIN ASPART 100 UNIT/ML INSULN PEN SUBCUT ×2 (12:07→17:16)
--- NOTE | 2018-07-11 15:36 | PC.NURSE ---
Pt reported skin tear on left forearm/elbow. Area cleaned of blood and allevyn dressing placed. Wound is about 1 cm round.
--- NOTE | 2018-07-11 15:58 | PT.IPTN ---
Current Diagnoses Pressure ulcer of sacral region, unspecified stage (07/07/18) Pressure ulcer of contiguous site of back, buttock and hip, stage 2 (07/07/18) Physical Therapy Treatment Note M2 PT-IP Current Condition Start: 07/08/18 16:55 Freq: NEEDED Status: Active Protocol: Document 07/08/18 15:30 AB (Rec: 07/08/18 17:33 AB [id number]) Physical Therapy Current Condition Current Condition Evaluation Date 07/08/18 Treatment Diagnosis hypoglycemia; generalized weakness Onset Date 07/07/18 Precautions Other Precautions falls M3 PT-IP Subjective Start: 07/08/18 16:55 Freq: NEEDED Status: Active Protocol: Document 07/11/18 14:20 CLB (Rec: 07/11/18 15:58 CLB [id number]) Subjective Physical Therapy Visit Type Type Treatment Note Visit Start Time 14:20 Visit Stop Time 14:45 Total Visit Minutes 25 Number of RED CROSS WORKER Visits 3 Physical Therapy Visit Comments Patient Comments pt agreed to get up M4 PT-IP Mobility and Gait Start: 07/08/18 16:55 Freq: NEEDED Status: Active Protocol: Document 07/11/18 14:20 CLB (Rec: 07/11/18 15:58 CLB [id number]) PT-Bed Mobility Assessment Supine to Sit Supine to Sit Contact Guard Assistance 1 Person Assistance Head of Bed Elevated Sit to Supine Sit to Supine Minimal Assistance 2 Person Assistance Scooting Scooting to Edge of Bed Standby Assistance PT-Transfer Assessment Sit to and From Stand Sit to and from Stand Minimal Assistance Equipment Transfer Assistive Device Gait Belt Front Wheeled Walker Orthotic/Prosthetic Devices or Brace: No Transfers Transfer Destination Bed Chair Transfer Technique Stand Step Pivot Comments Mobility Comments Pt needed Min A getting up from window seat but not from bed. Gait Assessment Gait Gait Assistance Required: Contact Guard Assist Distance (Feet) 45 Able to Maintain Weight Bearing Status Yes During Gait Assistive Devices Assistive Device Gait Belt Front Wheeled Walker Orthotic/Prosthetic Devices or Brace: No Gait Deviations General Gait Pattern Antalgic Decreased Stride Length Decreased Feet Clearance Factors Limiting Gait Function Factors Limiting Gait Function Decreased Activity Tolerance Decreased Strength Limited Range of Motion Poor Balance Comments Gait Comments Pt able to ambulate in room CGA from door to window seat for rest break x3 ~45ft. M5 PT-IP Objective Assessments Start: 07/08/18 16:55 Freq: NEEDED Status: Active Protocol: Document 07/08/18 15:30 AB (Rec: 07/08/18 17:33 AB [id number]) Orientation Orientation/Cognition Level of Alertness Alert Orientation Name Age Place Situation Safety Awareness Decreased Safety Awareness Gross Range of Motion Lower Extremity ROM Assessment Right Impaired Strength Lower Extremity Strength Assessment Bilaterally Impaired Comments Strength Comments RLE grossly graded: 3+/5 LLE 4-/5 M6 PT-IP Treatment Start: 07/08/18 16:55 Freq: NEEDED Status: Active Protocol: Document 07/09/18 09:02 LJ (Rec: 07/09/18 09:51 LJ [id number]) Physical Therapy Treatment Exercises Exercises Ankle Pumps Gluteal Sets Quad Sets Straight Leg Raises Education Education Provided Safety M7 PT-IP Assessment and Plan Start: 07/08/18 16:55 Freq: NEEDED Status: Active Protocol: Document 07/11/18 14:20 CLB (Rec: 07/11/18 15:58 CLB [id number]) PT Summary Assessment and Plan Summary Impairments ROM Strength Balance Bed Mobility Transfers Gait Activity Tolerance Assessment Summary Pt improving with bed mobility and gait distance. Pt needed 2 rest breaks at window seat during gait. Goals Bed Mobility Goal Standby Assistance Transfer Goal Standby Assistance Gait Goal Standby Assistance Gait Distance 50 Days to Meet Goals 5 Frequency of Treatment Frequency Of Treatment Once a Day Treatment Plan Physical Therapy Treatment Plan Bed Mobility Training Transfer Training Gait Training Therapeutic Exercise Balance Retraining Post Op Education Discharge Planning Hot or Cold Pack Neuromuscular Re-ed Coordination Retraining Manual Therapy Other Recommendations and Next Treatment transfers, ambulation Focus Recommendations To Nursing Amount of Assist Needed 1 Person Assist Discharge Recommendations PT Discharge Recommendations Home with 24/7 Assist Home Health SNF Rehab Other Discharge Recommendations SNF vs home with 24/7 assistance and home health services
[2018-07-11] MEDS: WARFARIN 1 MG TABLET PO (17:16)
[2018-07-11] MEDS: GABAPENTIN 600 MG TABLET PO (20:04)
[2018-07-11] MEDS: MELATONIN 3 MG TABLET 6 MG PO (20:05)
[2018-07-11] MEDS: DOXAZOSIN 4 MG TABLET 8 MG PO (20:06)
[2018-07-12] VITALS (11 sets, daily range): BP systolic 108–132; BP diastolic 57–67; PULSE 78–113; RESP 16–20; TEMP 36.3–37.2; O2SAT 94–97
--- NOTE | 2018-07-12 08:10 | PM.PN.1 ---
Subjective Date Patient Seen: 07/12/18 Time Patient Seen: 08:10 Interval history: Patient with uneventful weekend. Still had some hypoglycemia over the weekend and his diabetic medications have been further change Up a little bit with physical therapy. They feel like he can probably go home with home health physical therapy and 24/7 caregivers. That would be his preference. Exam Vital Signs (past 8 hours): - 07/12/18 00:55 07/12/18 04:15 Temperature 97.9 F 98.1 F Pulse Rate 85 85 Respiratory Rate 20 20 Blood Pressure 118/65 108/57 L Pulse Oximetry 97 95 Oxygen Delivery Method Room Air Oxygen Flow Rate 0 Objective Labs Result Diagrams: 07/11/18 05:20 07/11/18 05:20 Assessment & Plan Plan: Assessment/Plan Narrative: 1. GI symptoms-much better from a GI standpoint. Nothing serious occurred over the weekend. 2. Hypoglycemia-recurrent hypoglycemia back on his oral sulfonylurea as well as metformin. The most likely culprit of course would be the glimepiride. I will discontinue that in favor of very low-dose metformin once a day in the morning. 3. Atrial fibrillation-controlled rate. 4. History pulmonary embolism on warfarin-patient's protime barely within therapeutic range. Will go back to a slightly higher dose of warfarin with 2 mg 3 days week 5. Sacral decubitus-being cared for appropriately here in the hospital and will need wound care clinic follow-up upon discharge. 6. Weakness etc-continue with physical therapy occupational therapy. I am not convinced the going home is appropriate as I am not convinced patient will have 24/7 caregivers available to him. Both he and his are disabled as she has her own medical issues and he has been the primary caregiver which is 1 of the driving force is for him to return home. He will need to be in the hospital another day or 2 while we sort out his blood sugar issue so he may have an opportunity to improve a bit more making going home a more appropriate option. Note: Greater than 30 minutes was spent evaluating the patient on the floor, including examining the patient, discussing clinical course with clinical and nursing staff, reviewing clinical course in the computer, preparing documentation and writing orders for continued management of care, discussing status with family as appropriate, reviewing plans for the next 24 hours with both patient/family and nursing staff as appropriate. Quality VTE Deep Vein Thrombosis/Pulmonary Embolism Present on Admission: No
[2018-07-12] MEDS: LACTOBACILLUS ACIDOPHILUS TABLET 1 EACH PO (08:30)
[2018-07-12] MEDS: POTASSIUM CHLORIDE 20 MEQ TAB 40 MEQ PO ×2 (08:30→17:12)
[2018-07-12] MEDS: ROSUVASTATIN 10 MG TABLET PO (08:30)
[2018-07-12] MEDS: CARVEDILOL 12.5 MG TABLET PO ×2 (08:30→20:28)
[2018-07-12] MEDS: FINASTERIDE 5 MG TABLET PO (08:30)
[2018-07-12] MEDS: PANTOPRAZOLE 40 MG TABLET PO (08:36)
[2018-07-12] MEDS: METFORMIN HCL 500 MG TABLET PO (09:20)
[2018-07-12] MEDS: FUROSEMIDE 40 MG TABLET PO (10:30)
[2018-07-12] MEDS: SODIUM CHLORIDE 0.9% FLUSH 10 ML IV ×2 (10:31→20:25)
--- NOTE | 2018-07-12 14:02 | PC.NURSE ---
Pt appears in good spirits today - denies pain, alert and oriented. Hooper removed and pt has voided 550 cc/hr since then. Pt anticipates home tomorrow if blood glucose levels are maintained.
--- NOTE | 2018-07-12 15:45 | PT.IPTN ---
Current Diagnoses Pressure ulcer of sacral region, unspecified stage (07/07/18) Pressure ulcer of contiguous site of back, buttock and hip, stage 2 (07/07/18) Physical Therapy Treatment Note M2 PT-IP Current Condition Start: 07/08/18 16:55 Freq: NEEDED Status: Active Protocol: Document 07/08/18 15:30 AB (Rec: 07/08/18 17:33 AB [id number]) Physical Therapy Current Condition Current Condition Evaluation Date 07/08/18 Treatment Diagnosis hypoglycemia; generalized weakness Onset Date 07/07/18 Precautions Other Precautions falls M3 PT-IP Subjective Start: 07/08/18 16:55 Freq: NEEDED Status: Active Protocol: Document 07/12/18 15:45 DLM (Rec: 07/12/18 15:56 DLM [id number]) Subjective Physical Therapy Visit Type Type Treatment Note Visit Start Time 15:25 Visit Stop Time 15:45 Total Visit Minutes 20 Number of TUG MASTER Visits 0 Physical Therapy Visit Comments Patient Comments He reports the plan is home tomorrow. He will have a 24 hour caregiver to assist as needed. He has an appointment with the wound clinic. Patient Goals discharge home M4 PT-IP Mobility and Gait Start: 07/08/18 16:55 Freq: NEEDED Status: Active Protocol: Document 07/12/18 15:45 DLM (Rec: 07/12/18 15:56 DLM [id number]) PT-Bed Mobility Assessment Rolling Type of Rolling Roll to Left Level of Assist Independent Sit to Supine Sit to Supine Minimal Assistance PT-Transfer Assessment Sit to and From Stand Sit to and from Stand Standby Assistance Equipment Transfer Assistive Device Front Wheeled Walker Transfers Transfer Destination Bed Transfer Technique Stand Step Pivot Transfer Ability Level of Assist Standby Assistance Gait Assessment Gait Gait Assistance Required: Standby Assistance Distance (Feet) 20 Assistive Devices Assistive Device Front Wheeled Walker Factors Limiting Gait Function Factors Limiting Gait Function Decreased Activity Tolerance PT-Balance Assessment Sitting Balance and Reactions Static Sitting Balance Ability Good Dynamic Sitting Balance Ability Good Standing Balance and Reactions Static Standing Balance Ability Good Dynamic Standing Balance Ability Good Device Used FWW M5 PT-IP Objective Assessments Start: 07/08/18 16:55 Freq: NEEDED Status: Active Protocol: Document 07/08/18 15:30 AB (Rec: 07/08/18 17:33 AB [id number]) Orientation Orientation/Cognition Level of Alertness Alert Orientation Name Age Place Situation Safety Awareness Decreased Safety Awareness Gross Range of Motion Lower Extremity ROM Assessment Right Impaired Strength Lower Extremity Strength Assessment Bilaterally Impaired Comments Strength Comments RLE grossly graded: 3+/5 LLE 4-/5 M6 PT-IP Treatment Start: 07/08/18 16:55 Freq: NEEDED Status: Active Protocol: Document 07/12/18 15:45 DLM (Rec: 07/12/18 15:56 DL [id number]) Physical Therapy Treatment Exercises Exercises Ankle Pumps Seated Knee Flexion/Extension Education Education Provided Safety Other Treatments Other Treatment Performed discussed home plan and safety issues with patient M7 PT-IP Assessment and Plan Start: 07/08/18 16:55 Freq: NEEDED Status: Active Protocol: Document 07/12/18 15:45 DLM (Rec: 07/12/18 15:56 DL [id number]) PT Summary Assessment and Plan Summary Progress Towards Goals Progressing Toward Goals Assessment Summary He continues to progress with his gait and activity tolerance. Pt just finished with OT and was up with OT also. He describes having a good discharge plan at home. Continue to recommend home nusrat PT. Frequency of Treatment Frequency Of Treatment Once a Day Treatment Plan Physical Therapy Treatment Plan Bed Mobility Training Transfer Training Gait Training Therapeutic Exercise Balance Retraining Discharge Planning Recommendations To Nursing Amount of Assist Needed 1 Person Assist Discharge Recommendations PT Discharge Recommendations Home with 20/04 Assist Home Health
--- NOTE | 2018-07-12 15:52 | OT.IP.TRT ---
Current Diagnoses Pressure ulcer of sacral region, unspecified stage (07/07/18) Pressure ulcer of contiguous site of back, buttock and hip, stage 2 (07/07/18) Occupational Therapy Treatment Note M2 OT-IP Current Condition Start: 07/08/18 15:19 Freq: Status: Active Protocol: Document 07/08/18 17:03 [facility] (Rec: 07/08/18 17:45 [facility] [id number]) Occupational Therapy Current Condition Current Condition Evaluation Date 07/08/18 Treatment Diagnosis Acute respiratory failure Diagnosis Onset Date 07/07/18 M3 OT- IP Subjective and Pain Start: 07/08/18 15:19 Freq: Status: Active Protocol: Document 07/12/18 15:44 [facility] (Rec: 07/12/18 15:51 [facility] [id number]) OT- Subjective Occupational Therapy Visit Type Type Treatment Note Visit Start Time 15:10 Visit Stop Time 15:40 Total Visit Minutes 30 Occupational Therapy Visit Comments Patient/Caregiver Goals Pt stated feeling good to go home with home health and 24 caregiver. OT Pain Assessment Pain When Pain Assessed At Rest Pain Present Pain Present Denied Pain M4 OT- IP ADL's Start: 07/08/18 15:19 Freq: Status: Active Protocol: Document 07/10/18 14:07 [facility] (Rec: 07/10/18 14:23 [facility] [id number]) OT ADL-Dressing Comments OT Dressing Comments Pt states will have caregiver 7 to assist with all need of ADL's. Currently the caregiver is helping his . OT ADL-Toileting Comments OT Toileting Comments At this time due to sacral decubitus, would be beneficial to have assist for hygiene. M5 OT- IP IADL's Start: 07/08/18 15:19 Freq: Status: Active Protocol: Document 07/08/18 17:03 [facility] (Rec: 07/08/18 17:45 [facility] [id number]) OT-Instrumental Activities of Daily Living Meal Preparation Meal Preparation Comments Pt has hired assist to help at this time. Souvenir Assembler Souvenir Assembler Comments Pt has hired assist at this time. M6 OT- IP Functional Cognition Start: 07/08/18 15:19 Freq: Status: Active Protocol: Document 07/12/18 15:44 [facility] (Rec: 07/12/18 15:51 [facility] [id number]) Cognitive Factors Limiting Selfcare Function Cognitive Ability Level of Alertness Alert Patient Orientation Name Age Birthday Month Date Year Place Situation Attention Span Ability Capable of Focused Attention Capable of Sustained Attention Ability to Follow Commands Able to Follow Multi-Step Commands Memory Description No Deficits Noted Safety Awareness No Deficits Noted Cognitive Comments Cognitive Assessment Comments Pt good safety awareness, realistic for needs at home, and appropriate questions to ask. M7 OT- IP Mobility and Balance Start: 07/08/18 15:19 Freq: Status: Active Protocol: Document 07/12/18 15:44 [facility] (Rec: 07/12/18 15:51 [facility] [id number]) OT- Bed Mobility Assessment Rolling Type of Rolling Roll to Right Level of Assistance Standby Assistance Supine to Sit Supine to Sit Assist Standby Assistance Sit to Supine Sit to Supine Assist Minimal Assistance OT-Transfer Assessment Sit to and From Stand Sit to and from Stand Standby Assistance Contact Guard Assistance Transfers Transfer Ability Contact Guard Assistance Technique Transfer Destination Bed Transfer Technique Stand Step Pivot Devices Transfer Assistive Devices Gait Belt Front Wheeled Walker Comments Mobility Comments Pt doing much better with lower surface and able to lexi with CGA now. Pt still needing TERESA to help get his legs back to the bed from sitting. OT- Balance Assessment Sitting Balance and Reactions Static Sitting Balance Ability Normal Dynamic Sitting Balance Ability Normal Standing Balance and Reactions Static Standing Balance Ability Good Dynamic Standing Balance Ability Fair M8 OT- IP Objective Assessments Start: 07/08/18 15:19 Freq: Status: Active Protocol: Document 07/08/18 17:03 [facility] (Rec: 07/08/18 17:45 [facility] [id number]) OT Gross Range of Motion Upper Extremity Range of Motion ROM Impairments Decreased AROM 0-90 for RUE, and LUE 0-100. OT Strength Comments Strength Comments Pt BUE strength 4/5 for RUE and 4-/5 for LUE. M9 OT- IP Assessment and Plan Start: 07/08/18 15:19 Freq: Status: Active Protocol: Document 07/12/18 15:44 [facility] (Rec: 07/12/18 15:51 [facility] [id number]) OT Summary Assessment and Plan Potential Rehabilitation Potential Good Analytic Complexity at Evaluation Low Summary OT Impairments Pain Functional Mobility Dressing Toileting Bathing Toilet Transfers Shower Transfers Progress Towards Goals Progressing Toward Goals Slow Progress due to Medical Issues Goals Days to Meet Goals 3 Frequency of Treatment Frequency Of Treatment Once a Day Treatment Plan OT Treatment Plan ADL Training Functional Mobility Patient/Family Education Discharge Planning Other Treatment Recommendations and Next family training Treatment Focus Discharge Recommendations OT Discharge Recommendations Home with 24/7 Assist Home Health Other Discharge Recommendations Pt states will have 24/7 assist at home. Home Equipment Needs Pt has all AED and OT equipment needs and 24/7 caregiver to assist along with home health. Pt has wc cushion at home.
[2018-07-12] MEDS: WARFARIN 2 MG TABLET PO (17:12)
[2018-07-12] MEDS: DOXAZOSIN 4 MG TABLET 8 MG PO (20:29)
[2018-07-12] MEDS: MELATONIN 3 MG TABLET 6 MG PO (20:30)
[2018-07-12] MEDS: GABAPENTIN 600 MG TABLET PO (20:30)
[2018-07-12] MEDS: ACETAMINOPHEN 325 MG TABLET 650 MG PO (20:30)
[2018-07-13] VITALS (10 sets, daily range): BP systolic 99–118; BP diastolic 52–69; PULSE 76–97; RESP 18–22; TEMP 36.5–37; O2SAT 93–97
[2018-07-13 06:01] LABS: INR 1.4 (0.9-1.3); Prothrombin Time 15.7 SECONDS (10.1-12.7)
[2018-07-13 06:03] LABS: Hematocrit 26.1 % (41-53); Hemoglobin 8.6 g/dL (13.5-17.5)
[2018-07-13 06:08] LABS: BUN Creatinine Ratio 24.4 (6-22); Blood Urea Nitrogen 22 mg/dL (9-20); Calcium 9.3 mg/dL (8.4-10.2); Carbon Dioxide 28 mmol/L (22-32); Chloride 106 mmol/L (98-107); Estimated Glomerular Filt Rate > 60.0 mL/min (>60); Glucose 104 mg/dL (80-110); HEMOLYSIS < 15 (0-50); Potassium 3.9 mmol/L (3.4-5.1); Sodium 141 mmol/L (137-145)
[2018-07-13] MEDS: PANTOPRAZOLE 40 MG TABLET PO (06:45)
--- NOTE | 2018-07-13 07:53 | PM.PN.1 ---
Subjective Date Patient Seen: 07/13/18 Time Patient Seen: 07:53 Interval history: Patient really has no complaints this morning uneventful day yesterday. No more hypoglycemia yesterday. Had his urinary catheter removed and no difficulty emptying his bladder Exam Vital Signs (past 8 hours): - 07/13/18 01:47 07/13/18 05:00 Temperature 98.0 F 98.1 F Pulse Rate 77 76 Respiratory Rate 22 19 Blood Pressure 99/52 L 118/57 L Pulse Oximetry 96 97 Oxygen Delivery Method Room Air Oxygen Flow Rate 0 Objective Labs Result Diagrams: 07/13/18 05:33 07/13/18 05:33 Labs: Laboratory Results - last 24 hr 07/13/18 07/13/18 07/13/18 05:33 05:33 05:33 Hgb 8.6 L Hct 26.1 L PT 15.7 H D INR 1.4 H Sodium 141 Potassium 3.9 Chloride 106 Carbon Dioxide 28 BUN 22 H Creatinine 0.90 Estimated GFR > 60.0 BUN/Creatinine Ratio 24.4 H Glucose 104 Calcium 9.3 Assessment & Plan Plan: Assessment/Plan Narrative: 1. GI symptoms-much better from a GI standpoint. Not an active issue 2. Hypoglycemia-seems to be much better on low-dose metformin alone. Continue off of his sulfonylurea 3. Atrial fibrillation-controlled rate. 4. History pulmonary embolism on warfarin-patient's protime has dropped. Will give additional dose warfarin today and return to previous schedule. 5. Sacral decubitus-being cared for appropriately here in the hospital and will need wound care clinic follow-up upon discharge. 6. Weakness etc-continue with physical therapy occupational therapy. Patient appears to be doing okay. Able to get up and around without the catheter which is necessitating increased frequency of activity. Patient does have 24/7 caregivers at home primarily for his spouse. At this point it seems likely patient can be discharged home tomorrow Thursday the 14 of July with home health services as well as 24/7 caregivers. Note: Greater than 30 minutes was spent evaluating the patient on the floor, including examining the patient, discussing clinical course with clinical and nursing staff, reviewing clinical course in the computer, preparing documentation and writing orders for continued management of care, discussing status with family as appropriate, reviewing plans for the next 24 hours with both patient/family and nursing staff as appropriate. Quality VTE Deep Vein Thrombosis/Pulmonary Embolism Present on Admission: No
[2018-07-13] MEDS: FUROSEMIDE 40 MG TABLET PO (08:30)
[2018-07-13] MEDS: ROSUVASTATIN 10 MG TABLET PO (08:31)
[2018-07-13] MEDS: LACTOBACILLUS ACIDOPHILUS TABLET 1 EACH PO (08:31)
[2018-07-13] MEDS: METFORMIN HCL 500 MG TABLET PO (08:31)
[2018-07-13] MEDS: POTASSIUM CHLORIDE 20 MEQ TAB 40 MEQ PO ×2 (08:32→19:05)
[2018-07-13] MEDS: FINASTERIDE 5 MG TABLET PO (08:32)
[2018-07-13] MEDS: CARVEDILOL 12.5 MG TABLET PO ×2 (08:32→20:39)
[2018-07-13] MEDS: SODIUM CHLORIDE 0.9% FLUSH 10 ML IV ×2 (08:33→21:49)
[2018-07-13] MEDS: INSULIN ASPART 100 UNIT/ML INSULN PEN SUBCUT (12:05)
--- NOTE | 2018-07-13 12:25 | PT.IPTN ---
Current Diagnoses Pressure ulcer of sacral region, unspecified stage (07/07/18) Pressure ulcer of contiguous site of back, buttock and hip, stage 2 (07/07/18) Physical Therapy Treatment Note M2 PT-IP Current Condition Start: 07/08/18 16:55 Freq: NEEDED Status: Active Protocol: Document 07/08/18 15:30 AB (Rec: 07/08/18 17:33 AB [id number]) Physical Therapy Current Condition Current Condition Evaluation Date 07/08/18 Treatment Diagnosis hypoglycemia; generalized weakness Onset Date 07/07/18 Precautions Other Precautions falls M3 PT-IP Subjective Start: 07/08/18 16:55 Freq: NEEDED Status: Active Protocol: Document 07/13/18 12:25 AB (Rec: 07/13/18 12:25 AB [id number]) Subjective Physical Therapy Visit Type Type Patient Refusal Notes pt refused PT this morning but stated that he wants to walk in the hallway with therapy this afternoon. will check again with pt in the afternoon .
--- NOTE | 2018-07-13 14:05 | OT.IP.TRT ---
Current Diagnoses Pressure ulcer of sacral region, unspecified stage (07/07/18) Pressure ulcer of contiguous site of back, buttock and hip, stage 2 (07/07/18) Occupational Therapy Treatment Note M2 OT-IP Current Condition Start: 07/08/18 15:19 Freq: Status: Active Protocol: Document 07/08/18 17:03 [facility] (Rec: 07/08/18 17:45 [facility] [id number]) Occupational Therapy Current Condition Current Condition Evaluation Date 07/08/18 Treatment Diagnosis Acute respiratory failure Diagnosis Onset Date 07/07/18 M3 OT- IP Subjective and Pain Start: 07/08/18 15:19 Freq: Status: Active Protocol: Document 07/13/18 13:51 [facility] (Rec: 07/13/18 14:05 [facility] [id number]) OT- Subjective Occupational Therapy Visit Type Type Treatment Note Visit Start Time 13:15 Visit Stop Time 13:35 Total Visit Minutes 20 Notes Pt states not able to stand long enough to do grooming but willing to walk with wide FWW . OT Pain Assessment Pain When Pain Assessed At Rest Pain Present Pain Present Denied Pain M4 OT- IP ADL's Start: 07/08/18 15:19 Freq: Status: Active Protocol: Document 07/10/18 14:07 [facility] (Rec: 07/10/18 14:23 [facility] [id number]) OT ADL-Dressing Comments OT Dressing Comments Pt states will have caregiver 20/04 to assist with all need of ADL's. Currently the caregiver is helping his . OT ADL-Toileting Comments OT Toileting Comments At this time due to sacral decubitus, would be beneficial to have assist for hygiene. M5 OT- IP IADL's Start: 07/08/18 15:19 Freq: Status: Active Protocol: Document 07/08/18 17:03 [facility] (Rec: 07/08/18 17:45 [facility] [id number]) OT-Instrumental Activities of Daily Living Meal Preparation Meal Preparation Comments Pt has hired assist to help at this time. Load Manager Load Manager Comments Pt has hired assist at this time. M6 OT- IP Functional Cognition Start: 07/08/18 15:19 Freq: Status: Active Protocol: Document 07/12/18 15:44 [facility] (Rec: 07/12/18 15:51 [facility] [id number]) Cognitive Factors Limiting Selfcare Function Cognitive Ability Level of Alertness Alert Patient Orientation Name Age Birthday Month Date Year Place Situation Attention Span Ability Capable of Focused Attention Capable of Sustained Attention Ability to Follow Commands Able to Follow Multi-Step Commands Memory Description No Deficits Noted Safety Awareness No Deficits Noted Cognitive Comments Cognitive Assessment Comments Pt good safety awareness, realistic for needs at home, and appropriate questions to ask. M7 OT- IP Mobility and Balance Start: 07/08/18 15:19 Freq: Status: Active Protocol: Document 07/13/18 13:51 [facility] (Rec: 07/13/18 14:05 [facility] [id number]) OT- Bed Mobility Assessment Rolling Type of Rolling Log Rolling Level of Assistance Standby Assistance Bedrails Supine to Sit Supine to Sit Assist Standby Assistance Bedrails Sit to Supine Sit to Supine Assist Moderate Assistance 1 Person Assistance OT-Transfer Assessment Sit to and From Stand Sit to and from Stand Contact Guard Assistance Minimal Assistance Comments Mobility Comments Pt doing much better from sit to stand. OT- Gait Assessment Gait Gait Assistance Required: Standby Assistance Contact Guard Assist Distance (Feet) 140 Assistive Devices Assistive Device Gait Belt Front Wheeled Walker Comments Gait Ability Comments Pt needing 3 rest breaks for 140ft with wide FWW and HR 112 and O2 at 97% Pt doing much better with activity tolerance and would now benefit from walking the bathroom to commode over toilet. OT- Balance Assessment Sitting Balance and Reactions Static Sitting Balance Ability Normal Dynamic Sitting Balance Ability Normal Standing Balance and Reactions Static Standing Balance Ability Good Dynamic Standing Balance Ability Fair M8 OT- IP Objective Assessments Start: 07/08/18 15:19 Freq: Status: Active Protocol: Document 07/08/18 17:03 [facility] (Rec: 07/08/18 17:45 [facility] [id number]) OT Gross Range of Motion Upper Extremity Range of Motion ROM Impairments Decreased AROM 0-90 for RUE, and LUE 0-100. OT Strength Comments Strength Comments Pt BUE strength 4/5 for RUE and 4-/5 for LUE. M9 OT- IP Assessment and Plan Start: 07/08/18 15:19 Freq: Status: Active Protocol: Document 07/13/18 13:51 [facility] (Rec: 07/13/18 14:05 [facility] [id number]) OT Summary Assessment and Plan Summary Progress Towards Goals Progressing Toward Goals Slow Progress due to Medical Issues Assessment Summary Pt doing better with activity tolerance and looking to go home soon with 24/7 assist. Goals Days to Meet Goals 3 Frequency of Treatment Frequency Of Treatment Once a Day Treatment Plan OT Treatment Plan ADL Training Functional Mobility Patient/Family Education Discharge Planning Discharge Recommendations OT Discharge Recommendations Home with 24/7 Assist Home Health Home Equipment Needs Pt has all AED and OT equipment needs and 24/ caregiver to assist along with home health.
--- NOTE | 2018-07-13 15:21 | PT.IPTN ---
Current Diagnoses Pressure ulcer of sacral region, unspecified stage (07/07/18) Pressure ulcer of contiguous site of back, buttock and hip, stage 2 (07/07/18) Physical Therapy Treatment Note M2 PT-IP Current Condition Start: 07/08/18 16:55 Freq: NEEDED Status: Active Protocol: Document 07/08/18 15:30 [facility] (Rec: 07/08/18 17:33 [facility] [id number]) Physical Therapy Current Condition Current Condition Evaluation Date 07/08/18 Treatment Diagnosis hypoglycemia; generalized weakness Onset Date 07/07/18 Precautions Other Precautions falls M3 PT-IP Subjective Start: 07/08/18 16:55 Freq: NEEDED Status: Active Protocol: Document 07/13/18 15:21 [facility] (Rec: 07/13/18 16:17 AB [id number]) Subjective Physical Therapy Visit Type Type Treatment Note Visit Start Time 15:21 Visit Stop Time 15:40 Total Visit Minutes 19 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 0 Physical Therapy Visit Comments Patient Comments pt stated that he is ready to walk Therapy Pain Assessment Pain Present Pain Present Denied Pain M4 PT-IP Mobility and Gait Start: 07/08/18 16:55 Freq: NEEDED Status: Active Protocol: Document 07/13/18 15:21 [facility] (Rec: 07/13/18 16:17 [facility] [id number]) PT-Bed Mobility Assessment Supine to Sit Supine to Sit Standby Assistance Head of Bed Elevated PT-Transfer Assessment Sit to and From Stand Sit to and from Stand Contact Guard Assistance 1 Person Assistance Use of Upper Extremities Gait Assessment Gait Gait Assistance Required: Standby Assistance Contact Guard Assist Distance (Feet) 50 Able to Maintain Weight Bearing Status Yes During Gait Assistive Devices Assistive Device Gait Belt Front Wheeled Walker Gait Deviations General Gait Pattern Antalgic Flexed Trunk Factors Limiting Gait Function Factors Limiting Gait Function Decreased Activity Tolerance Decreased Strength Poor Balance Poor Safety Awareness Comments Gait Comments pt ambulated in the hallway using FWW SBA to CGA 35+50+30 ft with seated rest breaks in between. M5 PT-IP Objective Assessments Start: 07/08/18 16:55 Freq: NEEDED Status: Active Protocol: Document 07/08/18 15:30 [facility] (Rec: 07/08/18 17:33 [facility] [id number]) Orientation Orientation/Cognition Level of Alertness Alert Orientation Name Age Place Situation Safety Awareness Decreased Safety Awareness Gross Range of Motion Lower Extremity ROM Assessment Right Impaired Strength Lower Extremity Strength Assessment Bilaterally Impaired Comments Strength Comments RLE grossly graded: 3+/5 LLE 4-/5 M6 PT-IP Treatment Start: 07/08/18 16:55 Freq: NEEDED Status: Active Protocol: Document 07/12/18 15:45 [facility] (Rec: 07/12/18 15:56 [facility] [id number]) Physical Therapy Treatment Exercises Exercises Ankle Pumps Seated Knee Flexion/Extension Education Education Provided Safety Other Treatments Other Treatment Performed discussed home plan and safety issues with patient M7 PT-IP Assessment and Plan Start: 07/08/18 16:55 Freq: NEEDED Status: Active Protocol: Document 07/13/18 15:21 [facility] (Rec: 07/13/18 16:17 AB [id number]) PT Summary Assessment and Plan Potential Rehabilitation Potential Good Summary Impairments ROM Strength Balance Bed Mobility Transfers Gait Activity Tolerance Progress Towards Goals Progressing Toward Goals Assessment Summary pt progressing with mobility but continues to present with decrease activity tolerance requiring frequent rest breaks in between walks. pt plans to go home with assist and will need homehealth PT. Goals Bed Mobility Goal Independent Transfer Goal Independent Front Wheeled Walker Gait Goal Standby Assistance Front Wheel Walker Gait Distance 50 Days to Meet Goals 5 Frequency of Treatment Frequency Of Treatment Once a Day Treatment Plan Physical Therapy Treatment Plan Bed Mobility Training Transfer Training Gait Training Therapeutic Exercise Balance Retraining Discharge Planning Recommendations To Nursing Amount of Assist Needed 1 Person Assist Discharge Recommendations PT Discharge Recommendations Home with 20/04 Assist Home Health
--- NOTE | 2018-07-13 16:13 | CM.DPC ---
DCP: continued: Noted pt mobilizing in halls this afternoon with PT. Received an update from [employer] cleaning manager Opal whose is managing the caregiving staff that pt has set up for his . She confirms that pt has added additional caregiving for himself once he gets home: assist with ambulation, dressing, showers, medication reminders and meals. Kami LUKE remains poised to go out when pt does d/c/ just need to be updated and including a d/c summary. DCP team can call Ros/Kami for details of this or refer to the earlier d/c planning notes. P: home when stable for same.
--- NOTE | 2018-07-13 18:54 | PC.NURSE ---
Addendum entered by Anette Hernandez R.N. 07/13/18 22:01: Pt resting through evening. Med at 2145 w/tylenol for c/o headache. HS CBG = 157. No coverage required. Condition remains essentially unchanged. Call light w/in reach, bed alarm on for pt safety. Continue w/plan of care. Original Note: Pt ambulaed in hallway w/PT. Denies discomfort at this time. Buttocks remains light pink in color w/ no open wounds noted. AC CBG = 150, refused S/S coverage Call light w/in reach, bed alarm on for pt safety.
[2018-07-13] MEDS: WARFARIN 2 MG TABLET PO ×2 (18:58→19:00)
[2018-07-13] MEDS: MELATONIN 3 MG TABLET 6 MG PO (20:50)
[2018-07-13] MEDS: DOXAZOSIN 4 MG TABLET 8 MG PO (21:45)
[2018-07-13] MEDS: ACETAMINOPHEN 325 MG TABLET 650 MG PO (21:46)
[2018-07-13] MEDS: GABAPENTIN 600 MG TABLET PO (21:46)
[2018-07-14 00:24] VITALS: BP 122/59; PULSE 84; RESP 18; TEMP 36.7; O2SAT 96
[2018-07-14 05:20] VITALS: BP 125/62; PULSE 76; RESP 18; TEMP 36.5; O2SAT 96
[2018-07-14 07:00] VITALS: O2SAT 95
[2018-07-14 07:30] VITALS: BP 114/58; PULSE 90; RESP 18; TEMP 36.6; O2SAT 95
--- NOTE | 2018-07-14 07:36 | PM.DS.1 ---
History of Present Illness Date Patient Seen: 07/14/18 Time Patient Seen: 07:37 Chief complaint: SOB/decrease LOC Narrative: Patient admitted from home by EMS after found minimally responsive and hypoglycemic. This was within a week of discharge from [facility]. Discharge Providers Date of admission: 07/07/18 12:51 Primary care physician: Samson Cox MD Consults: 07/07/18 17:10 Consult to Dietitian, Adult Routine Comment: Reason For Exam: diabetic, change in appetite recently 07/07/18 17:44 Consult to Wound Care Routine Comment: Consulting Provider: [facility] 07/08/18 08:16 Consult to Occupational Therapy Evaluate & Treat Comment: Physician Instructions: Evaluate and treat Consult to Physical Therapy Evaluate & Treat Comment: Physician Instructions: Evaluate and Treat 07/08/18 08:17 Consult to Discharge Planning Routine Comment: needs ECF placement Discharge provider: Samson Cox MD Discharge Date: 07/14/18 Summary Discharge Diagnosis: 1. Hypoglycemia 2. Pressure ulcer of back and buttock stage II 3. Metabolic encephalopathy 4. Recent pulmonary emboli 5. Atrial fibrillation 6. Diabetes type 2 7. Obesity with BMI 38.3 8. Hypertension 9. Hyperlipidemia 10. BPH with lower urinary tract symptoms Hospital Course: Patient was admitted because of his persistent hypoglycemia. His mental status was much improved when his blood sugar was normalized. All of his diabetic medications were discontinued. He was restarted on his sulfonylurea and low-dose metformin and with this had recurrent hypoglycemia. Therefore his sulfonylurea was discontinued and metformin was continued at 1/4 of the previous dose. The Actos was completely discontinued. With this patient had blood sugars that were no longer low and acceptable on the higher and. This was while he was in the hospital on a controlled diet of course. It was felt as though this was more appropriate dosing and will be continued upon discharge Patient also has a decubitus that was followed by wound care. [place] to be in good shape and will need continued monitoring as an outpatient but as long as patient's unloading it while supine should be okay per wound care Patient's protime was up and down during this hospitalization. He was recently diagnosed with pulmonary emboli. His warfarin dose was changed and he will be monitored carefully as an outpatient Patient's diabetes as above was well controlled once we figure out his medications Patient's other medical problems are relatively stable. He was globally weak but able to be up and around with assistance with Physical therapy and felt by all involved that he would be safe to go home with home health services as well as a 20/04 caregiver which is already in place for his spouse. Status at Discharge Cognitive/behavioral status at discharge: Normal Functional status at discharge: uses cane/walker Overall status at discharge: patient is progressing back to baseline Time Spent with Patient Less than 30 minutes Exam Vital Signs (past 8 hours): - 07/14/18 00:24 07/14/18 05:20 Temperature 98.1 F 97.7 F Pulse Rate 84 76 Respiratory Rate 18 18 Blood Pressure 122/59 L 125/62 Pulse Oximetry 96 96 Oxygen Delivery Method Room Air Oxygen Flow Rate 0 Objective Labs Result Diagrams: 07/13/18 05:33 07/13/18 05:33 Discharge Plan Discharge Plan Patient Disposition: Home Health Service Transfer to: Home Health, Other Discharge comment: needs protime on 07/16 or 07/17 at latest, via Home Health Discharge Med Rec/Prescriptions Prescriptions: New warfarin [Coumadin] 1 mg Tablet See Label Instructions .ROUTE .COMPLEX Qty: 90 RF: 4 Continue gabapentin [Neurontin] 600 MG tablet 600 mg PO HS Qty: 90 RF: 3 finasteride 5 MG tablet 5 mg PO QDAY Qty: 90 RF: 3 rosuvastatin [Crestor] 10 MG tablet 10 mg PO QDAY Qty: 90 RF: 1 doxazosin 4 MG tablet 4 mg PO HS Qty: 90 RF: 3 potassium chloride [Klor-Con M20] 20 mEq Tablet,Er Particles/Crystals 40 meq PO BIDWM Qty: 60 RF: 0 acetaminophen 325 mg Tablet 1 tab PO PRN PRN (Reason: pain) RF: 0 carvedilol 12.5 mg tablet 12.5 mg PO BID RF: 0 aspirin 81 mg Tablet,Delayed Release (Dr/Ec) 81 mg PO DAILY RF: 0 tramadol 50 mg tablet 1 tab PO Q8H PRN (Reason: pain) RF: 0 melatonin 5 mg Tablet 5 mg PO BEDTIME PRN (Reason: Nausea) RF: 0 Changed furosemide 40 mg tablet 40 mg PO DAILY Qty: 0 RF: 0 metformin [Glucophage] 1,000 mg tablet 500 mg PO QAM Qty: 180 RF: 0 warfarin 2 mg tablet 2 mg PO QMWF Qty: 90 RF: 0 Discontinued lisinopril 40 MG tablet 40 mg PO BID Qty: 180 RF: 3 pioglitazone [Actos] 30 mg tablet 30 mg PO QDAY Qty: 90 RF: 0 glimepiride [Amaryl] 4 mg tablet 4 mg PO BIDCC Qty: 180 RF: 0 nystatin 100,000 unit/gram Ointment 1 applic TOPICAL BID RF: 0 Lactobacillus rhamnosus GG [Culturelle] 10 billion cell Capsule 1 cap PO DAILY RF: 0 zinc oxide Ointment 1 applic TOPICAL DIRECTED RF: 0 Follow up/Referrals: Tavo Cantrell MD [Physician] - 3-5 Days (Wound Care referral/follow up) Samson Cox MD [Primary Care Provider] - 2 Weeks Provider Discharge Instructions Diet: Carb-consistent/Diabetic Skin/Wound/Dressing Care Other wound treatment: per Dr. Cantrell/Wound Care, care of decubitus Discharge Data Primary Care Provider: Samson Cox Attending Provider: Samson Cox Admit Date/Time: 07/07/18 12:51 Quality VTE Deep Vein Thrombosis/Pulmonary Embolism Present on Admission: No
[2018-07-14] MEDS: FUROSEMIDE 40 MG TABLET PO (08:03)
[2018-07-14] MEDS: PANTOPRAZOLE 40 MG TABLET PO (08:03)
[2018-07-14] MEDS: METFORMIN HCL 500 MG TABLET PO (08:05)
[2018-07-14] MEDS: CARVEDILOL 12.5 MG TABLET PO (08:05)
[2018-07-14] MEDS: LACTOBACILLUS ACIDOPHILUS TABLET 1 EACH PO (08:07)
[2018-07-14] MEDS: FINASTERIDE 5 MG TABLET PO (08:07)
[2018-07-14] MEDS: ROSUVASTATIN 10 MG TABLET PO (08:08)
--- NOTE | 2018-07-14 09:19 | CM.DPC ---
DCP Cont: Patient is to be discharged today with [facility]. Have an order for patient to have protime done in the home on 07/16 or 07/17. Faxed over orders to [place]. Called Ros at [facility] to update on discharge and order. P: Patient is to be discharged today on [facility]. Will also have [employer] caregivers as well. Sia Black RN/Auto Mechanic Supervisor
[2018-07-14] MEDS: POTASSIUM CHLORIDE 20 MEQ TAB 40 MEQ PO (09:34)
--- NOTE | 2018-07-14 09:36 | OT.IP.TRT ---
Current Diagnoses Pressure ulcer of sacral region, unspecified stage (07/07/18) Pressure ulcer of contiguous site of back, buttock and hip, stage 2 (07/07/18) Occupational Therapy Treatment Note M2 OT-IP Current Condition Start: 07/08/18 15:19 Freq: Status: Active Protocol: Document 07/08/18 17:03 [facility] (Rec: 07/08/18 17:45 [facility] [id number]) Occupational Therapy Current Condition Current Condition Evaluation Date 07/08/18 Treatment Diagnosis Acute respiratory failure Diagnosis Onset Date 07/07/18 M3 OT- IP Subjective and Pain Start: 07/08/18 15:19 Freq: Status: Active Protocol: Document 07/14/18 09:31 [facility] (Rec: 07/14/18 09:36 [facility] [id number]) OT- Subjective Occupational Therapy Visit Type Type Treatment Note Visit Start Time 09:15 Visit Stop Time 09:25 Total Visit Minutes 10 Occupational Therapy Visit Comments Patient Comments Pt ready to go home today. OT Pain Assessment Pain When Pain Assessed At Rest Pain Present Pain Present Denied Pain M4 OT- IP ADL's Start: 07/08/18 15:19 Freq: Status: Active Protocol: Document 07/14/18 09:31 [facility] (Rec: 07/14/18 09:36 [facility] [id number]) OT ADL-Toileting Comments OT Toileting Comments Spoke to pt at length regarding heavy duty bidets, for now until his wounds heal completely to have caregiver assist with hygiene and then have them assist for completeness and eventrually supervision. M5 OT- IP IADL's Start: 07/08/18 15:19 Freq: Status: Active Protocol: Document 07/08/18 17:03 [facility] (Rec: 07/08/18 17:45 [facility] [id number]) OT-Instrumental Activities of Daily Living Meal Preparation Meal Preparation Comments Pt has hired assist to help at this time. Bleach Chlorinator Bleach Chlorinator Comments Pt has hired assist at this time. M6 OT- IP Functional Cognition Start: 07/08/18 15:19 Freq: Status: Active Protocol: Document 07/14/18 09:31 [facility] (Rec: 07/14/18 09:36 [facility] [id number]) Cognitive Factors Limiting Selfcare Function Cognitive Comments Cognitive Assessment Comments Intact for all. M7 OT- IP Mobility and Balance Start: 07/08/18 15:19 Freq: Status: Active Protocol: Document 07/14/18 09:31 [facility] (Rec: 07/14/18 09:36 [facility] [id number]) OT- Bed Mobility Assessment Rolling Type of Rolling Roll to Right Level of Assistance Standby Assistance Bedrails Supine to Sit Supine to Sit Assist Standby Assistance Bedrails OT-Transfer Assessment Sit to and From Stand Sit to and from Stand Standby Assistance Transfers Transfer Ability Standby Assistance Technique Transfer Destination Bedside Commode Transfer Technique Stand Step Pivot Comments Mobility Comments Pt able to transfer with wide FWW from bed to BSC. Pt requested to have time to use the BSc and call light in reach to call for aid for hygiene needs. OT Summary Assessment and Plan Summary Assessment Summary Pt doing well and looking to go home today with 24/7 assist and home health. Discharge Recommendations OT Discharge Recommendations Home with 24/7 Assist Home Health Home Equipment Needs Pt has all AED and OT equipment needs and 24/7 caregiver to assist along with home health.
== END 2018-07-14 13:45 | disposition home health service (06) | DRG 637 ==
LOC: ED 12:19 → AC 14:30
PROVIDERS: Family Medicine; Admitting Provider Family Medicine; Emergency Provider Emergency Medicine; Family Provider Internal Medicine; PCP Internal Medicine; Visit Provider Internal Medicine
DX: E11.649 Type 2 diabetes mellitus with hypoglycemia without coma (principal); G93.41 Metabolic encephalopathy; I42.9 Cardiomyopathy, unspecified; T38.3X5A Adverse effect of insulin and oral hypoglycemic [antidiabetic] drugs, initial encounter; E66.01 Morbid (severe) obesity due to excess calories; D64.9 Anemia, unspecified; I95.9 Hypotension, unspecified; L89.42 Pressure ulcer of contiguous site of back, buttock and hip, stage 2; N32.0 Bladder-neck obstruction; E78.5 Hyperlipidemia, unspecified; I10 Essential (primary) hypertension; Z79.84 Long term (current) use of oral hypoglycemic drugs; N40.1 Benign prostatic hyperplasia with lower urinary tract symptoms; I48.91 Unspecified atrial fibrillation; Z79.01 Long term (current) use of anticoagulants; R10.9 Unspecified abdominal pain; R11.0 Nausea; Z86.711 Personal history of pulmonary embolism; Z68.38 Body mass index [BMI] 38.0-38.9, adult
CPT/HCPCS: 36415; 74022; 80048; 80053; 81001; 82947; 82962; 83036; 83525; 83605; 84145; 85014; 85018; 85025; 85610; 85730; 87040; 87086; 93005; 96365; 96366; 97110; 97116; 97161; 97165; 97530; 97535; 99223; 99233; 99238; 99283; 99285; C9113; J1940

== ENCOUNTER → 2018-07-19 14:02 | Outpatient (CLI) | payer MEDICARE, OTHER, SELFPAY ==
[2018-07-07 13:04] VITALS: BMI 38.1
[2018-07-19 15:23] LABS: INR 1.8 (0.9-1.3); Prothrombin Time 19.3 SECONDS (10.1-12.7)
[2018-07-19 15:49] LABS: Alanine Aminotransferase 24 IU/L (21-72); Albumin 3.9 g/dL (3.5-5.0); Albumin Globulin Ratio 1.1 (1.0-2.8); Alkaline Phosphatase 73 U/L (38-126); Aspartate Aminotransferase 16 IU/L (17-59); Bilirubin Total 0.6 mg/dL (0.2-1.3); Blood Urea Nitrogen 14 mg/dL (9-20); Calcium 9.7 mg/dL (8.4-10.2); Carbon Dioxide 25 mmol/L (22-32); Chloride 105 mmol/L (98-107); Estimated Glomerular Filt Rate > 60.0 mL/min (>60); Globulin 3.4 g/dL (1.7-4.1); Glucose 147 mg/dL (80-110); HEMOLYSIS < 15 (0-50); Potassium 4.5 mmol/L (3.4-5.1); Sodium 143 mmol/L (137-145); Total Protein 7.3 g/dL (6.3-8.2)
[2018-07-19 15:53] LABS: Hemoglobin A1C% w Est Avg Glu 6.6 % (4.0-6.0)
== END ==
PROVIDERS: Family Provider Internal Medicine; PCP Internal Medicine; Visit Provider Internal Medicine
DX: E11.9 Type 2 diabetes mellitus without complications (principal); I10 Essential (primary) hypertension; I26.99 Other pulmonary embolism without acute cor pulmonale
CPT/HCPCS: 36415; 80053; 83036; 85610

== ENCOUNTER → 2018-11-18 14:32 | Outpatient (CLI) | payer MEDICARE, OTHER, SELFPAY ==
[2018-07-07 13:04] VITALS: BMI 38.1
[2018-11-18 15:22] LABS: Hemoglobin A1C% w Est Avg Glu 7.7 % (4.0-6.0)
[2018-11-18 15:53] LABS: BUN Creatinine Ratio 43.8 (6-22); Blood Urea Nitrogen 35 mg/dL (9-20); Calcium 10.2 mg/dL (8.4-10.2); Carbon Dioxide 23 mmol/L (22-32); Chloride 105 mmol/L (98-107); Estimated Glomerular Filt Rate > 60.0 mL/min (>60); Glucose 134 mg/dL (80-110); HEMOLYSIS < 15 (0-50); Potassium 4.7 mmol/L (3.4-5.1); Sodium 140 mmol/L (137-145)
== END ==
PROVIDERS: PCP Internal Medicine; Visit Provider Internal Medicine
DX: E11.65 Type 2 diabetes mellitus with hyperglycemia (principal); Z68.42 Body mass index [BMI] 45.0-49.9, adult
CPT/HCPCS: 36415; 80048; 83036

== ENCOUNTER → 2019-02-14 14:20 | Outpatient (CLI) | payer MEDICARE, OTHER, SELFPAY ==
[2018-07-07 13:04] VITALS: BMI 38.1
--- NOTE | 2019-02-14 14:25 | DI.RAD.S_ITS ---
PROCEDURE: XR FOOT LT MIN 3V INDICATIONS: left foot pain TECHNIQUE: 3 the views of the foot were acquired. COMPARISON: None. FINDINGS: Bones: No fractures or dislocations. No suspicious bony lesions. Severe midfoot joint degeneration. Plantar and posterior calcaneal spurring. Diffuse interphalangeal and first MTP joint degeneration. No fracture identified at the distal fifth metatarsal. There is question of marginal lucency raising possibility of age indeterminate erosion, at the fifth MTP joint Soft tissues: No tibiotalar joint effusion. Achilles tendon appears normal. Numerous vascular calcifications. 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 Diffuse interphalangeal and first MTP joint degeneration. Plantar and posterior calcaneal spurring. Dictated by: Jax Cortez M.D. on 02/14/2019 at 16:08 Approved by: Jax Cortez M.D. on 02/14/2019 at 16:11
[2019-02-14 15:44] LABS: Hemoglobin A1C% w Est Avg Glu 7.7 % (4.0-6.0)
[2019-02-14 16:23] LABS: Blood Urea Nitrogen 46 mg/dL (9-20); Calcium 10.1 mg/dL (8.4-10.2); Carbon Dioxide 24 mmol/L (22-32); Chloride 102 mmol/L (98-107); Estimated Glomerular Filt Rate > 60.0 mL/min (>60); Glucose 149 mg/dL (80-110); HEMOLYSIS < 15 (0-50); Potassium 4.7 mmol/L (3.4-5.1); Sodium 140 mmol/L (137-145)
== END ==
PROVIDERS: PCP Internal Medicine; Visit Provider Internal Medicine
DX: M79.672 Pain in left foot (principal); M19.072 Primary osteoarthritis, left ankle and foot; E11.65 Type 2 diabetes mellitus with hyperglycemia; I10 Essential (primary) hypertension; M77.32 Calcaneal spur, left foot
CPT/HCPCS: 36415; 73630; 80048; 83036

== ENCOUNTER → 2019-02-22 11:48 | Outpatient (CLI) | payer MEDICARE, OTHER, SELFPAY ==
[2018-07-07 13:04] VITALS: BMI 38.1
[2019-02-22 13:05] LABS: INR 3.1 (0.9-1.3); Prothrombin Time 35.9 SECONDS (10.1-12.7)
[2019-02-26 01:01] LABS: Anti Cardiolipin Antibody IgG <14 GPL
== END ==
PROVIDERS: PCP Internal Medicine; Visit Provider Internal Medicine
DX: I82.409 Acute embolism and thrombosis of unspecified deep veins of unspecified lower extremity (principal); Z86.711 Personal history of pulmonary embolism
CPT/HCPCS: 36415; 81241; 85300; 85610; 86147

== ENCOUNTER → 2019-05-11 12:33 | Outpatient (CLI) | payer MEDICARE, OTHER, SELFPAY ==
[2018-07-07 13:04] VITALS: BMI 38.1
[2019-05-11 13:17] LABS: Hemoglobin A1C% w Est Avg Glu 7.2 % (4.0-6.0)
[2019-05-11 14:07] LABS: BUN Creatinine Ratio 42.5 (6-22); Blood Urea Nitrogen 34 mg/dL (9-20); Calcium 10.1 mg/dL (8.4-10.2); Carbon Dioxide 24 mmol/L (22-32); Chloride 104 mmol/L (98-107); Estimated Glomerular Filt Rate > 60.0 mL/min (>60); Glucose 106 mg/dL (80-110); HEMOLYSIS 24 (0-50); Potassium 5.1 mmol/L (3.4-5.1); Sodium 139 mmol/L (137-145)
== END ==
PROVIDERS: PCP Internal Medicine; Visit Provider Internal Medicine
DX: E11.65 Type 2 diabetes mellitus with hyperglycemia (principal); E66.01 Morbid (severe) obesity due to excess calories; I42.9 Cardiomyopathy, unspecified
CPT/HCPCS: 36415; 80048; 83036

== ENCOUNTER → 2019-08-15 14:22 | Outpatient (CLI) | payer MEDICARE, OTHER, SELFPAY ==
[2018-07-07 13:04] VITALS: BMI 38.1
[2019-08-15 15:20] LABS: BUN Creatinine Ratio 58.2 (6-22); Blood Urea Nitrogen 64 mg/dL (9-20); Calcium 10.5 mg/dL (8.4-10.2); Carbon Dioxide 21 mmol/L (22-32); Chloride 104 mmol/L (98-107); Estimated Glomerular Filt Rate > 60.0 mL/min (>60); Glucose 65 mg/dL (80-110); HEMOLYSIS < 15 (0-50); Hemoglobin A1C% w Est Avg Glu 6.5 % (4.0-6.0); Sodium 140 mmol/L (137-145)
== END ==
PROVIDERS: PCP Internal Medicine; Visit Provider Internal Medicine
DX: E11.65 Type 2 diabetes mellitus with hyperglycemia (principal); E78.2 Mixed hyperlipidemia; I10 Essential (primary) hypertension
CPT/HCPCS: 36415; 80048; 83036

== ENCOUNTER 2019-11-24 07:53 | Inpatient (IN) | payer MEDICARE, OTHER, SELFPAY ==
[2018-07-07 13:04] VITALS: BMI 38.1
[2019-11-24] VITALS (16 sets, daily range): BP systolic 128–161; BP diastolic 64–83; PULSE 83–102; RESP 18–36; TEMP 36.5–37.2; O2SAT 94–100; BMI 42.9
--- NOTE | 2019-11-24 08:06 | ED_ITS ---
HPI - Extremity Problem General Chief complaint: Extremity Problem,Nontraumatic Stated complaint: flu for a week Time Seen by Provider: 11/24/19 07:55 Source: patient Mode of arrival: Ambulatory Limitations: no limitations History of Present Illness HPI Narrative: 74M nonsmoker with hx of PE, DM, presents with about 1 week of worsening widespread symptoms including fever, shaking chills, headache, severe abdominal pain with decreased bowel movements, extreme fatigue and perhaps most notably a much worsening swollen, red and painful right lower extremity consistent with prior episodes of cellulitis. He was seen by his primary care provider about a week ago and states that symptoms rapidly worsened after that visit. He is not currently taking any antibiotics. He states the pain in his abdomen seems to be episodic in nature and has little provocation or palliation. He denies any prior abdominal surgeries. MD Complaint: extremity pain and extremity swelling Onset (ago): day(s) Pain Consistency: constant Location: right Quality: burning and aching Radiation: none Relieving factors: nothing Related Data Home Medications Medication Instructions Recorded Confirmed acetaminophen 1 tab PO PRN PRN 07/07/18 11/24/19 aspirin 81 mg PO DAILY 07/07/18 11/24/19 melatonin 5 mg PO BEDTIME 07/07/18 11/24/19 doxazosin 4 mg PO BEDTIME 11/24/19 11/24/19 furosemide 40 mg PO DAILY 11/24/19 11/24/19 gabapentin 600 mg PO BEDTIME 11/24/19 11/24/19 glipizide 5 mg PO DAILY 11/24/19 11/24/19 potassium chloride 40 meq PO BID 11/24/19 11/24/19 rosuvastatin 10 mg PO QPM 11/24/19 11/24/19 tramadol 50 - 100 mg PO Q8H PRN 11/24/19 11/24/19 warfarin 4 mg PO DAILY 11/24/19 11/24/19 Previous Rx's Medication Instructions Recorded nystatin 100,000 unit/gram topical 1 applictn TOP BID PRN #30 gram 08/02/18 ointment lisinopril 40 mg tablet 40 mg PO DAILY #90 tab 08/12/18 blood sugar diagnostic #360 each 09/22/18 carvedilol 12.5 mg tablet 25 mg PO BID #360 tab 08/15/19 metformin 1,000 mg tablet 1,000 mg PO BID #180 tab 08/30/19 finasteride 5 mg tablet 5 mg PO QDAY #90 tab 11/15/19 Allergies Allergy/AdvReac Type Severity Reaction Status Date / Time atorvastatin [ATORVASTATIN] Allergy Mild flu like Verified 11/24/19 08:12 (LIPITOR) codeine [CODEINE] Allergy Mild Verified 11/24/19 08:12 Review of Systems Constitutional Constitutional: Reports chills, Reports fatigue, Reports fever(s), Denies frequent falls, Denies lethargy and Denies weakness Eyes Eyes: Denies change in vision, Denies eye discharge, Denies irritation and Denies loss of vision ENT Ears, Nose, Mouth, and Throat: Denies change in voice, Denies dizziness, Denies neck pain, Denies sore throat and Denies throat swelling Cardiovascular Cardiovascular: Denies chest pain, Denies irregular heart rhythm, Denies lightheadedness, Denies palpitations, Denies dyspnea, Denies dyspnea on exertion and Denies orthopnea Respiratory Respiratory: Denies cough, Denies dyspnea, Denies dyspnea on exertion and Denies wheezing Gastrointestinal Gastrointestinal: Reports abdominal pain, Reports bloating, Denies change in bowel habits, Denies diarrhea and Denies nausea Genitourinary Genitourinary: Denies hematuria, Denies flank pain, Denies urinary incontinence and Denies urinary urgency Musculoskeletal Musculoskeletal: Denies back pain, Denies muscle weakness, Denies neck pain, Denies numbness and Denies tingling Integumentary/Breasts Skin/Breast: Denies pruritus, Reports erythema, Denies rash, Reports skin pain, Reports skin swelling, Reports sores and Denies wounds Neurologic Neurologic: Denies behavioral changes, Denies confusion, Denies dizziness, Denies frequent falls, Denies loss of vision, Denies numbness, Denies tingling and Denies weakness Psychiatric Psychiatric: Denies anxiety, Denies behavioral changes, Denies confusion, Denies depression, Denies homicidal ideation and Denies suicidal ideation Endocrine Endocrine: Reports fatigue, Denies flushing and Denies palpitations Hematologic/Lymphatic Hematologic/Lymphatic: Denies easy bruising Allergic/Immunologic Allergic/Immunologic: Denies urticaria, Denies throat swelling and Denies wheezing Patient History Medical History Anticoagulated on warfarin (Chronic) Atrial fibrillation (Acute) Benign localized prostatic hyperplasia with lower urinary tract symptoms (LUTS) (Chronic 12/29/17) Body mass index (BMI) of 45.0 to 49.9 in adult (Chronic 02/17/17) C. difficile diarrhea (Acute) Cardiomyopathy (Chronic 04/21/13) Cellulitis and abscess of right leg (Acute) Edema (Chronic) Essential hypertension (Chronic 10/10/11) Gynecomastia (Chronic 03/30/17) History of pulmonary embolism (Chronic) Mixed hyperlipidemia (Chronic 10/25/15) Morbid obesity due to excess calories (Chronic 02/17/17) Pressure ulcer of contiguous region involving back and buttock, stage 2 (Chronic) Pulmonary emboli (Acute) Type 2 diabetes mellitus with hyperglycemia (Chronic 10/10/11) Type 2 diabetes mellitus without complication (Chronic 10/25/15) Social History marital status: number of children: 0 household members: spouse lives independently: Yes caregiver/support person: No housing: house pets and animals: Yes education level: college (4 years) occupational status: other (Retired.) 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 leisure activities: exercise (Walking the dogs.) and other (Gardening.) Smoking Status: Never smoker Tobacco: How many years used: 0 quit status: quit date established (Never Started) second hand exposure: Yes (None over the last 30 years) alcohol intake: former substance use type: does not use Smoking Status: Never smoker alcohol intake frequency: a few times a month Substance Use Type: does not use Exam Initial Vital Signs Initial Vital Signs: Vital Signs Pulse Rate 101 H 11/24/19 08:00 Respiratory Rate 29 H 11/24/19 08:00 Blood Pressure 151/72 H 11/24/19 08:00 Course Orders Ordered: ED Orders 11/24/19 09:15 Blood Culture Stat 11/24/19 09:58 US abdomen limited Stat 11/24/19 10:10 Urinalysis and Microscopic Stat 11/24/19 14:02 Education, smoking cessation ONGOING Acetaminophen (Tylenol) 650 mg PO Q6HR PRN PRN Reason: Fever/Mild Pain (1-3) Carvedilol (Coreg) 25 mg PO BID MARTINEZ Last Admin: 11/24/19 15:41 Dose: 25 mg Documented by: AMAURY Dextrose ([id number]) 25 gm IV PRN PRN PRN Reason: Hypoglycemia Doxazosin Mesylate (Cardura) 4 mg PO BEDTIME MARTINEZ Finasteride (Proscar) 5 mg PO DAILY MARTINEZ Furosemide (Lasix) 40 mg PO DAILY MARTINEZ Gabapentin (Neurontin) 600 mg PO BEDTIME MARTINEZ Hydromorphone HCl (Dilaudid) 1 mg IV Q3H PRN PRN Reason: Pain, Moderate (4-6) Last Admin: 11/24/19 18:06 Dose: 1 mg Documented by: AMAURY Piperacillin/Tazobactam/Dextrose (Zosyn) 3.375 gm in 50 mls @ 100 mls/hr IV Q6H [facility] Insulin Aspart (Novolog Flexpen) 0 unit SUBCUT Q6H MARTINEZ; Protocol Lisinopril (Zestril) 40 mg PO DAILY MARTINEZ Naloxone HCl (Narcan) 0.2 mg IV Q2MIN PRN PRN Reason: Opiate Reversal Ondansetron HCl (Zofran) 4 mg IV Q4HR PRN PRN Reason: Nausea And Vomiting Oxycodone HCl (Percolone) 5 mg PO Q6HR PRN PRN Reason: Pain, Moderate (4-6) Potassium Chloride (Klor-Con M20) 40 meq PO BID [facility] Rosuvastatin Calcium (Crestor) 10 mg PO QPM [facility] Last Admin: 11/24/19 18:08 Dose: Not Given Documented by: AMAURY Discontinued Medications Furosemide (Lasix) 40 mg PO NOW ONE Stop: 11/24/19 17:03 Last Admin: 11/24/19 18:09 Dose: Not Given Documented by: AMAURY Glipizide (Glucotrol Xl) 5 mg PO DAILY [facility] Levofloxacin (Levaquin) 750 mg in 150 mls @ 100 mls/hr IV NOW ONE Stop: 11/24/19 10:12 Last Infusion: 11/24/19 11:33 Dose: 0 mls/hr Documented by: Admin: 11/24/19 09:29 Dose: 100 mls/hr Documented by: MESFIN Sodium Chloride (Normal Saline 0.9%) 2,190 mls @ 730 mls/hr 30 ml/kg infuse over 3 hr (2190 ml) IV NOW ONE Stop: 11/24/19 11:44 Last Infusion: 11/24/19 12:43 Dose: 250 mls/hr Documented by: Infusion: 11/24/19 11:50 Dose: 250 mls/hr Documented by: DUSENAlphonse Admin: 11/24/19 09:30 Dose: 730 mls/hr Documented by: MESFIN Piperacillin/Tazobactam/Dextrose (Zosyn) 4.5 gm in 100 mls @ 200 mls/hr IV NOW ONE Stop: 11/24/19 12:06 Last Infusion: 11/24/19 12:29 Dose: 0 mls/hr Documented by: DUSENAlphonse Admin: 11/24/19 11:55 Dose: 200 mls/hr Documented by: MESFIN Piperacillin/Tazobactam/Dextrose (Zosyn) 2.25 gm in 50 mls @ 100 mls/hr IV Q6H MARTINEZ Insulin Aspart (Novolog Flexpen) 0 unit SUBCUT ACHS MARTINEZ; Protocol Metformin HCl (Glucophage) 1,000 mg PO BID MARTINEZ Phytonadione (Mephyton) 10 mg PO NOW ONE Stop: 11/24/19 15:06 Last Admin: 11/24/19 18:09 Dose: Not Given Documented by: AMUARY Vital Signs Vital signs: Vital Signs - 8 hr 11/24/19 10:30 11/24/19 11:00 11/24/19 11:22 Pulse Rate 100 H 99 H 102 H Respiratory Rate 26 H 28 H 24 Blood Pressure [Left Arm] 132/68 160/77 H 139/64 Pulse Oximetry 98 100 98 11/24/19 11:30 11/24/19 12:00 11/24/19 12:30 Pulse Rate 101 H 100 H 101 H Respiratory Rate 24 36 H 31 H Blood Pressure [Left Arm] 143/68 H 142/65 H 135/64 Pulse Oximetry 98 98 94 MDM - Extremity (Nontraumatic) Lab Data Result diagrams: 11/24/19 08:25 11/24/19 08:25 Labs: Lab Results 11/24/19 11/24/19 11/24/19 Range/Units 08:25 08:25 08:25 WBC 11.7 H (4.5-11.0) X10^3/uL RBC 3.56 L (4.5-5.9) X10^6/uL Hgb 10.9 L (13.5-17.5) g/dL Hct 32.4 L (41-53) % MCV 91.0 (80-100) fL MCH 30.7 (26-34) PG MCHC 33.7 (30-36) % RDW 14.7 (11.6-14.8) % Plt Count 213 (150-400) X10^3/uL Neut % (Auto) 85.3 H (50-75) % Lymph % (Auto) 5.2 L (25-40) % Dare % (Auto) 8.8 (3-14) % Eos % (Auto) 0.1 L (2-4) % Baso % (Auto) 0.6 (0-2) % Neut # (Auto) 06214 H (9027-3316) /uL Lymph # (Auto) 600 L (1056-0129) /uL Dare # (Auto) 1000 H (0-900) /uL Eos # (Auto) 0 (0-450) /uL Baso # (Auto) 100 (0-100) /uL PT 31.6 H (10.1-12.7) SECONDS INR 2.8 H (0.9-1.3) Sodium 134 L (137-145) mmol/L Potassium 3.7 (3.4-5.1) mmol/L Chloride 95 L (98-107) mmol/L Carbon Dioxide 28 (22-32) mmol/L BUN 29 H (9-20) mg/dL Creatinine 0.90 (0.66-1.25) mg/dL Estimated GFR > 60.0 (>60) mL/min BUN/Creatinine Ratio 32.2 H (6-22) Glucose 214 H (80-110) mg/dL Lactate (0.7-2.1) mmol/L Calcium 9.7 (8.4-10.2) mg/dL Total Bilirubin 1.8 H (0.2-1.3) mg/dL AST 27 (17-59) IU/L ALT 26 (<50) IU/L Alkaline Phosphatase 70 (38-126) U/L Total Creatine Kinase 39 L (55-170) U/L CK-MB (CK-2) TNP CK-MB (CK-2) Rel Index TNP Troponin I < 0.012 (0.01-0.034) ng/mL NT-Pro-B Natriuret Pep 616 H (<125) pg/mL Total Protein 7.7 (6.3-8.2) g/dL Albumin 4.1 (3.5-5.0) g/dL Globulin 3.6 (1.7-4.1) g/dL Albumin/Globulin Ratio 1.1 (1.0-2.8) Lipase 146 (23-300) U/L Urine Color Urine Appearance Urine pH (4.5-8.0) Ur Specific George (1.000-1.035) Urine Protein (Negative) Urine Glucose (UA) (Negative) g/dL Urine Ketones (NEGATIVE) Urine Occult Blood (Negative) Urine Nitrate (Negative) Urine Bilirubin (NEGATIVE) Urine Urobilinogen (0.2) E.U./dL Ur Leukocyte Esterase (NEGATIVE) Urine RBC (0-5/HPF) Urine WBC (0-5/HPF) Urine Bacteria (None) Ur Culture Indicated? Influenza A (RT-PCR) (NEGATIVE) Influenza B (RT-PCR) (NEGATIVE) 11/24/19 11/24/19 11/24/19 Range/Units 08:25 08:33 10:10 WBC (4.5-11.0) X10^3/uL RBC (4.5-5.9) X10^6/uL Hgb (13.5-17.5) g/dL Hct (41-53) % MCV (80-100) fL MCH (26-34) PG MCHC (30-36) % RDW (11.6-14.8) % Plt Count (150-400) X10^3/uL Neut % (Auto) (50-75) % Lymph % (Auto) (25-40) % Dare % (Auto) (3-14) % Eos % (Auto) (2-4) % Baso % (Auto) (0-2) % Neut # (Auto) (0388-1303) /uL Lymph # (Auto) (0529-3480) /uL Dare # (Auto) (0-900) /uL Eos # (Auto) (0-450) /uL Baso # (Auto) (0-100) /uL PT (10.1-12.7) SECONDS INR (0.9-1.3) Sodium (137-145) mmol/L Potassium (3.4-5.1) mmol/L Chloride (98-107) mmol/L Carbon Dioxide (22-32) mmol/L BUN (9-20) mg/dL Creatinine (0.66-1.25) mg/dL Estimated GFR (>60) mL/min BUN/Creatinine Ratio (6-22) Glucose (80-110) mg/dL Lactate 1.1 (0.7-2.1) mmol/L Calcium (8.4-10.2) mg/dL Total Bilirubin (0.2-1.3) mg/dL AST (17-59) IU/L ALT (<50) IU/L Alkaline Phosphatase (38-126) U/L Total Creatine Kinase (55-170) U/L CK-MB (CK-2) CK-MB (CK-2) Rel Index Troponin I (0.01-0.034) ng/mL NT-Pro-B Natriuret Pep (<125) pg/mL Total Protein (6.3-8.2) g/dL Albumin (3.5-5.0) g/dL Globulin (1.7-4.1) g/dL Albumin/Globulin Ratio (1.0-2.8) Lipase (23-300) U/L Urine Color Yellow Urine Appearance Clear Urine pH 5.5 (4.5-8.0) Ur Specific George <=1.005 (1.000-1.035) Urine Protein 1+ H (Negative) Urine Glucose (UA) Negative (Negative) g/dL Urine Ketones Negative (NEGATIVE) Urine Occult Blood 1+ H (Negative) Urine Nitrate Negative (Negative) Urine Bilirubin Negative (NEGATIVE) Urine Urobilinogen 0.2 (0.2) E.U./dL Ur Leukocyte Esterase Negative (NEGATIVE) Urine RBC None seen (0-5/HPF) Urine WBC 0-1/hpf (0-5/HPF) Urine Bacteria None seen (None) Ur Culture Indicated? Cult not indicated Influenza A (RT-PCR) Flu a negative (NEGATIVE) Influenza B (RT-PCR) Flu b negative (NEGATIVE) Urine Dip Bedside Urine Glucose Negative Bedside Urine Bilirubin - Negative Bedside Urine Ketone - Negative Urine Specific George 1.015 Bedside Urine Occult Blood +/- Bedside Urine pH 6.0 Bedside Urine Protein + 30 Bedside Urine Urobilinogen +/- 1mg Bedside Urine Nitrite - Negative Bedside Urine Leukocytes - Negative Esterase Imaging Data US - abdomen: Attestation: I personally reviewed and interpreted this imaging study as follows: Radiologist's Impression: 25 DO Kamran Khanna Patient Imaging - Blaise Stafford 74 M 1945 ACTIVITY DATE EXAM STATUS AUTHOR 11/24/19 09:58 Signed Martin Perez 11/24/19 08:37 Signed Maria Isabel Ann 11/24/19 08:[address] [address] Ultrasound Report Signed Patient: Blaise Stafford FMR#: [id number] : 1945cct:[id number] Age/Sex: 74 / MDate of Service: 11/24/19 Loc: ED Accession Number: [id number] Procedure: US abdomen limited Ordering Provider: Luan Diaz D.O. PROCEDURE: US ABDOMEN LIMITED INDICATIONS: RIGHT UPPER QUADRANT PAIN TECHNIQUE: Real-time scanning was performed of the abdominal and retroperitoneal organs, with image documentation. COMPARISON: None. FINDINGS: Liver: Liver is enlarged and measures 25.9 cm in length. Normal liver parenchymal echotexture is seen. No discrete hepatic lesion. Gallbladder: Normal bowel stones and sludge are noted in dependent portion of gallbladder lumen. Focal gallbladder wall thickening measures up to 4.7 mm is seen. There is trace amount of pericholecystic fluid. Positive sonographic Love's sign was noted during the study. Biliary ducts: Intrahepatic bile ducts are non-dilated. Extrahepatic bile duct caliber measures 5.3 mm. Normal is 6-7 mm or less in diameter, or 10 mm or less post-cholecystectomy. Pancreas: Not well-seen due to overlying bowel gas.. Kidneys: Right kidney measures 16.7 cm in length. 5.4 cm simple cyst is noted in anterior cortex of mid pole right kidney. 1.8 cm cyst is also seen. No hydronephrosis or nephrolithiasis. No solid masses. Miscellaneous: No free abdominal fluid. IMPRESSION: 1. Hepatomegaly. No discrete hepatic lesion. 2. Cholelithiasis with gallbladder wall thickening, trace amount of pericholecystic fluid and positive sonographic Love's sign suggestive of acute cholecystitis. 3. No biliary ductal dilatation. 4. Right renal cysts as above. No hydronephrosis. Dictated by: Martin Perez M.D. on 11/24/2019 at 11:19 Approved by: Martin Perez M.D. on 11/24/2019 at 11:22 Discharge Plan Departure Patient Disposition: Admitted As Inpatient Clinical Impression: Cellulitis of leg, right, Acute cholecystitis, Cholecystitis Discharge Date/Time: 11/24/19 13:17 Admit Date/Time: 11/24/19 12:55 Admit Provider: Samson Cox
--- NOTE | 2019-11-24 08:09 | DI.RAD.S_ITS ---
PROCEDURE: XR ACUTE ABDOMEN SERIES INDICATIONS: Abdominal pain TECHNIQUE: One view chest and two views of the abdomen were acquired. COMPARISON: [facility], , XR ACUTE ABDOMEN SERIES, 07/09/2018, 8:47. FINDINGS: Surgical changes and devices: None. Chest: Increased pulmonary vascularity is present. Heart size is enlarged. No pleural effusions. No pneumoperitoneum. Abdomen: Bowel gas pattern is nonspecific. No suspicious calcifications. Visualized solid organ contours appear normal. Stomach is distended. Bones: No suspicious bony lesions. IMPRESSION: 1. Distended stomach with an overall paucity of bowel gas. Overall appearance is nonspecific. 2. Cardiomegaly with increased vascularity suggestive of edema. Dictated by: Maria Isabel Ann M.D. on 11/24/2019 at 9:10 Approved by: Maria Isabel Ann M.D. on 11/24/2019 at 9:11
--- NOTE | 2019-11-24 08:37 | DI.RAD.S_ITS ---
PROCEDURE: XR FOOT RT MIN 3V INDICATIONS: foot infection, osteo great toe? TECHNIQUE: 3 views of the foot were acquired. COMPARISON: [facility], CR, XR FOOT LT MIN 3V, 02/14/2019, 14:49. FINDINGS: Bones: Areas of lucency are noted overlying the distal phalanx of the first digit. There is adjacent soft tissue edema. Scattered air digit charge change are noted within the midfoot as well as IP joints. Soft tissues: No tibiotalar joint effusion. Achilles tendon appears normal. IMPRESSION: Lucency overlying the distal first phalanx. While the majority appears to be within the soft tissue, there is a lucency at the proximal aspect of the distal phalanx which persists on multiple views and developing osteomyelitis cannot be excluded. Dictated by: Maria Isabel Ann M.D. on 11/24/2019 at 9:11 Approved by: Maria Isabel Ann M.D. on 11/24/2019 at 9:12
[2019-11-24 08:44] LABS: Add Manual Diff / Slide Review NO; Basophils Absolute Auto 100 /uL (0-100); Basophils Percent Auto 0.6 % (0-2); Eosinophils Absolute Auto 0 /uL (0-450); Eosinophils Percent Auto 0.1 % (2-4); Hematocrit 32.4 % (41-53); Hemoglobin 10.9 g/dL (13.5-17.5); Lymphocytes Absolute Auto 600 /uL (1100-4500); Lymphocytes Percent Auto 5.2 % (25-40); Mean Corpuscular HGB Conc 33.7 % (30-36); Mean Corpuscular Hemoglobin 30.7 PG (26-34); Monocytes Absolute Auto 1000 /uL (0-900); Monocytes Percent Auto 8.8 % (3-14); Neutrophils Absolute Auto 10000 /uL (1500-7000); Neutrophils Percent Auto 85.3 % (50-75); Platelet Count 213 X10^3/uL (150-400); Red Blood Cell Count 3.56 X10^6/uL (4.5-5.9); Red Cell Distribution Width 14.7 % (11.6-14.8); White Blood Cell Count 11.7 X10^3/uL (4.5-11.0)
[2019-11-24 08:52] LABS: INR 2.8 (0.9-1.3); Prothrombin Time 31.6 SECONDS (10.1-12.7)
[2019-11-24 08:56] LABS: Alanine Aminotransferase 26 IU/L (<50); Albumin 4.1 g/dL (3.5-5.0); Albumin Globulin Ratio 1.1 (1.0-2.8); Alkaline Phosphatase 70 U/L (38-126); Aspartate Aminotransferase 27 IU/L (17-59); BUN Creatinine Ratio 32.2 (6-22); Bilirubin Total 1.8 mg/dL (0.2-1.3); Blood Urea Nitrogen 29 mg/dL (9-20); Calcium 9.7 mg/dL (8.4-10.2); Carbon Dioxide 28 mmol/L (22-32); Chloride 95 mmol/L (98-107); Creatine Kinase 39 U/L (55-170); Estimated Glomerular Filt Rate > 60.0 mL/min (>60); Globulin 3.6 g/dL (1.7-4.1); Glucose 214 mg/dL (80-110); HEMOLYSIS < 15 (0-50); Lipase 146 U/L (23-300); Potassium 3.7 mmol/L (3.4-5.1); Sodium 134 mmol/L (137-145); Total Protein 7.7 g/dL (6.3-8.2)
[2019-11-24 08:57] LABS: Lactate (Lactic Acid) 1.1 mmol/L (0.7-2.1)
[2019-11-24 09:08] LABS: Troponin I < 0.012 ng/mL (0.01-0.034)
[2019-11-24 09:09] LABS: NT-proBNP (BNP-Adult 18+) 616 pg/mL (<125)
[2019-11-24 09:17] LABS: Influenza A - CEPHEID Flu A NEGATIVE (NEGATIVE); Influenza B - CEPHEID Flu B NEGATIVE (NEGATIVE)
[2019-11-24] MEDS: levoFLOXacin 750 MG/150 ML PIGGYBACK 100 MG IV (09:29)
[2019-11-24] MEDS: SODIUM CHLORIDE 0.9% 2,190 ML 730 ML IV (09:30)
--- NOTE | 2019-11-24 09:58 | DI.US.S_ITS ---
PROCEDURE: US ABDOMEN LIMITED INDICATIONS: RIGHT UPPER QUADRANT PAIN TECHNIQUE: Real-time scanning was performed of the abdominal and retroperitoneal organs, with image documentation. COMPARISON: None. FINDINGS: Liver: Liver is enlarged and measures 25.9 cm in length. Normal liver parenchymal echotexture is seen. No discrete hepatic lesion. Gallbladder: Normal bowel stones and sludge are noted in dependent portion of gallbladder lumen. Focal gallbladder wall thickening measures up to 4.7 mm is seen. There is trace amount of pericholecystic fluid. Positive sonographic Love's sign was noted during the study. Biliary ducts: Intrahepatic bile ducts are non-dilated. Extrahepatic bile duct caliber measures 5.3 mm. Normal is 6-7 mm or less in diameter, or 10 mm or less post-cholecystectomy. Pancreas: Not well-seen due to overlying bowel gas.. Kidneys: Right kidney measures 16.7 cm in length. 5.4 cm simple cyst is noted in anterior cortex of mid pole right kidney. 1.8 cm cyst is also seen. No hydronephrosis or nephrolithiasis. No solid masses. Miscellaneous: No free abdominal fluid. IMPRESSION: 1. Hepatomegaly. No discrete hepatic lesion. 2. Cholelithiasis with gallbladder wall thickening, trace amount of pericholecystic fluid and positive sonographic Love's sign suggestive of acute cholecystitis. 3. No biliary ductal dilatation. 4. Right renal cysts as above. No hydronephrosis. Dictated by: Martin Perez M.D. on 11/24/2019 at 11:19 Approved by: Martin Perez M.D. on 11/24/2019 at 11:22
[2019-11-24 10:16] LABS: Appearance Urine UA CLEAR; Bilirubin Urine UA NEGATIVE (NEGATIVE); Color Urine UA YELLOW; Glucose Urine UA NEGATIVE (Negative); Ketones Urine UA NEGATIVE (NEGATIVE); Leukocyte Esterase Urine UA NEGATIVE (NEGATIVE); Nitrite Urine UA NEGATIVE (Negative); Occult Blood Urine UA 1+ (Negative); Protein Urine UA 1+ (Negative); Specific Gravity Urine UA <=1.005 (1.000-1.035); Urobilinogen Urine UA 0.2 E.U./dL (0.2); pH Urine UA 5.5 (4.5-8.0)
[2019-11-24 10:18] LABS: Bacteria Urine None Seen; RBC Urine None Seen (0-5/HPF)
[2019-11-24 10:33] LABS: Culture Indicated Urine Cult Not Indicated; WBC Urine 0-1/HPF (0-5/HPF)
[2019-11-24] MEDS: PIPERACILLIN-TAZO 4.5 GM/100 ML FROZ.PIGGY IV (11:55)
--- NOTE | 2019-11-24 12:55 | P.CONS_ITS ---
History of Present Illness Consult details Date Patient Seen: 11/24/19 Time Patient Seen: 12:55 Chief complaint: flu for a week Reason for consult: cholecystitis Requesting provider: Luan Diaz Narrative: This is a 74 yo man with history of morbid obesity, atrial fibrillation, anticoagulation on Coumadin, DM2, history of PE, cardiomyopathy, HTN, LE edema, BPH, who presents with RLE cellulitis and flu like symptoms for 1 week. He additionally has noticed epigastric pain with eating an taking pills for the past week. He reports malaise, fevers, chills, and denies nausea. He denies any prior episodes of right upper quadrant or epigastric pain. He denies jaundice. ROS: Constitutional: Reports chills, Reports fatigue, Reports fever(s), Denies frequent falls, Denies lethargy and Denies weakness Eyes: Denies change in vision, Denies eye discharge, Denies irritation and Denies loss of vision Ears, Nose, Mouth, and Throat: Denies change in voice, Denies dizziness, Denies neck pain, Denies sore throat and Denies throat swelling Cardiovascular: Denies chest pain, Denies irregular heart rhythm, Denies l ightheadedness, Denies palpitations, Denies dyspnea, Denies dyspnea on exertion and Denies orthopnea Respiratory: Denies cough, Denies dyspnea, Denies dyspnea on exertion and Denies wheezing Gastrointestinal: Reports abdominal pain, Reports bloating, Denies change in bowel habits, Denies diarrhea and Denies nausea Genitourinary: Denies hematuria, Denies flank pain, Denies urinary incontinence and Denies urinary urgency Musculoskeletal: Denies back pain, Denies muscle weakness, Denies neck pain, Denies numbness and Denies tingling Skin/Breast: Denies pruritus, Reports erythema, Denies rash, Reports skin pain, Reports skin swelling, Reports sores and Denies wounds Neurologic: Denies behavioral changes, Denies confusion, Denies dizziness, Denies frequent falls, Denies loss of vision, Denies numbness, Denies tingling and Denies weakness Psychiatric: Denies anxiety, Denies behavioral changes, Denies confusion, Denies depression, Denies homicidal ideation and Denies suicidal ideation Endocrine: Reports fatigue, Denies flushing and Denies palpitations Hematologic/Lymphatic: Denies easy bruising Allergic/Immunologic: Denies urticaria, Denies throat swelling and Denies wheezing PE: GENERAL: Alert, comfortable. Appears stated age. Severely obsese, Answers questions promptly and appropriately. Vital signs noted. HENT: Normocephalic, atraumatic. Hearing intact. Oral mucosa is pink and moist. EYES: Conjunctiva pink, sclera white, no periorbital swelling. CARDIOVASCULAR: Regular rate. No pedal edema. RESPIRATORY: Non-tachypneic, breathing comfortably on room air. GASTROINTESTINAL: Abdomen soft and non-distended; severely obese, TTP in epigastrium, RUQ GENITALURINARY: No flank tenderness. MUSCULOSKELETAL: Equal tone and mass bilaterally. SKIN: Warm, dry, soft, appropriate color for ethnicity. RLE circumferential erythema, edema, and venous stasis. No other lesions, rashes, or wounds. NEURO: Alert and Oriented X 3. No gross sensory deficits, or cognitive issues. PSYCH: Appropriate affect and mood. Meds Home Medications and Allergies Home Medications Medication Instructions Recorded Confirmed Type acetaminophen 1 tab PO PRN PRN 07/07/18 11/24/19 History aspirin 81 mg PO DAILY 07/07/18 11/24/19 History melatonin 5 mg PO BEDTIME 07/07/18 11/24/19 History nystatin 100,000 unit/gram topical 1 applictn TOP BID PRN #30 gram 08/02/18 11/24/19 Rx ointment lisinopril 40 mg tablet 40 mg PO DAILY #90 tab 08/12/18 11/24/19 Rx blood sugar diagnostic #360 each 09/22/18 11/24/19 Rx carvedilol 12.5 mg tablet 25 mg PO BID #360 tab 08/15/19 11/24/19 Rx metformin 1,000 mg tablet 1,000 mg PO BID #180 tab 08/30/19 11/24/19 Rx finasteride 5 mg tablet 5 mg PO QDAY #90 tab 11/15/19 11/24/19 Rx doxazosin 4 mg PO BEDTIME 11/24/19 11/24/19 History furosemide 40 mg PO DAILY 11/24/19 11/24/19 History gabapentin 600 mg PO BEDTIME 11/24/19 11/24/19 History glipizide 5 mg PO DAILY 11/24/19 11/24/19 History potassium chloride 40 meq PO BID 11/24/19 11/24/19 History rosuvastatin 10 mg PO QPM 11/24/19 11/24/19 History tramadol 50 - 100 mg PO Q8H PRN 11/24/19 11/24/19 History warfarin 4 mg PO DAILY 11/24/19 11/24/19 History Allergies Allergy/AdvReac Type Severity Reaction Status Date / Time atorvastatin [ATORVASTATIN] Allergy Mild flu like Verified 11/24/19 08:12 (LIPITOR) codeine [CODEINE] Allergy Mild Verified 11/24/19 08:12 Exam Vital Signs (past 8 hours): - 11/24/19 08:00 11/24/19 08:12 11/24/19 09:57 Temperature 98.9 F Pulse Rate 101 H 101 H 100 H Respiratory Rate 29 H 20 31 H Blood Pressure 154/72 H Blood Pressure [Left Arm] 151/72 H 158/80 H Pulse Oximetry 99 11/24/19 10:00 11/24/19 10:30 11/24/19 11:00 Temperature Pulse Rate 101 H 100 H 99 H Respiratory Rate 31 H 26 H 28 H Blood Pressure Blood Pressure [Left Arm] 161/83 H 132/68 160/77 H Pulse Oximetry 98 100 11/24/19 11:22 11/24/19 11:30 11/24/19 12:00 Temperature Pulse Rate 102 H 101 H 100 H Respiratory Rate 24 24 36 H Blood Pressure Blood Pressure [Left Arm] 139/64 143/68 H 142/65 H Pulse Oximetry 98 98 98 11/24/19 12:30 Temperature Pulse Rate 101 H Respiratory Rate 31 H Blood Pressure Blood Pressure [Left Arm] 135/64 Pulse Oximetry 94 Oxygen Delivery Method Room Air Objective Imaging US - abdomen: Radiologist's impression: Gall stones, GB wall thickening; trace pericholecystic fluid Labs Result Diagrams: 11/24/19 08:25 11/24/19 08:25 Labs: Laboratory Results - last 24 hr 11/24/19 11/24/19 11/24/19 08:25 08:25 08:25 WBC 11.7 H RBC 3.56 L Hgb 10.9 L Hct 32.4 L MCV 91.0 MCH 30.7 MCHC 33.7 RDW 14.7 Plt Count 213 Neut % (Auto) 85.3 H Lymph % (Auto) 5.2 L [place] % (Auto) 8.8 Eos % (Auto) 0.1 L Baso % (Auto) 0.6 Neut # (Auto) 77549 H Lymph # (Auto) 600 L [place] # (Auto) 1000 H Eos # (Auto) 0 Baso # (Auto) 100 PT 31.6 H INR 2.8 H Sodium 134 L Potassium 3.7 Chloride 95 L Carbon Dioxide 28 BUN 29 H Creatinine 0.90 Estimated GFR > 60.0 BUN/Creatinine Ratio 32.2 H Glucose 214 H Lactate Calcium 9.7 Total Bilirubin 1.8 H AST 27 ALT 26 Alkaline Phosphatase 70 Total Creatine Kinase 39 L CK-MB (CK-2) TNP CK-MB (CK-2) Rel Index TNP Troponin I < 0.012 NT-Pro-B Natriuret Pep 616 H Total Protein 7.7 Albumin 4.1 Globulin 3.6 Albumin/Globulin Ratio 1.1 Lipase 146 Urine Color Urine Appearance Urine pH Ur Specific [place] Urine Protein Urine Glucose (UA) Urine Ketones Urine Occult Blood Urine Nitrate Urine Bilirubin Urine Urobilinogen Ur Leukocyte Esterase Urine RBC Urine WBC Urine Bacteria Ur Culture Indicated? Influenza A (RT-PCR) Influenza B (RT-PCR) 11/24/19 11/24/19 11/24/19 08:25 08:33 10:10 WBC RBC Hgb Hct MCV MCH MCHC RDW Plt Count Neut % (Auto) Lymph % (Auto) [place] % (Auto) Eos % (Auto) Baso % (Auto) Neut # (Auto) Lymph # (Auto) [place] # (Auto) Eos # (Auto) Baso # (Auto) PT INR Sodium Potassium Chloride Carbon Dioxide BUN Creatinine Estimated GFR BUN/Creatinine Ratio Glucose Lactate 1.1 Calcium Total Bilirubin AST ALT Alkaline Phosphatase Total Creatine Kinase CK-MB (CK-2) CK-MB (CK-2) Rel Index Troponin I NT-Pro-B Natriuret Pep Total Protein Albumin Globulin Albumin/Globulin Ratio Lipase Urine Color Yellow Urine Appearance Clear Urine pH 5.5 Ur Specific [place] <=1.005 Urine Protein 1+ H Urine Glucose (UA) Negative Urine Ketones Negative Urine Occult Blood 1+ H Urine Nitrate Negative Urine Bilirubin Negative Urine Urobilinogen 0.2 Ur Leukocyte Esterase Negative Urine RBC None seen Urine WBC 0-1/hpf Urine Bacteria None seen Ur Culture Indicated? Cult not indicated Influenza A (RT-PCR) Flu a negative Influenza B (RT-PCR) Flu b negative Assessment & Plan Assessment and plan (1) Anticoagulated on warfarin: Current visit: No Status: Chronic (2) History of pulmonary embolism: Current visit: No Status: Chronic (3) Type 2 diabetes mellitus without complication: Current visit: No Status: Chronic (4) Morbid obesity due to excess calories: Current visit: No Status: Chronic (5) Cardiomyopathy: Current visit: No Status: Chronic (6) Essential hypertension: Current visit: No Status: Chronic (7) Edema: Current visit: No Status: Chronic (8) Body mass index (BMI) of 45.0 to 49.9 in adult: Current visit: No Status: Chronic (9) Benign localized prostatic hyperplasia with lower urinary tract symptoms (LUTS): Current visit: No Status: Chronic (10) Acute cholecystitis due to biliary calculus: Current visit: Yes Status: Acute (11) Hyperbilirubinemia: Current visit: Yes Status: Acute Assessment & Plan narrative: This is a 74 yo man with acute cholecystitis which sounds like it has been smoldering for about 1 week. This patient is very high risk for surgery at this time due to his underlying comorbidities, his INR of 2.8, and being a week into his symptoms. Taking out his gall bladder at this time bears a high risk of complications. I recommend we begin treating him with PCN based IV antibiotics, NPO, IV hydration, and pain meds/antiemetics as needed. Follow daily labs and exam. If he improves, he may be able to go home on PO antibiotics and follow up for elective cholecystectomy in 8-12 weeks. If he does not improve, we will need to get a perc drain by IR or intra operatively by me. Please hold his coumadin. If he needs continous anticoagulation please use lovenox or heparin gtt. These must be held prior to IR perc drain if that ends up being needed. 35 minutes were spent face to face with the patient. More than 50% of the time was spent in counseling and co-ordination of care regarding his symptoms, labs, exam findings, imaging, options for treatment, expected outcomes, risks and benefits. Plan: Agree with admission to primary care provider for management of his multiple medical comorbidities and cellulitis NPO except for water, ice chips, and meds Pain med PRN IV fluids IV zosyn Ambulate frequently, at least 20 minutes TID Daily CMP, CBC Time Spent With Patient Time with patient: Greater than 35 minutes
--- NOTE | 2019-11-24 14:27 | PC.NURSE ---
Patient admitted with cholecystitis and cellulitis to his [facility]. Black felt marking pen outlined around red area. R.great toe with blister and is red. He states that he stubbed his toe. Patient is A&Ox3, he has other skin issues, please look at skin assessment under physical assessment. Patient is a large man, he has a bolus of ivf at 250cc infusing at this time. VSS, Patient breath sounds clear, he is on RA and heart rate regular. Blaise does have 2+ edema to bilateral lower extremities. His abomen is rotund and skin is shiny. Bowel tones are present but patients r.side is more rotund than left side. Resting in room and denies pain at this time.
--- NOTE | 2019-11-24 15:04 | P.HP_ITS ---
History of Present Illness History of Present Illness Date Patient Seen: 11/24/19 Time Patient Seen: 15:04 Chief complaint: flu for a week Narrative: 74-year-old patient admitted via the emergency department after presenting with symptoms of generalized feeling not well probable cellulitis in his leg and abdominal pain Please see ER physician's note for further details Patient was found to have probable acute cholecystitis as well as cellulitis of his lower extremity. Surgery was consulted wanted him on antibiotic therapy before surgical intervention specially given the active cellulitis. Patient is also chronically anticoagulated for warfarin and that will need to be normalized before surgery Patient History Medical History Anticoagulated on warfarin (Chronic) Atrial fibrillation (Acute) Benign localized prostatic hyperplasia with lower urinary tract symptoms (LUTS) (Chronic 12/29/17) Body mass index (BMI) of 45.0 to 49.9 in adult (Chronic 02/17/17) C. difficile diarrhea (Acute) Cardiomyopathy (Chronic 04/21/13) Cellulitis and abscess of right leg (Acute) Edema (Chronic) Essential hypertension (Chronic 10/10/11) Gynecomastia (Chronic 03/30/17) History of pulmonary embolism (Chronic) Mixed hyperlipidemia (Chronic 10/25/15) Morbid obesity due to excess calories (Chronic 02/17/17) Pressure ulcer of contiguous region involving back and buttock, stage 2 (Chronic) Pulmonary emboli (Acute) Type 2 diabetes mellitus with hyperglycemia (Chronic 10/10/11) Type 2 diabetes mellitus without complication (Chronic 10/25/15) Family & Social History Social History: household members spouse lives independently Yes caregiver/support person No Safety & Behavioral: Feels Safe in Current Yes Environment Been Physically Hurt or No Threatened By a Person Suicidal Ideation Description None Suicide Plan Description No Plan Tobacco & Substance use: Smoking Status Never smoker alcohol intake former alcohol intake frequency a few times a month Substance Use Type does not use Meds Home Medications and Allergies Home Medications Medication Instructions Recorded Confirmed Type acetaminophen 1 tab PO PRN PRN 07/07/18 11/24/19 History aspirin 81 mg PO DAILY 07/07/18 11/24/19 History melatonin 5 mg PO BEDTIME 07/07/18 11/24/19 History nystatin 100,000 unit/gram topical 1 applictn TOP BID PRN #30 gram 08/02/18 11/24/19 Rx ointment lisinopril 40 mg tablet 40 mg PO DAILY #90 tab 08/12/18 11/24/19 Rx blood sugar diagnostic #360 each 09/22/18 11/24/19 Rx carvedilol 12.5 mg tablet 25 mg PO BID #360 tab 08/15/19 11/24/19 Rx metformin 1,000 mg tablet 1,000 mg PO BID #180 tab 08/30/19 11/24/19 Rx finasteride 5 mg tablet 5 mg PO QDAY #90 tab 11/15/19 11/24/19 Rx doxazosin 4 mg PO BEDTIME 11/24/19 11/24/19 History furosemide 40 mg PO DAILY 11/24/19 11/24/19 History gabapentin 600 mg PO BEDTIME 11/24/19 11/24/19 History glipizide 5 mg PO DAILY 11/24/19 11/24/19 History potassium chloride 40 meq PO BID 11/24/19 11/24/19 History rosuvastatin 10 mg PO QPM 11/24/19 11/24/19 History tramadol 50 - 100 mg PO Q8H PRN 11/24/19 11/24/19 History warfarin 4 mg PO DAILY 11/24/19 11/24/19 History Allergies Allergy/AdvReac Type Severity Reaction Status Date / Time atorvastatin [ATORVASTATIN] Allergy Mild flu like Verified 11/24/19 08:12 (LIPITOR) codeine [CODEINE] Allergy Mild Verified 11/24/19 08:12 Review of Systems Constitutional Constitutional: Reports body ache(s), Denies excessive sweating, Reports fatigue, Reports headache(s), Reports lack of energy, Reports malaise, Reports poor appetite and Reports weakness Eyes Eyes: Denies change in vision, Denies itchy eyes, Denies loss of vision and Denies other visual disturbances ENT Ears, Nose, Mouth, and Throat: No change in voice, No difficulty swallowing, No dizziness, No ear pain, Yes headache(s), No hoarseness, No lip swelling, No neck pain, No sore throat, No throat swelling and No tongue swelling Cardiovascular Cardiovascular: Denies chest pain, Denies fainting, Denies fast heart rate, Denies irregular heart rhythm, Denies rapid, pounding, or irregular heartbeat, Denies shortness of breath, Denies shortness of breath with activity and Denies slow heart rate Respiratory Respiratory: Denies chest congestion, Denies cough, Denies hemoptysis, Denies dyspnea, Denies dyspnea on exertion, Denies stridor and Denies wheezing Gastrointestinal Gastrointestinal: Reports abdominal pain (Right upper quadrant), Denies bloating, Denies change in bowel habits, Denies change in stool character, Denies dysphagia, Denies nausea, Denies vomiting and Denies hematemesis Genitourinary Genitourinary: Denies hematuria, Denies difficulty urinating and Denies urinary frequency Musculoskeletal Musculoskeletal: Denies abnormal gait, Denies myalgias, Denies arthralgias, Denies limited range of motion and Denies neck pain Comments: Right lower extremities become increasingly swollen with redness that is increased since I saw him last Integumentary/Breasts Skin/Breast: Denies bleeding lesions, Denies change in pigmentation, Denies changing lesions, Denies new lesions, Denies rash, Denies skin swelling, Denies sores and Denies jaundice Neurologic Neurologic: Denies abnormal speech, Denies abnormal gait, Denies behavioral changes, Denies confusion, Denies dizziness, Denies syncope, Reports headache(s), Denies loss of vision, Denies memory loss, Denies seizure-like activity, Denies paresthesias and Reports weakness Psychiatric Psychiatric: Denies behavioral changes, Denies change in appetite, Denies confusion, Denies difficulty concentrating, Denies auditory hallucinations, Denies memory loss, Denies mood swings and Denies suicidal ideation Endocrine Endocrine: Denies excessive sweating, Reports fatigue, Denies flushing, Denies polyuria and Denies palpitations Hematologic/Lymphatic Hematologic/Lymphatic: Denies easy bleeding, Denies easy bruising and Denies lymphadenopathy Allergic/Immunologic Allergic/Immunologic: Denies urticaria, Denies itchy eyes, Denies lip swelling, Denies throat swelling, Denies tongue swelling and Denies wheezing Exam Vital Signs (past 8 hours): - 11/24/19 08:00 11/24/19 08:12 11/24/19 09:57 Temperature 98.9 F Pulse Rate 101 H 101 H 100 H Respiratory Rate 29 H 20 31 H Blood Pressure 154/72 H Blood Pressure [Left Arm] 151/72 H 158/80 H Pulse Oximetry 99 11/24/19 10:00 11/24/19 10:30 11/24/19 11:00 Temperature Pulse Rate 101 H 100 H 99 H Respiratory Rate 31 H 26 H 28 H Blood Pressure Blood Pressure [Left Arm] 161/83 H 132/68 160/77 H Pulse Oximetry 98 100 11/24/19 11:22 11/24/19 11:30 11/24/19 12:00 Temperature Pulse Rate 102 H 101 H 100 H Respiratory Rate 24 24 36 H Blood Pressure Blood Pressure [Left Arm] 139/64 143/68 H 142/65 H Pulse Oximetry 98 98 98 11/24/19 12:30 11/24/19 13:12 Temperature 98.8 F Pulse Rate 101 H 102 H Respiratory Rate 31 H 18 Blood Pressure 128/71 Blood Pressure [Left Arm] 135/64 Pulse Oximetry 94 97 Oxygen Delivery Method Room Air Oxygen Flow Rate 0 Narrative Exam Narrative: Elderly obese male in no obvious distress lying in his hospital bed HEENT-unremarkable Neck-no bruits no lymphadenopathy Lungs-clear with good breath sounds no wheezes no crackles Heart-regular rate and rhythm no murmur Abdomen-somewhat distended and certainly obese. Moderate to severe right upper quadrant tenderness to mild/deep palpation. No rebound present. Guarding in the right upper quadrant. Positive bowel tones Extremities-4+ chronic and pitting edema present right lower extremity from knee distal. Erythema surrounding right pretibial area darker red with increased warmth than previous. Right great toe also quite swollen red and warm with early eschar/blister under surface Objective Labs Result Diagrams: 11/24/19 08:25 11/24/19 08:25 Labs: Laboratory Results - last 24 hr 11/24/19 11/24/19 11/24/19 08:25 08:25 08:25 WBC 11.7 H RBC 3.56 L Hgb 10.9 L Hct 32.4 L MCV 91.0 MCH 30.7 MCHC 33.7 RDW 14.7 Plt Count 213 Neut % (Auto) 85.3 H Lymph % (Auto) 5.2 L [place] % (Auto) 8.8 Eos % (Auto) 0.1 L Baso % (Auto) 0.6 Neut # (Auto) 90811 H Lymph # (Auto) 600 L [place] # (Auto) 1000 H Eos # (Auto) 0 Baso # (Auto) 100 PT 31.6 H INR 2.8 H Sodium 134 L Potassium 3.7 Chloride 95 L Carbon Dioxide 28 BUN 29 H Creatinine 0.90 Estimated GFR > 60.0 BUN/Creatinine Ratio 32.2 H Glucose 214 H Lactate Calcium 9.7 Total Bilirubin 1.8 H AST 27 ALT 26 Alkaline Phosphatase 70 Total Creatine Kinase 39 L CK-MB (CK-2) TNP CK-MB (CK-2) Rel Index TNP Troponin I < 0.012 NT-Pro-B Natriuret Pep 616 H Total Protein 7.7 Albumin 4.1 Globulin 3.6 Albumin/Globulin Ratio 1.1 Lipase 146 Urine Color Urine Appearance Urine pH Ur Specific [place] Urine Protein Urine Glucose (UA) Urine Ketones Urine Occult Blood Urine Nitrate Urine Bilirubin Urine Urobilinogen Ur Leukocyte Esterase Urine RBC Urine WBC Urine Bacteria Ur Culture Indicated? Influenza A (RT-PCR) Influenza B (RT-PCR) 11/24/19 11/24/19 11/24/19 08:25 08:33 10:10 WBC RBC Hgb Hct MCV MCH MCHC RDW Plt Count Neut % (Auto) Lymph % (Auto) [place] % (Auto) Eos % (Auto) Baso % (Auto) Neut # (Auto) Lymph # (Auto) [place] # (Auto) Eos # (Auto) Baso # (Auto) PT INR Sodium Potassium Chloride Carbon Dioxide BUN Creatinine Estimated GFR BUN/Creatinine Ratio Glucose Lactate 1.1 Calcium Total Bilirubin AST ALT Alkaline Phosphatase Total Creatine Kinase CK-MB (CK-2) CK-MB (CK-2) Rel Index Troponin I NT-Pro-B Natriuret Pep Total Protein Albumin Globulin Albumin/Globulin Ratio Lipase Urine Color Yellow Urine Appearance Clear Urine pH 5.5 Ur Specific [place] <=1.005 Urine Protein 1+ H Urine Glucose (UA) Negative Urine Ketones Negative Urine Occult Blood 1+ H Urine Nitrate Negative Urine Bilirubin Negative Urine Urobilinogen 0.2 Ur Leukocyte Esterase Negative Urine RBC None seen Urine WBC 0-1/hpf Urine Bacteria None seen Ur Culture Indicated? Cult not indicated Influenza A (RT-PCR) Flu a negative Influenza B (RT-PCR) Flu b negative Assessment & Plan Assessment & Plan narrative: 1. Cholecystitis-general surgery has been consulted and seen the patient. Will be kept NPO and placed on IV antibiotics an effort to try and improve the situation prior to surgical intervention which will almost certainly be necessary. He also needs to have his anticoagulation reversed etc. will use IV pain meds and antiemetics. Plan to repeat CBC and CMP over the next several days, serially 2. Cellulitis right lower extremity-this is more clearly cellulitic today than when I saw him last in clinic. Appropriate antibiotics for his gallbladder would also be appropriate for most skin organisms. Continue with that alone for now. Get him back on his usual diuretic therapy which he has held for several days because he just was not feeling well which is contributed to his cellulitis I believe. I would think his cholecystitis was probably their 1st and cellulitis 2nd. 3. Diabetes-given the patient's NPO keep him off his oral hypoglycemic agents follow his numbers but use insulin for treatment 4. Chronic anticoagulation warfarin -0 hold patient's warfarin and give him a single dose of vitamin K with plans to recheck his numbers. Interesting that he says he only has taken 1 dose of warfarin in the last several days yet he remains therapeutic. At this point I think he can remain off his a nticoagulation does not need to be fully anticoagulated with Lovenox or same depending on his clinical course. This should be reassessed on a day-by-day basis however. 5. Morbid obesity-patient size was certainly complicate his interventions for managing his care in the hospital including repositioning in bed etc. Also make his surgical intervention more difficult. It certainly contributed to his cellulitis of his lower extremity and may well contribute to a delay in healing of same 6. Cardiomyopathy-patient with history of cardiomyopathy although most recent echo done in 2018 shows probably low normal at left ventricular ejection fraction. 7. DVT prophylaxis-patient currently anticoagulated with warfarin which will cover him at least initially. Would be hesitant to place SCD on his cellulitic leg at this point. Therefore that was not ordered 8. Code status-patient requests full code in the event of a sudden cardiac or respiratory arrest which is entirely appropriate and consistent with prior wishes Overall patient deserves inpatient hospitalization, will clearly be in the hospital greater than 48 hours including 2 separate midnights unlikely undergo surgical intervention during this hospitalization. Quality VTE Deep Vein Thrombosis/Pulmonary Embolism Present on Admission: No
[2019-11-24] MEDS: carvediloL 12.5 MG TABLET 25 MG PO (15:41)
[2019-11-24] MEDS: HYDROMORPHONE 2 MG INJ 1 MG IV ×2 (18:06→21:04)
[2019-11-24] MEDS: INSULIN ASPART 100 UNIT/ML INSULN PEN SUBCUT (19:22)
[2019-11-24] MEDS: PIPERACILLIN-TAZO 3.375 GM/50 ML FROZ.PIGGY IV (19:22)
[2019-11-25] VITALS (10 sets, daily range): BP systolic 135–151; BP diastolic 68–91; PULSE 97–105; RESP 18–24; TEMP 36.1–37.3; O2SAT 94–100
[2019-11-25] MEDS: PIPERACILLIN-TAZO 3.375 GM/50 ML FROZ.PIGGY IV ×4 (00:10→18:42)
[2019-11-25] MEDS: HYDROMORPHONE 2 MG INJ 1 MG IV (00:11)
[2019-11-25] MEDS: PHYTONADIONE (VIT K1) 5 MG TABLET 10 MG PO (00:12)
[2019-11-25] MEDS: INSULIN ASPART 100 UNIT/ML INSULN PEN SUBCUT ×4 (00:13→18:39)
[2019-11-25 07:07] LABS: Add Manual Diff / Slide Review NO; Basophils Absolute Auto 0 /uL (0-100); Basophils Percent Auto 0.2 % (0-2); Eosinophils Absolute Auto 0 /uL (0-450); Eosinophils Percent Auto 0.2 % (2-4); Hematocrit 31.7 % (41-53); Hemoglobin 10.5 g/dL (13.5-17.5); Lymphocytes Absolute Auto 600 /uL (1100-4500); Lymphocytes Percent Auto 4.6 % (25-40); Mean Corpuscular HGB Conc 33.2 % (30-36); Mean Corpuscular Hemoglobin 30.3 PG (26-34); Mean Corpuscular Volume 91.2 fL (80-100); Monocytes Absolute Auto 1100 /uL (0-900); Monocytes Percent Auto 8.9 % (3-14); Neutrophils Absolute Auto 10800 /uL (1500-7000); Neutrophils Percent Auto 86.1 % (50-75); Platelet Count 215 X10^3/uL (150-400); Red Blood Cell Count 3.48 X10^6/uL (4.5-5.9); Red Cell Distribution Width 14.6 % (11.6-14.8); White Blood Cell Count 12.5 X10^3/uL (4.5-11.0)
[2019-11-25 07:13] LABS: INR 3.3 (0.9-1.3); Prothrombin Time 37.4 SECONDS (10.1-12.7)
[2019-11-25 07:29] LABS: Alanine Aminotransferase 43 IU/L (<50); Albumin 3.4 g/dL (3.5-5.0); Alkaline Phosphatase 76 U/L (38-126); Aspartate Aminotransferase 42 IU/L (17-59); BUN Creatinine Ratio 27.8 (6-22); Bilirubin Total 1.4 mg/dL (0.2-1.3); Blood Urea Nitrogen 25 mg/dL (9-20); Calcium 9.3 mg/dL (8.4-10.2); Carbon Dioxide 25 mmol/L (22-32); Chloride 105 mmol/L (98-107); Estimated Glomerular Filt Rate > 60.0 mL/min (>60); Globulin 3.4 g/dL (1.7-4.1); Glucose 209 mg/dL (80-110); HEMOLYSIS < 15 (0-50); Potassium 3.6 mmol/L (3.4-5.1); Sodium 139 mmol/L (137-145); Total Protein 6.8 g/dL (6.3-8.2)
--- NOTE | 2019-11-25 08:09 | PM.PN.1 ---
Subjective Subjective Date Patient Seen: 11/25/19 Time Patient Seen: 08:09 Interval history: Patient thinks his abdomen is less tender. He is somewhat afraid to eat or drink anything for fear of string up his abdominal pain Does feel like his leg is also less swollen and ?tight? No other complaints or issues other than he has in a room that is extremely noisy. Exam Vital Signs (past 8 hours): - 11/25/19 00:25 11/25/19 04:15 Temperature 99.1 F 98.3 F Pulse Rate 105 H 105 H Respiratory Rate 18 20 Blood Pressure 139/74 137/68 Pulse Oximetry 94 98 Oxygen Delivery Method Room Air Oxygen Flow Rate 0 Narrative Exam Narrative: HEENT-unremarkable Neck-no lymphadenopathy Lungs-good breath sounds no wheezes Heart-regular rate and rhythm Abdomen-obese, tenderness does seem diminished, positive bowel tones, no rebound or guarding Extremities-decreased edema bilateral lower extremities with erythema right lower extremity diminished slightly over yesterday Objective Labs Result Diagrams: 11/25/19 06:35 11/25/19 06:35 Labs: Laboratory Results - last 24 hr 11/24/19 11/24/19 11/24/19 08:25 08:25 08:25 WBC 11.7 H RBC 3.56 L Hgb 10.9 L Hct 32.4 L MCV 91.0 MCH 30.7 MCHC 33.7 RDW 14.7 Plt Count 213 Neut % (Auto) 85.3 H Lymph % (Auto) 5.2 L [place] % (Auto) 8.8 Eos % (Auto) 0.1 L Baso % (Auto) 0.6 Neut # (Auto) 45624 H Lymph # (Auto) 600 L [place] # (Auto) 1000 H Eos # (Auto) 0 Baso # (Auto) 100 PT 31.6 H INR 2.8 H Sodium 134 L Potassium 3.7 Chloride 95 L Carbon Dioxide 28 BUN 29 H Creatinine 0.90 Estimated GFR > 60.0 BUN/Creatinine Ratio 32.2 H Glucose 214 H Lactate Calcium 9.7 Total Bilirubin 1.8 H AST 27 ALT 26 Alkaline Phosphatase 70 Total Creatine Kinase 39 L CK-MB (CK-2) TNP CK-MB (CK-2) Rel Index TNP Troponin I < 0.012 NT-Pro-B Natriuret Pep 616 H Total Protein 7.7 Albumin 4.1 Globulin 3.6 Albumin/Globulin Ratio 1.1 Lipase 146 Urine Color Urine Appearance Urine pH Ur Specific [place] Urine Protein Urine Glucose (UA) Urine Ketones Urine Occult Blood Urine Nitrate Urine Bilirubin Urine Urobilinogen Ur Leukocyte Esterase Urine RBC Urine WBC Urine Bacteria Ur Culture Indicated? Influenza A (RT-PCR) Influenza B (RT-PCR) 11/24/19 11/24/19 11/24/19 08:25 08:33 10:10 WBC RBC Hgb Hct MCV MCH MCHC RDW Plt Count Neut % (Auto) Lymph % (Auto) [place] % (Auto) Eos % (Auto) Baso % (Auto) Neut # (Auto) Lymph # (Auto) [place] # (Auto) Eos # (Auto) Baso # (Auto) PT INR Sodium Potassium Chloride Carbon Dioxide BUN Creatinine Estimated GFR BUN/Creatinine Ratio Glucose Lactate 1.1 Calcium Total Bilirubin AST ALT Alkaline Phosphatase Total Creatine Kinase CK-MB (CK-2) CK-MB (CK-2) Rel Index Troponin I NT-Pro-B Natriuret Pep Total Protein Albumin Globulin Albumin/Globulin Ratio Lipase Urine Color Yellow Urine Appearance Clear Urine pH 5.5 Ur Specific [place] <=1.005 Urine Protein 1+ H Urine Glucose (UA) Negative Urine Ketones Negative Urine Occult Blood 1+ H Urine Nitrate Negative Urine Bilirubin Negative Urine Urobilinogen 0.2 Ur Leukocyte Esterase Negative Urine RBC None seen Urine WBC 0-1/hpf Urine Bacteria None seen Ur Culture Indicated? Cult not indicated Influenza A (RT-PCR) Flu a negative Influenza B (RT-PCR) Flu b negative 11/25/19 11/25/19 11/25/19 06:35 06:35 06:35 WBC 12.5 H RBC 3.48 L Hgb 10.5 L Hct 31.7 L MCV 91.2 MCH 30.3 MCHC 33.2 RDW 14.6 Plt Count 215 Neut % (Auto) 86.1 H Lymph % (Auto) 4.6 L [place] % (Auto) 8.9 Eos % (Auto) 0.2 L Baso % (Auto) 0.2 Neut # (Auto) 37002 H Lymph # (Auto) 600 L [place] # (Auto) 1100 H Eos # (Auto) 0 Baso # (Auto) 0 PT 37.4 H D INR 3.3 H Sodium 139 Potassium 3.6 Chloride 105 Carbon Dioxide 25 BUN 25 H Creatinine 0.90 Estimated GFR > 60.0 BUN/Creatinine Ratio 27.8 H Glucose 209 H Lactate Calcium 9.3 Total Bilirubin 1.4 H AST 42 ALT 43 Alkaline Phosphatase 76 Total Creatine Kinase CK-MB (CK-2) CK-MB (CK-2) Rel Index Troponin I NT-Pro-B Natriuret Pep Total Protein 6.8 Albumin 3.4 L Globulin 3.4 Albumin/Globulin Ratio 1.0 Lipase Urine Color Urine Appearance Urine pH Ur Specific [place] Urine Protein Urine Glucose (UA) Urine Ketones Urine Occult Blood Urine Nitrate Urine Bilirubin Urine Urobilinogen Ur Leukocyte Esterase Urine RBC Urine WBC Urine Bacteria Ur Culture Indicated? Influenza A (RT-PCR) Influenza B (RT-PCR) Assessment & Plan Assessment & Plan narrative: 1. Cholecystitis-continue with IV antibiotics and mostly NPO. Lab work is somewhat improved with slight decrease in bilirubin (which was not all that high to begin with). Continue to monitor clinically and appreciate surgeries input 2. Cellulitis-does appear to be clinically improved. Continue with current IV antibiotics. Continue with diuresis via patient's usual diuretics given orally 3. Anticoagulation-patient's protime actually went up despite 2 doses of vitamin K yesterday. Will give it today and on oral form. Eventually it will begin to go down and on the other side of this all of this vitamin K will make it somewhat more difficult to get him reanticoagulated I believe but I think for now that is the proper course of action. Plan to recheck tomorrow 4. Diabetes-Adequate although not excellent control number still over 200 upon occasion. Continue to monitor and remain off of oral hypoglycemics until his NPO status has been lifted. Overall patient seems minimally improved but I think clearly is improved. No changes in overall plan of care Quality VTE Deep Vein Thrombosis/Pulmonary Embolism Present on Admission: No
[2019-11-25] MEDS: POTASSIUM CHLORIDE 20 MEQ TAB 40 MEQ PO ×2 (08:32→22:21)
[2019-11-25] MEDS: FUROSEMIDE 20 MG TABLET 40 MG PO (08:32)
[2019-11-25] MEDS: PHYTONADIONE (VIT K1) 10 MG/ML AMP SUBCUT (08:32)
[2019-11-25] MEDS: carvediloL 12.5 MG TABLET 25 MG PO ×2 (08:33→22:21)
[2019-11-25] MEDS: lisinopriL 20 MG TABLET 40 MG PO (08:33)
[2019-11-25] MEDS: FINASTERIDE 5 MG TABLET PO (08:37)
--- NOTE | 2019-11-25 10:25 | PC.NURSE ---
Addendum entered by Dariela Lau R.N. 11/25/19 14:31: Patient tolerating a clear liquid diet. No nausea or complaints of pain, he was able to keep his po medication down. 1 person assist to the bathroom. Voiding fine. Original Note: Assess- Patient is A&Ox3, given a vit k injection and took all of his po medications well. He denies any pain. Tolerating ice chips well and is npo otherwise. Patients ivf have been heplocked. He has a large, bloated abdomen thats seems to be more distended to r.side. BT are hypoactivex4. Patient states no complaints at this time.
--- NOTE | 2019-11-25 12:24 | P.PN_ITS ---
Subjective Subjective Date Patient Seen: 11/25/19 Time Patient Seen: 12:24 Interval history: No acute events over night. Pain and nausea have improved. Exam Vital Signs (past 8 hours): - 11/25/19 08:00 11/25/19 10:09 Temperature 97.3 F L Pulse Rate 103 H Respiratory Rate 22 Blood Pressure 145/70 H Pulse Oximetry 96 95 Oxygen Delivery Method Room Air Oxygen Flow Rate 0 Narrative Exam Narrative: PE: GENERAL: Alert, comfortable. Appears stated age. Severely obsese, Answers questions promptly and appropriately. Vital signs noted. HENT: Normocephalic, atraumatic. Hearing intact. Oral mucosa is pink and moist. EYES: Conjunctiva pink, sclera white, no periorbital swelling. CARDIOVASCULAR: Regular rate. No pedal edema. RESPIRATORY: Non-tachypneic, breathing comfortably on room air. GASTROINTESTINAL: Abdomen soft and non-distended; severely obese, TTP in epigas trium, RUQ -- improved from yesterday GENITALURINARY: No flank tenderness. MUSCULOSKELETAL: Equal tone and mass bilaterally. SKIN: Warm, dry, soft, appropriate color for ethnicity. RLE circumferential erythema, edema, and venous stasis. Looks better than yesterday. No other lesions, rashes, or wounds. NEURO: Alert and Oriented X 3. No gross sensory deficits, or cognitive issues. PSYCH: Appropriate affect and mood. Objective Labs Result Diagrams: 11/25/19 06:35 11/25/19 06:35 Labs: Laboratory Results - last 24 hr 11/25/19 11/25/19 11/25/19 06:35 06:35 06:35 WBC 12.5 H RBC 3.48 L Hgb 10.5 L Hct 31.7 L MCV 91.2 MCH 30.3 MCHC 33.2 RDW 14.6 Plt Count 215 Neut % (Auto) 86.1 H Lymph % (Auto) 4.6 L [place] % (Auto) 8.9 Eos % (Auto) 0.2 L Baso % (Auto) 0.2 Neut # (Auto) 88413 H Lymph # (Auto) 600 L [place] # (Auto) 1100 H Eos # (Auto) 0 Baso # (Auto) 0 PT 37.4 H D INR 3.3 H Sodium 139 Potassium 3.6 Chloride 105 Carbon Dioxide 25 BUN 25 H Creatinine 0.90 Estimated GFR > 60.0 BUN/Creatinine Ratio 27.8 H Glucose 209 H Calcium 9.3 Total Bilirubin 1.4 H AST 42 ALT 43 Alkaline Phosphatase 76 Total Protein 6.8 Albumin 3.4 L Globulin 3.4 Albumin/Globulin Ratio 1.0 Assessment & Plan Assessment and plan (1) Cellulitis of leg, right: Current visit: Yes Status: Acute (2) Acute cholecystitis: Current visit: Yes Status: Acute (3) Hyperbilirubinemia: Current visit: Yes Status: Acute (4) Anticoagulated on warfarin: Current visit: No Status: Chronic (5) Morbid obesity due to excess calories: Current visit: No Status: Chronic (6) Body mass index (BMI) of 45.0 to 49.9 in adult: Current visit: No Status: Chronic (7) Type 2 diabetes mellitus with hyperglycemia: Current visit: No Status: Chronic Assessment & Plan narrative: This is a 74-year-old man with severe morbid obesity, type 2 diabetes, right lower extremity cellulitis and toe abscess, and acute cholecystitis. He has had some improvement in his tenderness and nausea, although his white count has gone up slightly. His bilirubin is almost normal now, but his INR has gone up to 3.3. He was finally able to take p.o., and took vitamin K this morning. He is now feeling like he would like to take more p.o., so will try him on some clear liquids. We should strictly avoid anything with fat in it, to reduce stimulation of the gallbladder. He should not be dependent on p.o. for his hydration, but just take it as needed/desired. I see that he is on Lasix per Dr. Cox, and so I am not adding any IV fluids at this time. If he needs additional hydration IV fluids should be given. Plan: Ambulate as tolerated Continue IV antibiotics P.o. clears as tolerated Daily labs including CMP, CBC, and INR Is my recommendation that we continue treating with antibiotics for now, and consider perc drain if he does not continue to improve. I would recommend avoiding surgery on this admission if at all possible given that he has had a week of symptoms and his gallbladder is likely to be socked in with acute on chronic inflammation making his surgery much more difficult and increasing surgical risk. His surgical risk is already increased above normal given his obesity and other comorbidities. Time Spent With Patient Time with patient: 25 - 35 minutes Quality VTE Deep Vein Thrombosis/Pulmonary Embolism Present on Admission: No
[2019-11-25] MEDS: ACETAMINOPHEN 325 MG TABLET 650 MG PO (15:57)
[2019-11-25] MEDS: ROSUVASTATIN 10 MG TABLET PO (16:04)
[2019-11-25] MEDS: OXYCODONE IR 5 MG TABLET PO (18:43)
[2019-11-25] MEDS: DOXAZOSIN 4 MG TABLET PO (22:21)
[2019-11-25] MEDS: GABAPENTIN 600 MG TABLET PO (22:21)
[2019-11-26] VITALS (11 sets, daily range): BP systolic 105–134; BP diastolic 51–82; PULSE 84–102; RESP 16–19; TEMP 36.3–37; O2SAT 95–97
[2019-11-26] MEDS: PIPERACILLIN-TAZO 3.375 GM/50 ML FROZ.PIGGY IV ×5 (00:11→23:28)
[2019-11-26 07:49] LABS: Add Manual Diff / Slide Review NO; Basophils Absolute Auto 100 /uL (0-100); Basophils Percent Auto 0.6 % (0-2); Eosinophils Absolute Auto 300 /uL (0-450); Eosinophils Percent Auto 2.7 % (2-4); Hematocrit 31.1 % (41-53); Hemoglobin 10.4 g/dL (13.5-17.5); Lymphocytes Absolute Auto 700 /uL (1100-4500); Lymphocytes Percent Auto 7.1 % (25-40); Mean Corpuscular HGB Conc 33.5 % (30-36); Mean Corpuscular Hemoglobin 30.7 PG (26-34); Mean Corpuscular Volume 91.5 fL (80-100); Monocytes Absolute Auto 800 /uL (0-900); Monocytes Percent Auto 8.1 % (3-14); Neutrophils Absolute Auto 7900 /uL (1500-7000); Neutrophils Percent Auto 81.5 % (50-75); Platelet Count 241 X10^3/uL (150-400); Red Cell Distribution Width 14.6 % (11.6-14.8); White Blood Cell Count 9.7 X10^3/uL (4.5-11.0)
[2019-11-26 07:57] LABS: INR 1.6 (0.9-1.3)
[2019-11-26 08:01] LABS: Alanine Aminotransferase 42 IU/L (<50); Albumin 3.4 g/dL (3.5-5.0); Alkaline Phosphatase 81 U/L (38-126); Aspartate Aminotransferase 31 IU/L (17-59); Bilirubin Total 1.7 mg/dL (0.2-1.3); Blood Urea Nitrogen 26 mg/dL (9-20); Carbon Dioxide 27 mmol/L (22-32); Chloride 104 mmol/L (98-107); Estimated Glomerular Filt Rate > 60.0 mL/min (>60); Globulin 3.5 g/dL (1.7-4.1); Glucose 165 mg/dL (80-110); HEMOLYSIS < 15 (0-50); Potassium 3.5 mmol/L (3.4-5.1); Sodium 140 mmol/L (137-145); Total Protein 6.9 g/dL (6.3-8.2)
[2019-11-26] MEDS: carvediloL 12.5 MG TABLET 25 MG PO ×2 (08:09→21:45)
[2019-11-26] MEDS: POTASSIUM CHLORIDE 20 MEQ TAB 40 MEQ PO ×2 (08:09→21:45)
[2019-11-26] MEDS: FINASTERIDE 5 MG TABLET PO (08:09)
[2019-11-26] MEDS: FUROSEMIDE 20 MG TABLET 40 MG PO (08:10)
[2019-11-26] MEDS: INSULIN ASPART 100 UNIT/ML INSULN PEN SUBCUT ×4 (08:10→21:45)
[2019-11-26] MEDS: lisinopriL 20 MG TABLET 40 MG PO (08:10)
[2019-11-26] MEDS: SODIUM CHLORIDE 0.9% FLUSH 10 ML IV ×2 (08:10→12:25)
--- NOTE | 2019-11-26 10:26 | PM.PN.1 ---
Subjective Subjective Date Patient Seen: 11/26/19 Time Patient Seen: 10:26 Interval history: No acute overnight events. Tolerated liquid diet without nausea or vomiting. Right upper quadrant pain is decreased from yesterday but still present. Exam Vital Signs (past 8 hours): - 11/26/19 04:00 11/26/19 08:00 11/26/19 08:28 Temperature 98.4 F 97.4 F L Pulse Rate 87 84 Respiratory Rate 18 18 Blood Pressure 105/78 125/54 L Pulse Oximetry 97 95 96 Oxygen Delivery Method Room Air Oxygen Flow Rate 0 Narrative Exam Narrative: General adult male morbidly obese no acute distress Abdomen soft tender right upper quadrant no guarding or rebound. Objective Labs Result Diagrams: 11/26/19 07:20 11/26/19 07:20 Labs: Laboratory Results - last 24 hr 11/26/19 11/26/19 11/26/19 07:20 07:20 07:20 WBC 9.7 RBC 3.40 L Hgb 10.4 L Hct 31.1 L MCV 91.5 MCH 30.7 MCHC 33.5 RDW 14.6 Plt Count 241 Neut % (Auto) 81.5 H Lymph % (Auto) 7.1 L [place] % (Auto) 8.1 Eos % (Auto) 2.7 Baso % (Auto) 0.6 Neut # (Auto) 7900 H Lymph # (Auto) 700 L [place] # (Auto) 800 Eos # (Auto) 300 Baso # (Auto) 100 PT 18.0 H D INR 1.6 H Sodium 140 Potassium 3.5 Chloride 104 Carbon Dioxide 27 BUN 26 H Creatinine 1.00 Estimated GFR > 60.0 BUN/Creatinine Ratio 26.0 H Glucose 165 H Calcium 9.0 Total Bilirubin 1.7 H AST 31 ALT 42 Alkaline Phosphatase 81 Total Protein 6.9 Albumin 3.4 L Globulin 3.5 Albumin/Globulin Ratio 1.0 Assessment & Plan Assessment & Plan narrative: 74-year-old male with acute on chronic cholecystitis. Multiple comorbidities including morbid obesity and diabetes active extremity cellulitis. He he is improving with non operative management acute cholecystitis. -low-fat diet today -continue Zosyn -continue to hold anticoagulation should non operative management fail and he requires either percutaneous cholecystostomy tube or cholecystectomy. Quality VTE Deep Vein Thrombosis/Pulmonary Embolism Present on Admission: No
--- NOTE | 2019-11-26 10:35 | P.PN_ITS ---
Subjective Subjective Date Patient Seen: 11/26/19 Time Patient Seen: 08:45 Interval history: The pt reports having no abdominal pain this morning. He denies any nausea. He had a formed BM last night. His leg also feels significantly improved. Today, he is primarily concerned about his right great toe. He states it has been draining a lot, and is painful to put pressure on. Exam Vital Signs (past 8 hours): - 11/26/19 04:00 11/26/19 08:00 11/26/19 08:28 Temperature 98.4 F 97.4 F L Pulse Rate 87 84 Respiratory Rate 18 18 Blood Pressure 105/78 125/54 L Pulse Oximetry 97 95 96 Oxygen Delivery Method Room Air Oxygen Flow Rate 0 Narrative Exam Narrative: Gen: NAD, sitting comfortably in chair, appears well CV: RRR, no murmurs Resp: clear to auscultation bilaterally Abd: soft, nondistended, very mild tenderness to palpation RUQ without rebound/guarding/rigidity, normoactive bowel sounds Ext: left LLE with 1+ edema, right LE with 2+ edema, erythema improved from boundaries previously drawn, slightly increased warmth, right great toe with large blister on dorsal surface, lint from sock stuck to it, oozing serosanginous fluid Objective Labs Result Diagrams: 11/26/19 07:20 11/26/19 07:20 Labs: Laboratory Results - last 24 hr 11/26/19 11/26/19 11/26/19 07:20 07:20 07:20 WBC 9.7 RBC 3.40 L Hgb 10.4 L Hct 31.1 L MCV 91.5 MCH 30.7 MCHC 33.5 RDW 14.6 Plt Count 241 Neut % (Auto) 81.5 H Lymph % (Auto) 7.1 L [place] % (Auto) 8.1 Eos % (Auto) 2.7 Baso % (Auto) 0.6 Neut # (Auto) 7900 H Lymph # (Auto) 700 L [place] # (Auto) 800 Eos # (Auto) 300 Baso # (Auto) 100 PT 18.0 H D INR 1.6 H Sodium 140 Potassium 3.5 Chloride 104 Carbon Dioxide 27 BUN 26 H Creatinine 1.00 Estimated GFR > 60.0 BUN/Creatinine Ratio 26.0 H Glucose 165 H Calcium 9.0 Total Bilirubin 1.7 H AST 31 ALT 42 Alkaline Phosphatase 81 Total Protein 6.9 Albumin 3.4 L Globulin 3.5 Albumin/Globulin Ratio 1.0 Assessment & Plan Assessment and plan (1) Cellulitis of leg, right: Current visit: Yes Status: Acute (2) Acute cholecystitis: Current visit: Yes Status: Acute (3) Hyperbilirubinemia: Current visit: Yes Status: Acute (4) Anticoagulated on warfarin: Current visit: No Status: Chronic (5) Morbid obesity due to excess calories: Current visit: No Status: Chronic (6) Body mass index (BMI) of 45.0 to 49.9 in adult: Current visit: No Status: Chronic (7) Type 2 diabetes mellitus with hyperglycemia: Current visit: No Status: Chronic Assessment & Plan narrative: Pt is a 74yo man with DM Type 2, HTN, cardiomy opathy, morbid obesity, hx of PE on chronic anticoagulation who presented with right lower extremity cellulitis and cholecystitis. Symptoms have been improving with medical management with IV antibiotics. 1) Cholecystitis: Significant symptomatic improvement - Surgery consulted. Appreciate care and recommendations. No plans for surgery at this time. - Continue Zosyn - Advance diet to low fat - Continue to trend labs 2) Cellulitis, chronic LE edema: Appears to be clinically improving. - Continue Zosyn - Continue oral Furosemide 3) Right great toe ulceration: - Will clean and dress appropriately today - Continue to monitor 4) Chronic anticoagulation: - Continue to keep off anticoagulants as per surgery in the event surgery is required 5) DM Type 2: Adequate control with values < 200 - Continue Insulin coverage - Plan to start oral hypoglycemics tomorrow if still no plans for surgery 6) Hypertension: Stable - Continue home Carvedilol, Lisinopril, Rosuvastatin FEN: Low fat diet DVT ppx: SCDs Code: Full Dispo: Pending continued improvement in cellulitis, stability as diet advanced, clearance from surgery. Time Spent With Patient Time with patient: 25 - 35 minutes Quality VTE Deep Vein Thrombosis/Pulmonary Embolism Present on Admission: No
--- NOTE | 2019-11-26 12:16 | CM.DANOTE ---
DCP: Case received, EMR reviewed and met with patient. Introduced self and role. Was able to obtain some information from patient regarding baseline health and activity information. DCP assessment completed with information currently available. Patient s a 74 year old male who admitted on 11/24 to the care of the hospitalist team. PCP: Dr. Cox. Payer: confirmed: Medicare/[facility]. Patient came to the hospital via family vehicle secondary to abdominal discomfort. Patient also had some noted swelling to his toe. He currently holds diagnosis of acute cholecystitis as well as cellulitis of his toe. He is also seeing surgeon, but at this time, is on liquid diet, and it tolerating. He is on antibiotics for cellulitis. Met with patient in his room. He is alert and oriented. He is independent at home, and resides with his spouse, Jef. P: DCP to continue to follow and be available for any resources needed. He should be able to go home when he is medically stable. Sia Black RN/Supervisor [employer]ography
--- NOTE | 2019-11-26 13:57 | PC.NURSE ---
Wound care: Erythema to RLE receding within previously marked margins. R great toe is red and swollen with open blister on the end. Toe and open area cleansed with normal saline, patted dry and covered with small Allevyn dressing. Secured with kerlix and a new pair of socks. Patient tolerated well, denied pain or discomfort. Up in chair, calls appropriately.
[2019-11-26] MEDS: ROSUVASTATIN 10 MG TABLET PO (17:04)
[2019-11-26] MEDS: ACETAMINOPHEN 325 MG TABLET 650 MG PO (18:39)
[2019-11-26] MEDS: GABAPENTIN 600 MG TABLET PO (21:45)
[2019-11-26] MEDS: DOXAZOSIN 4 MG TABLET PO (21:47)
--- NOTE | 2019-11-26 22:53 | PC.NURSE ---
A&OX4. pain controlled with tylenol. R. great toe dressing cdi. R. ohara kris and erythema is within marked borders. edema to RLE. stress incontinence, pt refused to wear briefs. pt refused shower. Bed alarm active. call light in reach.
[2019-11-27] MEDS: PIPERACILLIN-TAZO 3.375 GM/50 ML FROZ.PIGGY IV ×2 (05:24→12:30)
[2019-11-27 05:42] VITALS: BP 123/82; PULSE 91; RESP 16; TEMP 36.3; O2SAT 94
[2019-11-27 05:47] LABS: Add Manual Diff / Slide Review NO; Basophils Absolute Auto 100 /uL (0-100); Basophils Percent Auto 0.8 % (0-2); Eosinophils Absolute Auto 400 /uL (0-450); Eosinophils Percent Auto 4.6 % (2-4); Hematocrit 30.5 % (41-53); Hemoglobin 10.3 g/dL (13.5-17.5); Lymphocytes Absolute Auto 1000 /uL (1100-4500); Lymphocytes Percent Auto 10.9 % (25-40); Mean Corpuscular HGB Conc 33.9 % (30-36); Mean Corpuscular Hemoglobin 31.2 PG (26-34); Mean Corpuscular Volume 92.1 fL (80-100); Monocytes Absolute Auto 900 /uL (0-900); Monocytes Percent Auto 9.6 % (3-14); Neutrophils Absolute Auto 6600 /uL (1500-7000); Neutrophils Percent Auto 74.1 % (50-75); Platelet Count 272 X10^3/uL (150-400); Red Blood Cell Count 3.32 X10^6/uL (4.5-5.9); Red Cell Distribution Width 14.5 % (11.6-14.8); White Blood Cell Count 8.9 X10^3/uL (4.5-11.0)
[2019-11-27 05:51] LABS: INR 1.4 (0.9-1.3); Prothrombin Time 16.1 SECONDS (10.1-12.7)
[2019-11-27 05:56] LABS: Alanine Aminotransferase 55 IU/L (<50); Albumin 3.3 g/dL (3.5-5.0); Alkaline Phosphatase 89 U/L (38-126); Aspartate Aminotransferase 42 IU/L (17-59); Bilirubin Total 1.3 mg/dL (0.2-1.3); Blood Urea Nitrogen 23 mg/dL (9-20); Calcium 8.6 mg/dL (8.4-10.2); Carbon Dioxide 28 mmol/L (22-32); Chloride 105 mmol/L (98-107); Estimated Glomerular Filt Rate > 60.0 mL/min (>60); Globulin 3.4 g/dL (1.7-4.1); Glucose 186 mg/dL (80-110); HEMOLYSIS < 15 (0-50); Potassium 3.9 mmol/L (3.4-5.1); Sodium 142 mmol/L (137-145); Total Protein 6.7 g/dL (6.3-8.2)
[2019-11-27 07:30] VITALS: O2SAT 96
[2019-11-27 08:00] VITALS: BP 136/75; PULSE 85; RESP 18; TEMP 37.1; O2SAT 93
[2019-11-27] MEDS: lisinopriL 20 MG TABLET 40 MG PO (08:34)
[2019-11-27] MEDS: carvediloL 12.5 MG TABLET 25 MG PO (08:35)
[2019-11-27] MEDS: POTASSIUM CHLORIDE 20 MEQ TAB 40 MEQ PO (08:35)
[2019-11-27] MEDS: FUROSEMIDE 20 MG TABLET 40 MG PO (08:35)
[2019-11-27] MEDS: FINASTERIDE 5 MG TABLET PO (08:36)
[2019-11-27] MEDS: INSULIN ASPART 100 UNIT/ML INSULN PEN SUBCUT (08:39)
[2019-11-27] MEDS: SODIUM CHLORIDE 0.9% FLUSH 10 ML IV (08:42)
--- NOTE | 2019-11-27 11:19 | PM.PN.1 ---
Subjective Subjective Date Patient Seen: 11/27/19 Time Patient Seen: 11:19 Interval history: No acute overnight events. Afebrile. No nausea vomiting tolerating low-fat diet. Exam Vital Signs (past 8 hours): - 11/27/19 05:42 11/27/19 07:30 11/27/19 08:00 Temperature 97.4 F L 98.8 F Pulse Rate 91 H 85 Respiratory Rate 16 18 Blood Pressure 123/82 136/75 Pulse Oximetry 94 96 93 Oxygen Delivery Method Room Air Oxygen Flow Rate 0 Narrative Exam Narrative: General adult male alert oriented no acute distress Abdomen soft nontender nondistended. Objective Labs Result Diagrams: 11/27/19 05:20 11/27/19 05:20 Labs: Laboratory Results - last 24 hr 11/27/19 11/27/19 11/27/19 05:20 05:20 05:20 WBC 8.9 RBC 3.32 L Hgb 10.3 L Hct 30.5 L MCV 92.1 MCH 31.2 MCHC 33.9 RDW 14.5 Plt Count 272 Neut % (Auto) 74.1 Lymph % (Auto) 10.9 L [place] % (Auto) 9.6 Eos % (Auto) 4.6 H Baso % (Auto) 0.8 Neut # (Auto) 6600 Lymph # (Auto) 1000 L [place] # (Auto) 900 Eos # (Auto) 400 Baso # (Auto) 100 PT 16.1 H INR 1.4 H Sodium 142 Potassium 3.9 Chloride 105 Carbon Dioxide 28 BUN 23 H Creatinine 1.00 Estimated GFR > 60.0 BUN/Creatinine Ratio 23.0 H Glucose 186 H Calcium 8.6 Total Bilirubin 1.3 AST 42 ALT 55 H Alkaline Phosphatase 89 Total Protein 6.7 Albumin 3.3 L Globulin 3.4 Albumin/Globulin Ratio 1.0 Assessment & Plan Assessment & Plan narrative: Len is a 74-year-old male with acute on chronic cholecystitis doing well with non operative management. Afebrile normal white count without abdominal pain tolerating a low-fat diet. May discharge home on 2 weeks of Augmentin follow up in surgical office in 2 weeks. Quality VTE Deep Vein Thrombosis/Pulmonary Embolism Present on Admission: No
--- NOTE | 2019-11-27 11:56 | P.DS_ITS ---
History of Present Illness History of Present Illness Date Patient Seen: 11/27/19 Time Patient Seen: 09:15 Chief complaint: flu for a week Narrative: 74-year-old patient admitted via the emergency department after presenting with symptoms of generalized feeling not well probable cellulitis in his leg and abdominal pain Please see ER physician's note for further details Patient was found to have probable acute cholecystitis as well as cellulitis of his lower extremity. Surgery was consulted wanted him on antibiotic therapy before surgical intervention specially given the active cellulitis. Patient is also chronically anticoagulated for warfarin and that will need to be normalized before surgery Discharge Providers Provider Date of admission: 11/24/19 12:55 Discharge Date: 11/27/19 Primary care physician: Samson Cox MD Discharge provider: Mayte Baker MD Summary Hospital Course Discharge Diagnosis: Cholecystitis Cellulitis DM Type 2 Chronic anticoagulation Morbid obesity Cardiomyopathy Toe blister Hospital Course: The pt presented with cholecystitis and right lower extremity cellulitis. He was started on Zosyn, and monitored closely for symptomatic improvement as well as improvement in his labs. He received Vitamin K for Coumadin reversal due to the possible need for surgery. His Coumadin was held throughout his hospitalization. The pt was initially kept NPO, and then his diet was advanced as his abdominal pain improved. At the time of discharge, he was tolerating a low fat diet. The pt did not require surgery for his cholecystitis, and will f/u with surgery as an outpatient. The pts cellulitis improved significanly while he was in the hospital. He will continue PO Augmentin x 2 weeks as per surgery as an outpatient, which should cover his cholecystitis and cellulitis. His oral hypoglycemics were held while he was in the hospital, and he was controlled on prandial insulin. His oral medications will be restarted at discharge. The pts anticoagulation at discharge will be restarted and bridged with Lovenox. He will f/u in clinic within the next week for INR check and f/u with Dr Cox. Status at Discharge Cognitive/behavioral status at discharge: oriented Functional status at discharge: independent ambulation Overall status at discharge: patient is progressing back to baseline Time Spent with Patient Time spent: Greater than 30 minutes Exam Vital Signs (past 8 hours): - 11/27/19 05:42 11/27/19 07:30 11/27/19 08:00 Temperature 97.4 F L 98.8 F Pulse Rate 91 H 85 Respiratory Rate 16 18 Blood Pressure 123/82 136/75 Pulse Oximetry 94 96 93 Oxygen Delivery Method Room Air Oxygen Flow Rate 0 Narrative Exam Narrative: Gen: NAD, sitting comfortably in chair, appears well CV: RRR, no murmurs Resp: clear to auscultation bilaterally Abd: soft, minimal tenderness RUQ without rebound/guarding/rigidity, normoactive bowel sounds, nondistended Ext: left LE 1+ edema, right LE 1+ edema, erythema decreased significantly from yesterday, no increased warmth compared to other leg, right great toe covered in Allevyn bandage Objective Labs Result Diagrams: 11/27/19 05:20 11/27/19 05:20 Labs: Laboratory Results - last 24 hr 11/27/19 11/27/19 11/27/19 05:20 05:20 05:20 WBC 8.9 RBC 3.32 L Hgb 10.3 L Hct 30.5 L MCV 92.1 MCH 31.2 MCHC 33.9 RDW 14.5 Plt Count 272 Neut % (Auto) 74.1 Lymph % (Auto) 10.9 L [place] % (Auto) 9.6 Eos % (Auto) 4.6 H Baso % (Auto) 0.8 Neut # (Auto) 6600 Lymph # (Auto) 1000 L [place] # (Auto) 900 Eos # (Auto) 400 Baso # (Auto) 100 PT 16.1 H INR 1.4 H Sodium 142 Potassium 3.9 Chloride 105 Carbon Dioxide 28 BUN 23 H Creatinine 1.00 Estimated GFR > 60.0 BUN/Creatinine Ratio 23.0 H Glucose 186 H Calcium 8.6 Total Bilirubin 1.3 AST 42 ALT 55 H Alkaline Phosphatase 89 Total Protein 6.7 Albumin 3.3 L Globulin 3.4 Albumin/Globulin Ratio 1.0 Discharge Plan Discharge Plan Patient Disposition: Home Discharge comment: Continue your Coumadin, in addition to the new Enoxaparin (Lovenox) for now. You need your INR checked this week to see when it is safe to stop the Enoxaparin. Discharge orders & Medications Prescriptions: New amoxicillin-pot clavulanate 875-125 mg tablet 1 tab PO BID Qty: 28 RF: 0 enoxaparin 150 mg/mL syringe 136 mg SUBCUT Q12H Qty: 10 RF: 0 Continued nystatin 100,000 unit/gram ointment 1 applictn TOP BID PRN (Reason: rash) Qty: 30 RF: 3 (DME) blood sugar diagnostic [OneTouch Verio] strip See Dose Instructions .ROUTE .MEDSUPPLY Qty: 360 RF: 12 metformin [Glucophage] 1,000 mg tablet 1,000 mg PO BID Qty: 180 RF: 3 finasteride 5 mg tablet 5 mg PO QDAY Qty: 90 RF: 3 carvedilol 12.5 mg tablet 25 mg PO BID Qty: 360 RF: 3 lisinopril 40 mg tablet 40 mg PO DAILY Qty: 90 RF: 3 acetaminophen 325 mg Tablet 1 tab PO PRN PRN (Reason: pain) RF: 0 aspirin 81 mg Tablet,Delayed Release (Dr/Ec) 81 mg PO DAILY RF: 0 melatonin 5 mg Tablet 5 mg PO BEDTIME RF: 0 gabapentin 600 mg tablet 600 mg PO BEDTIME RF: 0 glipizide 5 mg tablet extended release 24hr 5 mg PO DAILY RF: 0 tramadol 50 mg tablet 50 - 100 mg PO Q8H PRN (Reason: pain) RF: 0 warfarin 4 mg tablet 4 mg PO DAILY RF: 0 potassium chloride 20 mEq tablet,ER particles/crystals 40 meq PO BID RF: 0 doxazosin 4 mg tablet 4 mg PO BEDTIME RF: 0 rosuvastatin 10 mg tablet 10 mg PO QPM RF: 0 furosemide 20 mg tablet 40 mg PO DAILY RF: 0 Follow up/Referrals: Samson Cox MD [Primary Care Provider] - 3-5 Days (You can schedule to have your INR checked the same day.) Kevan Ro MD [Physician] - 2 Weeks Diet/Activity/Treatments Diet: Low-fat Skin/Wound/Dressing Care Report to your healthcare provider any signs of infection, such as:: chills, fever and increased pain Visit Report/Discharge Packet Instructions: DI for Cellulitis -- Adult, Eating a Diet Low in Saturated Fat, Trans Fat, and Cholesterol, DI for Heart Failure, How to Prevent Falls, DI for General Gallbladder Conditions, Enoxaparin Injection, DI for Cholecystitis Visit Report Forms: Patient Portal/API, Stroke Signs & Symptoms Discharge Data Primary Care Provider: Samson Cox VTE Deep Vein Thrombosis/Pulmonary Embolism Present on Admission: No
[2019-11-27] MEDS: ENOXAPARIN 100 MG/ML SYRINGE 135 MG SUBCUT (12:30)
--- NOTE | 2019-11-27 14:38 | PC.NURSE ---
Discharge: Pt feels ready to d/c home. Got noon antibiotic and then IV d/c. Reviewed lovenox information. Pt gave own injection using correct tech. Shown how to adjust dose. Discussed sharps disposal and site rotation. Pt feels comfortable giving lovenox injection. Reviewed extensive discharge packet, cellulitis, antibiotic coverage for same. Anticoagulants - he is suppose to take both coumadin/lovenox for now and when he sees Dr. Cox a plan will be made regarding the next steps he needs for treatment of his gallbladder. Pt verb understanding of same. No questions regarding the rest of his packet and he understands his low fat diet. Scripts esent. Questions answered. Pt d/c home via auto w/spouse. He is meeting her at the ED entrance.
== END 2019-11-27 14:40 | disposition home or self-care (01) | DRG 445 ==
LOC: ED 08:00 → AC 12:57
PROVIDERS: Surgery; Admitting Provider Internal Medicine; Emergency Provider Emergency Medicine; PCP Internal Medicine; Referring Provider Emergency Medicine; Visit Provider Internal Medicine
DX: K80.00 Calculus of gallbladder with acute cholecystitis without obstruction (principal); L03.115 Cellulitis of right lower limb; Z68.41 Body mass index [BMI] 40.0-44.9, adult; I42.9 Cardiomyopathy, unspecified; L03.031 Cellulitis of right toe; E66.01 Morbid (severe) obesity due to excess calories; L97.519 Non-pressure chronic ulcer of other part of right foot with unspecified severity; E11.9 Type 2 diabetes mellitus without complications; I10 Essential (primary) hypertension; Z86.711 Personal history of pulmonary embolism; Z79.01 Long term (current) use of anticoagulants; Z79.84 Long term (current) use of oral hypoglycemic drugs
CPT/HCPCS: 36415; 73630; 74022; 76705; 80053; 81001; 81003; 82550; 82962; 83605; 83690; 83880; 84484; 85025; 85610; 87040; 87502; 93041; 96365; 96366; 96367; 99223; 99231; 99232; 99233; 99238; 99285; J1170; J1650; J1956; J2543; J3430

== ENCOUNTER → 2019-12-01 14:19 | Outpatient (CLI) | payer MEDICARE, OTHER, SELFPAY ==
[2019-12-01 14:15] VITALS: BMI 42.9
[2019-12-01 15:27] LABS: Add Manual Diff / Slide Review NO; Basophils Absolute Auto 100 /uL (0-100); Basophils Percent Auto 0.9 % (0-2); Eosinophils Absolute Auto 300 /uL (0-450); Eosinophils Percent Auto 3.2 % (2-4); Hematocrit 33.7 % (41-53); Hemoglobin 11.4 g/dL (13.5-17.5); Lymphocytes Absolute Auto 1300 /uL (1100-4500); Mean Corpuscular HGB Conc 33.9 % (30-36); Mean Corpuscular Hemoglobin 31.1 PG (26-34); Mean Corpuscular Volume 91.9 fL (80-100); Monocytes Absolute Auto 900 /uL (0-900); Monocytes Percent Auto 9.6 % (3-14); Neutrophils Absolute Auto 6800 /uL (1500-7000); Neutrophils Percent Auto 72.3 % (50-75); Platelet Count 360 X10^3/uL (150-400); Red Blood Cell Count 3.66 X10^6/uL (4.5-5.9); Red Cell Distribution Width 14.3 % (11.6-14.8); White Blood Cell Count 9.3 X10^3/uL (4.5-11.0)
[2019-12-01 16:15] LABS: Alanine Aminotransferase 36 IU/L (<50); Albumin 3.7 g/dL (3.5-5.0); Albumin Globulin Ratio 1.1 (1.0-2.8); Alkaline Phosphatase 100 U/L (38-126); Aspartate Aminotransferase 30 IU/L (17-59); BUN Creatinine Ratio 18.9 (6-22); Bilirubin Total 0.5 mg/dL (0.2-1.3); Blood Urea Nitrogen 17 mg/dL (9-20); Calcium 9.7 mg/dL (8.4-10.2); Carbon Dioxide 25 mmol/L (22-32); Chloride 106 mmol/L (98-107); Estimated Glomerular Filt Rate > 60.0 mL/min (>60); Globulin 3.5 g/dL (1.7-4.1); Glucose 82 mg/dL (80-110); HEMOLYSIS < 15 (0-50); Potassium 4.8 mmol/L (3.4-5.1); Sodium 141 mmol/L (137-145); Total Protein 7.2 g/dL (6.3-8.2)
== END ==
PROVIDERS: PCP Internal Medicine; Referring Provider Internal Medicine; Visit Provider Internal Medicine
DX: E80.6 Other disorders of bilirubin metabolism (principal); K81.0 Acute cholecystitis
CPT/HCPCS: 36415; 80053; 85025

== ENCOUNTER → 2019-12-22 14:02 | Outpatient (CLI) | payer MEDICARE, OTHER, SELFPAY ==
[2019-12-01 14:15] VITALS: BMI 42.9
--- NOTE | 2019-12-22 14:04 | DI.RAD.S_ITS ---
PROCEDURE: XR FOOT RT MIN 3V INDICATIONS: diabetic foot ulcer TECHNIQUE: 3 views of the foot were acquired. COMPARISON: [facility], CR, XR FOOT LT MIN 3V, 02/14/2019, 14:49. [facility], CR, XR FOOT RT MIN 3V, 11/24/2019, 8:46. FINDINGS: Bones: No fractures or dislocations. No suspicious bony lesions. There is degenerative joint disease in multiple interphalangeal joints. Soft tissues: No tibiotalar joint effusion. Achilles tendon appears normal. Soft tissue swelling of the great toe. IMPRESSION: 1. Radiographs are not sensitive to detect osteomyelitis. If there is clinical suspicion for osteomyelitis, MRI with and without contrast or a triple phase bone scan is suggested. 2. Degenerative joint disease. 3. Soft tissue swelling. Dictated by: Leatha Grady M.D. on 12/22/2019 at 17:19 Approved by: Leatha Grady M.D. on 12/22/2019 at 18:09
== END ==
PROVIDERS: PCP Internal Medicine; Referring Provider Internal Medicine; Visit Provider Internal Medicine
DX: E11.621 Type 2 diabetes mellitus with foot ulcer (principal); L97.509 Non-pressure chronic ulcer of other part of unspecified foot with unspecified severity; M19.071 Primary osteoarthritis, right ankle and foot; M79.89 Other specified soft tissue disorders
CPT/HCPCS: 73630

== ENCOUNTER → 2019-12-27 13:11 | Outpatient (CLI) | payer MEDICARE, OTHER, SELFPAY ==
[2019-12-01 14:15] VITALS: BMI 42.9
== END ==
PROVIDERS: Family Provider Podiatrist; PCP Internal Medicine; Referring Provider Family Medicine; Visit Provider Family Medicine
DX: E11.621 Type 2 diabetes mellitus with foot ulcer (principal); L97.512 Non-pressure chronic ulcer of other part of right foot with fat layer exposed; L97.511 Non-pressure chronic ulcer of other part of right foot limited to breakdown of skin; L03.115 Cellulitis of right lower limb; R60.0 Localized edema; E11.40 Type 2 diabetes mellitus with diabetic neuropathy, unspecified
CPT/HCPCS: 11042; 87070; 87075; 87077; 87147; 87185; 87186; 87205; 99203; 99214

== ENCOUNTER → 2019-12-28 12:30 | Outpatient (CLI) | payer MEDICARE, OTHER, SELFPAY ==
[2019-12-01 14:15] VITALS: BMI 42.9
[2019-12-28 13:39] LABS: Add Manual Diff / Slide Review NO; Basophils Absolute Auto 100 /uL (0-100); Basophils Percent Auto 0.8 % (0-2); Eosinophils Absolute Auto 200 /uL (0-450); Eosinophils Percent Auto 3.3 % (2-4); Hematocrit 33.7 % (41-53); Hemoglobin 11.2 g/dL (13.5-17.5); Lymphocytes Absolute Auto 1000 /uL (1100-4500); Lymphocytes Percent Auto 14.2 % (25-40); Mean Corpuscular HGB Conc 33.3 % (30-36); Mean Corpuscular Hemoglobin 30.6 PG (26-34); Mean Corpuscular Volume 91.9 fL (80-100); Monocytes Absolute Auto 800 /uL (0-900); Monocytes Percent Auto 10.6 % (3-14); Neutrophils Absolute Auto 5100 /uL (1500-7000); Neutrophils Percent Auto 71.1 % (50-75); Platelet Count 267 X10^3/uL (150-400); Red Blood Cell Count 3.67 X10^6/uL (4.5-5.9); Red Cell Distribution Width 15.9 % (11.6-14.8); White Blood Cell Count 7.2 X10^3/uL (4.5-11.0)
[2019-12-28 13:46] LABS: Prothrombin Time 56.5 SECONDS (10.1-12.7)
[2019-12-28 13:55] LABS: Alanine Aminotransferase 13 IU/L (<50); Albumin 4.3 g/dL (3.5-5.0); Albumin Globulin Ratio 1.2 (1.0-2.8); Alkaline Phosphatase 95 U/L (38-126); Aspartate Aminotransferase 18 IU/L (17-59); BUN Creatinine Ratio 37.6 (6-22); Bilirubin Total 0.6 mg/dL (0.2-1.3); Blood Urea Nitrogen 44 mg/dL (9-20); Calcium 10.3 mg/dL (8.4-10.2); Carbon Dioxide 21 mmol/L (22-32); Chloride 105 mmol/L (98-107); Estimated Glomerular Filt Rate > 60.0 mL/min (>60); Globulin 3.5 g/dL (1.7-4.1); Glucose 101 mg/dL (80-110); HEMOLYSIS < 15 (0-50); Potassium 4.9 mmol/L (3.4-5.1); Sodium 140 mmol/L (137-145); Total Protein 7.8 g/dL (6.3-8.2)
[2019-12-28 13:58] LABS: C-Reactive Protein Quant < 0.5 mg/dL (<1.0)
[2019-12-28 14:02] LABS: Erythrocyte Sedimentation Rate 41 MM/HR (0-15)
[2019-12-28 14:03] LABS: Prealbumin 24.5 mg/dL (17.6-36.0)
[2019-12-28 15:08] LABS: Hemoglobin A1C% w Est Avg Glu 6.8 % (4.0-6.0)
== END ==
PROVIDERS: Family Provider Podiatrist; PCP Internal Medicine; Referring Provider Family Medicine; Visit Provider Family Medicine
DX: L08.9 Local infection of the skin and subcutaneous tissue, unspecified (principal); E11.621 Type 2 diabetes mellitus with foot ulcer
CPT/HCPCS: 36415; 80053; 83036; 84134; 85025; 85610; 85651; 86140

== ENCOUNTER → 2019-12-29 08:27 | Outpatient (CLI) | payer MEDICARE, OTHER, SELFPAY ==
[2019-12-01 14:15] VITALS: BMI 42.9
--- NOTE | 2019-12-29 | DI.MRI.S_ITS ---
PROCEDURE: MR FOOT RT WO/W CON INDICATIONS: Non-pressure chronic ulcer of other part of right TECHNIQUE: Noncontrast sagittal T1 spin echo and T2 fast spin echo with fat saturation, long-axis T1 spin echo and T2 fast spin echo with fat saturation; short-axis T1 spin echo, proton density fast spin echo, and T2 fast spin echo with fat saturation through the forefoot. Post-contrast short axis, long axis, and sagittal T1 spin echo with fat saturation through the forefoot. COMPARISON: [facility], CR, XR FOOT RT MIN 3V, 12/22/2019, 13:58. FINDINGS: Image quality: Severe uncontrollable motion artifact, despite multiple best attempts There is severe great toe soft tissue swelling and cellulitis. Large ulcer is present along the lateral aspect of the great toe the level of the distal phalanx. Underlying distal phalanx marrow signal intensity appears within normal limits. No abnormal enhancement is seen. Remaining marrow signal intensity grossly unremarkable without suspicious changes to suggest osteomyelitis No definite marrow fat signal intensity loss on T1 weighted pulse sequences although limited evaluation given severe motion artifact. Diffuse muscle atrophy noted. Mild/moderate widespread osteoarthritic changes Severe diffuse tarsometatarsal joint generation incidentally noted. There is also marginal marrow signal changes present at the first and fifth MCP joints, potentially erosions versus reactive osteoarthritic versus neuropathic enhancement within the middle cuneiform and fifth metatarsal head however technically nonspecific and poorly evaluated given the motion artifact. IMPRESSION: Severe great toe soft tissue swelling and cellulitis, with large ulcer along the lateral aspect. No MR marrow signal changes to suggest osteomyelitis. Motion degraded examination Dictated by: Jax Cortez M.D. on 12/29/2019 at 10:39 Approved by: Jax Cortez M.D. on 12/29/2019 at 11:01
== END ==
PROVIDERS: Family Provider Podiatrist; PCP Internal Medicine; Referring Provider Family Medicine; Visit Provider Family Medicine
DX: E11.621 Type 2 diabetes mellitus with foot ulcer (principal); L97.512 Non-pressure chronic ulcer of other part of right foot with fat layer exposed
CPT/HCPCS: 73720; 99213

== ENCOUNTER → 2019-12-29 10:18 | Outpatient (CLI) | payer MEDICARE, OTHER, SELFPAY ==
[2019-12-01 14:15] VITALS: BMI 42.9
== END ==
PROVIDERS: Family Provider Podiatrist; PCP Internal Medicine; Referring Provider Internal Medicine; Visit Provider Family Medicine
DX: L97.511 Non-pressure chronic ulcer of other part of right foot limited to breakdown of skin (principal)
CPT/HCPCS: 99213

== ENCOUNTER → 2020-01-05 13:52 | Outpatient (CLI) | payer MEDICARE, OTHER, SELFPAY ==
[2019-12-01 14:15] VITALS: BMI 42.9
== END ==
PROVIDERS: Family Provider Podiatrist; PCP Internal Medicine; Referring Provider Internal Medicine; Visit Provider Family Medicine
DX: E11.621 Type 2 diabetes mellitus with foot ulcer (principal); L97.512 Non-pressure chronic ulcer of other part of right foot with fat layer exposed; L97.511 Non-pressure chronic ulcer of other part of right foot limited to breakdown of skin; L08.9 Local infection of the skin and subcutaneous tissue, unspecified
CPT/HCPCS: 11042; 87070; 87075; 87077; 87147; 87186; 87205; 99203; 99213

== ENCOUNTER → 2020-01-10 11:30 | Outpatient (CLI) | payer MEDICARE, OTHER, SELFPAY ==
[2020-01-09 14:01] VITALS: BMI 42.9
== END ==
PROVIDERS: Family Provider Podiatrist; PCP Internal Medicine; Referring Provider Internal Medicine; Visit Provider Family Medicine
DX: E11.621 Type 2 diabetes mellitus with foot ulcer (principal); L97.512 Non-pressure chronic ulcer of other part of right foot with fat layer exposed; L97.511 Non-pressure chronic ulcer of other part of right foot limited to breakdown of skin; Z79.01 Long term (current) use of anticoagulants; E11.40 Type 2 diabetes mellitus with diabetic neuropathy, unspecified; Z79.84 Long term (current) use of oral hypoglycemic drugs; Z91.19 Patient's noncompliance with other medical treatment and regimen
CPT/HCPCS: 11042; 97597; 99213

== ENCOUNTER → 2020-01-17 10:54 | Outpatient (CLI) | payer MEDICARE, OTHER, SELFPAY ==
[2020-01-09 14:01] VITALS: BMI 42.9
== END ==
PROVIDERS: Family Provider Podiatrist; PCP Internal Medicine; Referring Provider Internal Medicine; Visit Provider Family Medicine
DX: E11.621 Type 2 diabetes mellitus with foot ulcer (principal); L97.511 Non-pressure chronic ulcer of other part of right foot limited to breakdown of skin; E11.40 Type 2 diabetes mellitus with diabetic neuropathy, unspecified; Z91.19 Patient's noncompliance with other medical treatment and regimen
CPT/HCPCS: 11042

== ENCOUNTER → 2020-01-24 14:04 | Outpatient (CLI) | payer MEDICARE, OTHER, SELFPAY ==
[2020-01-09 14:01] VITALS: BMI 42.9
== END ==
PROVIDERS: Family Provider Podiatrist; PCP Internal Medicine; Referring Provider Internal Medicine; Visit Provider Family Medicine
DX: E11.621 Type 2 diabetes mellitus with foot ulcer (principal); L97.511 Non-pressure chronic ulcer of other part of right foot limited to breakdown of skin; E11.40 Type 2 diabetes mellitus with diabetic neuropathy, unspecified; Z79.84 Long term (current) use of oral hypoglycemic drugs
CPT/HCPCS: 11042

== ENCOUNTER → 2020-01-31 11:14 | Outpatient (CLI) | payer MEDICARE, OTHER, SELFPAY ==
[2020-01-09 14:01] VITALS: BMI 42.9
== END ==
PROVIDERS: Family Provider Podiatrist; PCP Internal Medicine; Referring Provider Internal Medicine; Visit Provider Family Medicine
DX: E11.621 Type 2 diabetes mellitus with foot ulcer (principal); L97.511 Non-pressure chronic ulcer of other part of right foot limited to breakdown of skin
CPT/HCPCS: 97597

== ENCOUNTER → 2020-02-06 15:19 | Outpatient (CLI) | payer MEDICARE, OTHER, SELFPAY ==
[2020-01-09 14:01] VITALS: BMI 42.9
== END ==
PROVIDERS: Family Provider Podiatrist; PCP Internal Medicine; Referring Provider Internal Medicine; Visit Provider Family Medicine
DX: E11.621 Type 2 diabetes mellitus with foot ulcer (principal); L97.511 Non-pressure chronic ulcer of other part of right foot limited to breakdown of skin
CPT/HCPCS: 97597

== ENCOUNTER → 2020-02-14 11:39 | Outpatient (CLI) | payer MEDICARE, OTHER, SELFPAY ==
[2020-01-09 14:01] VITALS: BMI 42.9
== END ==
PROVIDERS: Family Provider Podiatrist; PCP Internal Medicine; Referring Provider Internal Medicine; Visit Provider Family Medicine
DX: E11.621 Type 2 diabetes mellitus with foot ulcer (principal); L97.511 Non-pressure chronic ulcer of other part of right foot limited to breakdown of skin; Z79.01 Long term (current) use of anticoagulants; Z79.84 Long term (current) use of oral hypoglycemic drugs; E11.40 Type 2 diabetes mellitus with diabetic neuropathy, unspecified
CPT/HCPCS: 11042

== ENCOUNTER → 2020-02-21 10:59 | Outpatient (CLI) | payer MEDICARE, OTHER, SELFPAY ==
[2020-01-09 14:01] VITALS: BMI 42.9
== END ==
PROVIDERS: Family Provider Podiatrist; PCP Internal Medicine; Referring Provider Internal Medicine; Visit Provider Family Medicine
DX: E11.621 Type 2 diabetes mellitus with foot ulcer (principal); L97.511 Non-pressure chronic ulcer of other part of right foot limited to breakdown of skin; Z79.01 Long term (current) use of anticoagulants; E11.40 Type 2 diabetes mellitus with diabetic neuropathy, unspecified; R60.0 Localized edema; Z79.84 Long term (current) use of oral hypoglycemic drugs
CPT/HCPCS: 11042; 97597

== ENCOUNTER → 2020-02-28 13:47 | Outpatient (CLI) | payer MEDICARE, OTHER, SELFPAY ==
[2020-01-09 14:01] VITALS: BMI 42.9
== END ==
PROVIDERS: Family Provider Podiatrist; PCP Internal Medicine; Referring Provider Internal Medicine; Visit Provider Family Medicine
DX: E11.621 Type 2 diabetes mellitus with foot ulcer (principal); L97.511 Non-pressure chronic ulcer of other part of right foot limited to breakdown of skin; E11.40 Type 2 diabetes mellitus with diabetic neuropathy, unspecified
CPT/HCPCS: 15275; 97597; Q4132

== ENCOUNTER → 2020-03-06 13:16 | Outpatient (CLI) | payer MEDICARE, OTHER, SELFPAY ==
[2020-01-09 14:01] VITALS: BMI 42.9
== END ==
PROVIDERS: Family Provider Podiatrist; PCP Internal Medicine; Referring Provider Internal Medicine; Visit Provider Family Medicine
DX: E11.621 Type 2 diabetes mellitus with foot ulcer (principal); L97.511 Non-pressure chronic ulcer of other part of right foot limited to breakdown of skin; R60.0 Localized edema; Z79.84 Long term (current) use of oral hypoglycemic drugs
CPT/HCPCS: 15275; Q4132

== ENCOUNTER → 2020-03-13 13:54 | Outpatient (CLI) | payer MEDICARE, OTHER, SELFPAY ==
[2020-01-09 14:01] VITALS: BMI 42.9
== END ==
PROVIDERS: Family Provider Podiatrist; PCP Internal Medicine; Referring Provider Internal Medicine; Visit Provider Family Medicine
DX: E11.621 Type 2 diabetes mellitus with foot ulcer (principal); L97.511 Non-pressure chronic ulcer of other part of right foot limited to breakdown of skin; L03.115 Cellulitis of right lower limb; E11.40 Type 2 diabetes mellitus with diabetic neuropathy, unspecified
CPT/HCPCS: 15275; 99214; Q4132

== ENCOUNTER → 2020-03-20 12:58 | Outpatient (CLI) | payer MEDICARE, OTHER, SELFPAY ==
[2020-01-09 14:01] VITALS: BMI 42.9
== END ==
PROVIDERS: Family Provider Podiatrist; PCP Internal Medicine; Referring Provider Internal Medicine; Visit Provider Family Medicine
DX: E11.621 Type 2 diabetes mellitus with foot ulcer (principal); L97.511 Non-pressure chronic ulcer of other part of right foot limited to breakdown of skin; Z79.01 Long term (current) use of anticoagulants; Z79.84 Long term (current) use of oral hypoglycemic drugs
CPT/HCPCS: 99213

== ENCOUNTER → 2020-03-27 12:12 | Outpatient (CLI) | payer MEDICARE, OTHER, SELFPAY ==
[2020-01-09 14:01] VITALS: BMI 42.9
[2020-03-27 14:17] LABS: Add Manual Diff / Slide Review NO; Basophils Absolute Auto 100 /uL (0-100); Basophils Percent Auto 0.9 % (0-2); Eosinophils Absolute Auto 300 /uL (0-450); Eosinophils Percent Auto 5.2 % (2-4); Hematocrit 33.3 % (41-53); Hemoglobin 11.1 g/dL (13.5-17.5); Lymphocytes Absolute Auto 1300 /uL (1100-4500); Lymphocytes Percent Auto 19.5 % (25-40); Mean Corpuscular HGB Conc 33.4 % (30-36); Mean Corpuscular Hemoglobin 30.8 PG (26-34); Mean Corpuscular Volume 92.2 fL (80-100); Monocytes Absolute Auto 700 /uL (0-900); Monocytes Percent Auto 11.2 % (3-14); Neutrophils Absolute Auto 4100 /uL (1500-7000); Neutrophils Percent Auto 63.2 % (50-75); Platelet Count 217 X10^3/uL (150-400); Red Blood Cell Count 3.61 X10^6/uL (4.5-5.9); Red Cell Distribution Width 15.5 % (11.6-14.8); White Blood Cell Count 6.5 X10^3/uL (4.5-11.0)
[2020-03-27 14:29] LABS: Hemoglobin A1C% w Est Avg Glu 6.4 % (4.0-6.0)
[2020-03-27 14:34] LABS: Alanine Aminotransferase 20 IU/L (<50); Albumin 4.4 g/dL (3.5-5.0); Albumin Globulin Ratio 1.5 (1.0-2.8); Alkaline Phosphatase 62 U/L (38-126); Aspartate Aminotransferase 21 IU/L (17-59); BUN Creatinine Ratio 40.2 (6-22); Bilirubin Total 0.7 mg/dL (0.2-1.3); Blood Urea Nitrogen 43 mg/dL (9-20); Calcium 9.9 mg/dL (8.4-10.2); Carbon Dioxide 27 mmol/L (22-32); Chloride 103 mmol/L (98-107); Estimated Glomerular Filt Rate > 60.0 mL/min (>60); Glucose 86 mg/dL (80-110); HEMOLYSIS < 15 (0-50); Potassium 4.7 mmol/L (3.4-5.1); Sodium 140 mmol/L (137-145); Total Protein 7.4 g/dL (6.3-8.2)
[2020-03-27 15:04] LABS: Prostate Specific Antigen Scrn 1.04 ng/mL (0.1-4.0)
== END ==
PROVIDERS: Family Provider Podiatrist; PCP Internal Medicine; Referring Provider Internal Medicine; Visit Provider Internal Medicine
DX: E11.9 Type 2 diabetes mellitus without complications (principal); I10 Essential (primary) hypertension; Z79.01 Long term (current) use of anticoagulants; Z86.711 Personal history of pulmonary embolism; Z12.5 Encounter for screening for malignant neoplasm of prostate
CPT/HCPCS: 36415; 80053; 83036; 85025; G0103

== ENCOUNTER → 2020-03-27 13:45 | Outpatient (CLI) | payer MEDICARE, OTHER, SELFPAY ==
[2020-01-09 14:01] VITALS: BMI 42.9
== END ==
PROVIDERS: Family Provider Podiatrist; PCP Internal Medicine; Referring Provider Internal Medicine; Visit Provider Family Medicine
DX: E11.621 Type 2 diabetes mellitus with foot ulcer (principal); L97.511 Non-pressure chronic ulcer of other part of right foot limited to breakdown of skin; Z79.01 Long term (current) use of anticoagulants; Z79.84 Long term (current) use of oral hypoglycemic drugs
CPT/HCPCS: 15275; 36415; 80053; 83036; 85025; G0103; Q4132

== ENCOUNTER → 2020-04-03 13:34 | Outpatient (CLI) | payer MEDICARE, OTHER, SELFPAY ==
[2020-01-09 14:01] VITALS: BMI 42.9
== END ==
PROVIDERS: Family Provider Podiatrist; PCP Internal Medicine; Referring Provider Internal Medicine; Visit Provider Family Medicine
DX: E11.621 Type 2 diabetes mellitus with foot ulcer (principal); L97.511 Non-pressure chronic ulcer of other part of right foot limited to breakdown of skin; Z79.01 Long term (current) use of anticoagulants; Z79.84 Long term (current) use of oral hypoglycemic drugs
CPT/HCPCS: 15275; Q4105

== ENCOUNTER → 2020-04-10 11:04 | Outpatient (CLI) | payer MEDICARE, OTHER, SELFPAY ==
[2020-01-09 14:01] VITALS: BMI 42.9
== END ==
PROVIDERS: Family Provider Podiatrist; PCP Internal Medicine; Referring Provider Internal Medicine; Visit Provider Family Medicine
DX: E11.621 Type 2 diabetes mellitus with foot ulcer (principal); L97.511 Non-pressure chronic ulcer of other part of right foot limited to breakdown of skin; Z79.01 Long term (current) use of anticoagulants; Z79.84 Long term (current) use of oral hypoglycemic drugs
CPT/HCPCS: 99213

== ENCOUNTER → 2020-04-17 15:40 | Outpatient (CLI) | payer MEDICARE, OTHER, SELFPAY ==
[2020-01-09 14:01] VITALS: BMI 42.9
== END ==
PROVIDERS: Family Provider Podiatrist; PCP Internal Medicine; Referring Provider Internal Medicine; Visit Provider Family Medicine
DX: E11.621 Type 2 diabetes mellitus with foot ulcer (principal); L97.511 Non-pressure chronic ulcer of other part of right foot limited to breakdown of skin; Z79.01 Long term (current) use of anticoagulants; Z79.84 Long term (current) use of oral hypoglycemic drugs
CPT/HCPCS: 99213

== ENCOUNTER → 2020-04-24 14:57 | Outpatient (CLI) | payer MEDICARE, OTHER, SELFPAY ==
[2020-01-09 14:01] VITALS: BMI 42.9
== END ==
PROVIDERS: Family Provider Podiatrist; PCP Internal Medicine; Referring Provider Internal Medicine; Visit Provider Family Medicine
DX: E11.621 Type 2 diabetes mellitus with foot ulcer (principal); L97.511 Non-pressure chronic ulcer of other part of right foot limited to breakdown of skin; Z79.01 Long term (current) use of anticoagulants; Z79.84 Long term (current) use of oral hypoglycemic drugs
CPT/HCPCS: 11042

== ENCOUNTER → 2020-05-01 14:10 | Outpatient (CLI) | payer MEDICARE, OTHER, SELFPAY ==
[2020-01-09 14:01] VITALS: BMI 42.9
== END ==
PROVIDERS: Family Provider Podiatrist; PCP Internal Medicine; Referring Provider Internal Medicine; Visit Provider Family Medicine
DX: E11.621 Type 2 diabetes mellitus with foot ulcer (principal); L97.511 Non-pressure chronic ulcer of other part of right foot limited to breakdown of skin; Z79.01 Long term (current) use of anticoagulants; Z79.84 Long term (current) use of oral hypoglycemic drugs
CPT/HCPCS: 15275; 99213; Q4137

== ENCOUNTER → 2020-05-08 14:22 | Outpatient (CLI) | payer MEDICARE, OTHER, SELFPAY ==
[2020-01-09 14:01] VITALS: BMI 42.9
== END ==
PROVIDERS: Family Provider Podiatrist; PCP Internal Medicine; Referring Provider Internal Medicine; Visit Provider Family Medicine
DX: E11.621 Type 2 diabetes mellitus with foot ulcer (principal); L97.511 Non-pressure chronic ulcer of other part of right foot limited to breakdown of skin; Z79.01 Long term (current) use of anticoagulants; Z79.84 Long term (current) use of oral hypoglycemic drugs
CPT/HCPCS: 15275; Q4137

== ENCOUNTER → 2020-05-15 15:18 | Outpatient (CLI) | payer MEDICARE, OTHER, SELFPAY ==
[2020-01-09 14:01] VITALS: BMI 42.9
== END ==
PROVIDERS: Family Provider Podiatrist; PCP Internal Medicine; Referring Provider Internal Medicine; Visit Provider Family Medicine
DX: E11.621 Type 2 diabetes mellitus with foot ulcer (principal); L97.511 Non-pressure chronic ulcer of other part of right foot limited to breakdown of skin; Z79.01 Long term (current) use of anticoagulants; Z79.84 Long term (current) use of oral hypoglycemic drugs
CPT/HCPCS: 15275; Q4137

== ENCOUNTER → 2020-05-23 15:29 | Outpatient (CLI) | payer MEDICARE, OTHER, SELFPAY ==
[2020-01-09 14:01] VITALS: BMI 42.9
== END ==
PROVIDERS: Family Provider Podiatrist; PCP Internal Medicine; Referring Provider Internal Medicine; Visit Provider Family Medicine
DX: E11.621 Type 2 diabetes mellitus with foot ulcer (principal); L97.511 Non-pressure chronic ulcer of other part of right foot limited to breakdown of skin; Z79.01 Long term (current) use of anticoagulants; Z79.84 Long term (current) use of oral hypoglycemic drugs
CPT/HCPCS: 15275; Q4137

== ENCOUNTER → 2020-05-30 15:30 | Outpatient (CLI) | payer MEDICARE, OTHER, SELFPAY ==
[2020-01-09 14:01] VITALS: BMI 42.9
== END ==
PROVIDERS: Family Provider Podiatrist; PCP Internal Medicine; Referring Provider Internal Medicine; Visit Provider Family Medicine
DX: E11.621 Type 2 diabetes mellitus with foot ulcer (principal); L97.511 Non-pressure chronic ulcer of other part of right foot limited to breakdown of skin; Z79.01 Long term (current) use of anticoagulants; Z79.84 Long term (current) use of oral hypoglycemic drugs
CPT/HCPCS: 99212; 99213

== ENCOUNTER → 2020-06-06 14:30 | Outpatient (CLI) | payer MEDICARE, OTHER, SELFPAY ==
[2020-01-09 14:01] VITALS: BMI 42.9
== END ==
PROVIDERS: Family Provider Podiatrist; PCP Internal Medicine; Referring Provider Internal Medicine; Visit Provider Family Medicine
DX: E11.621 Type 2 diabetes mellitus with foot ulcer (principal); L97.511 Non-pressure chronic ulcer of other part of right foot limited to breakdown of skin; Z79.01 Long term (current) use of anticoagulants; Z79.84 Long term (current) use of oral hypoglycemic drugs
CPT/HCPCS: 15275; Q4137

== ENCOUNTER → 2020-06-07 13:28 | Outpatient (CLI) | payer MEDICARE, OTHER, SELFPAY ==
[2020-01-09 14:01] VITALS: BMI 42.9
== END ==
PROVIDERS: Family Provider Podiatrist; PCP Internal Medicine; Referring Provider Internal Medicine; Visit Provider Family Medicine
DX: E11.621 Type 2 diabetes mellitus with foot ulcer (principal); L97.511 Non-pressure chronic ulcer of other part of right foot limited to breakdown of skin
CPT/HCPCS: 99213

== ENCOUNTER → 2020-06-13 15:06 | Outpatient (CLI) | payer MEDICARE, OTHER, SELFPAY ==
[2020-01-09 14:01] VITALS: BMI 42.9
== END ==
PROVIDERS: Family Provider Podiatrist; PCP Internal Medicine; Referring Provider Internal Medicine; Visit Provider Family Medicine
DX: E11.621 Type 2 diabetes mellitus with foot ulcer (principal); L97.511 Non-pressure chronic ulcer of other part of right foot limited to breakdown of skin; Z79.01 Long term (current) use of anticoagulants; Z79.84 Long term (current) use of oral hypoglycemic drugs
CPT/HCPCS: 15275; 87070; 87075; 87077; 87186; 87205; 99213; Q4137

== ENCOUNTER → 2020-06-20 10:57 | Outpatient (CLI) | payer MEDICARE, OTHER, SELFPAY ==
[2020-01-09 14:01] VITALS: BMI 42.9
== END ==
PROVIDERS: Family Provider Podiatrist; PCP Internal Medicine; Referring Provider Internal Medicine; Visit Provider Family Medicine
DX: E11.621 Type 2 diabetes mellitus with foot ulcer (principal); L97.511 Non-pressure chronic ulcer of other part of right foot limited to breakdown of skin; Z79.01 Long term (current) use of anticoagulants; Z79.84 Long term (current) use of oral hypoglycemic drugs; L08.9 Local infection of the skin and subcutaneous tissue, unspecified; B96.5 Pseudomonas (aeruginosa) (mallei) (pseudomallei) as the cause of diseases classified elsewhere
CPT/HCPCS: 11042; 99214

== ENCOUNTER → 2020-06-27 12:50 | Outpatient (CLI) | payer MEDICARE, OTHER, SELFPAY ==
[2020-01-09 14:01] VITALS: BMI 42.9
== END ==
PROVIDERS: Family Provider Podiatrist; PCP Internal Medicine; Referring Provider Internal Medicine; Visit Provider Family Medicine
DX: E11.621 Type 2 diabetes mellitus with foot ulcer (principal); L97.511 Non-pressure chronic ulcer of other part of right foot limited to breakdown of skin; Z79.01 Long term (current) use of anticoagulants; Z79.84 Long term (current) use of oral hypoglycemic drugs; L08.9 Local infection of the skin and subcutaneous tissue, unspecified; B96.5 Pseudomonas (aeruginosa) (mallei) (pseudomallei) as the cause of diseases classified elsewhere
CPT/HCPCS: 11042

== ENCOUNTER → 2020-07-04 13:20 | Outpatient (CLI) | payer MEDICARE, OTHER, SELFPAY ==
[2020-01-09 14:01] VITALS: BMI 42.9
== END ==
PROVIDERS: Family Provider Podiatrist; PCP Internal Medicine; Referring Provider Internal Medicine; Visit Provider Family Medicine
DX: E11.43 Type 2 diabetes mellitus with diabetic autonomic (poly)neuropathy (principal)
CPT/HCPCS: 99212

== ENCOUNTER → 2020-09-24 11:57 | Outpatient (CLI) | payer MEDICARE, OTHER, SELFPAY ==
[2020-01-09 14:01] VITALS: BMI 42.9
[2020-09-24 12:48] LABS: Hemoglobin A1C% w Est Avg Glu 8.6 % (4.0-6.0)
[2020-09-24 13:16] LABS: BUN Creatinine Ratio 35.6 (6-22); Blood Urea Nitrogen 37 mg/dL (9-20); Calcium 9.6 mg/dL (8.4-10.2); Carbon Dioxide 28 mmol/L (22-32); Chloride 104 mmol/L (98-107); Estimated Glomerular Filt Rate > 60.0 mL/min (>60); Glucose 182 mg/dL (80-110); HEMOLYSIS < 15 (0-50); Potassium 4.5 mmol/L (3.4-5.1); Sodium 138 mmol/L (137-145)
== END ==
PROVIDERS: Family Provider Podiatrist; PCP Internal Medicine; Referring Provider Internal Medicine; Visit Provider Internal Medicine
DX: E11.65 Type 2 diabetes mellitus with hyperglycemia (principal); I10 Essential (primary) hypertension
CPT/HCPCS: 36415; 80048; 83036

== ENCOUNTER 2020-10-08 13:16 | Emergency (ER) | payer MEDICARE, OTHER, SELFPAY ==
[2020-01-09 14:01] VITALS: BMI 42.9
[2020-10-08 13:19] VITALS: BP 123/56; PULSE 97; RESP 20; TEMP 36.7; O2SAT 98
--- NOTE | 2020-10-08 14:37 | ED.SKABFB ---
HPI - Skin/Abscess/Foreign Bdy General Chief complaint: Skin/Abscess/Foreign Body Stated complaint: Infection in Big Toe, Rt Foot Time Seen by Provider: 10/08/20 14:09 Source: patient Mode of arrival: Ambulatory Limitations: no limitations History of Present Illness HPI narrative: Patient is a 75-year-old diabetic male who presents with right big toe abnormality. He says that he was in wound care for some time and was released a few months back. He actually was seen by his primary care provider last week is however yesterday he noticed that he had a callus on his right big toe. He thinks maybe he needs to go back to wound care but unfortunately the provider has retired. Related Data Home Medications Medication Instructions Recorded Confirmed acetaminophen 1 tab PO PRN PRN 07/07/18 10/02/20 aspirin 81 mg PO DAILY 07/07/18 10/02/20 melatonin 5 mg PO BEDTIME 07/07/18 10/02/20 Previous Rx's Medication Instructions Recorded nystatin 100,000 unit/gram topical 1 applictn TOP BID PRN #30 gram 08/02/18 ointment blood sugar diagnostic #360 each 09/22/18 finasteride 5 mg tablet 5 mg PO QDAY #90 tab 11/15/19 rosuvastatin 10 mg tablet 10 mg PO QPM #90 tab 02/06/20 lisinopril 40 mg tablet 40 mg PO DAILY #90 tab 03/12/20 potassium chloride 20 mEq 40 meq PO BID #360 tab 03/19/20 tablet,extended release(part/cryst) doxazosin 4 mg tablet 4 mg PO BEDTIME #90 tab 06/11/20 glipizide 5 mg tablet, extended 5 mg PO DAILY #90 tab 07/17/20 release 24 hr warfarin 4 mg tablet 4 mg PO DAILY #90 tab 07/24/20 metformin 1,000 mg tablet 1,000 mg PO BID #180 tab 08/21/20 carvedilol 12.5 mg tablet 25 mg PO BID #360 tab 09/03/20 tramadol 50 mg tablet 50 - 100 mg PO Q8H PRN #120 tab 09/18/20 furosemide 40 mg tablet 120 mg PO QAM #180 tab 09/20/20 gabapentin 600 mg tablet 600 mg PO BID #180 tab 10/02/20 Allergies Allergy/AdvReac Type Severity Reaction Status Date / Time atorvastatin [ATORVASTATIN] Allergy Mild flu like Verified 10/02/20 13:49 (LIPITOR) codeine [CODEINE] Allergy Mild Verified 10/02/20 13:49 Review of Systems Review of Systems Narrative: GENERAL: Denies chills,fever HEENT: Denies throat pain RESPIRATORY: Denies dyspnea, cough, wheezing CARDIOVASCULAR: Denies chest pain, palpitations GASTROINTESTINAL: Denies nausea, vomiting MUSCULOSKELETAL: Denies extremity pain, injury SKIN: See HPI NEUROLOGIC: Denies weakness, dizziness, headache, numbness 8 point review of systems is negative except for those stated above and HPI Patient History Medical History (Updated 10/08/20 @ 14:56 by Arianna Owen DO) Anticoagulated on warfarin Atrial fibrillation Atrial flutter Benign localized prostatic hyperplasia with lower urinary tract symptoms (LUTS) (12/29/17) Body mass index (BMI) of 45.0 to 49.9 in adult (02/17/17) C. difficile diarrhea Cardiomyopathy (04/21/13) Cellulitis and abscess of right leg Diabetic toe ulcer Edema Essential hypertension (10/10/11) Gynecomastia (03/30/17) History of pulmonary embolism Mixed hyperlipidemia (10/25/15) Morbid obesity due to excess calories (02/17/17) Pressure ulcer of contiguous region involving back and buttock, stage 2 Pulmonary emboli Type 2 diabetes mellitus with hyperglycemia (10/10/11) Type 2 diabetes mellitus without complication (10/25/15) Social History marital status: number of children: 0 household members: spouse lives independently: Yes caregiver/support person: No housing: house pets and animals: Yes education level: college occupational status: other 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 leisure activities: exercise and other Smoking Status: Never smoker Tobacco: How many years used: 0 quit status: quit date established second hand exposure: Yes (None over the last 30 years) alcohol intake: former substance use type: does not use Smoking Status: Never smoker alcohol intake frequency: a few times a month Substance Use Type: does not use Exam Initial Vital Signs Initial Vital Signs: Vital Signs Temperature 98.0 F 10/08/20 13:19 Pulse Rate 97 H 10/08/20 13:19 Respiratory Rate 20 10/08/20 13:19 Blood Pressure 123/56 L 10/08/20 13:19 Pulse Oximetry 98 10/08/20 13:19 GENERAL: Well-appearing, well-nourished and in no acute distress. CARDIOVASCULAR: peripheral pulses in tact, cap refill <2 sec RESPIRATORY: No respiratory distress, speaks in full sentences without difficulty EXTREMITIES: Normal range of motion, no clubbing or edema. Neurovascularly intact NEUROLOGICAL: Cranial nerves II through XII grossly intact. Normal gait and speech. SKIN: Right big toe has callus of 4 cm x 2 cm no erythema no gross drainage on the medial side. Mild erythema of his right lower leg as well patient states that this is chronic and ongoing for him Course Vital Signs Vital signs: Vital Signs - 8 hr 10/08/20 13:19 10/08/20 15:05 Temperature 98.0 F Pulse Rate 97 H 95 H Respiratory Rate 20 18 Blood Pressure 123/56 L 115/62 Pulse Oximetry 98 95 MDM - Skin/Abscess/Foreign Bdy MDM Narrative Medical decision making narrative: This is not appear to be grossly infected at this time but may require debridement. I recommend he follow up with Podiatry and/or wound care. And to check his feet every day. He is afebrile he has chronic ongoing cellulitis which does not seem to be worse. Discharge Plan Departure Patient Disposition: Home Clinical Impression: Callus Instructions: DI for Calluses and Corns Activity Restrictions/Additional Instructions: *You have been diagnosed with a right toe callus *What to do: You do need to follow-up with wound care. I recommend soaking in water 1 to 2 times a day for about 20 minutes. You may continue to put antibiotic ointment on it 2-3 times daily. Please check her feet every single day to be sure that this is not worsening. *Continue to take medications as directed *Follow up with your primary care provider in 2-3 days Follow-up with wound care *Return to ER if you should have increasing redness, size, pain or any new, worsening or concerning symptoms Prescriptions: No Action nystatin 100,000 unit/gram ointment 1 applictn TOP BID PRN (Reason: rash) Qty: 30 RF: 3 (DME) blood sugar diagnostic [OneTouch Verio test strips] strip See Dose Instructions .ROUTE .MEDSUPPLY Qty: 360 RF: 12 finasteride 5 mg tablet 5 mg PO QDAY Qty: 90 RF: 3 rosuvastatin 10 mg tablet 10 mg PO QPM Qty: 90 RF: 3 lisinopril 40 mg tablet 40 mg PO DAILY Qty: 90 RF: 3 potassium chloride 20 mEq tablet,ER particles/crystals 40 meq PO BID Qty: 360 RF: 3 doxazosin 4 mg tablet 4 mg PO BEDTIME Qty: 90 RF: 1 glipizide 5 mg tablet extended release 24hr 5 mg PO DAILY Qty: 90 RF: 1 warfarin 4 mg tablet 4 mg PO DAILY Qty: 90 RF: 0 metformin [Glucophage] 1,000 mg tablet 1,000 mg PO BID Qty: 180 RF: 3 carvedilol 12.5 mg tablet 25 mg PO BID Qty: 360 RF: 3 tramadol 50 mg tablet 50 - 100 mg PO Q8H PRN (Reason: pain) Qty: 120 RF: 0 furosemide 40 mg tablet 120 mg PO QAM Qty: 180 RF: 5 gabapentin 600 mg tablet 600 mg PO BID Qty: 180 RF: 3 acetaminophen 325 mg Tablet 1 tab PO PRN PRN (Reason: pain) RF: 0 aspirin 81 mg Tablet,Delayed Release (Dr/Ec) 81 mg PO DAILY RF: 0 melatonin 5 mg Tablet 5 mg PO BEDTIME RF: 0 Referrals: Samson Cox MD [Primary Care Provider] - Harry Sofia DPM [Family Provider] - Glen Noguera MD [Physician] -
[2020-10-08 15:05] VITALS: BP 115/62; PULSE 95; RESP 18; O2SAT 95
--- NOTE | 2020-10-08 15:06 | PC.NURSE ---
assessment deferred to provider.
== END 2020-10-08 15:05 | disposition home or self-care (01) ==
PROVIDERS: Emergency Provider Emergency Medicine; Family Provider Podiatrist; PCP Internal Medicine
DX: L84 Corns and callosities (principal); I48.91 Unspecified atrial fibrillation; Z79.01 Long term (current) use of anticoagulants; E11.9 Type 2 diabetes mellitus without complications
CPT/HCPCS: 99281

== ENCOUNTER → 2020-10-18 08:57 | Outpatient (CLI) | payer MEDICARE, OTHER, SELFPAY ==
[2020-01-09 14:01] VITALS: BMI 42.9
== END ==
PROVIDERS: Family Provider Podiatrist; PCP Internal Medicine; Referring Provider Internal Medicine; Visit Provider Family Medicine
DX: E11.621 Type 2 diabetes mellitus with foot ulcer (principal); L97.511 Non-pressure chronic ulcer of other part of right foot limited to breakdown of skin; L97.521 Non-pressure chronic ulcer of other part of left foot limited to breakdown of skin; S81.801A Unspecified open wound, right lower leg, initial encounter; L03.115 Cellulitis of right lower limb; L03.032 Cellulitis of left toe; E11.40 Type 2 diabetes mellitus with diabetic neuropathy, unspecified; R60.0 Localized edema; L03.031 Cellulitis of right toe
CPT/HCPCS: 87070; 87075; 87077; 87147; 87186; 87205; 97597; 99214; 99215

== ENCOUNTER → 2020-10-22 11:42 | Outpatient (CLI) | payer MEDICARE, OTHER, SELFPAY ==
[2020-01-09 14:01] VITALS: BMI 42.9
== END ==
PROVIDERS: Family Provider Podiatrist; PCP Internal Medicine; Referring Provider Internal Medicine; Visit Provider Family Medicine
DX: I87.2 Venous insufficiency (chronic) (peripheral) (principal); L97.811 Non-pressure chronic ulcer of other part of right lower leg limited to breakdown of skin; R60.0 Localized edema; E11.621 Type 2 diabetes mellitus with foot ulcer; E11.622 Type 2 diabetes mellitus with other skin ulcer; L97.511 Non-pressure chronic ulcer of other part of right foot limited to breakdown of skin; L97.521 Non-pressure chronic ulcer of other part of left foot limited to breakdown of skin
CPT/HCPCS: 29581; 99211

== ENCOUNTER → 2020-10-24 10:42 | Outpatient (CLI) | payer MEDICARE, OTHER, SELFPAY ==
[2020-01-09 14:01] VITALS: BMI 42.9
== END ==
PROVIDERS: Family Provider Podiatrist; PCP Internal Medicine; Referring Provider Internal Medicine; Visit Provider Family Medicine
DX: E11.621 Type 2 diabetes mellitus with foot ulcer (principal); E11.628 Type 2 diabetes mellitus with other skin complications; L97.511 Non-pressure chronic ulcer of other part of right foot limited to breakdown of skin; L97.521 Non-pressure chronic ulcer of other part of left foot limited to breakdown of skin; S81.801A Unspecified open wound, right lower leg, initial encounter; E11.40 Type 2 diabetes mellitus with diabetic neuropathy, unspecified; R60.0 Localized edema; L03.115 Cellulitis of right lower limb; L03.032 Cellulitis of left toe; L03.031 Cellulitis of right toe
CPT/HCPCS: 11042; 97597; 97598; 99213

== ENCOUNTER → 2020-10-29 09:20 | Outpatient (CLI) | payer MEDICARE, OTHER, SELFPAY ==
[2020-01-09 14:01] VITALS: BMI 42.9
== END ==
PROVIDERS: Family Provider Podiatrist; PCP Internal Medicine; Referring Provider Internal Medicine; Visit Provider Family Medicine
DX: E11.621 Type 2 diabetes mellitus with foot ulcer (principal); I87.2 Venous insufficiency (chronic) (peripheral); L97.811 Non-pressure chronic ulcer of other part of right lower leg limited to breakdown of skin; L97.511 Non-pressure chronic ulcer of other part of right foot limited to breakdown of skin; L97.521 Non-pressure chronic ulcer of other part of left foot limited to breakdown of skin
CPT/HCPCS: 29581

== ENCOUNTER → 2020-11-01 12:09 | Outpatient (CLI) | payer MEDICARE, OTHER, SELFPAY ==
[2020-01-09 14:01] VITALS: BMI 42.9
== END ==
PROVIDERS: Family Provider Podiatrist; PCP Internal Medicine; Referring Provider Internal Medicine; Visit Provider Family Medicine
DX: I87.2 Venous insufficiency (chronic) (peripheral) (principal); E11.622 Type 2 diabetes mellitus with other skin ulcer; L97.511 Non-pressure chronic ulcer of other part of right foot limited to breakdown of skin; L97.521 Non-pressure chronic ulcer of other part of left foot limited to breakdown of skin; L97.811 Non-pressure chronic ulcer of other part of right lower leg limited to breakdown of skin
CPT/HCPCS: 11042; 99213

== ENCOUNTER → 2020-11-08 11:10 | Outpatient (CLI) | payer MEDICARE, OTHER, SELFPAY ==
[2020-01-09 14:01] VITALS: BMI 42.9
== END ==
PROVIDERS: Family Provider Podiatrist; PCP Internal Medicine; Referring Provider Internal Medicine; Visit Provider Family Medicine
DX: E11.621 Type 2 diabetes mellitus with foot ulcer (principal); L97.511 Non-pressure chronic ulcer of other part of right foot limited to breakdown of skin; L97.521 Non-pressure chronic ulcer of other part of left foot limited to breakdown of skin; E11.65 Type 2 diabetes mellitus with hyperglycemia; E11.40 Type 2 diabetes mellitus with diabetic neuropathy, unspecified; I87.2 Venous insufficiency (chronic) (peripheral); R60.0 Localized edema
CPT/HCPCS: 11042

== ENCOUNTER → 2020-11-14 10:44 | Outpatient (CLI) | payer MEDICARE, OTHER, SELFPAY ==
[2020-01-09 14:01] VITALS: BMI 42.9
== END ==
PROVIDERS: Family Provider Podiatrist; PCP Internal Medicine; Referring Provider Internal Medicine; Visit Provider Family Medicine
DX: E11.621 Type 2 diabetes mellitus with foot ulcer (principal); L97.511 Non-pressure chronic ulcer of other part of right foot limited to breakdown of skin; E11.40 Type 2 diabetes mellitus with diabetic neuropathy, unspecified
CPT/HCPCS: 11042

== ENCOUNTER → 2020-11-21 11:11 | Outpatient (CLI) | payer MEDICARE, OTHER, SELFPAY ==
[2020-01-09 14:01] VITALS: BMI 42.9
== END ==
PROVIDERS: Family Provider Podiatrist; PCP Internal Medicine; Referring Provider Internal Medicine; Visit Provider Family Medicine
DX: E11.621 Type 2 diabetes mellitus with foot ulcer (principal); L97.511 Non-pressure chronic ulcer of other part of right foot limited to breakdown of skin
CPT/HCPCS: 99213

== ENCOUNTER → 2020-11-29 13:07 | Outpatient (CLI) | payer MEDICARE, OTHER, SELFPAY ==
[2020-01-09 14:01] VITALS: BMI 42.9
== END ==
PROVIDERS: PCP Internal Medicine; Referring Provider Internal Medicine; Visit Provider Family Medicine
DX: E11.621 Type 2 diabetes mellitus with foot ulcer (principal); L97.511 Non-pressure chronic ulcer of other part of right foot limited to breakdown of skin; E11.40 Type 2 diabetes mellitus with diabetic neuropathy, unspecified
CPT/HCPCS: 11042

== ENCOUNTER 2020-11-29 22:28 | Emergency (ER) | payer MEDICARE, OTHER, SELFPAY ==
[2020-01-09 14:01] VITALS: BMI 42.9
[2020-11-29 22:36] VITALS: BP 164/74; PULSE 94; RESP 20; TEMP 36.6; O2SAT 98; BMI 44.4
--- NOTE | 2020-11-29 23:06 | ED_ITS ---
HPI - Fall General Chief Complaint: Fall Stated Complaint: Fall, right sided pain Time Seen by Provider: 11/29/20 22:41 Source: patient Mode of arrival: Ambulatory History of Present Illness HPI Narrative: 75-year-old gentleman with morbid obesity, BPH, pulmonary emboli chronically anticoagulated on warfarin, coronary artery disease, diabetes, right lower extremity wound followed by wound care, high blood pressure who had a mechanical fall this morning. He states he tripped over a new shoe stumbled against his car has some minor abrasions to the left arm left knee. Medics were called to help him get up off the ground and he was not having significant pain and was not transported to the ER that time. Within 6 hours of that he began having more pain in his right side. Over the course of the day he has taken a total of for tramadol for right-sided flank pain that radiates up to his right shoulder and down to the right groin area and still is complaining of right- sided pain. He is not sure whether he also fell to the right side but there is no trauma or abrasion to suggest that. He does not have a history of kidney stones but he does have mild hematuria. He complains of no fevers, cough, chills, nausea. Related Data Home Medications Medication Instructions Recorded Confirmed acetaminophen 1 tab PO PRN PRN 07/07/18 10/17/20 aspirin 81 mg PO DAILY 07/07/18 10/17/20 melatonin 5 mg PO BEDTIME 07/07/18 10/17/20 Previous Rx's Medication Instructions Recorded nystatin 100,000 unit/gram topical 1 applictn TOP BID PRN #30 gram 08/02/18 ointment blood sugar diagnostic #360 each 09/22/18 finasteride 5 mg tablet 5 mg PO QDAY #90 tab 11/15/19 rosuvastatin 10 mg tablet 10 mg PO QPM #90 tab 02/06/20 lisinopril 40 mg tablet 40 mg PO DAILY #90 tab 03/12/20 potassium chloride 20 mEq 40 meq PO BID #360 tab 03/19/20 tablet,extended release(part/cryst) doxazosin 4 mg tablet 4 mg PO BEDTIME #90 tab 06/11/20 glipizide 5 mg tablet, extended 5 mg PO DAILY #90 tab 07/17/20 release 24 hr metformin 1,000 mg tablet 1,000 mg PO BID #180 tab 08/21/20 carvedilol 12.5 mg tablet 25 mg PO BID #360 tab 09/03/20 furosemide 40 mg tablet 120 mg PO QAM #180 tab 09/20/20 gabapentin 600 mg tablet 600 mg PO BID #180 tab 10/02/20 warfarin 4 mg tablet 4 mg PO DAILY #90 tab 10/22/20 tramadol 50 mg tablet 50 - 100 mg PO Q8H PRN #120 tab 11/13/20 oxycodone-acetaminophen 1 tab PO Q6H PRN 3 Days #10 tab 11/30/20 Allergies Allergy/AdvReac Type Severity Reaction Status Date / Time atorvastatin [ATORVASTATIN] Allergy Mild flu like Verified 10/17/20 09:44 (LIPITOR) codeine [CODEINE] Allergy Mild Verified 10/17/20 09:44 Review of Systems Review of Systems ROS Unobtainable: All systems reviewed & are unremarkable except as noted in HPI and below Patient History Medical History Anticoagulated on warfarin Atrial fibrillation Benign localized prostatic hyperplasia with lower urinary tract symptoms (LUTS) (12/29/17) C. difficile diarrhea Cardiomyopathy (04/21/13) Cellulitis and abscess of right leg Diabetic toe ulcer Edema Essential hypertension (10/10/11) Gynecomastia (03/30/17) History of pulmonary embolism Mixed hyperlipidemia (10/25/15) Morbid obesity due to excess calories (02/17/17) Pressure ulcer of contiguous region involving back and buttock, stage 2 Type 2 diabetes mellitus with hyperglycemia (10/10/11) Social History marital status: number of children: 0 household members: spouse lives independently: Yes caregiver/support person: No housing: house pets and animals: Yes education level: college occupational status: other 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 leisure activities: exercise and other Smoking Status: Never smoker Tobacco: How many years used: 0 quit status: quit date established second hand exposure: Yes (None over the last 30 years) alcohol intake: former substance use type: does not use Smoking Status: Never smoker alcohol intake frequency: a few times a month Substance Use Type: does not use Exam Narrative Exam Narrative: General: Morbidly obese but in no acute distress. Able to give a complete and coherent history. Well-nourished well-developed HEENT: Moist mucous membranes, normal sclera with reactive pupils, Neck: No JVD, supple Respiratory: Lungs are clear to auscultation, no wheezing no rales no rhonchi. Full and symmetrical air movement Cardiac: Regular rate and rhythm no murmurs no bruits Abdomen: Morbidly obese and exam is significantly limited by this. No rebound or guarding mild right flank tenderness Skin: Warm and dry, chronic venous stasis changes to the lower extremities and right foot in wound care dressings Neurologic: Grossly neurologically intact with no obvious asymmetries or abnormalities Extremities: Minor abrasion to the left forearm and left knee Psych: Cooperative, appropriate insight and affect Initial Vital Signs Initial Vital Signs: Vital Signs Temperature 97.8 F 11/29/20 22:36 Pulse Rate 94 H 11/29/20 22:36 Respiratory Rate 20 11/29/20 22:36 Blood Pressure 164/74 H 11/29/20 22:36 Pulse Oximetry 98 11/29/20 22:36 Course Orders Ordered: ED Orders 11/29/20 22:56 Urinalysis and Microscopic Stat 11/29/20 23:14 CT kidney ureter bladder (KUB) Stat 11/29/20 23:45 Complete Blood Count AUTO DIFF Stat Comprehensive Metabolic Panel Stat Prothrombin Time INR Stat Hydromorphone HCl (Hydromorphone 0.5 Mg Inj) 0.5 mg IV Q15MIN PRN PRN Reason: Pain, Last Admin: 11/29/20 23:36 Dose: 0.5 mg Documented by: MEGA Discontinued Medications Sodium Chloride (Normal Saline 0.9%) 1,000 mls @ 1,000 mls/hr IV BOLUS ONE Stop: 11/30/20 01:13 Last Admin: 11/30/20 00:32 Dose: 1,000 mls/hr Documented by: MEGA Ketorolac Tromethamine (Ketorolac 60 Mg/2 Ml Vial) 15 mg IV NOW ONE Stop: 11/30/20 00:15 Last Admin: 11/30/20 00:32 Dose: 15 mg Documented by: MEGA Oxycodone/Acetaminophen (Oxycodone/Apap 5/325 Prepack) 1 bottle MISC SEEINSTR ONE Stop: 11/30/20 01:42 Last Admin: 11/30/20 01:48 Dose: 1 bottle Documented by: Vital Signs Vital signs: Vital Signs - 8 hr 11/29/20 22:36 11/30/20 01:48 Temperature 97.8 F Pulse Rate 94 H 64 Respiratory Rate 20 20 Blood Pressure 164/74 H 134/68 Pulse Oximetry 98 98 MDM - Fall Medical Records Attestation: I reviewed the patient's medical records. Lab Data Attestation: I reviewed the patient's lab results. Result diagrams: 11/29/20 23:45 11/29/20 23:45 Labs: Lab Results 11/29/20 11/29/20 11/29/20 Range/Units 23:45 23:45 23:45 WBC 9.8 (4.5-11.0) X10^3/uL RBC 3.62 L (4.5-5.9) X10^6/uL Hgb 11.2 L (13.5-17.5) g/dL Hct 33.5 L (41-53) % MCV 92.5 (80-100) fL MCH 30.9 (26-34) PG MCHC 33.4 (30-36) % RDW 15.4 H (11.6-14.8) % Plt Count 198 (150-400) X10^3/uL Neut % (Auto) 80.5 H (50-75) % Lymph % (Auto) 8.0 L (25-40) % Childress % (Auto) 8.5 (3-14) % Eos % (Auto) 2.4 (2-4) % Baso % (Auto) 0.6 (0-2) % Neut # (Auto) 7900 H (0931-8855) /uL Lymph # (Auto) 800 L (8685-5968) /uL Childress # (Auto) 800 (0-900) /uL Eos # (Auto) 200 (0-450) /uL Baso # (Auto) 100 (0-100) /uL PT 39.0 H (10.1-12.7) SECONDS INR 3.4 H (0.9-1.3) Sodium 135 L (137-145) mmol/L Potassium 5.3 H (3.4-5.1) mmol/L Chloride 100 (98-107) mmol/L Carbon Dioxide 28 (22-32) mmol/L BUN 68 H (9-20) mg/dL Creatinine 1.74 H (0.66-1.25) mg/dL Estimated GFR 38.7 L (>60) mL/min BUN/Creatinine Ratio 39.1 H (6-22) Glucose 252 H (80-110) mg/dL Calcium 9.9 (8.4-10.2) mg/dL Total Bilirubin 0.6 (0.2-1.3) mg/dL AST 19 (17-59) IU/L ALT 19 (<50) IU/L Alkaline Phosphatase 73 (38-126) U/L Total Protein 7.5 (6.3-8.2) g/dL Albumin 4.3 (3.5-5.0) g/dL Globulin 3.2 (1.7-4.1) g/dL Albumin/Globulin Ratio 1.3 (1.0-2.8) Urine Dip Bedside Urine Glucose Negative Bedside Urine Bilirubin - Negative Bedside Urine Ketone - Negative Urine Specific Harrison 1.015 Bedside Urine Occult Blood +++ Bedside Urine pH 6.0 Bedside Urine Protein - Negative Bedside Urine Urobilinogen - Negative Bedside Urine Nitrite - Negative Bedside Urine Leukocytes - Negative Esterase Imaging Data CT scan - abdomen/pelvis: Radiologist's Impression: Mild right-sided hydro ureteral nephrosis with the a 3-4 mm stone in the right mid ureter. Incidental 6-7 mm nodule in the right lung follow-up CT in 6-12 months is recommended MDM Narrative Medical decision making narrative: 75-year-old gentleman with acute right-sided flank pain increasing over the course of the afternoon. Had a mild fall this morning with some abrasions to his left side and he is wondering if that is causing the right-sided pain. His CT scan reveals of 3-4 mm stone that is a are better explanation for the pain that he is experiencing. He is wondering of the fall ?knocked the stone out of his kidney?. I suspect that it did not. He has an incidentally noted 6-7 mm nodule in the right lung that will need further follow-up. Pain was controlled with IV fluid Toradol and a half a mg of Dilaudid. He has tramadol at home to help with pain and will be given a small prescription for Percocet to help with the acute renal colic pain. Will ask him to follow-up with his primary care physician. His creatinine is moderately elevated from comparison 1 approximately 6 months ago and will need to be rechecked in the ne ar future. Potassium was slightly elevated in will also benefit from follow-up. He is safe for home discharge at this time Discharge Plan Departure Patient Disposition: Home Clinical Impression: Ureterolithiasis, Dehydration, Acute renal insufficiency, Acute hyperkalemia, Incidental lung nodule Instructions: DI for Kidney Stones Activity Restrictions/Additional Instructions: Thank you for coming in today You have a kidney stone on the right side. I think that this is completely unrelated to your fall earlier today. You are already on all of the right medicine to help move the stone along the. You can use of Percocet rather than your usual tramadol for pain for the next 1- 2 days. I would expect the stone will pass. Will give you a stranger's she can try and catch it to know that it is completely gone. Some of your labs were slightly different from prior labs a number of months ago. I would like you to follow-up with Dr. Cox within a week so that he can make sure that you are feeling better and consider rechecking your kidney function and potassium levels We also found an incidental 6 mm nodule in your right lung. Guidelines for follow-up on incidental pulmonary nodules suggest a repeat chest CT in 6-12 months. Please discuss this with Dr. Cox. If you feel your worse, you need to return to the emergency department Prescriptions: New oxycodone-acetaminophen 5-325 mg tablet 1 tab PO Q6H PRN (Reason: pain) 3 Days Qty: 10 RF: 0 No Action nystatin 100,000 unit/gram ointment 1 applictn TOP BID PRN (Reason: rash) Qty: 30 RF: 3 (DME) blood sugar diagnostic [OneTouch Verio test strips] strip See Dose Instructions .ROUTE .MEDSUPPLY Qty: 360 RF: 12 finasteride 5 mg tablet 5 mg PO QDAY Qty: 90 RF: 3 rosuvastatin 10 mg tablet 10 mg PO QPM Qty: 90 RF: 3 lisinopril 40 mg tablet 40 mg PO DAILY Qty: 90 RF: 3 potassium chloride 20 mEq tablet,ER particles/crystals 40 meq PO BID Qty: 360 RF: 3 doxazosin 4 mg tablet 4 mg PO BEDTIME Qty: 90 RF: 1 glipizide 5 mg tablet extended release 24hr 5 mg PO DAILY Qty: 90 RF: 1 metformin [Glucophage] 1,000 mg tablet 1,000 mg PO BID Qty: 180 RF: 3 carvedilol 12.5 mg tablet 25 mg PO BID Qty: 360 RF: 3 furosemide 40 mg tablet 120 mg PO QAM Qty: 180 RF: 5 warfarin 4 mg tablet 4 mg PO DAILY Qty: 90 RF: 0 tramadol 50 mg tablet 50 - 100 mg PO Q8H PRN (Reason: pain) Qty: 120 RF: 0 gabapentin 600 mg tablet 600 mg PO BID Qty: 180 RF: 3 acetaminophen 325 mg Tablet 1 tab PO PRN PRN (Reason: pain) RF: 0 aspirin 81 mg Tablet,Delayed Release (Dr/Ec) 81 mg PO DAILY RF: 0 melatonin 5 mg Tablet 5 mg PO BEDTIME RF: 0 Referrals: Samson Cox MD [Primary Care Provider] -
--- NOTE | 2020-11-29 23:14 | DI.CT.S_ITS ---
PROCEDURE: CT KIDNEY URETER BLADDER (KUB) INDICATIONS: fall this am. Right flank pain and hematuria TECHNIQUE: Noncontrast 5 mm thick sections acquired from the diaphragms to the symphysis. 5 mm thick coronal and sagittal reformats were then performed. For radiation dose reduction, the following was used: automated exposure control, adjustment of mA and/or kV according to patient size. COMPARISON: [facility], US, US ABDOMEN LIMITED, 11/24/2019, 10:18. [facility], CT, CT ANGIO CHEST PE, 06/25/2018, 21:53. FINDINGS: Image quality: Excellent. Lung bases: Right middle lobe pulmonary nodule measuring at 0.7 x 0.6 cm, (3/8), previously 0.7 x 0[address] 06/25/2018. Right middle lobe pulmonary nodule measuring at 0.4 cm, (3/11), previously 0.4 cm. Left lower lobe pulmonary nodule measuring 0.7 cm, (3/17), previously 0.7 cm. Heart size is prominent. Three-vessel coronary artery calcifications. Asymmetric left gynecomastia, unchanged. Urinary system: Both kidneys are normal in size. Multiple low-density simple appearing cysts bilaterally. There is an anterior left kidney mid pole partially calcified cyst which is unchanged compared to 2018. There is an obstructing kidney stone in the mid right ureter measuring 0.4 cm, (267). Mild right kidney hydronephrosis. Additional punctate nonobstructing kidney stones in each kidney. No hydronephrosis on the left. Bladder wall thickness is normal; no calcified bladder stones. Other solid organs: Liver is normal in size. Hepatic steatosis. Calcified granuloma. Gallbladder is not significantly distended. Layering calcified gallstones. Pancreas is normal in contours. Spleen is normal in size. No adrenal nodules. Peritoneum and bowel: Unenhanced bowel loops demonstrate normal wall thickness and caliber. Diverticulosis. Normal appendix. No free fluid or air. Nodes and vessels: No retroperitoneal or mesenteric adenopathy by size criteria. Aorta and inferior vena cava are normal in caliber. Mild to moderate calcified atherosclerotic plaque. Pelvis: No free pelvic fluid. No inguinal hernias or adenopathy. Prostatomegaly. Bones: No suspicious bony lesions. Moderate DDD. No vertebral body compression fractures. IMPRESSION: 1. Right mid ureter obstructing calculus measuring 4 mm. Mild right hydronephrosis. 2. Additional punctate nonobstructing kidney stones bilaterally. 3. Bilateral pulmonary nodules largest measuring up to 7 mm. These are unchanged compared to May 2018 suggesting a benign etiology. -CT chest could be considered for further evaluation. Additional findings: Cholelithiasis. Hepatic steatosis. Prostatomegaly. Diverticulosis. This report is concordant with the overnight preliminary interpretation. Dictated by: Trevor Madrid M.D. on 11/30/2020 at 8:16 Approved by: Trevor Madrid M.D. on 11/30/2020 at 8:34
[2020-11-29] MEDS: HYDROMORPHONE 0.5 MG INJ IV (23:36)
[2020-11-29 23:57] LABS: Add Manual Diff / Slide Review NO; Basophils Absolute Auto 100 /uL (0-100); Basophils Percent Auto 0.6 % (0-2); Eosinophils Absolute Auto 200 /uL (0-450); Eosinophils Percent Auto 2.4 % (2-4); Hematocrit 33.5 % (41-53); Hemoglobin 11.2 g/dL (13.5-17.5); Lymphocytes Absolute Auto 800 /uL (1100-4500); Mean Corpuscular HGB Conc 33.4 % (30-36); Mean Corpuscular Hemoglobin 30.9 PG (26-34); Mean Corpuscular Volume 92.5 fL (80-100); Monocytes Absolute Auto 800 /uL (0-900); Monocytes Percent Auto 8.5 % (3-14); Neutrophils Absolute Auto 7900 /uL (1500-7000); Neutrophils Percent Auto 80.5 % (50-75); Platelet Count 198 X10^3/uL (150-400); Red Blood Cell Count 3.62 X10^6/uL (4.5-5.9); Red Cell Distribution Width 15.4 % (11.6-14.8); White Blood Cell Count 9.8 X10^3/uL (4.5-11.0)
[2020-11-29 23:58] LABS: INR 3.4 (0.9-1.3)
[2020-11-30 00:02] LABS: Alanine Aminotransferase 19 IU/L (<50); Albumin 4.3 g/dL (3.5-5.0); Albumin Globulin Ratio 1.3 (1.0-2.8); Alkaline Phosphatase 73 U/L (38-126); Aspartate Aminotransferase 19 IU/L (17-59); BUN Creatinine Ratio 39.1 (6-22); Bilirubin Total 0.6 mg/dL (0.2-1.3); Blood Urea Nitrogen 68 mg/dL (9-20); Calcium 9.9 mg/dL (8.4-10.2); Carbon Dioxide 28 mmol/L (22-32); Chloride 100 mmol/L (98-107); Estimated Glomerular Filt Rate 38.7 mL/min (>60); Globulin 3.2 g/dL (1.7-4.1); Glucose 252 mg/dL (80-110); HEMOLYSIS < 15 (0-50); Sodium 135 mmol/L (137-145); Total Protein 7.5 g/dL (6.3-8.2)
[2020-11-30 00:03] LABS: Potassium 5.3 mmol/L (3.4-5.1)
[2020-11-30] MEDS: SODIUM CHLORIDE 0.9% 1,000 ML 1000 ML IV (00:32)
[2020-11-30] MEDS: KETOROLAC 60 MG/2 ML VIAL 15 MG IV (00:32)
[2020-11-30 01:48] VITALS: BP 134/68; PULSE 64; RESP 20; O2SAT 98
[2020-11-30] MEDS: OXYCODONE/APAP 5/325 PREPACK 1 BOTTLE MISC (01:48)
== END 2020-11-30 02:02 | disposition home or self-care (01) ==
PROVIDERS: Emergency Provider Emergency Medicine; PCP Internal Medicine
DX: N20.1 Calculus of ureter (principal); N28.9 Disorder of kidney and ureter, unspecified; E87.5 Hyperkalemia; R91.1 Solitary pulmonary nodule; E86.0 Dehydration; S40.812A Abrasion of left upper arm, initial encounter; S80.212A Abrasion, left knee, initial encounter; R10.9 Unspecified abdominal pain; W19.XXXA Unspecified fall, initial encounter; E66.01 Morbid (severe) obesity due to excess calories; Z68.41 Body mass index [BMI] 40.0-44.9, adult; R31.9 Hematuria, unspecified; Z79.01 Long term (current) use of anticoagulants; E11.621 Type 2 diabetes mellitus with foot ulcer; L97.511 Non-pressure chronic ulcer of other part of right foot limited to breakdown of skin; E11.40 Type 2 diabetes mellitus with diabetic neuropathy, unspecified
CPT/HCPCS: 11042; 36415; 74176; 80053; 81003; 85025; 85610; 96361; 96374; 96375; 99283; 99284; J1170; J1885